=== PATIENT | male | born 1955 | race Caucasian/White ===

== ENCOUNTER 2016-03-01 14:52 | Emergency (ER) | payer MEDICARE, OTHER ==
[~2016-03-01] VITALS: Wt 76.5 kg
[~2016-03-01 14:52] MED LIST: AMLO-147 PO; ASPI-664 PO; CARV3.12 PO; DOCU-144 PO; FERR-55 PO; GABA300C PO; GLIP5TAB13 PO; NIT4 SL; OMEG100011 PO; SEVE800T7 PO; SITA25TA3 PO; VIT1TABL PO; ZOC20 PO
[2016-03-01 15:55] LABS: BASOPHILS % 0.2 % (0.0-2.0); EOSINOPHILS # 0.1 10^3/ul (0.0-0.5); EOSINOPHILS % 1.2 % (0.0-7.0); HEMATOCRIT 33.7 % (42.0-52.0); HEMOGLOBIN 11.6 g/dl (14.0-18.0); LYMPHOCYTES # 0.9 10^3/ul (0.8-2.9); MEAN CORPUSCULAR HEMOGLOBIN 32.4 pg (29.0-33.0); MEAN CORPUSCULAR HGB CONC 34.5 g/dl (32.0-37.0); MEAN CORPUSCULAR VOLUME 93.8 fl (82.0-101.0); MEAN PLATELET VOLUME 7.9 fl (7.4-10.4); MONOCYTE # 0.7 10^3/ul (0.3-0.9); MONOCYTES % 9.2 % (0.0-11.0); NEUTROPHIL # 5.9 10^3/ul (1.6-7.5); NEUTROPHILS % 77.4 % (39.0-77.0); PLATELET COUNT 191 10^3/UL (140-440); RED BLOOD COUNT 3.59 10^6/ul (4.70-6.10); RED CELL DISTRIBUTION WIDTH 13.8 % (11.5-14.5); UNCORRECTED WBC 7.7 10^3/ul (4.8-10.8); WHITE BLOOD COUNT 7.7 10^3/ul (4.8-10.8)
[2016-03-01 15:58] LABS: CONDITION 1
[2016-03-01 16:05] LABS: ALBUMIN 3.9 g/dl (3.3-4.9)
[2016-03-01 16:06] LABS: POTASSIUM 5.1 mmol/L (3.5-5.1)
[2016-03-01 16:08] LABS: CREATININE 8.65 mg/dl (0.61-1.24)
[2016-03-01 16:09] LABS: CALCIUM 8.3 mg/dl (8.4-10.2); TOTAL PROTEIN 7.8 g/dl (6.1-8.1)
--- NOTE | 2016-03-01 16:46 | RADRPT ---
PROCEDURE: XR Chest. CLINICAL INDICATION: Abdominal pain. TECHNIQUE: Single frontal view of the chest was obtained. COMPARISON: 12/24/2015. FINDINGS: There is cardiomegaly. There is calcification and slight unfolding of the thoracic aorta. Pulmonar y vasculature appears normal. Lung may are clear for focal airspace process. There is minimal d iscoid atelectasis at the left lung base. The costophrenic angles are well defined. There has been previous CABG. Osseous structures appear intact. IMPRESSION: 1. Cardiomegaly and aortic atherosclerosis. 2. Minimal left basilar subsegmental atelectasis. 3. No focal airspace process seen RPTAT: [facility] Physician Rosaura Date Time Electronically viewed and signed by Baudilio Darden Physician on 03/01/2016 16:46 /
--- NOTE | 2016-03-01 16:53 | ERD ---
ER Documentation Chief Complaint Date/Time DATE: 03/01/16 TIME: 16:51 Chief Complaint WEAKNESS, LOW BLOOD SUGAR AT HOME, DIALYSIS PT (136 MG/DL @ TRIAGE) HPI This is a 61-year-old male who presents to the emergency room for generalized weakness. This patient does state that he thinks he has high potassium. He does state he is on dialysis Wednesday, Wednesday, Wednesday. He states that he did go to his last dialysis on Wednesday. He states he is feeling generally weak, denies any nausea, vomiting, pain, or chest pain or dizziness. ROS All systems reviewed and are negative except as per history of present illness. Medications Home Meds Active Scripts Docusate Sodium* (Colace*) 100 Mg Capsule, 100 MG PO TID, #30 CAP Prov:TEDDY SANDOVAL 02/06/16 Gabapentin* (Neurontin*) 300 Mg Cap, 300 MG PO QHS, #30 CAP 1 Refill Prov:MERARY PULLIAM 09/08/15 Carvedilol* (Coreg*) 3.125 Mg Tab, 3.125 MG PO BID, #30 Prov:ANGIE FAJARDO MD 10/15/14 Reported Medications Amlodipine Besylate* (Amlodipine Besylate*) 10 Mg Tablet, 10 MG PO DAILY, #30 TAB 09/26/15 Glipizide* (Glipizide*) 5 Mg Tablet, 5 MG PO BID, TAB 05/22/15 Sevelamer Carbonate* (Renvela*) 800 Mg Tablet, 2400 MG PO WITH MEALS, TAB 10/14/14 Sitagliptin* (Januvia*) 25 Mg Tablet, 25 MG PO DAILY, TAB 10/14/14 [place]-3 Fatty Acids/Fish Oil* (Fish Oil *) 1,000 Mg Capsule, 1000 MG PO BID, CAP 10/14/14 Folic Acid/Vitamin B Comp W-C* (Nephro-Agatha Rx Tablet*) 1 Mg Tablet, 1 TAB PO DAILY, TAB 09/03/13 Nitroglycerin* (Nitrostat*) 0.4 Mg Tab.subl, 0.4 MG SL Q5MIN Y for CHEST PAIN, BOTTLE 09/03/13 Aspirin* (Aspirin* EC) 81 Mg Tablet.dr, 81 MG PO DAILY, TAB 09/03/13 Ferrous Sulfate* (Ferrous Sulfate*) 325 Mg Tablet, 325 MG PO DAILY 06/26/12 Simvastatin (Simvastatin) 20 Mg Tablet, 20 MG PO DAILY 12/07/10 Allergies Allergies: Coded Allergies: No Known Drug Allergies (Verified Allergy, Unknown, 03/01/16) PMhx/Soc History of Surgery: Yes (CABG, colon polyp removal, AV fistual) Anesthesia Reaction: No Hx Neurological Disorder: No Hx Respiratory Disorders: No Hx Cardiac Disorders: Yes (CAD, Hypertension) Hx Psychiatric Problems: Yes (Major Depression) Hx Miscellaneous Medical Probl: Yes (Hyperparathyroidism, ESRD on HD, Hyperlipidemia, DM TypeII, Prostate CA) Hx Alcohol Use: No Hx Substance Use: No Hx Tobacco Use: No Smoking Status: Never smoker Physical Exam Vitals Vital Signs Date Time Temp Pulse Resp B/P Pulse Ox O2 Delivery O2 Flow Rate FiO2 03/01/16 15:00 98.0 74 17 135/69 99 Physical Exam INITIAL VITAL SIGNS: Reviewed by me GENERAL: The patient is well developed and appropriate for usual state of health in no apparent distress HEENT: Pupils equal, round, and reactive to light. EOMI. There is no scleral icterus. NECK: C-spine is soft and supple, there is no meningismus. There is no cervical lymphadenopathy. LUNGS: Clear to auscultation bilaterally. There are no rales, wheezes or rhonchi. HEART: Regular rate and rhythm, no murmurs, clicks, rubs or gallops. ABDOMEN: Soft, non-tender, non-distended. There are bowel sounds in all four quadrants. No rebound or guarding. EXTREMITIES: There is no peripheral cyanosis or edema. No focal swelling or erythema. NEUROLOGICAL: The patient moves all four extremities with 5/5 strength. Cranial nerves II - XII are intact. Normal gait. Alert and oriented SKIN: AV shunt in left upper extremity, patent, palpable thrill, there is no apparent rash or petechiae. HEME/LYMPHATIC: There is no evidence of excessive bruising or lymphedema. PSYCHIATRIC: The patient does not appear anxious or depressed. Result Diagram: 03/01/16 1536 03/01/16 1536 Results 24 hrs Laboratory Tests Test 03/01/16 14:58 03/01/16 15:36 Bedside Glucose 136mg/dL Alanine Aminotransferase (ALT/SGPT) 37IU/L Albumin 3.9g/dl Albumin/Globulin Ratio 1.00 Alkaline Phosphatase 140IU/L Anion Gap 24 Aspartate Amino Transf (AST/SGOT) 25IU/L Basophils # 0.010^3/ul Basophils % 0.2% Blood Urea Nitrogen 79mg/dl Calcium Level 8.3mg/dl Carbon Dioxide Level 31mmol/L Chloride Level 91mmol/L Creatinine 8.65mg/dl Direct Bilirubin 0.00mg/dl Eosinophils # 0.110^3/ul Eosinophils % 1.2% Globulin 3.90g/dl Glucose Level 134mg/dl Hematocrit 33.7% Hemoglobin 11.6g/dl Indirect Bilirubin 0.0mg/dl Lipase 82U/L Lymphocytes # 0.910^3/ul Lymphocytes % 12.0% Mean Corpuscular Hemoglobin 32.4pg Mean Corpuscular Hemoglobin Concent 34.5g/dl Mean Corpuscular Volume 93.8fl Mean Platelet Volume 7.9fl Monocytes # 0.710^3/ul Monocytes % 9.2% Neutrophils # 5.910^3/ul Neutrophils % 77.4% Nucleated Red Blood Cells # 0.010^3/ul Nucleated Red Blood Cells % 0.0/100WBC Platelet Count 68462^3/UL Potassium Level 5.1mmol/L Red Blood Count 3.5910^6/ul Red Cell Distribution Width 13.8% Sodium Level 141mmol/L Total Bilirubin 0.0mg/dl Total Protein 7.8g/dl White Blood Count 7.710^3/ul Procedures/MDM EKG: Rate/Rhythm: [Normal Sinus Rhythm] QRS, ST, T-waves: [No changes consistent w/ acute ischemia] Impression: [No evidence of ischemia or arrhythmia] Chest X-ray 1V Interpreted by me: Soft Tissue: No acute abnormalities Bones: No acute abnormalities Mediastinum/Cardiac Silhouette/Lungs: [No acute abnormalities] This 61-year-old male presents to the ER for evaluation of generalized weakness. When I evaluated him he was hemodynamically stable, lab work was obtained including a chest x-ray. Lab work does not show any signs of hyperkalemia, he is at his baseline hemoglobin, no acute distress. Chest x-ray does not show any acute processes. This patient is likely suffering from viral syndrome. He will be discharged home at this time with instructions to follow- up with his dialysis appointment tomorrow as scheduled. Patient verbalized understanding and is okay with the plan of care. Departure Diagnosis: Primary Impression: Generalized weakness Additional Impressions: Normocytic anemia Viral syndrome Condition: Stable BERNADETTE MCCAIN DO Mar 01, 2016 16:53
[2016-03-01 17:07] VITALS: BP 125/55; PULSE 65; RESP 16; TEMP 98.5
== END 2016-03-01 17:07 | disposition home or self-care (01) ==
LOC: E/R 14:52
DX: R53.1 Weakness (principal); D64.9 Anemia, unspecified; B34.9 Viral infection, unspecified; E11.9 Type 2 diabetes mellitus without complications; I25.10 Atherosclerotic heart disease of native coronary artery without angina pectoris; I12.0 Hypertensive chronic kidney disease with stage 5 chronic kidney disease or end stage renal disease; N18.6 End stage renal disease; Z99.2 Dependence on renal dialysis; Z85.46 Personal history of malignant neoplasm of prostate; Z95.1 Presence of aortocoronary bypass graft; Z79.82 Long term (current) use of aspirin; Z79.84 Long term (current) use of oral hypoglycemic drugs
CPT/HCPCS: 36415; 71010; 80053; 82962; 83690; 85025; 93005

== ENCOUNTER 2016-04-23 14:34 | Inpatient (IN) | payer MEDICARE, OTHER ==
[~2016-04-23] VITALS: Ht 167.6 cm; Wt 75.0 kg
[2016-04-23] MEDS ORDERED: ONDANSETRON 4 MG INJ IV ONE (17:00)
[2016-04-23] MEDS ORDERED: HYDROmorphONE 2 MG/ML SYG IV ONE (17:00)
--- NOTE | 2016-04-23 17:59 | RADRPT ---
PROCEDURE: XR left ankle. CLINICAL INDICATION: Post traumatic left ankle pain TECHNIQUE: AP , oblique and lateral views of the left ankle were performed. COMPARISON: None. FINDINGS: There is normal mineralization and alignment. Abnormal spiral fracture through the distal fibula bel ow the syndesmosis is present without displacement of the fracture fragments. No additional fractur es are present. The ankle mortis and talar dome are intact. Diffuse soft tissue swelling over the la teral malleolus is noted. Extensive arteriosclerotic calcification is seen. There is no evidence fo r a radiopaque foreign body. RPTAT:HJJR IMPRESSION: 1. Acute, closed, nondisplaced distal fibula spiral fracture below the syndesmosis of the left ankle with overlying soft tissue swelling. 2. Extensive atherosclerotic calcification. Physician Joseluis Date Time Electronically viewed and signed by Physician Joseluis on 04/23/2016 17:59 /
--- NOTE | 2016-04-23 18:01 | RADRPT ---
PROCEDURE: XR Tibia and Fibula. CLINICAL INDICATION: Trauma TECHNIQUE: AP and lateral of the left tibia and fibula were obtained. COMPARISON: None available FINDINGS: There is normal mineralization and alignment. No fracture or osseous lesion is identified involving the proximal or mid tibia and fibula, for further information regarding the nondisplaced spiral frac ture of the distal fibula, please refer to the separate ankle report. Mild soft tissue swelling is p resent. Extensive atherosclerotic calcification is noted.. RPTAT:HJJR IMPRESSION: 1. No acute osseous abnormality of the proximal and mid left tibia and fibula. 2. For further information regarding the distal fibula spiral fracture, please refer to the separate ankle report. Physician Joseluis Date Time Electronically viewed and signed by Physician Joseluis on 04/23/2016 18:00 JR/
--- NOTE | 2016-04-23 18:23 | ERD ---
ER Documentation Chief Complaint Date/Time DATE: 04/23/16 TIME: 18:18 Chief Complaint LT LOWER LEG PAIN/SWELLING S/P FALL D/T DIZZINESS TODAY. DIALYSIS YESTERDAY HPI This is a 61-year-old male who was walking and accidentally stepped into a hole twisting his left ankle. He felt a pop in his distal lateral malleolus and has some pain in his midshaft fibula area. There is some ecchymosis. The pain is described as sharp worse with movement. The patient can stand but is painful and he says walking is worse. The pain is better with rest. No pain in the knee ROS All systems reviewed and are negative except as per history of present illness. Medications Home Meds Active Scripts Docusate Sodium* (Colace*) 100 Mg Capsule, 100 MG PO TID, #30 CAP Prov:TEDDY SANDOVAL 02/06/16 Gabapentin* (Neurontin*) 300 Mg Cap, 300 MG PO QHS, #30 CAP 1 Refill Prov:MERARY PULLIAM 09/08/15 Carvedilol* (Coreg*) 3.125 Mg Tab, 3.125 MG PO BID, #30 Prov:ANGIE FAJARDO MD 10/15/14 Reported Medications Amlodipine Besylate* (Amlodipine Besylate*) 10 Mg Tablet, 10 MG PO DAILY, #30 TAB 09/26/15 Glipizide* (Glipizide*) 5 Mg Tablet, 5 MG PO BID, TAB 05/22/15 Sevelamer Carbonate* (Renvela*) 800 Mg Tablet, 2400 MG PO WITH MEALS, TAB 10/14/14 Sitagliptin* (Januvia*) 25 Mg Tablet, 25 MG PO DAILY, TAB 10/14/14 [place]-3 Fatty Acids/Fish Oil* (Fish Oil *) 1,000 Mg Capsule, 1000 MG PO BID, CAP 10/14/14 Folic Acid/Vitamin B Comp W-C* (Nephro-Agatha Rx Tablet*) 1 Mg Tablet, 1 TAB PO DAILY, TAB 09/03/13 Nitroglycerin* (Nitrostat*) 0.4 Mg Tab.subl, 0.4 MG SL Q5MIN Y for CHEST PAIN, BOTTLE 09/03/13 Aspirin* (Aspirin* EC) 81 Mg Tablet.dr, 81 MG PO DAILY, TAB 09/03/13 Ferrous Sulfate* (Ferrous Sulfate*) 325 Mg Tablet, 325 MG PO DAILY 06/26/12 Simvastatin (Simvastatin) 20 Mg Tablet, 20 MG PO DAILY 12/07/10 Allergies Allergies: Coded Allergies: No Known Drug Allergies (Verified Allergy, Unknown, 03/01/16) PMhx/Soc History of Surgery: Yes (CABG, colon polyp removal, AV fistual) Anesthesia Reaction: No Hx Neurological Disorder: No Hx Respiratory Disorders: No Hx Cardiac Disorders: Yes (CAD, Hypertension) Hx Psychiatric Problems: Yes (Major Depression) Hx Miscellaneous Medical Probl: Yes (Hyperparathyroidism, ESRD on HD, Hyperlipidemia, DM TypeII, Prostate CA) Hx Alcohol Use: No Hx Substance Use: No Hx Tobacco Use: No Smoking Status: Never smoker FmHx Family History: No coronary disease Physical Exam Vitals Vital Signs Date Time Temp Pulse Resp B/P Pulse Ox O2 Delivery O2 Flow Rate FiO2 04/23/16 17:04 75 17 151/73 98 Room Air 04/23/16 15:01 98.4 75 16 162/82 98 Physical Exam Const: Well-developed, well-nourished Head: Atraumatic, normocephalic Eyes: Normal Conjunctiva, PERRLA, EOMI, normal sclera, no nystagmus ENT: Normal External Ears, Nose and Mouth, moist mucus membranes. Neck: Full range of motion. No meningismus, no lymphadenopathy. Resp: Clear to auscultation bilaterally, no wheezing, rhonchi, rales Cardio: Regular rate and rhythm, no murmurs, S1 S2 present Abd: Soft, non tender x 4, non distended. Normal bowel sounds, no guarding or rebound, no pulsitile abdominal masses or bruits Skin: No petechiae or rashes, no ecchymosis , no maculopapular rash Back: No midline or flank tenderness Ext: No cyanosis, or edema, FROM x 4, the left lateral malleolus is tender to palpation with ecchymosis and swelling there is also some midshaft fibula distal fibula tenderness with some ecchymosis and swelling no open wound. There is no pain at the proximal fibula. Neurovascularly intact x 4 Neur: Awake and alert, STR 5/5 x 4, sensation intact x 4, no focal findings, cerebellum intact Psych: Normal Mood and Affect Results 24 hrs Current Medications Medications (Trade) Dose Ordered Sig/Martín Route PRN Reason Start Time Stop Time Status Last Admin Dose Admin Hydromorphone HCl (Dilaudid) 1 mg ONCE ONCE IV 04/23/16 17:00 04/23/16 17:01 DC 04/23/16 17:00 Ondansetron HCl (Zofran Inj) 4 mg ONCE ONCE IV 04/23/16 17:00 04/23/16 17:01 DC 04/23/16 17:00 Procedures/MDM PROCEDURE: XR left ankle. CLINICAL INDICATION: Post traumatic left ankle pain TECHNIQUE: AP , oblique and lateral views of the left ankle were performed. COMPARISON: None. FINDINGS: There is normal mineralization and alignment. Abnormal spiral fracture through the distal fibula below the syndesmosis is present without displacement of the fracture fragments. No additional fractures are present. The ankle mortis and talar dome are intact. Diffuse soft tissue swelling over the lateral malleolus is noted. Extensive arteriosclerotic calcification is seen. There is no evidence for a radiopaque foreign body. RPTAT:HJJR IMPRESSION: 1. Acute, closed, nondisplaced distal fibula spiral fracture below the syndesmosis of the left ankle with overlying soft tissue swelling. 2. Extensive atherosclerotic calcification. Physician Joseluis Date Time Electronically viewed and signed by Physician Joseluis on 04/23/2016 17:59 JR/ CC: MELISSA DIETZ DO PROCEDURE: XR Tibia and Fibula. CLINICAL INDICATION: Trauma TECHNIQUE: AP and lateral of the left tibia and fibula were obtained. COMPARISON: None available FINDINGS: There is normal mineralization and alignment. No fracture or osseous lesion is identified involving the proximal or mid tibia and fibula, for further information regarding the nondisplaced spiral fracture of the distal fibula, please refer to the separate ankle report. Mild soft tissue swelling is present. Extensive atherosclerotic calcification is noted.. RPTAT:HJJR IMPRESSION: 1. No acute osseous abnormality of the proximal and mid left tibia and fibula. 2. For further information regarding the distal fibula spiral fracture, please refer to the separate ankle report. Russell Ulloa Physician Date Time Electronically viewed and signed by Russell Ulloa Physician on 04/23/2016 18:00 JR/ CC: MELISSA DIETZ DO Patient had crutches and a posterior leg left splint will follow up with orthopedic Departure Diagnosis: Primary Impression: Closed left fibular fracture Encounter type: initial encounter Fibula location: shaft Fracture morphology: spiral Fracture alignment: nondisplaced Qualified Code: S82.445A - Closed nondisplaced spiral fracture of shaft of left fibula, initial encounter Condition: Stable MELISSA DIETZ DO Apr 23, 2016 18:23
[2016-04-23] MEDS ORDERED: HYDR-902 PO (18:24)
[2016-04-23] MEDS ORDERED: ONDANSETRON 4 MG INJ IV STA ×2 (19:16→22:26)
[2016-04-23] MEDS ORDERED: HYDROmorphONE 1 MG/ML SYG IV STA ×2 (19:16→22:26)
[2016-04-23 19:57] LABS: POTASSIUM 4.6 mmol/L (3.5-5.1)
[2016-04-23 20:00] LABS: CREATININE 6.96 mg/dl (0.61-1.24)
[2016-04-23 20:01] LABS: CALCIUM 7.8 mg/dl (8.4-10.2)
[2016-04-23] MEDS ORDERED: NICARDipine HCL 30 MG CAPSULE PO ONE (21:00)
[2016-04-23] MEDS ORDERED: ONDANSETRON 4 MG INJ IV PRN (21:30)
[2016-04-23] MEDS ORDERED: ACETAMINOPHEN 325 MG TAB PO PRN (21:30)
[2016-04-23] MEDS ORDERED: hydrALAzine 20 MG INJ IV ONE ×2 (22:00→22:30)
[2016-04-23 23:15] VITALS: BP 200/97; PULSE 87; RESP 18
[2016-04-23 23:28] VITALS: Ht 167.6 cm; Wt 75.0 kg
[2016-04-23] MEDS ORDERED: LEVOFLOXACIN 500MG/D5W (PMX) 100 ML IVPB ONE (23:30)
[2016-04-23] MEDS: morphine 4 MG/ML VIAL IV PRN (23:44)
[2016-04-24] VITALS (12 sets, daily range): BP systolic 136–224; BP diastolic 69–117; PULSE 80–92; RESP 18–20
[2016-04-24] MEDS: HYDROCODONE/APAP (10/325) TAB PO PRN ×4 (00:05→21:05)
[2016-04-24] MEDS ORDERED: GLUCAGON 1 MG INJ IM PRN (01:30)
[2016-04-24] MEDS ORDERED: DEXTROSE 50% 50 ML SYRINGE IV PRN ×2 (01:30)
[2016-04-24] MEDS ORDERED: GLUCOSE GEL 15 GRAM TUBE BUCCAL PRN (01:30)
[2016-04-24] MEDS ORDERED: GLUCOSE GEL 15 GRAM TUBE PO PRN ×2 (01:30)
[2016-04-24] MEDS: ACCUCHECK XX SCH ×5 (02:00→21:09)
[2016-04-24] MEDS: morphine 4 MG/ML VIAL IV PRN (02:58)
[2016-04-24] MEDS ORDERED: HYDROmorphONE 1 MG/ML SYG IV ONE (04:11)
[2016-04-24] MEDS ORDERED: KETOROLAC 15 MG INJ IV PRN (04:30)
[2016-04-24] MEDS ORDERED: morphine 4 MG/ML VIAL IV PRN (04:30)
[2016-04-24 05:25] LABS: ADD SCAN DIFF NO
[2016-04-24 05:47] LABS: BASOPHILS % 0.4 % (0.0-2.0); EOSINOPHILS # 0.1 10^3/ul (0.0-0.5); EOSINOPHILS % 1.3 % (0.0-7.0); HEMATOCRIT 32.9 % (42.0-52.0); HEMOGLOBIN 10.6 g/dl (14.0-18.0); LYMPHOCYTES # 1.5 10^3/ul (0.8-2.9); LYMPHOCYTES % 15.9 % (15.0-51.0); MEAN CORPUSCULAR HEMOGLOBIN 31.6 pg (29.0-33.0); MEAN CORPUSCULAR HGB CONC 32.2 g/dl (32.0-37.0); MEAN CORPUSCULAR VOLUME 98.2 fl (82.0-101.0); MEAN PLATELET VOLUME 9.9 fl (7.4-10.4); MONOCYTE # 1.1 10^3/ul (0.3-0.9); MONOCYTES % 11.1 % (0.0-11.0); NEUTROPHIL # 6.7 10^3/ul (1.6-7.5); NEUTROPHILS % 70.7 % (39.0-77.0); PLATELET COUNT 199 10^3/UL (140-415); RED BLOOD COUNT 3.35 10^6/ul (4.70-6.10); RED CELL DISTRIBUTION WIDTH 14.8 % (11.5-14.5); WHITE BLOOD COUNT 9.5 10^3/ul (4.8-10.8)
[2016-04-24 06:07] LABS: ALBUMIN/GLOBULIN RATIO 0.97; CREATININE 7.36 mg/dl (0.61-1.24); TOTAL PROTEIN 8.1 g/dl (6.1-8.1)
[2016-04-24 06:08] LABS: CALCIUM 8.1 mg/dl (8.4-10.2)
[2016-04-24] MEDS: INSULIN ASPART [NOVOLOG] 3 ML PEN SC SCH ×4 (07:50→21:00)
[2016-04-24] MEDS ORDERED: hydrALAzine 20 MG INJ IV ONE (08:00)
[2016-04-24] MEDS ORDERED: hydrALAzine 20 MG INJ IV PRN (08:00)
[2016-04-24] MEDS: AMLODIPINE 10 MG TAB PO SCH (08:45)
[2016-04-24] MEDS: SEVELAMER 800 MG TAB PO SCH ×3 (08:45→17:35)
[2016-04-24] MEDS: FOLIC ACID 1 MG TAB PO SCH (08:45)
[2016-04-24] MEDS: ASPIRIN (EC) 81 MG TAB PO SCH (08:46)
[2016-04-24] MEDS: DOCUSATE SODIUM 100 MG CAP PO SCH ×3 (08:46→20:53)
[2016-04-24] MEDS: FERROUS SULFATE (EC) 325 MG TAB PO SCH (08:46)
--- NOTE | 2016-04-24 12:22 | CONS ---
DATE OF ADMISSION: 04/23/2016 DATE OF CONSULTATION: 04/24/2016 Thank you, Dr. Espinosa for asking me to participate in the medical management of this patient. REASON FOR CONSULTATION: End-stage renal disease. HISTORY OF PRESENT ILLNESS: This 61-year-old man was in his usual state of health until yesterday w hen he was walking and stepped into a hole in the pavement and twisting his left ankle. He was foun d to have an acute closed nondisplaced distal fibular spiral fracture. The patient was admitted for further evaluation and treatment. The patient does have a history of end-stage renal disease and i s on maintenance hemodialysis Wednesday, Wednesday, Wednesday. He is due for dialysis today being Wednesday. The patient usually dialyzes at the [facility] unit in [place]. 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 Dr. Valdes does not come to this hospital. The patient was last admitted to this hospital in August of 2015 because of chest pain. PAST MEDICAL HISTORY: End-stage renal disease on maintenance hemodialysis, hyperlipidemia, history of CVA, diabetes mellitus, coronary artery disease, degenerative joint disease. The patient does hav e hypertension. PAST SURGICAL HISTORY: Status post coronary artery bypass grafting in 2008, status post bowel resec tion, status post cholecystectomy. ALLERGIES: THE PATIENT HAS NO KNOWN DRUG ALLERGIES. SOCIAL HISTORY: He does not smoke, drink alcohol or take illicit drugs. FAMILY HISTORY: Unremarkable for kidney disease or heart disease. CURRENT MEDICATIONS: Include the followin. Levothyroxine. 2. Gabapentin 300 mg at bedtime. 3. Carvedilol 3.125 mg twice a day. 4. Docusate sodium 3 times a day. 5. Ferrous sulfate 325 daily. 6. Aspirin 81 mg a day. 7. Folic acid 1 mg a day. 8. Amlodipine 10 mg a day. 9. Hydralazine 10 mg p.r.n. elevated blood pressure. 10. Renagel 1600 mg with meals. 11. Sliding scale insulin. 12. Humalog. 13. Morphine for pain. 14. Toradol for pain. 15. [place] for pain. REVIEW OF SYSTEMS: The patient does have some vague right-sided chest pain and says that he someti mes has blood in his stool. I looked through his old records in the [facility] and he did have an episode of some rectal bleeding. At the time he was seen in the emergency room, he w as diagnosed as having hemorrhoids. PHYSICAL EXAMINATION: GENERAL: At this time reveals a well-developed man in no apparent distress. VITAL SIGNS: His blood pressure is 209/91. HEAD: Normocephalic. EYES: Extraocular muscles intact. NOSE AND MOUTH: Normal. NECK: Supple. No neck vein distention. LUNGS: Clear to auscultation. HEART: Regular rhythm. No murmurs, gallops or rubs. There is a well-healed midline chest scar. ABDOMEN: Soft, nontender, no masses or megaly. EXTREMITIES: No peripheral edema. He has a left upper arm AV fistula which is used for hemodialysi s. IMPRESSION: This patient presents now with a history of end-stage renal disease and is on [facility] hemodialysis Wednesday, Wednesday, Wednesday. He is due for dialysis today being Wednesday. He did fract ure his left fibula. He was admitted because of the left fibular fracture and having difficulty wal lester. LABORATORY DATA: Show that he is anemic and his potassium is 5.0 with a BUN of 51, creatinine 7.36, all consistent with his end-stage renal disease. PLAN: 1. Hemodialysis ordered for today. 2. Resume routine medications. 3. Control blood pressure with medications as needed. 4. I will follow the patient along with you. Dictated By: JOHN WORRELL MD, ND/ERIK Conf#: [id number] DID#: [id number]
--- NOTE | 2016-04-24 13:05 | PN ---
DATE: 04/24/2016 SUBJECTIVE: The patient is still having some lower extremity pain. Was seen by renal team eamon wolfe. OBJECTIVE: VITAL SIGNS: Stable except the blood pressure is 168 to 209 systolic over ____ to 91 diastolic. PHYSICAL EXAMINATION: GENERAL: The patient lying in bed, answering questions appropriately, in mild distress secondary to pain, but alert. HEENT: Pupils equal, round, react to light. Extraocular muscles intact. NECK: Supple, no thyromegaly. LUNGS: Clear to auscultation bilaterally. CARDIOVASCULAR: S1, S2 heard. No rubs or gallops. ABDOMEN: Soft, nontender, nondistended. Normal bowel sounds. No rebound or guarding. MUSCULOSKELETAL: He has a bandage over the left lower extremity, tenderness to palpation in the lef t lower extremity area. Otherwise, no lower extremity edema bilaterally. NEUROLOGIC: No focal deficits. LABORATORY DATA: CBC is normal. The basic metabolic panel is normal except the BUN IS ____and crea tinine IS 7.36. LFTs are essentially normal except alkaline phosphatase is 191. ASSESSMENT AND PLAN: 1. A 61-year-old male with history of end-stage renal disease who presents with left distal fibula spiral fractures. 2. Left ankle pain secondary to a left distal fibular fracture, spiral. Continue pain control medi cations and antiemetics. We will get an orthopedic consult as well. Most likely the patient will j ust need a brace. We will follow up their recommendations. 3. End-stage renal disease, on dialysis. Will get a renal consult scheduled for hemodialysis today . 4. Hypertensive urgency. Again, continue on current Coreg and calcium channel dianne medicines as well as hydralazine p.r.n. 5. Gastrointestinal prophylaxis. 6. Deep venous thrombosis prophylaxis. ____. Dictated By: LUZ ELENA HDEZ Conf#: [id number] DID#: [id number]
[2016-04-24] MEDS: ONDANSETRON 4 MG INJ IV PRN ×2 (17:35→22:49)
[2016-04-24] MEDS: GABAPENTIN 300 MG CAP GTB SCH (20:53)
[2016-04-24] MEDS: HEPARIN 5,000 UNIT/0.5 ML SYG SC SCH (21:01)
[2016-04-25] MEDS: ACCUCHECK XX SCH ×6 (02:00→21:21)
[2016-04-25 05:08] LABS: ADD SCAN DIFF NO
[2016-04-25 05:22] LABS: BASOPHILS % 0.5 % (0.0-2.0); EOSINOPHILS # 0.2 10^3/ul (0.0-0.5); EOSINOPHILS % 2.1 % (0.0-7.0); LYMPHOCYTES # 1.1 10^3/ul (0.8-2.9); LYMPHOCYTES % 13.2 % (15.0-51.0); MEAN CORPUSCULAR HEMOGLOBIN 32.4 pg (29.0-33.0); MEAN CORPUSCULAR HGB CONC 33.3 g/dl (32.0-37.0); MEAN CORPUSCULAR VOLUME 97.1 fl (82.0-101.0); MEAN PLATELET VOLUME 9.8 fl (7.4-10.4); MONOCYTE # 0.9 10^3/ul (0.3-0.9); MONOCYTES % 11.3 % (0.0-11.0); NEUTROPHIL # 5.8 10^3/ul (1.6-7.5); NEUTROPHILS % 72.5 % (39.0-77.0); PLATELET COUNT 202 10^3/UL (140-415); RED CELL DISTRIBUTION WIDTH 14.8 % (11.5-14.5)
[2016-04-25 06:15] LABS: POTASSIUM 4.6 mmol/L (3.5-5.1)
[2016-04-25 06:18] LABS: CREATININE 6.93 mg/dl (0.61-1.24)
[2016-04-25 06:19] LABS: CALCIUM 8.6 mg/dl (8.4-10.2)
[2016-04-25] MEDS: PANTOPRAZOLE (EC) 40 MG TAB PO SCH (06:29)
[2016-04-25 07:15] VITALS: BP 168/77; RESP 20
[2016-04-25] MEDS: INSULIN ASPART [NOVOLOG] 3 ML PEN SC SCH ×4 (07:50→21:00)
[2016-04-25] MEDS: DOCUSATE SODIUM 100 MG CAP PO SCH ×3 (09:11→20:38)
[2016-04-25] MEDS: FERROUS SULFATE (EC) 325 MG TAB PO SCH (09:12)
[2016-04-25] MEDS: ASPIRIN (EC) 81 MG TAB PO SCH (09:12)
[2016-04-25] MEDS: FOLIC ACID 1 MG TAB PO SCH (09:12)
[2016-04-25] MEDS: SEVELAMER 800 MG TAB PO SCH ×3 (09:12→17:35)
[2016-04-25] MEDS: AMLODIPINE 10 MG TAB PO SCH (09:13)
[2016-04-25] MEDS: HEPARIN 5,000 UNIT/0.5 ML SYG SC SCH ×2 (09:16→20:44)
--- NOTE | 2016-04-25 12:06 | PN ---
Date/Time of Note Date/Time of Note DATE: 04/25/16 TIME: 11:45 Assessment/Plan VTE Prophylaxis VTE Prophylaxis Intervention: heparin Lines/Catheters IV Catheter Type (from Nrs): Saline Lock Assessment/Plan Chief Complaint/Hosp Course ASSESSMENT AND PLAN: 61-year-old male with history of end-stage renal disease who presents with left distal fibula spiral fracture. 1. Left ankle pain secondary to a left distal fibular fracture, spiral. - Continue pain control medications and antiemetics. - per orthopedic consult, needs brace - ordered - pending. 3. End-stage renal disease, on dialysis - s/p HD yesterday - f/u renal consult rec's, continue meds. 4. Hypertensive urgency - stable - continue Coreg and calcium channel dianne medicines as well as hydralazine p.r.n. 5. Gastrointestinal prophylaxis - PPI Problems: Subjective 24 Hr Interval Summary Free Text/Dictation Awaiting brace for LLE, had HD yesterday. Exam/Review of Systems Vital Signs Vitals Vital Signs Date Time Temp Pulse Resp B/P Pulse Ox O2 Delivery O2 Flow Rate FiO2 04/25/16 07:15 97.8 70 20 168/77 98 04/24/16 03:00 Room Air Intake and Output 04/24/16 04/24/16 04/25/16 15:00 23:00 07:00 Intake Total 500 ml 200 ml Output Total 3500 ml Balance -3000 ml 200 ml Exam GENERAL: The patient lying in bed, answering questions appropriately, in mild distress secondary to pain, but alert. HEENT: Pupils equal, round, react to light. Extraocular muscles intact. NECK: Supple, no thyromegaly. LUNGS: Clear to auscultation bilaterally. CARDIOVASCULAR: S1, S2 heard. No rubs or gallops. ABDOMEN: Soft, nontender, nondistended. Normal bowel sounds. No rebound or guarding. MUSCULOSKELETAL: He has a bandage over the left lower extremity, tenderness to palpation in the left lower extremity area. Otherwise, no lower extremity edema bilaterally. NEUROLOGIC: No focal deficits. Results Result Diagram: 04/25/16 0418 04/25/16 0418 Results 24 hrs Laboratory Tests Test 04/24/16 11:50 04/24/16 17:39 04/24/16 20:51 04/25/16 04:18 Bedside Glucose 125 182 173 Anion Gap 21 H Basophils # 0.0 Basophils % 0.5 Blood Urea Nitrogen 48 H Calcium Level 8.6 Carbon Dioxide Level 31 Chloride Level 93 L Creatinine 6.93 H Eosinophils # 0.2 Eosinophils % 2.1 Glucose Level 97 Hematocrit 33.0 L Hemoglobin 11.0 L Lymphocytes # 1.1 Lymphocytes % 13.2 L Mean Corpuscular Hemoglobin 32.4 Mean Corpuscular Hemoglobin Concent 33.3 Mean Corpuscular Volume 97.1 Mean Platelet Volume 9.8 Monocytes # 0.9 Monocytes % 11.3 H Neutrophils # 5.8 Neutrophils % 72.5 Nucleated Red Blood Cells # 0.0 Nucleated Red Blood Cells % 0.0 Platelet Count 202 Potassium Level 4.6 Red Blood Count 3.40 L Red Cell Distribution Width 14.8 H Sodium Level 140 White Blood Count 8.0 Test 04/25/16 07:55 Bedside Glucose 108 Medications Medications Current Medications Carvedilol (Coreg) 3.125 mg BID PO Last administered on 04/25/16 09:13; Admin Dose 3.125 MG; Start 04/24/16 at 09:00 Gabapentin (Neurontin) 300 mg HS GTB Last administered on 04/24/16 20:53; Admin Dose 300 MG; Start 04/24/16 at 21:00 Docusate Sodium (Colace) 100 mg TID PO Last administered on 04/25/16 09:11; Admin Dose 100 MG; Start 04/24/16 at 09:00 Acetaminophen/ Hydrocodone Bitart ([place] (10/325)) 1 tab Q6H PRN PO PAIN LEVEL 7-10 Last administered on 04/24/16 21:05; Admin Dose 1 TAB; Start 04/23/16 at 23: 30 Ferrous Sulfate (Ferrous Sulfate (Ec)) 325 mg DAILY PO Last administered on 04/25 09:12; Admin Dose 325 MG; Start 04/24/16 at 09:00 Aspirin (Halfprin) 81 mg DAILY PO Last administered on 04/25/16 09:12; Admin Dose 81 MG; Start 04/24/16 at 09:00 Folic Acid (Folic Acid) 1 mg DAILY PO Last administered on 04/25/16 09:12; Admin Dose 1 MG; Start 04/24/16 at 09:00 Amlodipine Besylate 10 mg 10 mg DAILY PO Last administered on 04/25/16 09:13; Admin Dose 10 MG; Start 04/24/16 at 09:00 Levofloxacin/ Dextrose (Levaquin 250 Mg/ D5W 50 ml (Pmx)) 50 ml @ 50 mls/hr Q48H IVPB ; Start 04/25/16 at 23:30 Diagnostic Test (Pha) (Accucheck) 1 ea 02 XX Last administered on 04/24/16 02: 00; Admin Dose 1 EA; Start 04/24/16 at 02:00 Miscellaneous Information 1 ea NOTE XX ; Start 04/24/16 at 01:30 Glucose (Glutose) 15 gm Q15M PRN PO DECREASED GLUCOSE; Start 04/24/16 at 01:30 Glucose (Glutose) 22.5 gm Q15M PRN PO DECREASED GLUCOSE; Start 04/24/16 at 01:30 Dextrose (D50w Syringe) 25 ml Q15M PRN IV DECREASED GLUCOSE; Start 04/24/16 at 01:30 Dextrose (D50w Syringe) 50 ml Q15M PRN IV DECREASED GLUCOSE; Start 04/24/16 at 01:30 Glucagon (Glucagen) 1 mg Q15M PRN IM DECREASED GLUCOSE; Start 04/24/16 at 01:30 Glucose (Glutose) 15 gm Q15M PRN BUCCAL DECREASED GLUCOSE; Start 04/24/16 at 01: 30 Influenza Virus Vaccine (Fluzone) 0.5 ml ONCE ONCE IM* ; Start 04/26/16 at 09:00 ; Stop 04/26/16 at 09:01 Morphine Sulfate (morphine) 4 mg Q4H PRN IV PAIN LEVEL 7-10 Last administered on 04/24/16 07:35; Admin Dose 4 MG; Start 04/24/16 at 04:30 Ketorolac Tromethamine (Toradol) 15 mg Q6H PRN IV PAIN; Start 04/24/16 at 04:30 ; Stop 04/27/16 at 04:29 Hydralazine HCl (Apresoline) 10 mg Q4H PRN IV SBP GREATER THAN 160; Start at 08:00 Pantoprazole (Protonix Tab) 40 mg DAILY@06 PO Last administered on 04/25/16 06: 29; Admin Dose 40 MG; Start 04/25/16 at 06:00 Heparin Sodium (Porcine) (Heparin (5000 Units/0.5 ml)) 5,000 unit BID SC Last administered on 04/25/16 09:16; Admin Dose 5,000 UNIT; Start 04/24/16 at 21:00 Ondansetron HCl (Zofran Inj) 4 mg Q6H PRN IV NAUSEA AND/OR VOMITING Last administered on 04/24/16 22:49; Admin Dose 4 MG; Start 04/24/16 at 17:30 LUZ ELENA GONZALEZ Apr 25, 2016 11:55
--- NOTE | 2016-04-25 14:43 | CONS ---
Date/Time of Note Date/Time of Note DATE: 04/25/16 TIME: 14:40 Assessment/Plan Assessment/Plan Additional Assessment/Plan # ESDR - s/p dialysis yesterday, tolerated well. Next will be in 2 days # Ankle fracture. # HTN controlled Consultation Date/Type/Reason Admit Date/Time Apr 24, 2016 at 13:54 Initial Consult Date Type of Consultation: Nephrology 24 HR Interval Summary Free Text/Dictation Alert, no complaints Exam/Review of Systems Vital Signs Vitals Vital Signs Date Time Temp Pulse Resp B/P Pulse Ox O2 Delivery O2 Flow Rate FiO2 04/25/16 07:15 97.8 70 20 168/77 98 04/24/16 03:00 Room Air Intake and Output 04/24/16 04/24/16 04/25/16 15:00 23:00 07:00 Intake Total 500 ml 200 ml Output Total 3500 ml Balance -3000 ml 200 ml Exam Constitutional: alert, oriented Head: atraumatic, normocephalic Neck: supple, No jvd Cardiovascular: regular rate and rhythm Gastrointestinal: non-tender, soft Extremities: No edema Results Result Diagram: 04/25/16 0418 04/25/16 0418 Results 24 hrs Laboratory Tests Test 04/24/16 17:39 04/24/16 20:51 04/25/16 04:18 04/25/16 07:55 Bedside Glucose 182 173 108 Anion Gap 21 H Basophils # 0.0 Basophils % 0.5 Blood Urea Nitrogen 48 H Calcium Level 8.6 Carbon Dioxide Level 31 Chloride Level 93 L Creatinine 6.93 H Eosinophils # 0.2 Eosinophils % 2.1 Glucose Level 97 Hematocrit 33.0 L Hemoglobin 11.0 L Lymphocytes # 1.1 Lymphocytes % 13.2 L Mean Corpuscular Hemoglobin 32.4 Mean Corpuscular Hemoglobin Concent 33.3 Mean Corpuscular Volume 97.1 Mean Platelet Volume 9.8 Monocytes # 0.9 Monocytes % 11.3 H Neutrophils # 5.8 Neutrophils % 72.5 Nucleated Red Blood Cells # 0.0 Nucleated Red Blood Cells % 0.0 Platelet Count 202 Potassium Level 4.6 Red Blood Count 3.40 L Red Cell Distribution Width 14.8 H Sodium Level 140 White Blood Count 8.0 Test 04/25/16 11:51 Bedside Glucose 151 Medications Medications Current Medications Carvedilol (Coreg) 3.125 mg BID PO Last administered on 04/25/16 09:13; Admin Dose 3.125 MG; Start 04/24/16 at 09:00 Gabapentin (Neurontin) 300 mg HS GTB Last administered on 04/24/16 20:53; Admin Dose 300 MG; Start 04/24/16 at 21:00 Docusate Sodium (Colace) 100 mg TID PO Last administered on 04/25/16 13:54; Admin Dose 100 MG; Start 04/24/16 at 09:00 Acetaminophen/ Hydrocodone Bitart ([place] (10/325)) 1 tab Q6H PRN PO PAIN LEVEL 7-10 Last administered on 04/24/16 21:05; Admin Dose 1 TAB; Start 04/23/16 at 23: 30 Ferrous Sulfate (Ferrous Sulfate (Ec)) 325 mg DAILY PO Last administered on 04/25 09:12; Admin Dose 325 MG; Start 04/24/16 at 09:00 Aspirin (Halfprin) 81 mg DAILY PO Last administered on 04/25/16 09:12; Admin Dose 81 MG; Start 04/24/16 at 09:00 Folic Acid (Folic Acid) 1 mg DAILY PO Last administered on 04/25/16 09:12; Admin Dose 1 MG; Start 04/24/16 at 09:00 Amlodipine Besylate 10 mg 10 mg DAILY PO Last administered on 04/25/16 09:13; Admin Dose 10 MG; Start 04/24/16 at 09:00 Levofloxacin/ Dextrose (Levaquin 250 Mg/ D5W 50 ml (Pmx)) 50 ml @ 50 mls/hr Q48H IVPB ; Start 04/25/16 at 23:30 Diagnostic Test (Pha) (Accucheck) 1 ea 02 XX Last administered on 04/24/16 02: 00; Admin Dose 1 EA; Start 04/24/16 at 02:00 Miscellaneous Information 1 ea NOTE XX ; Start 04/24/16 at 01:30 Glucose (Glutose) 15 gm Q15M PRN PO DECREASED GLUCOSE; Start 04/24/16 at 01:30 Glucose (Glutose) 22.5 gm Q15M PRN PO DECREASED GLUCOSE; Start 04/24/16 at 01:30 Dextrose (D50w Syringe) 25 ml Q15M PRN IV DECREASED GLUCOSE; Start 04/24/16 at 01:30 Dextrose (D50w Syringe) 50 ml Q15M PRN IV DECREASED GLUCOSE; Start 04/24/16 at 01:30 Glucagon (Glucagen) 1 mg Q15M PRN IM DECREASED GLUCOSE; Start 04/24/16 at 01:30 Glucose (Glutose) 15 gm Q15M PRN BUCCAL DECREASED GLUCOSE; Start 04/24/16 at 01: 30 Influenza Virus Vaccine (Fluzone) 0.5 ml ONCE ONCE IM* ; Start 04/26/16 at 09:00 ; Stop 04/26/16 at 09:01 Morphine Sulfate (morphine) 4 mg Q4H PRN IV PAIN LEVEL 7-10 Last administered on 04/24/16 07:35; Admin Dose 4 MG; Start 04/24/16 at 04:30 Ketorolac Tromethamine (Toradol) 15 mg Q6H PRN IV PAIN; Start 04/24/16 at 04:30 ; Stop 04/27/16 at 04:29 Hydralazine HCl (Apresoline) 10 mg Q4H PRN IV SBP GREATER THAN 160; Start at 08:00 Pantoprazole (Protonix Tab) 40 mg DAILY@06 PO Last administered on 04/25/16 06: 29; Admin Dose 40 MG; Start 04/25/16 at 06:00 Heparin Sodium (Porcine) (Heparin (5000 Units/0.5 ml)) 5,000 unit BID SC Last administered on 04/25/16 09:16; Admin Dose 5,000 UNIT; Start 04/24/16 at 21:00 Ondansetron HCl (Zofran Inj) 4 mg Q6H PRN IV NAUSEA AND/OR VOMITING Last administered on 04/24/16 22:49; Admin Dose 4 MG; Start 04/24/16 at 17:30 DARYL SMALL MD Apr 25, 2016 14:42
[2016-04-25 16:28] LABS: ALBUMIN 3.9 g/dl (3.3-4.9)
[2016-04-25 16:30] LABS: CREATININE 7.93 mg/dl (0.61-1.24)
[2016-04-25 16:31] LABS: CALCIUM 8.3 mg/dl (8.4-10.2); TOTAL PROTEIN 7.8 g/dl (6.1-8.1)
[2016-04-25] MEDS: HYDROCODONE/APAP (10/325) TAB PO PRN (18:55)
[2016-04-25 19:00] VITALS: BP 160/77; RESP 19
[2016-04-25] MEDS: GABAPENTIN 300 MG CAP GTB SCH (20:38)
[2016-04-25] MEDS ORDERED: LEVOFLOXACIN 250MG/D5W (PMX) 50 ML IVPB SCH (23:30)
[2016-04-26 06:02] LABS: ADD SCAN DIFF NO
[2016-04-26 06:22] LABS: BASOPHILS % 0.4 % (0.0-2.0); EOSINOPHILS # 0.2 10^3/ul (0.0-0.5); EOSINOPHILS % 2.5 % (0.0-7.0); HEMATOCRIT 32.6 % (42.0-52.0); HEMOGLOBIN 10.7 g/dl (14.0-18.0); LYMPHOCYTES % 13.1 % (15.0-51.0); MEAN CORPUSCULAR HEMOGLOBIN 31.8 pg (29.0-33.0); MEAN CORPUSCULAR HGB CONC 32.8 g/dl (32.0-37.0); MEAN CORPUSCULAR VOLUME 96.7 fl (82.0-101.0); MEAN PLATELET VOLUME 9.7 fl (7.4-10.4); MONOCYTE # 0.7 10^3/ul (0.3-0.9); MONOCYTES % 9.4 % (0.0-11.0); NEUTROPHIL # 5.7 10^3/ul (1.6-7.5); NEUTROPHILS % 74.2 % (39.0-77.0); PLATELET COUNT 188 10^3/UL (140-415); RED BLOOD COUNT 3.37 10^6/ul (4.70-6.10); RED CELL DISTRIBUTION WIDTH 14.6 % (11.5-14.5); WHITE BLOOD COUNT 7.7 10^3/ul (4.8-10.8)
[2016-04-26] MEDS: PANTOPRAZOLE (EC) 40 MG TAB PO SCH (06:23)
[2016-04-26 06:57] LABS: POTASSIUM 5.3 mmol/L (3.5-5.1)
[2016-04-26 06:59] LABS: CREATININE 9.31 mg/dl (0.61-1.24)
[2016-04-26 07:00] LABS: CALCIUM 7.9 mg/dl (8.4-10.2)
[2016-04-26 07:37] VITALS: BP 159/71; RESP 18
[2016-04-26] MEDS: INSULIN ASPART [NOVOLOG] 3 ML PEN SC SCH ×2 (07:50→11:40)
[2016-04-26] MEDS: ACCUCHECK XX SCH ×2 (08:17→11:38)
[2016-04-26] MEDS ORDERED: INFLUENZA VIRUS VACCINE 0.5 ML (DISPENSING) IM* ONE (09:00)
[2016-04-26] MEDS: ASPIRIN (EC) 81 MG TAB PO SCH (09:09)
[2016-04-26] MEDS: DOCUSATE SODIUM 100 MG CAP PO SCH ×2 (09:10→13:49)
[2016-04-26] MEDS: SEVELAMER 800 MG TAB PO SCH ×2 (09:10→13:49)
[2016-04-26] MEDS: AMLODIPINE 10 MG TAB PO SCH (09:11)
[2016-04-26] MEDS: FOLIC ACID 1 MG TAB PO SCH (09:11)
[2016-04-26] MEDS: FERROUS SULFATE (EC) 325 MG TAB PO SCH (09:11)
[2016-04-26] MEDS: HEPARIN 5,000 UNIT/0.5 ML SYG SC SCH (09:12)
--- NOTE | 2016-04-26 09:37 | PN ---
Date/Time of Note Date/Time of Note DATE: 04/26/16 TIME: 09:32 Assessment/Plan VTE Prophylaxis VTE Prophylaxis Intervention: SCD's Lines/Catheters IV Catheter Type (from Nrsg): Saline Lock Assessment/Plan Assessment/Plan 1. Left ankle pain secondary to a left distal fibular fracture, spiral. - Continue pain control medications and antiemetics. - per orthopedic consult, needs brace - ordered - pending. 3. End-stage renal disease, on dialysis - s/p HD yesterday - Being followed by Nephrology 4. HTN - not at goal - Will increase Coreg to 6.25 BID and continue Norvascand PRN hydralazine Subjective 24 Hr Interval Summary Free Text/Dictation c/o intermittent hip pain Exam/Review of Systems Vital Signs Vitals Vital Signs Date Time Temp Pulse Resp B/P Pulse Ox O2 Delivery O2 Flow Rate FiO2 04/26/16 07:37 98.1 71 18 159/71 95 04/24/16 03:00 Room Air Intake and Output 04/25/16 04/25/16 04/26/16 15:00 23:00 07:00 Intake Total 600 ml 250 ml Balance 600 ml 250 ml Exam Constitutional: alert, oriented, well developed Head: atraumatic, normocephalic Eyes: EOMI, PERRL Respiratory: clear to auscultation, normal air movement Cardiovascular: regular rate and rhythm Gastrointestinal: non-tender, soft Extremities: normal pulses Results Result Diagram: 04/26/16 0426 04/26/16 0426 Results 24 hrs Laboratory Tests Test 04/25/16 11:51 04/25/16 15:30 04/25/16 16:57 04/25/16 20:47 Bedside Glucose 151 156 149 Alanine Aminotransferase (ALT/SGPT) 35 Albumin 3.9 Albumin/Globulin Ratio 1.00 Alkaline Phosphatase 169 H Anion Gap 26 H Aspartate Amino Transf (AST/SGOT) 23 Blood Urea Nitrogen 57 H Calcium Level 8.3 L Carbon Dioxide Level 25 Chloride Level 91 L Creatinine 7.93 H Direct Bilirubin 0.00 Globulin 3.90 H Glucose Level 203 # Indirect Bilirubin 0.0 Potassium Level 5.0 Sodium Level 137 Total Bilirubin 0.0 L Total Protein 7.8 Test 04/26/16 04:26 04/26/16 08:00 Anion Gap 24 H Basophils # 0.0 Basophils % 0.4 Blood Urea Nitrogen 72 H Calcium Level 7.9 L Carbon Dioxide Level 24 Chloride Level 94 L Creatinine 9.31 H Eosinophils # 0.2 Eosinophils % 2.5 Glucose Level 104 # Hematocrit 32.6 L Hemoglobin 10.7 L Lymphocytes # 1.0 Lymphocytes % 13.1 L Mean Corpuscular Hemoglobin 31.8 Mean Corpuscular Hemoglobin Concent 32.8 Mean Corpuscular Volume 96.7 Mean Platelet Volume 9.7 Monocytes # 0.7 Monocytes % 9.4 Neutrophils # 5.7 Neutrophils % 74.2 Nucleated Red Blood Cells # 0.0 Nucleated Red Blood Cells % 0.0 Platelet Count 188 Potassium Level 5.3 H Red Blood Count 3.37 L Red Cell Distribution Width 14.6 H Sodium Level 137 White Blood Count 7.7 Bedside Glucose 90 Medications Medications Current Medications Carvedilol (Coreg) 3.125 mg BID PO Last administered on 04/26/16 09:10; Admin Dose 3.125 MG; Start 04/24/16 at 09:00 Gabapentin (Neurontin) 300 mg HS GTB Last administered on 04/25/16 20:38; Admin Dose 300 MG; Start 04/24/16 at 21:00 Docusate Sodium (Colace) 100 mg TID PO Last administered on 04/26/16 09:10; Admin Dose 100 MG; Start 04/24/16 at 09:00 Acetaminophen/ Hydrocodone Bitart ([place] (10/325)) 1 tab Q6H PRN PO PAIN LEVEL 7-10 Last administered on 04/25/16 18:55; Admin Dose 1 TAB; Start 04/23/16 at 23: 30 Ferrous Sulfate (Ferrous Sulfate (Ec)) 325 mg DAILY PO Last administered on 04/26 09:11; Admin Dose 325 MG; Start 04/24/16 at 09:00 Aspirin (Halfprin) 81 mg DAILY PO Last administered on 04/26/16 09:09; Admin Dose 81 MG; Start 04/24/16 at 09:00 Folic Acid (Folic Acid) 1 mg DAILY PO Last administered on 04/26/16 09:11; Admin Dose 1 MG; Start 04/24/16 at 09:00 Amlodipine Besylate 10 mg 10 mg DAILY PO Last administered on 04/26/16 09:11; Admin Dose 10 MG; Start 04/24/16 at 09:00 Levofloxacin/ Dextrose (Levaquin 250 Mg/ D5W 50 ml (Pmx)) 50 ml @ 50 mls/hr Q48H IVPB Last administered on 04/25/16 23:25; Admin Dose 50 MLS/HR; Start 04/25 at 23:30 Diagnostic Test (Pha) (Accucheck) 1 ea 02 XX Last administered on 04/24/16 02: 00; Admin Dose 1 EA; Start 04/24/16 at 02:00 Miscellaneous Information 1 ea NOTE XX ; Start 04/24/16 at 01:30 Glucose (Glutose) 15 gm Q15M PRN PO DECREASED GLUCOSE; Start 04/24/16 at 01:30 Glucose (Glutose) 22.5 gm Q15M PRN PO DECREASED GLUCOSE; Start 04/24/16 at 01:30 Dextrose (D50w Syringe) 25 ml Q15M PRN IV DECREASED GLUCOSE; Start 04/24/16 at 01:30 Dextrose (D50w Syringe) 50 ml Q15M PRN IV DECREASED GLUCOSE; Start 04/24/16 at 01:30 Glucagon (Glucagen) 1 mg Q15M PRN IM DECREASED GLUCOSE; Start 04/24/16 at 01:30 Glucose (Glutose) 15 gm Q15M PRN BUCCAL DECREASED GLUCOSE; Start 04/24/16 at 01: 30 Morphine Sulfate (morphine) 4 mg Q4H PRN IV PAIN LEVEL 7-10 Last administered on 04/24/16 07:35; Admin Dose 4 MG; Start 04/24/16 at 04:30 Ketorolac Tromethamine (Toradol) 15 mg Q6H PRN IV PAIN Last administered on 04/25 20:37; Admin Dose 15 MG; Start 04/24/16 at 04:30; Stop 04/27/16 at 04:29 Hydralazine HCl (Apresoline) 10 mg Q4H PRN IV SBP GREATER THAN 160; Start at 08:00 Pantoprazole (Protonix Tab) 40 mg DAILY@06 PO Last administered on 04/26/16 06: 23; Admin Dose 40 MG; Start 04/25/16 at 06:00 Heparin Sodium (Porcine) (Heparin (5000 Units/0.5 ml)) 5,000 unit BID SC Last administered on 04/26/16 09:12; Admin Dose 5,000 UNIT; Start 04/24/16 at 21:00 Ondansetron HCl (Zofran Inj) 4 mg Q6H PRN IV NAUSEA AND/OR VOMITING Last administered on 04/24/16 22:49; Admin Dose 4 MG; Start 04/24/16 at 17:30 PRETTY PETER MD Apr 26, 2016 09:37
--- NOTE | 2016-04-26 09:49 | PDOCDIS ---
Discharge Instructions CONDITION Patient Condition: Stable HOME CARE INSTRUCTIONS: Special Diet: renal ACTIVITY: Activity Restrictions: Slowly Increase Activity FOLLOW UP/APPOINTMENTS Appointments follow-up with primary care Doctor OTHER ORDERS: Other Orders: Go to the nearest ER if you develop severe pain in your leg, difficulty walking , chest pain, shortness of breath or bleeding PRETTY PETER MD Apr 26, 2016 09:48
[2016-04-26] MEDS ORDERED: NA POLYST SULFON 15 GM/60 ML BTL PO ONE (10:00)
--- NOTE | 2016-04-26 17:07 | DS ---
Date/Time of Note Date/Time of Note DATE: 04/26/16 TIME: 17:02 Discharge Summary Admission/Discharge Info Admit Date/Time Apr 24, 2016 at 13:54 Discharge Date/Time Apr 26, 2016 at 16:50 Final Diagnosis 1. Left ankle pain secondary to a left distal fibular fracture, spiral. 2. End-stage renal disease, on dialysis 3. HTN - essential 4. DM - 2 4. prostate cancer 5. high chol 6. CAD Hospital Course 61-year-old male with history of end-stage renal disease who presents with left distal fibula spiral fracture. Specifically ankle xray showed: Acute, closed, nondisplaced distal fibula spiral fracture below the syndesmosis of the left ankle with overlying soft tissue swelling. Pt received pain control medications and antiemetics. Seen by renal team for ESRD - had HD as well. Per ortho rec's, no surgical intervention, but pt did receive Cam boot for LLE support. He was cleared for discharge home today. Home Meds Active Scripts Hydrocodone/Acetaminophen ([place] 10-325 Tablet) 1 Each Tablet, 1 TAB PO Q6H Y for PAIN, #20 TAB Prov:MELISSA DIETZ DO 04/23/16 Docusate Sodium* (Colace*) 100 Mg Capsule, 100 MG PO TID, #30 CAP Prov:TEDDY SANDOVAL 02/06/16 Gabapentin* (Neurontin*) 300 Mg Cap, 300 MG PO QHS, #30 CAP 1 Refill Prov:MERARY PULLIAM 09/08/15 Carvedilol* (Coreg*) 3.125 Mg Tab, 3.125 MG PO BID, #30 Prov:ANGIE FAJARDO MD 10/15/14 Reported Medications Amlodipine Besylate* (Amlodipine Besylate*) 10 Mg Tablet, 10 MG PO DAILY, #30 TAB 09/26/15 Glipizide* (Glipizide*) 5 Mg Tablet, 5 MG PO BID, TAB 05/22/15 Sevelamer Carbonate* (Renvela*) 800 Mg Tablet, 2400 MG PO WITH MEALS, TAB 10/14/14 Sitagliptin* (Januvia*) 25 Mg Tablet, 25 MG PO DAILY, TAB 10/14/14 Arthur-3 Fatty Acids/Fish Oil* (Fish Oil *) 1,000 Mg Capsule, 1000 MG PO BID, CAP 10/14/14 Folic Acid/Vitamin B Comp W-C* (Nephro-Agatha Rx Tablet*) 1 Mg Tablet, 1 TAB PO DAILY, TAB 09/03/13 Nitroglycerin* (Nitrostat*) 0.4 Mg Tab.subl, 0.4 MG SL Q5MIN Y for CHEST PAIN, BOTTLE 09/03/13 Aspirin* (Aspirin* EC) 81 Mg Tablet.dr, 81 MG PO DAILY, TAB 09/03/13 Ferrous Sulfate* (Ferrous Sulfate*) 325 Mg Tablet, 325 MG PO DAILY 06/26/12 Simvastatin (Simvastatin) 20 Mg Tablet, 20 MG PO DAILY 12/07/10 Pending Labs Laboratory Tests Test 04/25/16 20:47 04/26/16 04:26 04/26/16 08:00 04/26/16 11:33 Bedside Glucose 149mg/dL (70-220) 90mg/dL (70-220) 89mg/dL (70-220) Anion Gap 24 (8-16) Basophils # 0.010^3/ul (0.0-0.1) Basophils % 0.4% (0.0-2.0) Blood Urea Nitrogen 72mg/dl (7-20) Calcium Level 7.9mg/dl (8.4-10.2) Carbon Dioxide Level 24mmol/L (21-31) Chloride Level 94mmol/L (97-110) Creatinine 9.31mg/dl (0.61-1.24) Eosinophils # 0.210^3/ul (0.0-0.5) Eosinophils % 2.5% (0.0-7.0) Glucose Level 104mg/dl (70-220) Hematocrit 32.6% (42.0-52.0) Hemoglobin 10.7g/dl (14.0-18.0) Lymphocytes # 1.010^3/ul (0.8-2.9) Lymphocytes % 13.1% (15.0-51.0) Mean Corpuscular Hemoglobin 31.8pg (29.0-33.0) Mean Corpuscular Hemoglobin Concent 32.8g/dl (32.0-37.0) Mean Corpuscular Volume 96.7fl (82.0-101.0) Mean Platelet Volume 9.7fl (7.4-10.4) Monocytes # 0.710^3/ul (0.3-0.9) Monocytes % 9.4% (0.0-11.0) Neutrophils # 5.710^3/ul (1.6-7.5) Neutrophils % 74.2% (39.0-77.0) Nucleated Red Blood Cells # 0.010^3/ul (0.0-0.0) Nucleated Red Blood Cells % 0.0/100WBC (0.0-0.0) Platelet Count 63800^3/UL (140-415) Potassium Level 5.3mmol/L (3.5-5.1) Red Blood Count 3.3710^6/ul (4.70-6.10) Red Cell Distribution Width 14.6% (11.5-14.5) Sodium Level 137mmol/L (135-144) White Blood Count 7.710^3/ul (4.8-10.8) LUZ ELENA GONZALEZ Apr 26, 2016 17:07
--- NOTE | 2016-04-26 19:38 | CONS ---
DATE OF ADMISSION: 04/24/2016 DATE OF CONSULTATION: 04/24/2016 HISTORY OF PRESENT ILLNESS: The patient is a 61-year-old male who was admitted on 04/24/2016, when he came to the emergency room complaining of painful swelling involving his left ankle. According t o the patient, he had sustained a twisting injury to his left ankle when he fell. Because of the ob vious swelling and pain involving his left ankle, he was brought into the emergency room. Following initial evaluation in the emergency room, he was temporarily stabilized with the posterior splint. He is known to have multiple medical problems including hyperlipidemia, diabetes mellitus, prostate CA, and hyperparathyroidism. He also underwent several surgeries including coronary artery bypass graft, removal of the colon polyp and formation of the AV fistula for his end-stage renal disease. PHYSICAL EXAMINATION: My examination revealed a mild swelling along with the tenderness over the me dial aspect of the left ankle. The range of motion of the left ankle was limited, but there were no gross instabilities. DIAGNOSTIC STUDIES: X-rays of the left ankle revealed a fracture involving the medial malleolus wit hout any obvious displacement. DIAGNOSTIC IMPRESSION: Fracture of the medial malleolus of the left ankle. TREATMENT RECOMMENDATIONS: 1. Immobilization in a short leg Cam walker. 2. Ambulation with weightbearing as tolerated. 3. To ortho in 2 weeks for further followup as an outpatient. Dictated By: ASCENCION NORWOOD/ERIK Conf#: [id number] DID#: [id number]
== END 2016-04-26 16:50 | disposition home or self-care (01) | DRG 562 ==
LOC: E/R 14:34 → MS1 21:07 → OBSVTOIN 04-24 13:54
PROVIDERS: ADMIT Internal Medicine; ATTEND Internal Medicine
DX: S82.445A Nondisplaced spiral fracture of shaft of left fibula, initial encounter for closed fracture (principal); N18.6 End stage renal disease; I12.0 Hypertensive chronic kidney disease with stage 5 chronic kidney disease or end stage renal disease; I25.10 Atherosclerotic heart disease of native coronary artery without angina pectoris; Z95.1 Presence of aortocoronary bypass graft; Z99.2 Dependence on renal dialysis; X58.XXXA Exposure to other specified factors, initial encounter; Y93.01 Activity, walking, marching and hiking
CPT/HCPCS: 36415; 73590; 73610; 80048; 80053; 82962; 85025; 87081; 90686; 90935; 96374; 96375; 96376; 97116; 97162; G0378; J0360; J1170; J1815; J1885; J1956; J2270; J2405

== ENCOUNTER 2016-07-04 17:34 | Emergency (ER) | payer MEDICARE, OTHER ==
[~2016-07-04] VITALS: Ht 170.2 cm; Wt 74.5 kg
[~2016-07-04 17:34] MED LIST changes: +HYDR-902 PO; +SIMV20TA2 PO; -ZOC20 PO
[2016-07-04 17:37] VITALS: Ht 170.2 cm; Wt 74.5 kg
--- NOTE | 2016-07-04 20:40 | ERD ---
ER Documentation Chief Complaint Date/Time DATE: 07/04/16 TIME: 20:24 Chief Complaint RECTAL PAIN AND B/L FOOT BURNING SENSATION HPI This 61-year-old male patient presents to the emergency department today with complaint of rectal pain since colonoscopy 2 months. Bilateral foot burning 2 months. Patient has been seen for this complaint yesterday [facility]. Patient denies that he was given any treatment. Patient is a diabetic, on hemodialysis, Wednesday and Wednesday states he was unable to complete for dialysis today secondary to rectal pain. Patient denies any constipation, diarrhea, rectal bleeding, trauma, history of hemorrhoids. Patient denies fever, chills, abdominal pain, or change in appetite. Patient reports pain is on the inside. Denies history of prostatitis or dysuria. ROS All systems reviewed and are negative except as per history of present illness. Medications Home Meds Active Scripts Albuterol Sulfate* (Ventolin HFA*) 18 Gm Hfa.aer.ad, 2 PUFF INHALATION Q6H for SHORTNESS OF BREATH, #1 INHALER 0 Refills Prov:JULIO CESAR ARTIS 07/06/16 Alprazolam* (Xanax*) 0.5 Mg Tab, 0.5 MG PO Q8H Y for shortness of breath/ anxiety, #15 TAB 0 Refills Prov:JULIO CESAR ARTIS 07/06/16 Docusate Sodium* (Colace*) 100 Mg Capsule, 100 MG PO TID, #30 CAP Prov:TEDDY SANDOVAL 02/06/16 Gabapentin* (Neurontin*) 300 Mg Cap, 300 MG PO QHS, #30 CAP 1 Refill Prov:MERARY PULLIAM 09/08/15 Carvedilol* (Coreg*) 3.125 Mg Tab, 3.125 MG PO BID, #30 Prov:ANGIE FAJARDO MD 10/15/14 Reported Medications Amlodipine Besylate* (Amlodipine Besylate*) 10 Mg Tablet, 10 MG PO DAILY, #30 TAB 09/26/15 Glipizide* (Glipizide*) 5 Mg Tablet, 5 MG PO BID, TAB 05/22/15 Sevelamer Carbonate* (Renvela*) 800 Mg Tablet, 2400 MG PO WITH MEALS, TAB 10/14/14 Sitagliptin* (Januvia*) 25 Mg Tablet, 25 MG PO DAILY, TAB 10/14/14 [place]-3 Fatty Acids/Fish Oil* (Fish Oil *) 1,000 Mg Capsule, 1000 MG PO BID, CAP 10/14/14 Folic Acid/Vitamin B Comp W-C* (Nephro-Agatha Rx Tablet*) 1 Mg Tablet, 1 TAB PO DAILY, TAB 09/03/13 Nitroglycerin* (Nitrostat*) 0.4 Mg Tab.subl, 0.4 MG SL Q5MIN Y for CHEST PAIN, BOTTLE 09/03/13 Aspirin* (Aspirin* EC) 81 Mg Tablet.dr, 81 MG PO DAILY, TAB 09/03/13 Ferrous Sulfate* (Ferrous Sulfate*) 325 Mg Tablet, 325 MG PO DAILY 06/26/12 Simvastatin (Simvastatin) 20 Mg Tablet, 20 MG PO DAILY 12/07/10 Discontinued Scripts Hydrocortisone Acetate* (Anusol-HC*) 30 Gm Cream.gm., 1 APPLIC [place] BID for 5 Days , TUB Prov:ASHER,KOBY 07/04/16 Hydrocodone/Acetaminophen ([place] 10-325 Tablet) 1 Each Tablet, 1 TAB PO Q6H Y for PAIN, #20 TAB Prov:LEKKOS,APOSTOLOS A. DO 04/23/16 Allergies Allergies: Coded Allergies: No Known Drug Allergies (Verified Allergy, Unknown, 07/06/16) PMhx/Soc History of Surgery: Yes (CABG, colon polyp removal, AV fistual) Anesthesia Reaction: No Hx Neurological Disorder: No Hx Respiratory Disorders: No Hx Cardiac Disorders: Yes (CAD, Hypertension) Hx Psychiatric Problems: Yes (Major Depression) Hx Miscellaneous Medical Probl: Yes (ESRD-DIALYSIS, DM, DJD, HTN) Hx Alcohol Use: No Hx Substance Use: No Hx Tobacco Use: No Smoking Status: Never smoker Physical Exam Vitals Vitals stable, triage notes reviewed Physical Exam Const: No acute distress Head: Atraumatic Eyes: Normal Conjunctiva PERRLA, EOMI ENT: Normal External Ears, Nose and Mouth, mucous membranes Neck: Full range of motion..~ No meningismus. Resp: Chest rise and fall symmetrically, clear to auscultation bilaterally, no respiratory distress Cardio: Regular rate and rhythm, no murmurs, left upper arm with AV fistula good bruit and thrill. Abd: Soft, non tender, non distended. Normal bowel sounds Rectal: Normal tone, No mass, lesion, ulcer, fistula positive control Stool: [Brown] Guaiac: Negative Skin: No petechiae or rashes Back: No midline or flank tenderness Ext: Lower Extremity -bilateral feet: Skin: No laceration Compartments: [Soft] Motor: Range of motion at baseline for patient, stiff movement, toes and ankles. Patient able to ambulate without care management assistant device, no cane or walker Sensation: Intact to light touch surfaces. Bones: Nontender knee/foot Joints: No effusion or laxity Pulses/Perfusion: [Trace + DP, Capillary refill < 2 seconds] Neur: Awake and alert Psych: Normal Mood and Affect Results 24 hrs Laboratory Tests Test 07/04/16 20:17 07/04/16 20:52 Stool Occult Blood NEGATIVE Bedside Glucose 238mg/dL Current Medications Medications (Trade) Dose Ordered Sig/Martín Route PRN Reason Start Time Stop Time Status Last Admin Dose Admin Acetaminophen/ Hydrocodone Bitart ([place] (5/325)) 1 tab ONCE ONCE PO 07/04/16 21:30 07/04/16 21:31 DC 07/04/16 21:39 Procedures/MDM This Syriac-speaking 34-year-old male patient presents to emergency department for evaluation of rectal pain and burning in his feet, both complaints by 2 months. Patient reports symptoms started after colonoscopy 2 months ago. Patient is a diabetic on hemodialysis. Hemorrhoids, anal fissure, suspected, rectal exam negative for mass, fissure, lesion, or ulcer. Stool is brown soft. Constipation is not likely. Abdomen is soft, without tenderness bowel obstruction is not considered. Bilateral feet pain burning numbness likely related to diabetes, patient's blood sugar on capillary stick was patient will be treated with Anusol HC, for rectal pain, and Lyrica/Neurontin considered for foot burning/pain, nurse practitioner did not obtain labs today patient has renal failure patient should follow-up with primary care physician or neurologist for treatment of neuropathy.Return to emergency room for worsening of symptoms, rectal bleeding, fever, chills. I feel the patient is stable for discharge at this time. I have discussed results, examination findings, the treatment plan with the patient and family present prior to discharge. Indications for emergent reevaluation, side effects of medication were also discussed. All questions were answered. Patient verbalizes understanding and agrees with plan of care. Departure Diagnosis: Primary Impression: Rectal pain, chronic Additional Impression: Neuropathy Condition: Good Patient Instructions: Treating Peripheral Neuropathy [facility] Additional Instructions: Thank you for for coming to [facility] for your care today. Please ask your nurse or provider if you have questions about your care today and do not leave until all your questions have been answered. Please use any medications given as directed and follow-up with your doctor (or the doctor you were referred to) in the next 2-3 days. If you do not have a primary care doctor [place] [facility] [place] You may also use motrin and tylenol as needed for fever and/or pain unless instructed otherwise by your provider or nurse. Indications for more urgent follow-up have been discussed, but you may return to the Emergency Department at ANY time for any worrisome or worsening symptoms. If you have abdominal pain, please know that no test or exam you received is perfect and you should follow up within 8 hours for continued pain. If you had any imaging studies today, such as an X-Ray or CT Scan, these studies will be reviewed later by a radiologist. You will be called if there are important findings that were not identified today, so make sure the contact information you provided at registration is correct. If you received any narcotic pain control medicine today, such as Vicodin, Morphine or Dilaudid, your coordination and judgment may be affected for a number of hours. Please do not drive or operate heavy machinery, and you may want someone to assist you at home. If you were given a prescription for narcotic medication, be aware that it is very addictive- use sparingly and only if necessary. KOBY STERLING July 04, 2016 20:37
[2016-07-04] MEDS ORDERED: HYDR30CR75 PR (20:41)
[2016-07-04] MEDS ORDERED: HYDROCODONE/APAP (5/325) TAB PO ONE (21:30)
== END 2016-07-04 21:43 | disposition home or self-care (01) ==
LOC: FTE 17:34
DX: K62.89 Other specified diseases of anus and rectum (principal); G62.9 Polyneuropathy, unspecified; I12.0 Hypertensive chronic kidney disease with stage 5 chronic kidney disease or end stage renal disease; N18.6 End stage renal disease; I25.10 Atherosclerotic heart disease of native coronary artery without angina pectoris; E11.22 Type 2 diabetes mellitus with diabetic chronic kidney disease; Z79.82 Long term (current) use of aspirin; Z79.84 Long term (current) use of oral hypoglycemic drugs; Z99.2 Dependence on renal dialysis; Z95.1 Presence of aortocoronary bypass graft
CPT/HCPCS: 82270; 82962; 99284

== ENCOUNTER 2016-07-06 06:48 | Emergency (ER) | payer MEDICARE, OTHER ==
[~2016-07-06] VITALS: Ht 162.6 cm; Wt 74.0 kg
[~2016-07-06 06:48] MED LIST changes: +HYDR30CR75 PR
[2016-07-06 06:50] VITALS: Ht 162.6 cm; Wt 74.0 kg
--- NOTE | 2016-07-06 07:07 | ERA ---
ER Documentation Chief Complaint Date/Time DATE: 07/06/16 TIME: 07:05 Chief Complaint BIBA FOR SOB FROM DIALYSIS CENTER HPI Patient is a 61-year-old male who is brought in from dialysis center for shortness of breath. He states he is coming here several times now for the same symptoms. He says he was receiving dialysis when he became short of breath. He states that he is unable to finish his dialysis secondary to this. He denies any fever, chest pain, sore throat, rhinorrhea, or otalgia. He denies abdominal pain, nausea, vomiting, diarrhea, flank pain, back pain, swelling. He says he feels better on the oxygen. Exertion and lying flat increase in dyspnea. The remainder of the systems are negative. ROS All systems reviewed and are negative except as per history of present illness. Medications Home Meds Active Scripts Docusate Sodium* (Colace*) 100 Mg Capsule, 100 MG PO TID, #30 CAP Prov:TEDDY SANDOVAL 02/06/16 Gabapentin* (Neurontin*) 300 Mg Cap, 300 MG PO QHS, #30 CAP 1 Refill Prov:MERARY PULLIAM 09/08/15 Carvedilol* (Coreg*) 3.125 Mg Tab, 3.125 MG PO BID, #30 Prov:ANGIE FAJARDO MD 10/15/14 Reported Medications Amlodipine Besylate* (Amlodipine Besylate*) 10 Mg Tablet, 10 MG PO DAILY, #30 TAB 09/26/15 Glipizide* (Glipizide*) 5 Mg Tablet, 5 MG PO BID, TAB 05/22/15 Sevelamer Carbonate* (Renvela*) 800 Mg Tablet, 2400 MG PO WITH MEALS, TAB 10/14/14 Sitagliptin* (Januvia*) 25 Mg Tablet, 25 MG PO DAILY, TAB 10/14/14 [place]-3 Fatty Acids/Fish Oil* (Fish Oil *) 1,000 Mg Capsule, 1000 MG PO BID, CAP 10/14/14 Folic Acid/Vitamin B Comp W-C* (Nephro-Agatha Rx Tablet*) 1 Mg Tablet, 1 TAB PO DAILY, TAB 09/03/13 Nitroglycerin* (Nitrostat*) 0.4 Mg Tab.subl, 0.4 MG SL Q5MIN Y for CHEST PAIN, BOTTLE 09/03/13 Aspirin* (Aspirin* EC) 81 Mg Tablet.dr, 81 MG PO DAILY, TAB 09/03/13 Ferrous Sulfate* (Ferrous Sulfate*) 325 Mg Tablet, 325 MG PO DAILY 06/26/12 Simvastatin (Simvastatin) 20 Mg Tablet, 20 MG PO DAILY 12/07/10 Discontinued Scripts Hydrocortisone Acetate* (Anusol-HC*) 30 Gm Cream.gm., 1 APPLIC [place] BID for 5 Days , TUB Prov:ASHER,KOBY 07/04/16 Hydrocodone/Acetaminophen ([place] 10-325 Tablet) 1 Each Tablet, 1 TAB PO Q6H Y for PAIN, #20 TAB Prov:LEKKOS,APOSTOLOS A. DO 04/23/16 Allergies Allergies: Coded Allergies: No Known Drug Allergies (Verified Allergy, Unknown, 07/06/16) PMhx/Soc History of Surgery: Yes (CABG, colon polyp removal, AV fistual) Anesthesia Reaction: No Hx Neurological Disorder: No Hx Respiratory Disorders: No Hx Cardiac Disorders: Yes (CAD, Hypertension) Hx Psychiatric Problems: Yes (Major Depression) Hx Miscellaneous Medical Probl: Yes (ESRD-DIALYSIS, DM, DJD, HTN) Hx Alcohol Use: No Hx Substance Use: No Hx Tobacco Use: No Smoking Status: Former smoker Physical Exam Vitals Vital Signs Date Time Temp Pulse Resp B/P Pulse Ox O2 Delivery O2 Flow Rate FiO2 07/06/16 09:24 64 21 97 Nasal Cannula 2.0 07/06/16 07:23 Nasal Cannula 2 07/06/16 06:53 Nasal Cannula 2.0 07/06/16 06:50 98.4 71 20 141/74 100 Physical Exam Const: [] Well-developed well-nourished male sitting on the bed in no acute respiratory distress, able to speak in full sentences without difficulty Head: Atraumatic normocephalic Eyes: Normal Conjunctiva ENT: Normal External Ears, Nose and Mouth. Neck: Full range of motion..~ No meningismus. Resp: Mild bibasilar crackles Cardio: Regular rate and rhythm, no murmurs Abd: Soft, non tender, non distended. Normal bowel sounds Skin: No petechiae or rashes Back: No midline or flank tenderness Ext: No cyanosis, or edema Neur: Awake and alert, oriented 3, GCS of 15, nonfocal Psych: Normal Mood and Affect Result Diagram: 07/06/16 0715 07/06/16 0715 Results 24 hrs Laboratory Tests Test 07/06/16 07:15 White Blood Count 7.210^3/ul Red Blood Count 3.4910^6/ul Hemoglobin 11.0g/dl Hematocrit 33.3% Mean Corpuscular Volume 95.4fl Mean Corpuscular Hemoglobin 31.5pg Mean Corpuscular Hemoglobin Concent 33.0g/dl Red Cell Distribution Width 13.4% Platelet Count 51185^3/UL Mean Platelet Volume 10.2fl Neutrophils % 73.6% Lymphocytes % 12.9% Monocytes % 9.3% Eosinophils % 2.9% Basophils % 0.6% Nucleated Red Blood Cells % 0.0/100WBC Neutrophils # 5.310^3/ul Lymphocytes # 0.910^3/ul Monocytes # 0.710^3/ul Eosinophils # 0.210^3/ul Basophils # 0.010^3/ul Nucleated Red Blood Cells # 0.010^3/ul Prothrombin Time 13.1Sec Prothrombin Time Ratio 1.0 INR International Normalized Ratio 0.99 Activated Partial Thromboplast Time 29.5Sec Sodium Level 138mmol/L Potassium Level 4.5mmol/L Chloride Level 96mmol/L Carbon Dioxide Level 33mmol/L Anion Gap 14 Blood Urea Nitrogen 37mg/dl Creatinine 4.43mg/dl Glucose Level 212mg/dl Calcium Level 8.7mg/dl Total Bilirubin 0.0mg/dl Direct Bilirubin 0.00mg/dl Indirect Bilirubin 0.0mg/dl Aspartate Amino Transf (AST/SGOT) 24IU/L Alanine Aminotransferase (ALT/SGPT) 51IU/L Alkaline Phosphatase 158IU/L Troponin I < 0.012ng/ml B-Type Natriuretic Peptide 43856ZD/ML Total Protein 7.4g/dl Albumin 3.8g/dl Globulin 3.60g/dl Albumin/Globulin Ratio 1.05 Current Medications Medications (Trade) Dose Ordered Sig/Martín Route PRN Reason Start Time Stop Time Status Last Admin Dose Admin Lorazepam (Ativan) 1 mg ONCE ONCE IV 07/06/16 09:30 07/06/16 09:31 DC 07/06/16 09:16 Albuterol (Proventil 0.083% (Neb)) 2.5 mg ONCE STAT HHN 5/15/17 09:11 07/06/16 09:13 DC 07/06/16 09:22 Procedures/MDM Differential includes but is not limited to pulmonary edema, renal failure, anxiety EKG: Rate/Rhythm: [Normal Sinus Rhythm at 70 beats a minute with a first- degree AV block, nonspecific T-wave flattening in the lateral leads, no evidence of acute ischemia QRS, ST, T-waves: [No changes consistent w/ acute ischemia Impression: [No evidence of ischemia or arrhythmia Chest x-ray does not reveal any pulmonary edema or infiltrate 0910: I spoke with Dr. Valdes the patient's application packager. He states it is common for her to the dialysis patients to feel short of breath towards the end of dialysis as her blood pressure drops a little bit. He states he sees this patient once a week and the patient has never complained to him of dyspnea. He is not aware of this patient feeling this way. I informed him the patient told me he feels short of breath during every dialysis session. However the patient' s clinical complaints do not match with his objective findings. We took the patient off of his oxygen and he maintained his saturations at 97%. Despite this the patient began to complain of shortness of breath once again. I will order a CT chest without contrast just to make sure we are not missing anything. Dr. Valdes suggested the patient does have some level of anxiety. I have ordered him some Ativan IV for this. CT of the chest does not reveal any acute cardiopulmonary process per the radiologist. More specifically there is no evidence of pulmonary edema or acute focal infiltrate. 1108:Patient's oxygen saturations remain 97% on room air. He is stable for discharge home at this time. Dr. Valdes states he will see him in the office on Wednesday. Departure Diagnosis: Primary Impression: Shortness of breath Additional Impression: End stage chronic kidney disease Condition: Stable Additional Instructions: Please see Lucio on Wednesday. Call the office for a follow-up appointment. Continue on your medications as previously prescribed. Do not miss any of your dialysis appointments as these are very important. Return to the emergency department for any new or worsening symptoms. JULIO CESAR ARTIS July 06, 2016 07:07
--- NOTE | 2016-07-06 07:32 | RADRPT ---
PROCEDURE: XR Chest 1 view. CLINICAL INDICATION: Shortness of breath. TECHNIQUE: AP views of the chest were obtained. COMPARISON: March 01, 2016 FINDINGS: The heart is large. Calcified atherosclerosis is noted in the aorta. Median sternotomy wires and salter rgical clips overlie the heart. Lungs are hyperexpanded. No consolidations are identified. No pneum othorax is seen. Osseous structures are intact. IMPRESSION: Cardiomegaly with calcified atherosclerosis in the aorta. Hyperexpanded, clear lungs. RPTAT: AA .Cyrus Lima MD, MD Date Time Electronically viewed and signed by .Cyrus Lima MD, on 07/06/2016 07:32 .P/
[2016-07-06 07:35] LABS: ADD SCAN DIFF NO
[2016-07-06 07:39] LABS: BASOPHILS % 0.6 % (0.0-2.0); EOSINOPHILS # 0.2 10^3/ul (0.0-0.5); EOSINOPHILS % 2.9 % (0.0-7.0); HEMATOCRIT 33.3 % (42.0-52.0); LYMPHOCYTES # 0.9 10^3/ul (0.8-2.9); LYMPHOCYTES % 12.9 % (15.0-51.0); MEAN CORPUSCULAR HEMOGLOBIN 31.5 pg (29.0-33.0); MEAN CORPUSCULAR VOLUME 95.4 fl (82.0-101.0); MEAN PLATELET VOLUME 10.2 fl (7.4-10.4); MONOCYTE # 0.7 10^3/ul (0.3-0.9); MONOCYTES % 9.3 % (0.0-11.0); NEUTROPHIL # 5.3 10^3/ul (1.6-7.5); NEUTROPHILS % 73.6 % (39.0-77.0); PLATELET COUNT 173 10^3/UL (140-415); RED BLOOD COUNT 3.49 10^6/ul (4.70-6.10); RED CELL DISTRIBUTION WIDTH 13.4 % (11.5-14.5); WHITE BLOOD COUNT 7.2 10^3/ul (4.8-10.8)
[2016-07-06 07:55] LABS: INR 0.99; PROTIME 13.1 Sec (12.2-14.2)
[2016-07-06 07:56] LABS: PARTIAL THROMBOPLASTIN TIME 29.5 Sec (25.0-35.0)
[2016-07-06 08:00] LABS: ALANINE AMINOTRANSFERASE 51 IU/L (13-69); ALBUMIN 3.8 g/dl (3.3-4.9); ALBUMIN/GLOBULIN RATIO 1.05; ALKALINE PHOSPHATASE 158 IU/L (42-121); ANION GAP 14 (8-16); ASPARTATE AMINO TRANSFERASE 24 IU/L (15-46); BLOOD UREA NITROGEN 37 mg/dl (7-20); CALCIUM 8.7 mg/dl (8.4-10.2); CARBON DIOXIDE 33 mmol/L (21-31); CHLORIDE 96 mmol/L (97-110); CREATININE 4.43 mg/dl (0.61-1.24); GLUCOSE 212 mg/dl (70-220); POTASSIUM 4.5 mmol/L (3.5-5.1); SODIUM 138 mmol/L (135-144); TOTAL PROTEIN 7.4 g/dl (6.1-8.1)
[2016-07-06 08:11] LABS: B-TYPE NATRIURETIC PEPTIDE 24200 PG/ML (0-125)
[2016-07-06 08:12] LABS: TROPONIN-I < 0.012 ng/ml (0.00-0.12)
[2016-07-06] MEDS ORDERED: ALBUTEROL 0.083% (NEB) 2.5 MG/3 ML AMP HHN STA (09:11)
[2016-07-06] MEDS ORDERED: LORAZEPAM 2 MG INJ IV ONE (09:30)
--- NOTE | 2016-07-06 10:12 | RADRPT ---
PROCEDURE: CT Chest without contrast. CLINICAL INDICATION: Dyspnea TECHNIQUE: CT of the chest was performed on a multi-detector scanner without IV contrast. Coronal and sagittal images were reformatted from the axial data set. One or more of the following dose re duction techniques were used: automated exposure control, adjustment of the mA and/or kV according t o patient size, use of iterative reconstruction technique. CTDI = 16.63 mGy. DLP = 604.45 mGy-cm. COMPARISON: MRCP, 11/29/2010 FINDINGS: There is mild bibasilar atelectasis / scarring. No acute infiltrate, pleural effusion, pulmonary ed noemy or pneumothorax is identified. No pulmonary nodule or mass is seen. There is mild to moderate cardiomegaly, without pericardial effusion. Coronary arterial and aortic atherosclerotic calcifications are noted. The patient is status post sternotomy and coronary arteri al bypass. No thoracic aortic aneurysm is identified. Indeterminate 3.1 cm cystic structure is aaron ntified in the prevascular mediastinum (601-56), stable in size and appearance when compared to prio r MRCP from 11/29/2010, presumed benign. No mediastinal, hilar, axillary or supraclavicular lymphad enopathy is identified. The liver is cirrhotic. Gallbladder is surgically absent. The surrounding osseous structures are re markable for degenerative spondylosis of the spine. No osteolytic or osteoblastic lesion is detecte d. IMPRESSION: 1. Stable mild to moderate cardiomegaly. Coronary arterial and aortic atherosclerotic calcificatio ns are present. 2. No solid mass, lymphadenopathy, or focal acute infiltrate is identified. 3. The liver is cirrhotic. Gallbladder is surgically absent. RPTAT: PP .Ankush Foss MD, Date Time Electronically viewed and signed by .Ankush Foss MD, on 07/06/2016 10:12 .R/
[2016-07-06] MEDS ORDERED: ALPR0.5T PO (11:15)
[2016-07-06] MEDS ORDERED: ALBU18HF INHALATION (11:15)
[2016-07-06 11:52] VITALS: BP 127/78; PULSE 78; RESP 18; TEMP 98.4
== END 2016-07-06 11:54 | disposition home or self-care (01) ==
LOC: E/R 06:48
DX: R06.02 Shortness of breath (principal); N18.6 End stage renal disease; I25.10 Atherosclerotic heart disease of native coronary artery without angina pectoris; E11.9 Type 2 diabetes mellitus without complications; I12.0 Hypertensive chronic kidney disease with stage 5 chronic kidney disease or end stage renal disease; Z79.82 Long term (current) use of aspirin; Z95.1 Presence of aortocoronary bypass graft; Z99.2 Dependence on renal dialysis
CPT/HCPCS: 36415; 71010; 71250; 80053; 83880; 84484; 85025; 85610; 85730; 93005; 94664; 96374; 99285; J2060

== ENCOUNTER 2016-07-12 09:48 | Emergency (ER) | payer MEDICARE, OTHER ==
[~2016-07-12] VITALS: Ht 165.1 cm; Wt 74.0 kg
[~2016-07-12 09:48] MED LIST changes: +ALBU18HF INHALATION; +ALPR0.5T PO; -HYDR-902 PO; -HYDR30CR75 PR
[2016-07-12 09:55] VITALS: Ht 165.1 cm; Wt 74.0 kg
--- NOTE | 2016-07-12 10:35 | ERD ---
ER Documentation Chief Complaint Date/Time DATE: 07/12/16 TIME: 10:20 Chief Complaint been using oitment for hemorrhoids, still has rectal pain HPI 61-year-old male who presented emergency department for hemorrhoids. Stated that he has his hemorrhoids for about 2 weeks. Also stated that he has been using hydrocortisone cream for this. Also reports constipation. Stated that his last bowel movement was this morning. Denies headache, loss of consciousness, dizziness, blurry vision, changes in vision, photophobia, facial pain, ear pain, throat pain, difficulty swallowing, neck pain, shoulder pain, chest pain, cough, hemoptysis, abdominal pain, back pain, loss of appetite, nausea, vomiting, hematochezia, diarrhea, urinary symptoms, bladder and bowel incontinences, extremity weakness, extremity tenderness, numbness or tingling sensation, difficulty walking, recent travel, recent exposure to illness, recent antibiotic use in the last 3 months, fever, chills. Allergy: NKDA. PMH: Diabetes, hypertension, hyperlipidemia, ESRD. Medications: Reviewed. Surgery: Hemodialysis catheter placement to left upper extremity. Colonoscopy. Family history: Denies. Primary Social History: Not working at this time. Denies smoking, use of alcohol, use of illegal drugs. ROS All systems reviewed and are negative except as per history of present illness. Medications Home Meds Active Scripts Tramadol HCl (Tramadol HCl) 50 Mg Tablet, 50 MG PO Q6, #10 TAB Prov:BERNADETTE MCCAIN DO 07/14/16 Docusate Sodium* (Colace*) 100 Mg Capsule, 100 MG PO TID, #30 CAP Prov:BERNADETTE MCCAIN DO 07/14/16 Docusate Sodium* (Colace*) 100 Mg Capsule, 200 MG PO DAILY, #30 CAP Prov:GEORGINA BARRAGAN 07/12/16 Hydrocortisone Acetate (Anusol-Hc) 25 Mg Supp.rect, 25 MG [place] BID Y for HEMORROID PAIN/ITCHING for 7 Days, SUPP.RECT Prov:GEORGINA BARRAGAN 07/12/16 Albuterol Sulfate* (Ventolin HFA*) 18 Gm Hfa.aer.ad, 2 PUFF INHALATION Q6H for SHORTNESS OF BREATH, #1 INHALER 0 Refills Prov:JULIO CESAR ARTIS 07/06/16 Alprazolam* (Xanax*) 0.5 Mg Tab, 0.5 MG PO Q8H Y for shortness of breath/ anxiety, #15 TAB 0 Refills Prov:STEFFJULIO CESAR 07/06/16 Docusate Sodium* (Colace*) 100 Mg Capsule, 100 MG PO TID, #30 CAP Prov:TEDDY SANDOVAL 02/06/16 Gabapentin* (Neurontin*) 300 Mg Cap, 300 MG PO QHS, #30 CAP 1 Refill Prov:MERARY PULLIAM 09/08/15 Carvedilol* (Coreg*) 3.125 Mg Tab, 3.125 MG PO BID, #30 Prov:ANGIE FAJARDO MD 10/15/14 Reported Medications Amlodipine Besylate* (Amlodipine Besylate*) 10 Mg Tablet, 10 MG PO DAILY, #30 TAB 09/26/15 Glipizide* (Glipizide*) 5 Mg Tablet, 5 MG PO BID, TAB 05/22/15 Sevelamer Carbonate* (Renvela*) 800 Mg Tablet, 2400 MG PO WITH MEALS, TAB 10/14/14 Sitagliptin* (Januvia*) 25 Mg Tablet, 25 MG PO DAILY, TAB 10/14/14 [place]-3 Fatty Acids/Fish Oil* (Fish Oil *) 1,000 Mg Capsule, 1000 MG PO BID, CAP 10/14/14 Folic Acid/Vitamin B Comp W-C* (Nephro-Agatha Rx Tablet*) 1 Mg Tablet, 1 TAB PO DAILY, TAB 09/03/13 Nitroglycerin* (Nitrostat*) 0.4 Mg Tab.subl, 0.4 MG SL Q5MIN Y for CHEST PAIN, BOTTLE 09/03/13 Aspirin* (Aspirin* EC) 81 Mg Tablet.dr, 81 MG PO DAILY, TAB 09/03/13 Ferrous Sulfate* (Ferrous Sulfate*) 325 Mg Tablet, 325 MG PO DAILY 06/26/12 Simvastatin (Simvastatin) 20 Mg Tablet, 20 MG PO DAILY 12/07/10 Allergies Allergies: Coded Allergies: No Known Drug Allergies (Verified Allergy, Unknown, 07/06/16) PMhx/Soc History of Surgery: Yes (CABG, colon polyp removal, AV fistual) Anesthesia Reaction: No Hx Neurological Disorder: No Hx Respiratory Disorders: No Hx Cardiac Disorders: Yes (CAD, Hypertension) Hx Psychiatric Problems: Yes (Major Depression) Hx Miscellaneous Medical Probl: Yes (ESRD-DIALYSIS, DM, DJD, HTN) Hx Alcohol Use: No Hx Substance Use: No Hx Tobacco Use: No Physical Exam Vitals Physical Exam CONSTITUTIONAL: Well-appearing; well-nourished; in no apparent distress. HEAD: Normocephalic; atraumatic. EYES: Conjunctiva clear, sclera non-icteric, EOM intact. PERRL Ears: Hearing intact. EACs clear, TMs non-bulging, non-inflamed, translucent & mobile, ossicles normal appearance, No obstructions, no erythema, no discharges Nose: No obstructions. No polyps. No external lesions. Mucosa non-inflamed. No external lesions, septum and turbinates normal. No rhinorrhea. No discharges. Frontal sinus is non-tender to palpation. Maxillary sinus is non-tender to palpation. MOUTH: Moist mucous membranes, no lesion, no obstructions, no vesicles, no thrush, patent airway Throat: Uvula in midline. Right tonsil is +1 with no erythema, no exudate. Left tonsil is +1 with no erythema, no exudate. Tolerating secretions well. Good gag reflex. Patent airway. Neck: Supple, without lesions, bruits, or adenopathy. No mass. Thyroid non- enlarged and non-tender to palpation. CHEST: Symmetrical chest. Respirations even and not labored. No retractions noted. CARDIOVASCULAR: Normal S1, S2. RRR. No murmurs, gallops. RESPIRATORY: Normal chest excursion with respiration; breath sounds clear and equal bilaterally; no wheezes, rhonchi, or rales. Breathing even and unlabored. Speaking in clear, full, and complete sentences w/ ease. ABDOMEN: Normal bowel sounds normal. Soft, round, non-distended, non-guarding, no tenderness, no rebound, no organomegaly, no masses, no pulsating abdominal mass. No hernia. No peritoneal signs. : No CVA tenderness. BACK: Symmetrical shoulder. Spine is midline without deformity, tenderness. No evidence of trauma or deformity. PELVIS: Stable pelvis. No evidence of trauma or deformity. MUSCULOSKELETAL: Normal gait and station. No misalignment, asymmetry, crepitation, defects, tenderness, masses, effusions, decreased range of motion, instability, atrophy or abnormal strength or tone in the head, neck, spine, ribs , pelvis or extremities. No calf tenderness. NEUROVASCULAR: Distal pulses are present. Pedal pulse are present, equal, and normal. Capillary refills are < 2 seconds. NEUROLOGIC: Alert and oriented x4. Speaks full and clear sentences. Cranial Nerves II-XII normal. Sensation to pain, touch, and proprioception normal. Grossly unremarkable. No neurologic deficits. Romberg test is negative. PSYCHOLOGICAL: The patients mood and manner are appropriate. No hallucinations , delusions. Not SI. Not HI. Has the capacity to decide for self SKIN: Normal for age and ethnicity; warm; dry; good turgor; no apparent lesions or exudates. No rashes, hives, discoloration. Intact. Procedures/MDM Examination: Please see physical examination. Disease process, medical treatment was explained to the patient and family member. They verbalized understanding and agreed with the diagnostic tests, medical treatment, and follow-up care. Re-evaluation: Denies headache, dizziness, blurred vision, neck pain, shoulder pain, chest pain, abdominal pain, nausea, vomiting. No episode of emesis in the emergency department. Lung sounds are clear to auscultation. No right upper/right lower/epigastric/left upper/left lower abdominal tenderness on light duty palpation. No pelvic tenderness. No rectal tenderness. No rectal bleeding. No active bleeding. No loss of bowel and bladder control. Ambulatory with steady gait without discomfort. Capillary refills are within normal limits. No signs and evidence of hemorrhage or shock. Consultation: None. Differential diagnosis: Hemorrhoids versus constipation Medical decision makin-year-old male who presented emergency department for hemorrhoids. Stated that he has his hemorrhoids for about 2 weeks. Also stated that he has been using hydrocortisone cream for this. Also reports constipation. Stated that his last bowel movement was this morning. Patient's complaint, patient history about his complaint, my physical findings, my reevaluation are consistent with final diagnosis of hemorrhoids, constipation. Medications prescribed are the following: Anusol. Colace. Patient and family member are made aware of the side effects and adverse reactions of the medications prescribed. Instructed on when to seek emergent and medical attention in case allergic/anaphylactic reactions or severe side effects and or adverse reactions to medications. Patient and family member verbalized understanding. Patient instructed Instructed to follow-up with his PCP in 24-48 hours. PCP to refer patient to water softener installer. Instructed to Call 911 for chest pain, shortness of breath. Advised to come back here in ED as soon as possible for severity of symptoms which includes but not limited to: any new symptoms; shortness of breath/difficulty of breathing; cardiovascular changes; severe gastrointestinal symptoms; signs and symptoms of bleeding and or infection; signs of compartment syndrome/neurovascular changes; neurological changes/deficits. Patient and family member verbalized understanding. Upon discharge, patient is alert and oriented x 4, speaks full and clear sentences, denies pain, has no neurological deficits, has no neurovascular deficits, difficulty of breathing. Breathing even and unlabored. Lung sounds are clear to auscultation. Not in distress. Appears comfortable. Ambulatory with steady gait. Appears satisfied with care provided here in ED. Departure Diagnosis: Primary Impression: Rectal pain Condition: Stable Additional Instructions: Patient instructed Instructed to follow-up with his PCP in 24-48 hours. PCP to refer patient to water softener installer. Instructed to Call 911 for chest pain, shortness of breath. Advised to come back here in ED as soon as possible for severity of symptoms which includes but not limited to: any new symptoms; shortness of breath/difficulty of breathing; cardiovascular changes; severe gastrointestinal symptoms; signs and symptoms of bleeding and or infection; signs of compartment syndrome/neurovascular changes; neurological changes/deficits. Patient and family member verbalized understanding. GEORGINA BARRAGAN July 12, 2016 10:35 Instructed to follow-up with his PCP in 24-48 hours. PCP to refer patient to water softener installer. Instructed to Call 911 for chest pain, shortness of breath. Advised to come back here in ED as soon as possible for severity of symptoms which includes but not limited to: any new symptoms; shortness of breath/difficulty of breathing; cardiovascular changes; severe gastrointestinal symptoms; signs and symptoms of bleeding and or infection; signs of compartment syndrome/neurovascular changes; neurological changes/deficits. Patient and family member verbalized understanding. GEORGINA BARRAGAN July 12, 2016 10:35
[2016-07-12] MEDS ORDERED: DOCU-144 PO (10:37)
[2016-07-12] MEDS ORDERED: HYDR25SU23 PR (10:37)
[2016-07-12 11:11] VITALS: BP 134/76; PULSE 76; RESP 19; TEMP 98.3
== END 2016-07-12 11:12 | disposition home or self-care (01) ==
LOC: FTE 09:48
DX: K62.89 Other specified diseases of anus and rectum (principal); E11.22 Type 2 diabetes mellitus with diabetic chronic kidney disease; N18.6 End stage renal disease; I25.10 Atherosclerotic heart disease of native coronary artery without angina pectoris; Z79.82 Long term (current) use of aspirin; Z79.84 Long term (current) use of oral hypoglycemic drugs; Z95.1 Presence of aortocoronary bypass graft; Z99.2 Dependence on renal dialysis
CPT/HCPCS: 99283

== ENCOUNTER 2016-07-14 16:52 | Emergency (ER) | payer MEDICARE, OTHER ==
[~2016-07-14] VITALS: Ht 160 cm; Wt 76.0 kg
[~2016-07-14 16:52] MED LIST changes: +HYDR25SU23 PR
[2016-07-14 16:59] VITALS: Ht 160 cm; Wt 76.0 kg
--- NOTE | 2016-07-14 17:26 | ERD ---
ER Documentation Chief Complaint Date/Time DATE: 07/14/16 TIME: 17:24 Chief Complaint PAINFUL RECTUM AND BILAT PAIN IN LEGS HPI This is a 61-year-old male who presents to the emergency room for evaluation of rectal pain. The patient did take an ambulance to the emergency room for evaluation of rectal pain and hemorrhoids. The patient states that he was seen earlier this week and was diagnosed with hemorrhoids. He states that he was given Anusol suppository and states that his pain is improved but not completely subsided so he came to the ER for evaluation. He is denying any active rectal bleeding at this time. ROS All systems reviewed and are negative except as per history of present illness. Medications Home Meds Active Scripts Docusate Sodium* (Colace*) 100 Mg Capsule, 200 MG PO DAILY, #30 CAP Prov:GEORGINA BARRAGAN 07/12/16 Hydrocortisone Acetate (Anusol-Hc) 25 Mg Supp.rect, 25 MG [place] BID Y for HEMORROID PAIN/ITCHING for 7 Days, SUPP.RECT Prov:GEORGINA BARRAGAN 07/12/16 Albuterol Sulfate* (Ventolin HFA*) 18 Gm Hfa.aer.ad, 2 PUFF INHALATION Q6H for SHORTNESS OF BREATH, #1 INHALER 0 Refills Prov:JULIO CESAR ARTIS 07/06/16 Alprazolam* (Xanax*) 0.5 Mg Tab, 0.5 MG PO Q8H Y for shortness of breath/ anxiety, #15 TAB 0 Refills Prov:JULIO CESAR ARTIS 07/06/16 Docusate Sodium* (Colace*) 100 Mg Capsule, 100 MG PO TID, #30 CAP Prov:TEDDY SANDOVAL 02/06/16 Gabapentin* (Neurontin*) 300 Mg Cap, 300 MG PO QHS, #30 CAP 1 Refill Prov:MERARY PULLIAM 09/08/15 Carvedilol* (Coreg*) 3.125 Mg Tab, 3.125 MG PO BID, #30 Prov:ANGIE FAJARDO MD 10/15/14 Reported Medications Amlodipine Besylate* (Amlodipine Besylate*) 10 Mg Tablet, 10 MG PO DAILY, #30 TAB 09/26/15 Glipizide* (Glipizide*) 5 Mg Tablet, 5 MG PO BID, TAB 3/30/16 Sevelamer Carbonate* (Renvela*) 800 Mg Tablet, 2400 MG PO WITH MEALS, TAB 10/14/14 Sitagliptin* (Januvia*) 25 Mg Tablet, 25 MG PO DAILY, TAB 10/14/14 [place]-3 Fatty Acids/Fish Oil* (Fish Oil *) 1,000 Mg Capsule, 1000 MG PO BID, CAP 10/14/14 Folic Acid/Vitamin B Comp W-C* (Nephro-Agatha Rx Tablet*) 1 Mg Tablet, 1 TAB PO DAILY, TAB 09/03/13 Nitroglycerin* (Nitrostat*) 0.4 Mg Tab.subl, 0.4 MG SL Q5MIN Y for CHEST PAIN, BOTTLE 09/03/13 Aspirin* (Aspirin* EC) 81 Mg Tablet.dr, 81 MG PO DAILY, TAB 09/03/13 Ferrous Sulfate* (Ferrous Sulfate*) 325 Mg Tablet, 325 MG PO DAILY 06/26/12 Simvastatin (Simvastatin) 20 Mg Tablet, 20 MG PO DAILY 12/07/10 Allergies Allergies: Coded Allergies: No Known Drug Allergies (Verified Allergy, Unknown, 07/06/16) PMhx/Soc History of Surgery: Yes (CABG, colon polyp removal, AV fistual) Anesthesia Reaction: No Hx Neurological Disorder: No Hx Respiratory Disorders: No Hx Cardiac Disorders: Yes (CAD, Hypertension) Hx Psychiatric Problems: Yes (Major Depression) Hx Miscellaneous Medical Probl: Yes (ESRD-DIALYSIS, DM, DJD, HTN) Hx Alcohol Use: No Hx Substance Use: No Hx Tobacco Use: No Physical Exam Vitals Vital Signs Date Time Temp Pulse Resp B/P Pulse Ox O2 Delivery O2 Flow Rate FiO2 07/14/16 16:59 97.8 73 18 105/57 95 Physical Exam Const: No acute distress Head: Atraumatic Eyes: Normal Conjunctiva ENT: Normal External Ears, Nose and Mouth. Neck: Full range of motion..~ No meningismus. Resp: Clear to auscultation bilaterally Cardio: Regular rate and rhythm, no murmurs Abd: Soft, non tender, non distended. Normal bowel sounds Skin: No external hemorrhoids, no petechiae or rashes Back: No midline or flank tenderness Ext: No cyanosis, or edema Neur: Awake and alert Psych: Normal Mood and Affect Procedures/MDM This 61-year-old male presents to the emergency room for evaluation of rectal pain. I did not know any external hemorrhoids the patient likely has internal hemorrhoids. No active bleeding. The patient is on Anusol and advised him to continue that. The patient will be given Colace for stool softening. He also be sent home with tramadol for breakthrough pain in a referral for gastroenterology. I did not note any active bleeding or any anal fissures Departure Diagnosis: Primary Impression: Rectal pain Condition: Stable BERNADETTE MCCAIN DO July 14, 2016 17:26
[2016-07-14] MEDS ORDERED: TRAM50TA2 PO (17:27)
[2016-07-14] MEDS ORDERED: DOCU-144 PO (17:27)
[2016-07-14] MEDS ORDERED: traMADol 50 MG TAB PO ONE (18:00)
== END 2016-07-14 18:56 | disposition home or self-care (01) ==
LOC: FTE 16:52
DX: K62.89 Other specified diseases of anus and rectum (principal); I12.0 Hypertensive chronic kidney disease with stage 5 chronic kidney disease or end stage renal disease; N18.6 End stage renal disease; E11.9 Type 2 diabetes mellitus without complications; I25.10 Atherosclerotic heart disease of native coronary artery without angina pectoris; Z79.82 Long term (current) use of aspirin; Z79.84 Long term (current) use of oral hypoglycemic drugs; Z95.1 Presence of aortocoronary bypass graft
CPT/HCPCS: 99283

== ENCOUNTER 2016-10-03 13:29 | Emergency (ER) | payer MEDICARE, OTHER ==
[~2016-10-03] VITALS: Ht 165.1 cm; Wt 77.0 kg
[~2016-10-03 13:29] MED LIST changes: +TRAM50TA2 PO
[2016-10-03 13:34] VITALS: Ht 165.1 cm; Wt 77.0 kg
[2016-10-03 16:58] LABS: BASOPHILS % 0.5 % (0.0-2.0); EOSINOPHILS # 0.2 10^3/ul (0.0-0.5); EOSINOPHILS % 2.3 % (0.0-7.0); HEMATOCRIT 38.2 % (42.0-52.0); HEMOGLOBIN 12.6 g/dl (14.0-18.0); LYMPHOCYTES # 1.5 10^3/ul (0.8-2.9); LYMPHOCYTES % 19.9 % (15.0-51.0); MEAN CORPUSCULAR HEMOGLOBIN 31.2 pg (29.0-33.0); MEAN CORPUSCULAR VOLUME 94.6 fl (82.0-101.0); MEAN PLATELET VOLUME 9.8 fl (7.4-10.4); MONOCYTE # 0.8 10^3/ul (0.3-0.9); MONOCYTES % 10.4 % (0.0-11.0); NEUTROPHIL # 4.9 10^3/ul (1.6-7.5); PLATELET COUNT 168 10^3/UL (140-415); RED BLOOD COUNT 4.04 10^6/ul (4.70-6.10); RED CELL DISTRIBUTION WIDTH 13.8 % (11.5-14.5); WHITE BLOOD COUNT 7.4 10^3/ul (4.8-10.8)
[2016-10-03 17:18] LABS: ALBUMIN 4.3 g/dl (3.3-4.9); ALBUMIN/GLOBULIN RATIO 0.93; BILIRUBIN,INDIRECT 0.1 mg/dl (0-1.1); BILIRUBIN,TOTAL 0.1 mg/dl (0.2-1.3); CREATININE 6.53 mg/dl (0.61-1.24); POTASSIUM 4.5 mmol/L (3.5-5.1); TOTAL PROTEIN 8.9 g/dl (6.1-8.1)
--- NOTE | 2016-10-03 17:24 | ERD ---
ER Documentation Chief Complaint Date/Time DATE: 10/03/16 TIME: 17:18 Chief Complaint rectal pain x 6 months, hx hemmorhoids, on 09/30 was told k+ was high HPI 61-year-old man complains of rectal pain 6 months worse with straining on the toilet. Patient states he has had intermittent bleeding in the toilet bowl but denies melena. Patient has end-stage kidney disease and was hemodialyzed yesterday but he states he was also told to have his potassium repeated because he had hyperkalemia this week. Patient denies fevers or chills, no vomiting or diarrhea, no complaints of chest pain or shortness of breath. ROS All systems reviewed and are negative except as per history of present illness. Medications Home Meds Reported Medications Fludrocortisone* (Fludrocortisone*) 0.1 Mg Tablet, 0.1 MG PO DAILY, TAB 10/03/16 Clonidine Hcl* (Clonidine Hcl*) 0.1 Mg Tab, 0.1 MG PO BID, TAB 10/03/16 Gabapentin* (Gabapentin*) 300 Mg Capsule, 300 MG PO QHS, #60 CAP 10/03/16 Nifedipine (Procardia Xl) 60 Mg Tab.er.24, 60 MG PO DAILY, TAB 10/03/16 Losartan Potassium* (Losartan Potassium*) 25 Mg Tablet, 25 MG PO DAILY, TAB 10/03/16 Meclizine Hcl* (Meclizine Hcl*) 25 Mg Tablet, 25 MG PO Q8H Y for DIZZINESS, TAB 10/03/16 Cinacalcet* (Sensipar*) 30 Mg Tab, 30 MG PO DAILY, TAB 10/03/16 Glipizide* (Glipizide*) 5 Mg Tablet, 5 MG PO BID, TAB 05/22/15 Sevelamer Carbonate* (Renvela*) 800 Mg Tablet, 2400 MG PO WITH MEALS, TAB 10/14/14 Sitagliptin* (Januvia*) 25 Mg Tablet, 25 MG PO DAILY, TAB 10/14/14 Folic Acid/Vitamin B Comp W-C* (Nephro-Agatha Rx Tablet*) 1 Mg Tablet, 1 TAB PO DAILY, TAB 09/03/13 Nitroglycerin* (Nitrostat*) 0.4 Mg Tab.subl, 0.4 MG SL Q5MIN Y for CHEST PAIN, BOTTLE 09/03/13 Aspirin* (Aspirin* EC) 81 Mg Tablet.dr, 81 MG PO DAILY, TAB 09/03/13 Ferrous Sulfate* (Ferrous Sulfate*) 325 Mg Tablet, 325 MG PO DAILY 06/26/12 Simvastatin (Simvastatin) 20 Mg Tablet, 20 MG PO QHS 12/07/10 Discontinued Reported Medications Fe Fumarate/Nedra/FA/Bcomp,C (Nephron FA Tablet) 1 Each Tablet, 1 EACH PO DAILY, TAB 10/03/16 Amlodipine Besylate* (Amlodipine Besylate*) 10 Mg Tablet, 10 MG PO DAILY, #30 TAB 09/26/15 [place]-3 Fatty Acids/Fish Oil* (Fish Oil *) 1,000 Mg Capsule, 1000 MG PO BID, CAP 10/14/14 Discontinued Scripts Tramadol HCl (Tramadol HCl) 50 Mg Tablet, 50 MG PO Q6, #10 TAB Prov:BERNADETTE MCCAIN DO 07/14/16 Docusate Sodium* (Colace*) 100 Mg Capsule, 100 MG PO TID, #30 CAP Prov:BERNADETTE MCCAIN DO 07/14/16 Docusate Sodium* (Colace*) 100 Mg Capsule, 200 MG PO DAILY, #30 CAP Prov:PASILAORALLAURENAR F 07/12/16 Hydrocortisone Acetate (Anusol-Hc) 25 Mg Supp.rect, 25 MG [place] BID Y for HEMORROID PAIN/ITCHING for 7 Days, SUPP.RECT Prov:LAUREN BARRAGANAR F 07/12/16 Albuterol Sulfate* (Ventolin HFA*) 18 Gm Hfa.aer.ad, 2 PUFF INHALATION Q6H for SHORTNESS OF BREATH, #1 INHALER 0 Refills Prov:JULIO CESAR ARTIS 07/06/16 Alprazolam* (Xanax*) 0.5 Mg Tab, 0.5 MG PO Q8H Y for shortness of breath/ anxiety, #15 TAB 0 Refills Prov:JULIO CESAR ARTIS 07/06/16 Docusate Sodium* (Colace*) 100 Mg Capsule, 100 MG PO TID, #30 CAP Prov:TEDDY SANDOVAL 02/06/16 Gabapentin* (Neurontin*) 300 Mg Cap, 300 MG PO QHS, #30 CAP 1 Refill Prov:MERARY PULLIAM 09/08/15 Carvedilol* (Coreg*) 3.125 Mg Tab, 3.125 MG PO BID, #30 Prov:ANGIE FAJARDO MD 10/15/14 Allergies Allergies: Coded Allergies: No Known Drug Allergies (Verified Allergy, Unknown, 10/03/16) PMhx/Soc End-stage kidney disease, hemodialysis dependent, hypertension, coronary artery disease, anemia, diabetes mellitus History of Surgery: Yes (CABG, colon polyp removal, AV fistual) Anesthesia Reaction: No Hx Neurological Disorder: No Hx Respiratory Disorders: No Hx Cardiac Disorders: Yes (CAD, Hypertension) Hx Psychiatric Problems: Yes (Major Depression) Hx Miscellaneous Medical Probl: Yes (ESRD-DIALYSIS, DM, DJD, HTN) Hx Alcohol Use: No Hx Substance Use: No Hx Tobacco Use: No Smoking Status: Never smoker FmHx Family History: No diabetes Physical Exam Vitals Vital Signs Date Time Temp Pulse Resp B/P Pulse Ox O2 Delivery O2 Flow Rate FiO2 10/03/16 18:28 98.1 60 16 135/72 100 Room Air 10/03/16 13:34 98.1 74 16 141/77 100 Physical Exam GENERAL: Well-developed, well-nourished, well-hydrated, in no apparent distress , looks nontoxic in appearance HEENT: Moist mucous membranes, pink conjunctiva, no cervical spine tenderness or step-off deformities, no goiter, no jaundice or icterus, extraocular movements intact without pain. No submandibular induration, and no pharyngeal erythema NEURO: Alert and oriented 3, cranial nerves II through XII intact bilaterally, pupils equal round reactive to light, no focal deficits or facial asymmetry, sensation intact distally Strength 5/5 in upper and lower extremities bilaterally CARDIAC: Regular rate and rhythm, no murmurs rubs or gallops LUNGS: Clear bilaterally no wheezing crackles or stridor ABDOMEN: Soft nontender, no guarding, no rigidity, no rebound, no psoas sign no obturator sign. Normoactive bowel sounds SKIN: Warm and dry to touch, no abrasions, contusions, or hematomas, no lacerations, no ecchymosis, no target lesions, and without ulcers EXTREMITIES: No clubbing cyanosis or edema, calves are bilaterally symmetrical, no Homans sign, no popliteal cord sign. Distal pulses equal and bilateral PSYCH: Normal affect without agitation or irritability Result Diagram: 10/03/16 1640 10/03/16 1640 Results 24 hrs Laboratory Tests Test 10/03/16 16:40 White Blood Count 7.410^3/ul Red Blood Count 4.0410^6/ul Hemoglobin 12.6g/dl Hematocrit 38.2% Mean Corpuscular Volume 94.6fl Mean Corpuscular Hemoglobin 31.2pg Mean Corpuscular Hemoglobin Concent 33.0g/dl Red Cell Distribution Width 13.8% Platelet Count 46295^3/UL Mean Platelet Volume 9.8fl Neutrophils % 66.0% Lymphocytes % 19.9% Monocytes % 10.4% Eosinophils % 2.3% Basophils % 0.5% Nucleated Red Blood Cells % 0.0/100WBC Neutrophils # 4.910^3/ul Lymphocytes # 1.510^3/ul Monocytes # 0.810^3/ul Eosinophils # 0.210^3/ul Basophils # 0.010^3/ul Nucleated Red Blood Cells # 0.010^3/ul Sodium Level 142mmol/L Potassium Level 4.5mmol/L Chloride Level 91mmol/L Carbon Dioxide Level 31mmol/L Anion Gap 25 Blood Urea Nitrogen 50mg/dl Creatinine 6.53mg/dl Glucose Level 149mg/dl Calcium Level 8.0mg/dl Total Bilirubin 0.1mg/dl Direct Bilirubin 0.00mg/dl Indirect Bilirubin 0.1mg/dl Aspartate Amino Transf (AST/SGOT) 17IU/L Alanine Aminotransferase (ALT/SGPT) 27IU/L Alkaline Phosphatase 195IU/L Troponin I 0.037ng/ml Total Protein 8.9g/dl Albumin 4.3g/dl Globulin 4.60g/dl Albumin/Globulin Ratio 0.93 Lipase 143U/L Procedures/MDM IV line was established patient was placed on cardiac cath rn rhythm strip revealed a sinus rhythm at about 60 bpm. Patient was afebrile. EKG performed, read by me revealed a sinus rhythm at 60 bpm, normal axis, narrow QRS complex with a first-degree atrial ventricular block and a IN interval of 296 ms. Anal inspection and digital rectal exam performed there is no active bleeding or melena, he does have a tender hemorrhoid at the anus. No fissures noted. CBC and electrolytes are normal, troponin negative. Differential diagnoses considered, included but not limited to acute coronary syndrome, pulmonary embolism, aortic dissection, abdominal aortic aneurysm, sepsis, stroke, meningitis, encephalitis, pneumonia, appendicitis, cholecystitis , bowel obstruction, pyelonephritis, nephrolithiasis, cystitis, as well as metabolic, hematologic, and electrolyte abnormalities. As well as abscess, cellulitis, fractures, and dislocations. Patient feels much better at this time, and vital signs are normal, symptoms have improved. I did give strict instructions to return to the ED if symptoms continue or worsen, patient will otherwise follow-up with primary care physician. Patient understood instructions and agreed to plan. Disclaimer: Inadvertent spelling and grammatical errors are likely due to EHR/ dictation software use and do not reflect on the overall quality of patient care. Also, please note that the electronic time recorded on this note does not necessarily reflect the actual time of the patient encounter. Departure Diagnosis: Primary Impression: End stage kidney disease Additional Impression: Hemorrhoids Hemorrhoid type: first degree Qualified Code: K64.0 - First degree hemorrhoids Condition: Good ANDREWS FALCON MD Oct 03, 2016 17:24
[2016-10-03 17:29] LABS: TROPONIN-I 0.037 ng/ml (0.00-0.12)
[2016-10-03] MEDS ORDERED: CNC30T PO (17:49)
[2016-10-03] MEDS ORDERED: MECL-77 PO (17:50)
[2016-10-03] MEDS ORDERED: FE F1TAB7 PO (17:51)
[2016-10-03] MEDS ORDERED: LOSA25TA5 PO (17:52)
[2016-10-03] MEDS ORDERED: NIFE60TA2 PO (17:53)
[2016-10-03] MEDS ORDERED: GABA300C16 PO (18:21)
[2016-10-03 18:28] VITALS: BP 135/72; PULSE 60; RESP 16; TEMP 98.1
[2016-10-03] MEDS ORDERED: CLON-379 PO (18:30)
[2016-10-03] MEDS ORDERED: FLUD0.1T10 PO (18:34)
== END 2016-10-03 18:30 | disposition home or self-care (01) ==
LOC: E/R 13:29
DX: I12.0 Hypertensive chronic kidney disease with stage 5 chronic kidney disease or end stage renal disease (principal); N18.6 End stage renal disease; K64.0 First degree hemorrhoids; E11.9 Type 2 diabetes mellitus without complications; I25.10 Atherosclerotic heart disease of native coronary artery without angina pectoris; Z95.1 Presence of aortocoronary bypass graft; Z99.2 Dependence on renal dialysis; Z79.84 Long term (current) use of oral hypoglycemic drugs; Z79.82 Long term (current) use of aspirin
CPT/HCPCS: 36415; 80053; 83690; 84484; 85025; 93005

== ENCOUNTER 2017-02-27 12:26 | Emergency (ER) | END 2017-02-27 20:18 | disposition home or self-care (01) ==

== ENCOUNTER 2017-08-21 00:32 | Emergency (ER) | END 2017-08-21 05:17 | disposition home or self-care (01) ==

== ENCOUNTER 2017-09-10 19:38 | Inpatient (IN) | END 2017-09-12 12:35 | disposition home or self-care (01) | DRG 640 ==

== ENCOUNTER 2017-11-20 20:46 | Emergency (ER) | END 2017-11-21 02:48 | disposition home or self-care (01) ==

== ENCOUNTER 2017-12-02 07:27 | Emergency (ER) | END 2017-12-02 08:44 | disposition home or self-care (01) ==

== ENCOUNTER 2017-12-12 17:17 | Emergency (ER) | END 2017-12-12 20:25 | disposition home or self-care (01) ==

== ENCOUNTER 2018-02-20 07:09 | Inpatient (IN) | payer OTHER ==
[~2018-02-20] VITALS: Ht 167.6 cm; Wt 76.9 kg
[2018-02-20] VITALS (16 sets, daily range): BP systolic 91–168; BP diastolic 66–100; PULSE 71–104; RESP 18–22; Ht 167.6 cm; Wt 76.9 kg
[~2018-02-20 07:09] MED LIST changes: -ALBU18HF INHALATION; +ALPR0.254 PO; -ALPR0.5T PO; -AMLO-147 PO; -ASPI-664 PO; +ASPI-817 PO; -CARV3.12 PO; +CARV3.1260 PO; +CEPH-443 PO; +CLON-379 PO; -DOCU-144 PO; +FLUT16SP17 NASAL; -GABA300C PO; +HYDR-4011 PO; -HYDR25SU23 PR; +LORA1TAB PO; +LOSA25TA6 PO; +NAPR-685 PO; -NIT4 SL; -OMEG100011 PO; +SERT25TA83 PO; -SEVE800T7 PO; -SITA25TA3 PO; +SVL800C PO; -TRAM50TA2 PO; +TRAZ-111 PO
--- NOTE | 2018-02-20 07:36 | ERD ---
ER Documentation Chief Complaint Chief Complaint Sent from clinic for Eval SOB Hx of dialysis (wed) HPI 63M hx of HTN, ESRD on HD who presents to the emergency room complaining of shortness of breath and elevated blood pressure. The patient had dialysis yesterday but notes shortness of breath, dyspnea on exertion and PND. He notes blood pressure has been significantly elevated. He tried to go to dialysis today with his son to the emergency room if acutely elevated blood pressure. He denies any chest pressure, no headache. He describes abdominal fullness consistent with prior history of volume overload. He denies history of cirrhosis. During the patient's encounter translation services were utilized Language: [Thai] Source: [Family] ROS All systems reviewed and are negative except as per history of present illness. Medications Home Meds Active Scripts Cephalexin* (Keflex*) 500 Mg Capsule, 500 MG PO QID for 7 Days, CAP Prov:FACUNDO PALOMARES MD 12/12/17 Hydrocodone/Acetaminophen ([place] 5-325 Tablet) 1 Each Tablet, 1 EACH PO Q6 PRN for SEVERE PAIN LEVEL 7-10, #14 TAB Prov:ANNA GARCIA DO 11/21/17 Naproxen* (Naproxen*) 375 Mg Tablet, 375 MG PO BID PRN for PAIN, #14 TAB Prov:ANNA GARCIA DO 11/21/17 Carvedilol* (Carvedilol*) 3.125 Mg Tablet, 3.125 MG PO BID, #60 TAB Prov:GUERDA LANTIGUA 09/12/17 Reported Medications Lorazepam* (Lorazepam*) 1 Mg Tablet, 5 MG PO HS PRN for ANXIETY, #30 TAB 09/10/17 Sevelamer Hcl* (Renagel*) 800 Mg Tablet, 800 MG PO WITH MEALS, TAB 09/10/17 Fluticasone Propionate* (Fluticasone Propionate* Nasal) 50 Mcg/[place] - 16 Gm [place].susp, 1 SPRAY NASAL BID, #1 BOTTLE TO EACH NOSTRIL 09/10/17 Hydrocodone/Acetaminophen ([place] 5-325 Tablet) 1 Each Tablet, 1 EACH PO Q12H, TAB 02/27/17 Alprazolam* (Alprazolam*) 0.25 Mg Tablet, 0.25 MG PO DAILY PRN for ANXIETY, TAB 02/27/17 Trazodone Hcl* (Trazodone Hcl*) 50 Mg Tablet, 50 MG PO QHS, #30 TAB 02/27/17 Sertraline Hcl* (Sertraline Hcl*) 25 Mg Tablet, 25 MG PO DAILY, #30 TAB 02/27/17 Clonidine Hcl* (Clonidine Hcl*) 0.1 Mg Tab, 0.1 MG PO BID, TAB 10/03/16 Losartan Potassium* (Losartan Potassium*) 25 Mg Tablet, 25 MG PO DAILY, TAB 10/03/16 Glipizide* (Glipizide*) 5 Mg Tablet, 5 MG PO BID, TAB 05/22/15 Folic Acid/Vitamin B Comp W-C* (Nephro-Agatha Rx Tablet*) 1 Mg Tablet, 1 TAB PO DAILY, TAB 09/03/13 Aspirin* (Aspirin* EC) 81 Mg Tablet.dr, 81 MG PO DAILY, TAB 09/03/13 Ferrous Sulfate* (Ferrous Sulfate*) 325 Mg Tablet, 325 MG PO DAILY 06/26/12 Simvastatin (Simvastatin) 20 Mg Tablet, 20 MG PO QHS 12/07/10 Allergies Allergies: Coded Allergies: No Known Drug Allergies (Verified Allergy, Unknown, 12/02/17) PMhx/Soc History of Surgery: Yes (CABG,Colon Polyp Removal,AV Fistula Placed) Anesthesia Reaction: No Hx Neurological Disorder: Yes (Vertigo) Hx Respiratory Disorders: Yes Hx Cardiac Disorders: Yes (CAD,HTN) Hx Psychiatric Problems: Yes (Major Depression) Hx Miscellaneous Medical Probl: Yes (ESRD;Hemodialysis) Hx Alcohol Use: No Hx Substance Use: No Hx Tobacco Use: Yes Smoking Status: Former smoker FmHx Family History: No diabetes Physical Exam Vitals Vital Signs Date Temp Pulse Resp B/P (MAP) Pulse Ox O2 O2 Flow FiO2 Time Delivery Rate 02/20/18 74 24 174/90 100 Room Air 07:26 (118) 02/20/18 97.3 80 20 234/116 98 07:12 (155) Physical Exam General: Well developed, well nourished, no acute distress Head: Normocephalic, atraumatic. Eyes: Pupils equally reactive, EOM intact ENT: Moist mucous membranes Neck: Supple, no lymphadenopathy Respiratory: Rales at the bases bilaterally Cardiovascular: RRR, no murmurs, rubs, or gallops Abdominal: Soft, protuberant but no fluid wave, no peritonitis : Deferred MSK: Scant peripheral edema, no unilateral swelling, 5/5 strength Neurologic: Alert and oriented, moving all extremities, normal speech, no focal weakness, no cerebellar signs Skin: No rash, left tunneled Vas-Cath in good position Psych: Normal mood Result Diagram: 02/20/18 0743 02/20/18 0743 Results 24 hrs Laboratory Tests Test 02/20/18 07:43 White Blood Count 8.2 10^3/ul Red Blood Count 4.24 10^6/ul Hemoglobin 13.1 g/dl Hematocrit 40.8 % Mean Corpuscular Volume 96.2 fl Mean Corpuscular Hemoglobin 30.9 pg Mean Corpuscular Hemoglobin Concent 32.1 g/dl Red Cell Distribution Width 14.2 % Platelet Count 146 10^3/UL Mean Platelet Volume 9.7 fl Immature Granulocytes % 0.500 % Neutrophils % 72.4 % Lymphocytes % 15.6 % Monocytes % 8.9 % Eosinophils % 2.1 % Basophils % 0.5 % Nucleated Red Blood Cells % 0.0 /100WBC Immature Granulocytes # 0.040 10^3/ul Neutrophils # 6.0 10^3/ul Lymphocytes # 1.3 10^3/ul Monocytes # 0.7 10^3/ul Eosinophils # 0.2 10^3/ul Basophils # 0.0 10^3/ul Nucleated Red Blood Cells # 0.0 10^3/ul Prothrombin Time 13.3 Sec Prothrombin Time Ratio 1.0 INR International Normalized Ratio 1.00 Activated Partial Thromboplast Time 30.1 Sec Sodium Level 141 mmol/L Potassium Level 6.5 mmol/L Chloride Level 95 mmol/L Carbon Dioxide Level 32 mmol/L Anion Gap 14 Blood Urea Nitrogen 41 mg/dl Creatinine 8.27 mg/dl Est Glomerular Filtrat Rate mL/min 7 mL/min Glucose Level 222 mg/dl Calcium Level 8.5 mg/dl Total Bilirubin 0.0 mg/dl Direct Bilirubin 0.00 mg/dl Indirect Bilirubin 0.0 mg/dl Aspartate Amino Transf (AST/SGOT) 19 IU/L Alanine Aminotransferase (ALT/SGPT) 27 IU/L Alkaline Phosphatase 164 IU/L Troponin I 0.028 ng/ml Total Protein 8.6 g/dl Albumin 4.5 g/dl Globulin 4.10 g/dl Albumin/Globulin Ratio 1.09 Lipase 100 U/L Current Medications Medications Dose Sig/Martín Start Time Status Last (Trade) Ordered Route PRN Stop Time Admin Dose Reason Admin Sodium 30 gm ONCE STAT 02/20/18 DC 02/20/18 Polystyrene PO 08:15 08:24 Sulfonate 02/20/18 (Kayexalate) 08:18 Calcium 110 ml @ ONCE ONCE 02/20/18 Gluconate 1 110 mls/hr IVPB 08:30 gm/Dextrose 02/20/18 09:29 Ondansetron 4 mg ER BRIDGE 02/20/18 HCl (Zofran PRN IV 08:30 Inj) NAUSEA AND/OR 02/21/18 VOMITING 08:29 650 mg ER BRIDGE 02/20/18 Acetaminophen PRN PO MILD 08:30 (Tylenol PAIN(1-3)OR 02/21/18 Tab) ELEVATED TEMP 08:29 Procedures/MDM EKG, MONITORS, & DIAGNOSTIC IMAGING: EKG: I reviewed and interpreted a 12-lead EKG. Rhythm: Normal sinus rhythm ST Changes: No contiguous ST segment elevations T waves: No contiguous T wave inversions Impression: [No evidence of acute cardiac ischemia] Chest x-ray: I reviewed and interpreted a 1 view of the chest Mediastinum: No enlargement Cardiac silhouette: No cardiomegaly Airspace: Clear lung may bilaterally without evidence of pneumothorax Bones: No evidence of fracture LAB INTERPRETATION: * CBC reveals no evidence of infectious process * Chemistry profile shows hyperkalemia, chronic renal failure MEDICAL DECISION MAKING: The patient presents with complaint of volume overload and significant hypertension with shortness of breath. His clinical exam history and presentation are likely consistent with hypertensive urgency versus emergency in the setting of end-stage renal disease. The patient likely requires another session of dialysis. His blood pressure at triage was significantly elevated in the 200 range but improved to the 170/90 range without intervention. He has no obvious respiratory distress and only scant rales at the bases of his lung. He does have abdominal protuberance likely secondary to volume overload. The patient does not have a known history of cirrhosis and his clinical exam is not consistent with cirrhosis and abdominal ascites secondary to liver disease. He denies history of paracentesis. Since the patient's blood pressure is improved and the patient has no respira tory distress with oxygen saturation of 100% on room air if the laboratory testing shows no evidence of hyperkalemia or other emergent condition patient can be safely discharged to dialysis center. I will recheck to the patient's installer metal flooring. ER COURSE: * Blood pressure improved without intervention to 170/90 * Hyperkalemia noted without EKG changes. Kayexalate and calcium provided. The patient needs dialysis. * Dr. Sanders has been consulted given care provided in the last several months to this patient. Patient's primary installer metal flooring is Dr. Alvarez, who has been called but does not have privileges at this facility * Patient is hemodynamically stable without need for BiPAP, IV blood pressure medication CONSULTATION: [None] DISPOSITION PLAN: Telemetry admission for management of hyperkalemia in the setting of end-stage renal disease Accepting care team and consultations: I discussed the current laboratory data, diagnostic imaging and emergency care provided. Admitting team: Dr. Wheeler Admitting team indication: Insurance directed Consulting services: Nephrology Dr. Sanders above Departure Diagnosis: Primary Impression: Hyperkalemia Additional Impressions: End stage renal disease on dialysis Hypertensive urgency Condition: Stable JOHN DHALIWAL MD Feb 20, 2018 07:36
[2018-02-20] MEDS ORDERED: NA POLYST SULFON 15 GM/60 ML BTL PO STA (08:15)
[2018-02-20] MEDS ORDERED: CALCIUM GLUCONATE 10% 1 GM in DEXTROSE 5% 100 ML IVPB ONE (08:30)
[2018-02-20] MEDS ORDERED: ONDANSETRON 4 MG INJ IV PRN ×2 (08:30→10:00)
[2018-02-20] MEDS ORDERED: ACETAMINOPHEN 325 MG TAB PO PRN ×2 (08:30→10:00)
--- NOTE | 2018-02-20 09:02 | HP ---
Date/Time of Note Date/Time of Note DATE: 02/20/18 TIME: 09:02 Assessment/Plan VTE Prophylaxis Pharmacological prophylaxis: heparin Lines/Catheters IV Catheter Type (from [facility]): [place] Assessment/Plan Hospital Course 63-year-old male with comorbidities including hypertension, end-stage renal disease on hemodialysis, dyslipidemia, diabetes mellitus type 2, previous CVA, and coronary artery disease with CABG. The patient came to the emergency room with dyspnea and high blood pressure, who was found to have evidence of hyperkalemia and hypertensive urgency. The patient will be admitted to inpatient setting for further treatment and evaluation. 1. Hypertensive urgency. -Lower the patient's blood pressure gradually. -The patient to be initiated on hemodialysis. 2. Hyperkalemia. -The patient will be initiated on hemodialysis. -Status post calcium gluconate and Kayexalate in the emergency room. 3. Diabetes mellitus type 2. -Hold oral agents. -Start the patient on sliding scale insulin along with basal insulin. -Obtain hemoglobin A1c to evaluate the blood glucose control over the past few weeks. 4. CAD, status post CABG in 2008. -Resume cardiac medications occluding aspirin. 5. Dyslipidemia. -Resume statins. 6. History of stroke with no residual effects. -Continue statins and aspirin. 7. Normocytic, normochromic anemia. -Most probably anemia of chronic kidney disease. Plan: The patient will be admitted to inpatient telemetry floor. The patient will be started on a carbohydrate controlled, renal diet. The patient will be started on DVT prophylaxis and gastrointestinal prophylaxis. The patient will remain a full code. Activities will be as tolerated. The rest of the patient's management will be based on the clinical course and the results of diagnostic studies. Based on the patient's clinical presentation, he most probably requires at least one midnight's stay for further management and evaluation of his clinical presentation. The patient was seen in collaboration with Dr. Wheeler. Result Diagram: 02/20/18 0743 02/20/18 0743 Results 24hrs Laboratory Tests Test 02/20/18 07:43 White Blood Count 8.2 # Red Blood Count 4.24 L Hemoglobin 13.1 L Hematocrit 40.8 L Mean Corpuscular Volume 96.2 Mean Corpuscular Hemoglobin 30.9 Mean Corpuscular Hemoglobin Concent 32.1 Red Cell Distribution Width 14.2 Platelet Count 146 Mean Platelet Volume 9.7 Immature Granulocytes % 0.500 H Neutrophils % 72.4 Lymphocytes % 15.6 Monocytes % 8.9 Eosinophils % 2.1 Basophils % 0.5 Nucleated Red Blood Cells % 0.0 Immature Granulocytes # 0.040 H Neutrophils # 6.0 Lymphocytes # 1.3 Monocytes # 0.7 Eosinophils # 0.2 Basophils # 0.0 Nucleated Red Blood Cells # 0.0 Prothrombin Time 13.3 Prothrombin Time Ratio 1.0 INR International Normalized Ratio 1.00 Activated Partial Thromboplast Time 30.1 Sodium Level 141 Potassium Level 6.5 *H Chloride Level 95 L Carbon Dioxide Level 32 H Anion Gap 14 H Blood Urea Nitrogen 41 H Creatinine 8.27 H Est Glomerular Filtrat Rate mL/min 7 L Glucose Level 222 H Calcium Level 8.5 Total Bilirubin 0.0 L Direct Bilirubin 0.00 Indirect Bilirubin 0.0 Aspartate Amino Transf (AST/SGOT) 19 Alanine Aminotransferase (ALT/SGPT) 27 Alkaline Phosphatase 164 H Troponin I 0.028 Total Protein 8.6 H Albumin 4.5 Globulin 4.10 H Albumin/Globulin Ratio 1.09 Lipase 100 HPI/ROS Admit Date/Time Admit Date/Time Hx of Present Illness This is a 63-year-old male with past medical history of hypertension, diabetes mellitus type 2, CAD status post coronary artery bypass grafting, end-stage renal disease on hemodialysis, dyslipidemia, and prior CVA. The patient was referred to the emergency room from the clinic for dyspnea and hypertension. The patient received his last hemodialysis on 02/19/2018. The patient verbalized that he has been getting hemodialysis more frequently during this week, but has not been helping him very much. The patient was complaining of abdominal distention and vague abdominal pain. The patient was complaining of dyspnea. The patient denied any chest pain. He denied any nausea, vomiting, or diaphoresis. Patient denied any bilateral lower extremity edema. In the emergency room, the patient was noticed to be hyperkalemic with a potassium of 6.5. The patient's chest x-ray was negative for any acute infiltrates. The patient had a blood pressure of 234/116 when he came to the emergency room. The patient was treated with calcium gluconate and Kayexalate for his underlying hyperkalemia. ROS Constitutional: no complaints Eyes: no complaints ENT: no complaints Respiratory: shortness of breath Cardiovascular: no complaints Gastrointestinal: pain, other (Distention) Genitourinary: no complaints Musculoskeletal: no complaints Skin: no complaints Neurologic: no complaints Endocrine: no complaints Lymphatic: no complaints Psychological: no complaints Immunologic: no complaints PMH/Family/Social Past Medical History 1. High blood pressure. 2. End-stage renal disease on hemodialysis. 3. Dyslipidemia. 4. Previous CVA. 5. Diabetes mellitus II. 6. Degenerative joint disease. 7. Coronary artery disease. Medications Current Medications Calcium Gluconate 1 gm/Dextrose 110 ml @ 110 mls/hr ONCE ONCE IVPB Last administered on 02/20/18at 08:53; Admin Dose 110 MLS/HR; Start 02/20/18 at 08:30; Stop 02/20/18 at 09:29 Ondansetron HCl (Zofran Inj) 4 mg ER BRIDGE PRN IV NAUSEA AND/OR VOMITING; Start 02/20/18 at 08:30; Stop 02/21/18 at 08:29 Acetaminophen (Tylenol Tab) 650 mg ER BRIDGE PRN PO MILD PAIN(1-3)OR ELEVATED TEMP; Start 02/20/18 at 08:30; Stop 02/21/18 at 08:29 Coded Allergies: No Known Drug Allergies (Verified Allergy, Unknown, 02/20/18) Past Surgical History 1. Cardiac bypass 2009. 2. Bowel resection. 3. Cholecystectomy. 4. Retinal repair. 5. LUE AV fistula placement. Past Surgical Hx: coronary bypass surgery, other Family History Significant Family History: no pertinent family hx Social History Alcohol Use: none Smoking Status: Former smoker Drug Use: none Exam/Review of Systems Vital Signs Vitals Vital Signs Date Temp Pulse Resp B/P (MAP) Pulse Ox O2 O2 Flow FiO2 Time Delivery Rate 02/20/18 74 24 174/90 100 Room Air 07:26 (118) 02/20/18 97.3 07:12 Exam Exam General: Adequately build 63 year-old male lying in bed in no apparent distress. HEENT: Normocephalic, atraumatic. Eyes: Anicteric sclerae, conjunctivae clear. ENT: Nasal septum midline, oral mucosa moist. Neck supple, no JVD noticed. Respiratory: Bilaterally diminished breath sounds. No use of accessory muscles of respiration. No adventitious breath sounds. Cardiovascular: S1, S2 heard. Regular rate and rhythm. Abdomen: Distended. Nontender. Genitourinary: Deferred. Extremities: No cyanosis, no clubbing, no edema. Peripheral pulses palpable. Left upper extremity AV fistula, with no bruit o or thrill. Left forearm AV fistula that is not matured. Neurologic: Cranial nerves II through XII grossly intact. The patient is awake, alert, and oriented. Skin: Normal skin turgor. No skin rashes. Additional Comments CXR IMPRESSION: Cardiomegaly. No pneumonia or failure. LOUIE CARRIZALES NP Feb 20, 2018 09:02
--- NOTE | 2018-02-20 09:13 | CONS ---
Date/Time of Note Date/Time of Note DATE: 02/20/18 TIME: 09:07 Assessment/Plan Assessment/Plan Hospital Course 63M hx of HTN, ESRD on HD //Wed who presents to the emergency room complaining of shortness of breath and elevated blood pressure. The patient had dialysis yesterday but notes shortness of breath, dyspnea on exertion and PND. He notes blood pressure has been significantly elevated. He tried to go to dialysis today with his son to the emergency room if acutely elevated blood pressure. He denies any chest pressure, no headache. He describes abdominal fullness consistent with prior history of volume overload. He denies history of cirrhosis. His blood pressure at triage was significantly elevated in the 200 range but improved to the 170/90 range without intervention. He has no obvious respira tory distress and only scant rales at the bases of his lung. He does have abdominal protuberance likely secondary to volume overload. The patient does not have a known history of cirrhosis and his clinical exam is not consistent with cirrhosis and abdominal ascites secondary to liver disease. He denies history of paracentesis. Since the patient's blood pressure is improved and the patient has no respiratory distress with oxygen saturation of 100% on room air he will be admitted to a tele bed We were asked to assist with management of his dialytic needs ROS All systems reviewed and are negative except as per history of present illness. Medications Home Meds Active Scripts Cephalexin* (Keflex*) 500 Mg Capsule, 500 MG PO QID for 7 Days, CAP Prov:FACUNDO PALOMARES MD 12/12/17 Hydrocodone/Acetaminophen ([place] 5-325 Tablet) 1 Each Tablet, 1 EACH PO Q6 PRN for SEVERE PAIN LEVEL 7-10, #14 TAB Prov:ANNA GARCIA DO 11/21/17 Naproxen* (Naproxen*) 375 Mg Tablet, 375 MG PO BID PRN for PAIN, #14 TAB Prov:ANNA GARCIA DO 11/21/17 Carvedilol* (Carvedilol*) 3.125 Mg Tablet, 3.125 MG PO BID, #60 TAB Prov:GUERDA LANTIGUA 09/12/17 Reported Medications Lorazepam* (Lorazepam*) 1 Mg Tablet, 5 MG PO HS PRN for ANXIETY, #30 TAB 09/10/17 Sevelamer Hcl* (Renagel*) 800 Mg Tablet, 800 MG PO WITH MEALS, TAB 09/10/17 Fluticasone Propionate* (Fluticasone Propionate* Nasal) 50 Mcg/[place] - 16 Gm [place].susp, 1 SPRAY NASAL BID, #1 BOTTLE TO EACH NOSTRIL 09/10/17 Hydrocodone/Acetaminophen ([place] 5-325 Tablet) 1 Each Tablet, 1 EACH PO Q12H, TAB 02/27/17 Alprazolam* (Alprazolam*) 0.25 Mg Tablet, 0.25 MG PO DAILY PRN for ANXIETY, TAB 02/27/17 Trazodone Hcl* (Trazodone Hcl*) 50 Mg Tablet, 50 MG PO QHS, #30 TAB 02/27/17 Sertraline Hcl* (Sertraline Hcl*) 25 Mg Tablet, 25 MG PO DAILY, #30 TAB 02/27/17 Clonidine Hcl* (Clonidine Hcl*) 0.1 Mg Tab, 0.1 MG PO BID, TAB 10/03/16 Losartan Potassium* (Losartan Potassium*) 25 Mg Tablet, 25 MG PO DAILY, TAB 10/03/16 Glipizide* (Glipizide*) 5 Mg Tablet, 5 MG PO BID, TAB 05/22/15 Folic Acid/Vitamin B Comp W-C* (Nephro-Agatha Rx Tablet*) 1 Mg Tablet, 1 TAB PO DAILY, TAB 09/03/13 Aspirin* (Aspirin* EC) 81 Mg Tablet.dr, 81 MG PO DAILY, TAB 09/03/13 Ferrous Sulfate* (Ferrous Sulfate*) 325 Mg Tablet, 325 MG PO DAILY 06/26/12 Simvastatin (Simvastatin) 20 Mg Tablet, 20 MG PO QHS 12/07/10 Allergies Allergies: Coded Allergies: No Known Drug Allergies (Verified Allergy, Unknown, 12/02/17) PMhx/Soc History of Surgery: Yes (CABG,Colon Polyp Removal,AV Fistula Placed) Anesthesia Reaction: No Hx Neurological Disorder: Yes (Vertigo) Hx Respiratory Disorders: Yes Hx Cardiac Disorders: Yes (CAD,HTN) Hx Psychiatric Problems: Yes (Major Depression) Hx Miscellaneous Medical Probl: Yes (ESRD;Hemodialysis) Hx Alcohol Use: No Hx Substance Use: No Hx Tobacco Use: Yes Smoking Status: Former smoker FmHx Family History: No diabetes Physical Exam General: Well developed, well nourished, no acute distress Head: Normocephalic, atraumatic. Eyes: Pupils equally reactive, EOM intact ENT: Moist mucous membranes Neck: Supple, no lymphadenopathy Respiratory: Rales at the bases bilaterally Cardiovascular: RRR, no murmurs, rubs, or gallops Abdominal: Soft, protuberant but no fluid wave, no peritonitis : Deferred MSK: Scant peripheral edema, no unilateral swelling, 5/5 strength Neurologic: Alert and oriented, moving all extremities, normal speech, no focal weakness, no cerebellar signs Skin: No rash, left tunneled Vas-Cath in good position Psych: Normal mood Procedures/MDM EKG, MONITORS, & DIAGNOSTIC IMAGING: EKG: I reviewed and interpreted a 12-lead EKG. Rhythm: Normal sinus rhythm ST Changes: No contiguous ST segment elevations T waves: No contiguous T wave inversions Impression: [No evidence of acute cardiac ischemia] Chest x-ray: I reviewed and interpreted a 1 view of the chest Mediastinum: No enlargement Cardiac silhouette: No cardiomegaly Airspace: Clear lung may bilaterally without evidence of pneumothorax Bones: No evidence of fracture Impression and plan: ESRD: has hyperkalemia. also uremic and hypertensive. will dialyze today. will reexamine the patient during treatment Hyperkalemia: will adjust dialysate. low k/renal diet HTN: BP should improve with UF/HD anemia: hold epogen Result Diagram: 02/20/18 0743 02/20/18 0743 Results 24hrs Laboratory Tests Test 02/20/18 07:43 White Blood Count 8.2 # Red Blood Count 4.24 L Hemoglobin 13.1 L Hematocrit 40.8 L Mean Corpuscular Volume 96.2 Mean Corpuscular Hemoglobin 30.9 Mean Corpuscular Hemoglobin Concent 32.1 Red Cell Distribution Width 14.2 Platelet Count 146 Mean Platelet Volume 9.7 Immature Granulocytes % 0.500 H Neutrophils % 72.4 Lymphocytes % 15.6 Monocytes % 8.9 Eosinophils % 2.1 Basophils % 0.5 Nucleated Red Blood Cells % 0.0 Immature Granulocytes # 0.040 H Neutrophils # 6.0 Lymphocytes # 1.3 Monocytes # 0.7 Eosinophils # 0.2 Basophils # 0.0 Nucleated Red Blood Cells # 0.0 Prothrombin Time 13.3 Prothrombin Time Ratio 1.0 INR International Normalized Ratio 1.00 Activated Partial Thromboplast Time 30.1 Sodium Level 141 Potassium Level 6.5 *H Chloride Level 95 L Carbon Dioxide Level 32 H Anion Gap 14 H Blood Urea Nitrogen 41 H Creatinine 8.27 H Est Glomerular Filtrat Rate mL/min 7 L Glucose Level 222 H Calcium Level 8.5 Total Bilirubin 0.0 L Direct Bilirubin 0.00 Indirect Bilirubin 0.0 Aspartate Amino Transf (AST/SGOT) 19 Alanine Aminotransferase (ALT/SGPT) 27 Alkaline Phosphatase 164 H Troponin I 0.028 Total Protein 8.6 H Albumin 4.5 Globulin 4.10 H Albumin/Globulin Ratio 1.09 Lipase 100 Consultation Date/Type/Reason Admit Date/Time Date of Consultation: Feb 20, 2018 Reason for Consultation esrd, hyperkalemia Past Medical History Medications Current Medications Calcium Gluconate 1 gm/Dextrose 110 ml @ 110 mls/hr ONCE ONCE IVPB Last administered on 02/20/18at 08:53; Admin Dose 110 MLS/HR; Start 02/20/18 at 08:30; Stop 02/20/18 at 09:29 Ondansetron HCl (Zofran Inj) 4 mg ER BRIDGE PRN IV NAUSEA AND/OR VOMITING; Start 02/20/18 at 08:30; Stop 02/21/18 at 08:29 Acetaminophen (Tylenol Tab) 650 mg ER BRIDGE PRN PO MILD PAIN(1-3)OR ELEVATED TEMP; Start 02/20/18 at 08:30; Stop 02/21/18 at 08:29 Allergies: Coded Allergies: No Known Drug Allergies (Verified Allergy, Unknown, 12/02/17) Past Surgical History Past Surgical Hx: coronary bypass surgery, other Social History Smoking Status: Former smoker Exam/Review of Systems Vital Signs Vitals Vital Signs Date Temp Pulse Resp B/P (MAP) Pulse Ox O2 O2 Flow FiO2 Time Delivery Rate 02/20/18 76 22 164/93 100 Room Air 08:15 (116) 02/20/18 97.3 07:12 Medications Medications Current Medications Calcium Gluconate 1 gm/Dextrose 110 ml @ 110 mls/hr ONCE ONCE IVPB Last administered on 02/20/18at 08:53; Admin Dose 110 MLS/HR; Start 02/20/18 at 08:30; Stop 02/20/18 at 09:29 Ondansetron HCl (Zofran Inj) 4 mg ER BRIDGE PRN IV NAUSEA AND/OR VOMITING; Start 02/20/18 at 08:30; Stop 02/21/18 at 08:29 Acetaminophen (Tylenol Tab) 650 mg ER BRIDGE PRN PO MILD PAIN(1-3)OR ELEVATED TEMP; Start 02/20/18 at 08:30; Stop 02/21/18 at 08:29 ALEXIS MACIAS DO Feb 20, 2018 09:13
[2018-02-20] MEDS ORDERED: MIDO10TA PO (09:55)
[2018-02-20] MEDS ORDERED: ALPRAZOLAM 0.25 MG TAB PO PRN (10:00)
[2018-02-20] MEDS ORDERED: NACL 0.9% 3 ML SYG IV SCH (10:00)
[2018-02-20] MEDS ORDERED: GLUCOSE GEL 15 GRAM TUBE PO PRN ×2 (10:30)
[2018-02-20] MEDS ORDERED: GLUCAGON 1 MG INJ IM PRN (10:30)
[2018-02-20] MEDS ORDERED: GLUCOSE GEL 15 GRAM TUBE BUCCAL PRN (10:30)
[2018-02-20] MEDS ORDERED: DEXTROSE 50% 50 ML SYRINGE IV PRN ×2 (10:30)
--- NOTE | 2018-02-20 11:45 | NUR ---
Admitted to telemetry Admitted from ER to telemetry to room 509. No signs of pain or respiratory distress. Patient Refused photos for wound. Charge nurse Marilyn RN informed. Orders for dialysis. Yaneth called. Admission questions done and assessment performed. Will continue to monitor.
[2018-02-20] MEDS: INSULIN ASPART [NOVOLOG] 3 ML PEN SC SCH ×5 (11:50→22:07)
[2018-02-20] MEDS ORDERED: SEVELAMER 800 MG TAB PO SCH (11:50)
[2018-02-20] MEDS ORDERED: hydrALAzine 20 MG INJ IV PRN (12:00)
--- NOTE | 2018-02-20 14:30 | NUR ---
DIALYSIS STOPPED Dialysis nursed called me to check on patient during dialysis because patient feeling short of breath during dialysis. Patient states he couldn't breath and had stomach pain stated at 3. Patient alert and oriented. Checked SPO2 99-100% on 4L. Dialysis nurse stopped dialysis. 1140ml out. BP 153/87. [employer] Jairo informed. Will continue to monitor.
[2018-02-20] MEDS: HEPARIN 5,000 UNIT/1 ML VIAL SC SCH ×2 (16:18→22:06)
[2018-02-20] MEDS ORDERED: LORAZEPAM 4 MG/ML VIAL IV PRN (17:00)
[2018-02-20] MEDS: SEVELAMER CARBONATE 800 MG TABLET PO SCH (17:24)
--- NOTE | 2018-02-20 18:56 | NUR ---
EOSS A&Ox4. Dx ESRD hyperkalemia. Dialysis performed and stopped during event (see notes). CXR, KUB abdomin, ultrasound of stomach performed, unremarkable findings. Ativan given once during shift for anxiety. Bed brakes on, side rails up, call light within reach. All needs attended to. Stable vital signs. Will endorse to assistant shift supervisor.
[2018-02-20] MEDS: FLUTICASONE 0.05% 16 GM NAS SPRAY NASAL SCH (21:00)
[2018-02-20] MEDS: traZODone 50 MG TAB PO SCH (21:43)
[2018-02-20] MEDS: ATORVASTATIN 10 MG TAB PO SCH (21:43)
[2018-02-20] MEDS: INSULIN GLARGINE [LANTus] (100 UNITS/ML) SYG SC SCH (21:56)
[2018-02-21] VITALS (29 sets, daily range): BP systolic 86–166; BP diastolic 58–81; PULSE 55–104; RESP 16–22
[2018-02-21] MEDS: HEPARIN 5,000 UNIT/1 ML VIAL SC SCH ×3 (05:41→21:23)
--- NOTE | 2018-02-21 06:25 | NUR ---
PT CONVERTED TO AFIB THIS MORNING. MADE MD AWARE WITH NEW ORDERS MADE. UNABLE TO CAPTURE AFIB RHYTHM VIA EKG. PT IS IN AND OUT OF AFIB AT THIS TIME. WILL CONTINUE TO MONITOR
[2018-02-21] MEDS: INSULIN ASPART [NOVOLOG] 3 ML PEN SC SCH ×7 (07:55→21:00)
[2018-02-21] MEDS: MULTIVIT/CA CARB/B CMPLX/FA TAB PO SCH (08:18)
[2018-02-21] MEDS: ASPIRIN (EC) 81 MG TAB PO SCH (08:18)
[2018-02-21] MEDS: FERROUS SULFATE (EC) 325 MG TAB PO SCH (08:18)
[2018-02-21] MEDS: SERTRALINE 50 MG TAB PO SCH (08:18)
[2018-02-21] MEDS: SEVELAMER CARBONATE 800 MG TABLET PO SCH ×3 (08:18→14:14)
[2018-02-21] MEDS: FLUTICASONE 0.05% 16 GM NAS SPRAY NASAL SCH ×2 (08:19→21:10)
[2018-02-21] MEDS: LOSARTAN 25 MG TAB PO SCH (08:20)
--- NOTE | 2018-02-21 08:50 | PN ---
DATE: 02/21/2018 SUBJECTIVE: The patient stable, no events overnight. No fevers, chills, nausea, vomiting. OBJECTIVE: VITAL SIGNS: Blood pressure is 116/71, respirations 20, pulse 76, temperature 98.9. HEENT: Head is normocephalic. NECK: Supple. HEART: Regular rate. LUNGS: Show diminished breath sounds at the base. ABDOMEN: Soft, nontender to palpation without rebound or guarding. EXTREMITIES: Negative for clubbing, cyanosis, no edema. DERMATOLOGIC: No rashes. MUSCULOSKELETAL: No joint effusions. NEUROLOGIC: No change in exam. MEDICATIONS: Reviewed. LABORATORY DATA: Shows a white count 6.7, hemoglobin 12.0, platelet count 149. Sodium 142, potassiu m 5.7, chloride 91, BUN 40, creatinine 8.17, phosphorus 6.6. ASSESSMENT AND PLAN: 1. End-stage renal disease. Plan is for hemodialysis today. We will dialyze for 3 hours on a 2K ba th, calcium 2.5, ultrafiltrate as tolerated. 2. Hyperkalemia secondary to end-stage renal disease. The patient will be dialyzed on a 2 potassium bath. 3. Anemia. We will monitor hemoglobin and hematocrit levels. We will give Epogen as needed. 4. Mineral bone disorder, monitor calcium and phosphorus levels. We will continue the patient on ph osphate binders. 5. Hypertension. Continue current blood pressure regimen. The patient is currently normotensive. 6. Anxiety disorder. Continue Xanax. 7. Diabetes. Continue Accu-Cheks, insulin sliding scale. Continue current insulin regimen. 8. Coronary artery disease. Continue current treatment plan. 9. Dyslipidemia. Continue statin therapy. 10. History of cerebrovascular accident. Dictated By: LAURA CHUA DO NR/NTS Conf#: [id number] DID#: [id number] CC: MERARY PULLIAM MD; GIN BINGHAM MD; ALEXIS MACIAS DO;*EndCC*
[2018-02-21] MEDS ORDERED: ALBUMIN HUMAN 25% 100 ML IV ONE (11:00)
[2018-02-21] MEDS: HEPARIN 1000 UNITS/ML 10 ML INJ CATHETER SCH (12:29)
[2018-02-21] MEDS ORDERED: BARIUM SULF 2% 450 ML BTL (BERRY SMOOTHIE) PO ONE (12:30)
--- NOTE | 2018-02-21 13:27 | PN ---
Date/Time of Note Date/Time of Note DATE: 02/21/18 TIME: 13:17 Assessment/Plan VTE Prophylaxis Risk score (from Nsg)>0 risk: 4 Pharmacological prophylaxis: heparin Lines/Catheters IV Catheter Type (from Nrs): PERMACATH Urinary Cath still in place: No Assessment/Plan Assessment/Plan 63-year-old male with comorbidities including hypertension, end-stage renal disease on hemodialysis, dyslipidemia, diabetes mellitus type 2, previous CVA, and coronary artery disease with CABG. The patient came to the emergency room with dyspnea and high blood pressure, who was found to have evidence of hyperkalemia and hypertensive urgency. The patient will be admitted to inpatient setting for further treatment and evaluation. 1. Hypertensive urgency: resolved, BP wnl on current regimen, no changes, titrate as indicated 2. Hyperkalemia. -2/2 #1, improved, no ekg changes, HD ongoing today 3. Diabetes mellitus type 2. -Patient on Glipizide alone at home, held inpatient per policy -good inhouse control on Lantus / novolog / SSI combo, no changes 4. CAD, status post CABG in 2008. -Resumed cardiac medications occluding aspirin. 5. Dyslipidemia. -Resumed statins. 6. History of stroke with no residual effects. -Continue statins and aspirin. 7. Normocytic, normochromic anemia.: stable indices -Most probably anemia of chronic kidney disease. 8. Abd fullness and distention -this seems to be a significant cause of concern for patient -will order CT abd and pelvis to better define abd organs, give some simethicone and ensure PPI as well -will also get SOBT and GI consult -if CT negative, may be discharged on medications and complete workup as outpatient Further evaluation and treatment will be based on clinical course Full discussion with care team done. All questions Answered Please also see orders. Result Diagram: 02/21/18 0557 02/21/18 0557 Results 24hrs Laboratory Tests Test 02/20/18 13:43 02/20/18 17:23 02/20/18 21:22 02/21/18 01:36 Creatine Kinase 52 Creatine Kinase 1.7 Index Creatinine 0.87 Kinase MB (Mass) Troponin I 0.026 Bedside Glucose 116 206 112 Test 02/21/18 05:57 02/21/18 06:00 02/21/18 08:06 02/21/18 11:21 White Blood 6.7 Count Red Blood Count 3.89 L Hemoglobin 12.0 L Hematocrit 37.3 L Mean Corpuscular 95.9 Volume Mean Corpuscular 30.8 Hemoglobin Mean Corpuscular 32.2 Hemoglobin Cherise nt Red Cell 14.6 H Distribution Width Platelet Count 149 Mean Platelet 10.2 Volume Immature 0.400 Granulocytes % Neutrophils % 60.7 Lymphocytes % 21.7 Monocytes % 13.6 H Eosinophils % 2.7 Basophils % 0.9 Nucleated Red 0.0 Blood Cells % Immature 0.030 Granulocytes # Neutrophils # 4.1 Lymphocytes # 1.5 Monocytes # 0.9 Eosinophils # 0.2 Basophils # 0.1 Nucleated Red 0.0 Blood Cells # Sodium Level 142 Potassium Level 5.7 H Chloride Level 91 L Carbon Dioxide 35 H Level Anion Gap 16 H Blood Urea 40 H Nitrogen Creatinine 8.17 H Est Glomerular 7 L Filtrat Rate mL/min Glucose Level 82 # Calcium Level 8.2 L Phosphorus Level 6.6 H Magnesium Level 2.5 Total Bilirubin 0.1 L Direct Bilirubin 0.00 Indirect 0.1 Bilirubin Aspartate Amino 27 Transf (AST/SGOT ) Alanine 34 Aminotransferase (ALT/SGPT) Alkaline 140 H Phosphatase Total Protein 7.4 # Albumin 4.1 Globulin 3.30 H Albumin/Globulin 1.24 Ratio Triglycerides 114 Level Cholesterol 135 Level LDL Cholesterol, 64 Calculated HDL Cholesterol 48 Cholesterol/HDL 2.8 Ratio Troponin I 0.047 Thyroid 0.789 Stimulating Hormone (TSH) Bedside Glucose 76 83 Subjective 24 Hr Interval Summary Free Text/Dictation abd fullness and bloating x 1month, not relieved by laxatives, was given Kayexalate yesterday and had multiple loose BMs still with no relief, wants "fluid in stomach" drained, but USS shows no ascites Exam/Review of Systems Vital Signs Vitals Vital Signs Date Temp Pulse Resp B/P (MAP) Pulse Ox O2 O2 Flow FiO2 Time Delivery Rate 02/21/18 73 12:50 02/21/18 22 118/76 99 Nasal 2.0 09:20 (90) Cannula 02/21/18 98.2 08:02 Intake and Output 02/20/18 02/20/18 02/21/18 1515:00 23:00 07:00 IntakeIntake Total 100 ml 500 ml OutputOutput Total 1540 ml BalanceBalance -1540 ml 100 ml 500 ml Exam General: A&O x3, answering questions appropriately, obese , anxious HEENT: NC/ AT. PERRL. EOM intact Neck: supple CVS: S1, S2, RRR. no murmurs. no pain on chest wall palpation Lungs: CTA b/l. no wheezing or rhonchi Abd: soft, protuberant, no fluid thrill, no distended veins, non pitting, non tender +BS Ext: moving all extremities, no LE edema skin: no rashes Medications Medications Current Medications IV Flush (NS 3 ml) 3 ml PER PROTOCOL IV ; Start 02/20/18 at 10:00 Ondansetron HCl (Zofran Inj) 4 mg Q6H PRN IV NAUSEA AND/OR VOMITING; Start 02/20/18 at 10:00 Acetaminophen (Tylenol Tab) 650 mg Q6H PRN PO PAIN LEVEL 1-3 OR FEVER; Start 02/20/18 at 10:00 Heparin Sodium (Porcine) (Heparin (5000 Units/1ml)) 5,000 unit Q8 SC Last administered on 02/21/18at 05:41; Admin Dose 5,000 UNIT; Start 02/20/18 at 14:00 Aspirin (Halfprin) 81 mg DAILY PO Last administered on 02/21/18at 08:18; Admin Dose 81 MG; Start 02/21/18 at 09:00 Carvedilol (Coreg) 3.125 mg BID PO Last administered on 02/20/18at 21:43; Admin Dose 3.125 MG; Start 02/20/18 at 21:00 Clonidine (Catapres) 0.1 mg BID PO Last administered on 02/20/18at 21:43; Admin Dose 0.1 MG; Start 02/20/18 at 21:00 Ferrous Sulfate (Ferrous Sulfate (Ec)) 325 mg DAILY PO Last administered on 02/21/18at 08:18; Admin Dose 325 MG; Start 02/21/18 at 09:00 Fluticasone Propionate (Flonase 0.05% Nasal) 1 spray BID NASAL Last administered on 02/21/18at 08:19; Admin Dose 1 SPRAY; Start 02/20/18 at 21:00 Multivit/Ca Carb/ B Cmplx/FA/Prenat (Edith-Agatha) 1 tab DAILY PO Last administered on 02/21/18at 08:18; Admin Dose 1 TAB; Start 02/21/18 at 09:00 Losartan Potassium (Cozaar) 25 mg DAILY PO ; Start 02/21/18 at 09:00 Sertraline HCl (Zoloft) 25 mg DAILY PO Last administered on 02/21/18at 08:18; Admin Dose 25 MG; Start 02/21/18 at 09:00 Trazodone HCl (Desyrel) 50 mg QHS PO Last administered on 02/20/18at 21:43; Admin Dose 50 MG; Start 02/20/18 at 21:00 Atorvastatin Calcium (Lipitor) 10 mg QHS PO Last administered on 02/20/18at 21:43; Admin Dose 10 MG; Start 02/20/18 at 21:00 Insulin Glargine (Lantus) 12 units DAILY@2000 SC Last administered on 02/20/18at 21:56; Admin Dose 12 UNITS; Start 02/20/18 at 20:00 Insulin Aspart (Novolog Insulin Pen) 4 unit WITH MEALS SC Last administered on 02/21/18at 08:26; Admin Dose 4 UNIT; Start 02/20/18 at 11:50 Insulin Aspart (Novolog Insulin Pen) NOVOLOG *MILD* ALGORITHM WITH MEALS BEDTIME SC Last administered on 02/20/18at 22:07; Admin Dose 1 UNIT; Start 02/20/18 at 11:50 Miscellaneous Information 1 ea NOTE XX ; Start 02/20/18 at 10:30 Glucose (Glutose) 15 gm Q15M PRN PO DECREASED GLUCOSE; Start 02/20/18 at 10:30 Glucose (Glutose) 22.5 gm Q15M PRN PO DECREASED GLUCOSE; Start 02/20/18 at 10:30 Dextrose (D50w Syringe) 25 ml Q15M PRN IV DECREASED GLUCOSE; Start 02/20/18 at 10:30 Dextrose (D50w Syringe) 50 ml Q15M PRN IV DECREASED GLUCOSE; Start 02/20/18 at 10:30 Glucagon (Glucagen) 1 mg Q15M PRN IM DECREASED GLUCOSE; Start 02/20/18 at 10:30 Glucose (Glutose) 15 gm Q15M PRN BUCCAL DECREASED GLUCOSE; Start 02/20/18 at 1 0:30 Hydralazine HCl (Apresoline) 10 mg Q6H PRN IV SBP>170; Start 02/20/18 at 12:00 Heparin Sodium (Porcine) (Heparin (1000 Units/ml)) 4,300 unit AFTER DIALYSIS CATHETER Last administered on 02/21/18at 12:29; Admin Dose 4,300 UNIT; Start 02/20/18 at 14:00 Sevelamer Carbonate (Renvela) 800 mg WITH MEALS PO Last administered on 02/21/18at 08:18; Admin Dose 800 MG; Start 02/20/18 at 17:55 Lorazepam (Ativan) 0.5 mg Q8H PRN IV ANXIETY Last administered on 02/20/18at 17:26; Admin Dose 0.5 MG; Start 02/20/18 at 17:00 Imaging Imaging PROCEDURE: Abdominal ultrasound, limited. CLINICAL INDICATION: Abdominal distension. TECHNIQUE: Multiple real-time images were acquired of the abdomen utilizing a high resolution transducer. COMPARISON: None FINDINGS: There is no free fluid identified. IMPRESSION: No evidence of ascites. .Maurilio Serrano MD, MD Date Time Electronically viewed and signed by .Maurilio Serrano MD, on 02/20/2018 18:03 .T/ CC: LOUIE CARRIZALES [employer]LEV[employer] SERVICEM[employer] [id number] PROCEDURE: XR Abdomen. CLINICAL INDICATION: Abdomen pain. TECHNIQUE: AP supine abdomen x-ray. COMPARISON: June 26, 2012. FINDINGS: The bowel gas pattern is normal with no evidence of obstruction. Surgical clips are present in the right upper quadrant and centrally in the pelvis. Vascular calcifications are present consistent with atherosclerosis. There are no abnormal calcifications overlying the urinary tracts. There are mild degenerative changes of the spine. IMPRESSION: 1. Prior surgery. 2. Atherosclerosis. 3. Mild degenerative changes of the spine. 4. No evidence of bowel obstruction. 5. Otherwise unremarkable abdomen radiograph. RPTAT: QQ .Arsh Pop MD, Date Time Electronically viewed and signed by .Arsh Pop MD, MD on 02/20/2018 09:56 .R/ CC: LOUIE CARRIZALES NP [id number] PROCEDURE: CT Chest without contrast. CLINICAL INDICATION: Dyspnea TECHNIQUE: CT of the chest was performed on a multi-detector scanner without IV contrast. Coronal and sagittal images were reformatted from the axial data set. One or more of the following dose reduction techniques were used: automated exposure control, adjustment of the mA and/or kV according to patient size, use of iterative reconstruction technique. CTDI = 16.63 mGy. DLP = 604.45 mGy-cm. COMPARISON: MRCP, 11/29/2010 FINDINGS: There is mild bibasilar atelectasis / scarring. No acute infiltrate, pleural effusion, pulmonary edema or pneumothorax is identified. No pulmonary nodule or mass is seen. There is mild to moderate cardiomegaly, without pericardial effusion. Coronary arterial and aortic atherosclerotic calcifications are noted. The patient is status post sternotomy and coronary arterial bypass. No thoracic aortic aneurysm is identified. Indeterminate 3.1 cm cystic structure is identified in the prevascular mediastinum (601-56), stable in size and appearance when compared to prior MRCP from 11/29/2010, presumed benign. No mediastinal, hilar, axillary or supraclavicular lymphadenopathy is identified. The liver is cirrhotic. Gallbladder is surgically absent. The surrounding osseous structures are remarkable for degenerative spondylosis of the spine. No osteolytic or osteoblastic lesion is detected. IMPRESSION: 1. Stable mild to moderate cardiomegaly. Coronary arterial and aortic ather osclerotic calcifications are present. 2. No solid mass, lymphadenopathy, or focal acute infiltrate is identified. 3. The liver is cirrhotic. Gallbladder is surgically absent. RPTAT: PP .Ankush Foss MD, MD Date Time Electronically viewed and signed by .Ankush Foss MD, MD on 07/06/2016 10:12 .R/ PROCEDURE: CT Abdomen and Pelvis without intravenous contrast. CLINICAL INDICATION: Right abdominal pain. . Rectal bleeding. TECHNIQUE: CT scan of the abdomen and pelvis without intravenous contrast was performed on a multi-slice CT scanner. Coronal and sagittal reformatted images were obtained from the axial source images. Images were reviewed on a high- resolution PACS workstation. Total DLP = 730.2 mGy-cm. CTDIvol = 13.8 mGy. COMPARISON: 09/06/2015 FINDINGS: CT abdomen and pelvis: The lung bases are clear. The heart size is enlarged with calcific atherosclerosis of the mitral valve and coronary arteries.. The liver is small size with lobular margins consistent with cirrhosis unchanged. There is no focal mass or intrahepatic biliary dilatation. The spleen is normal in size and homogeneous in density. The pancreas as visualized is normal. The gallbladder has been removed.. The adrenal glands are normal. The kidneys are mildly atrophic. No urolithiasis, obstructive uropathy, or solid mass lesion is seen. The stomach is partially collapsed, but is grossly unremarkable. The small b owels are nondistended. There are small bowel sutures in the left anterior abdomen.. The colon and rectum are normal. There is no evidence of appendicitis or diverticulitis. The prostate is mildly enlarged with metallic seeds.. The bladder is decompressed. There is no abdominal or pelvic adenopathy, free air, mass or mesenteric inflammation. There is trace free fluid near the liver tip. The aorta is normal in caliber with calcific atherosclerosis . The osseous structures showing degenerative spondylosis of the spine. No osteolytic or osteoblastic lesions are identified. There fat-containing bilateral inguinal hernias and umbilical hernia.. Lack of IV and oral contrast limits sensitivity of exam. IMPRESSION: 1. Cardiomegaly with calcific atherosclerosis of the mitral valve, coronary arteries and aorta. 2. Cirrhotic liver with trace free fluid near the liver tip.. 3. Mild prostatomegaly with metallic brachytherapy seeds. 4. Status post left abdominal small bowel surgery. 5. Fat-containing umbilical and bilateral inguinal hernias. 6. Status post cholecystectomy. RPTAT: HH .Maico Gagnon MD, Date Time Electronically viewed and signed by .Maico Gagnon MD, on 12/24/2015 20:42 .L/ CC: ANNA GARCIA BOLATITO M. Feb 21, 2018 13:27
[2018-02-21] MEDS ORDERED: PANTOPRAZOLE (EC) 40 MG TAB PO ONE (13:30)
--- NOTE | 2018-02-21 14:19 | CONS ---
Date/Time of Note Date/Time of Note DATE: 02/21/18 TIME: 14:14 Assessment/Plan Assessment/Plan Hospital Course 1. Dyspnea multifactorial currently improved with hemodialysis 2. Coronary artery disease 3. History of coronary bypass graft 4. Hypertensive urgency: Currently controlled with dialysis 5. Diabetes 6. Dyslipidemia Recommendations: Continue with the Coreg. Aspirin daily Statin We will order an echocardiogram. Previous ejection fraction appeared to be normal low Hemodialysis as per renal DC planning as per internal medicine. I will try to set him up for outpatient cardiology follow-up in the office Thank you for his referral. We will continue to follow along with you as needed CHANTE GRIFFIN MD FAC Result Diagram: 02/21/18 0557 02/21/18 0557 Results 24hrs Laboratory Tests Test 02/20/18 17:23 02/20/18 21:22 02/21/18 01:36 02/21/18 05:57 Bedside Glucose 116 206 112 White Blood 6.7 Count Red Blood Count 3.89 L Hemoglobin 12.0 L Hematocrit 37.3 L Mean Corpuscular 95.9 Volume Mean Corpuscular 30.8 Hemoglobin Mean Corpuscular 32.2 Hemoglobin Cherise nt Red Cell 14.6 H Distribution Width Platelet Count 149 Mean Platelet 10.2 Volume Immature 0.400 Granulocytes % Neutrophils % 60.7 Lymphocytes % 21.7 Monocytes % 13.6 H Eosinophils % 2.7 Basophils % 0.9 Nucleated Red 0.0 Blood Cells % Immature 0.030 Granulocytes # Neutrophils # 4.1 Lymphocytes # 1.5 Monocytes # 0.9 Eosinophils # 0.2 Basophils # 0.1 Nucleated Red 0.0 Blood Cells # Sodium Level 142 Potassium Level 5.7 H Chloride Level 91 L Carbon Dioxide 35 H Level Anion Gap 16 H Blood Urea 40 H Nitrogen Creatinine 8.17 H Est Glomerular 7 L Filtrat Rate mL/min Glucose Level 82 # Calcium Level 8.2 L Phosphorus Level 6.6 H Magnesium Level 2.5 Total Bilirubin 0.1 L Direct Bilirubin 0.00 Indirect 0.1 Bilirubin Aspartate Amino 27 Transf (AST/SGOT ) Alanine 34 Aminotransferase (ALT/SGPT) Alkaline 140 H Phosphatase Total Protein 7.4 # Albumin 4.1 Globulin 3.30 H Albumin/Globulin 1.24 Ratio Triglycerides 114 Level Cholesterol 135 Level LDL Cholesterol, 64 Calculated HDL Cholesterol 48 Cholesterol/HDL 2.8 Ratio Test 02/21/18 06:00 02/21/18 08:06 02/21/18 11:21 02/21/18 12:27 Troponin I 0.047 0.039 Thyroid 0.789 Stimulating Hormone (TSH) Bedside Glucose 76 83 Consultation Date/Type/Reason Admit Date/Time Date of Consultation: Feb 21, 2018 Type of Consult CV Reason for Consultation CHF CAD Requesting Provider: DEYVI BEYER Hx of Present Illness Interventional cardiology consultation Chief complaint: DYSPNEA. ABD PAIN Reason for consult: chf. CAD History of present illness: Thank you for this referral. History was obtained from the patient discussion with his discussion with the staff and physicians. Old Charts were reviewed. This is a pleasant 63-year-old gentleman with history of coronary artery disease status post coronary artery bypass graft, diabetes hypertension dyslipidemia who was admitted through emergency room with complaint of abdominal pain and high blood pressure and shortness of breath. Patient was noted to have blood pressure over 200 initially. He has had dialysis and blood pressure has been normalized. He denies any shortness of breath to me to. He denies any chest pain or pressure to me now. Allergies: No known drug allergies Medications were reviewed as per medical reconciliation sheet Family history: No history of early coronary artery disease Social history: Ex-smoker Past medical history: CAD with CABG 2008 probably 3 vessel he is not sure though it appears that he has been done at [facility] details unclear to , ESRD on HD, type 2 diabetes, dyslipidemia, hypertension Review of system: Patient denies all others except for above-mentioned Past Surgical Hx: coronary bypass surgery, other Past Medical History Medications Current Medications IV Flush (NS 3 ml) 3 ml PER PROTOCOL IV ; Start 02/20/18 at 10:00 Ondansetron HCl (Zofran Inj) 4 mg Q6H PRN IV NAUSEA AND/OR VOMITING; Start 02/20/18 at 10:00 Acetaminophen (Tylenol Tab) 650 mg Q6H PRN PO PAIN LEVEL 1-3 OR FEVER; Start 02/20/18 at 10:00 Heparin Sodium (Porcine) (Heparin (5000 Units/1ml)) 5,000 unit Q8 SC Last administered on 02/21/18at 05:41; Admin Dose 5,000 UNIT; Start 02/20/18 at 14:00 Aspirin (Halfprin) 81 mg DAILY PO Last administered on 02/21/18at 08:18; Admin Dose 81 MG; Start 02/21/18 at 09:00 Carvedilol (Coreg) 3.125 mg BID PO Last administered on 02/20/18 21:43; Admin Dose 3.125 MG; Start 02/20/18 at 21:00 Clonidine (Catapres) 0.1 mg BID PO Last administered on 02/20/18 21:43; Admin Dose 0.1 MG; Start 02/20/18 at 21:00 Ferrous Sulfate (Ferrous Sulfate (Ec)) 325 mg DAILY PO Last administered on 02/21/18 08:18; Admin Dose 325 MG; Start 02/21/18 at 09:00 Fluticasone Propionate (Flonase 0.05% Nasal) 1 spray BID NASAL Last administered on 02/21/18 08:19; Admin Dose 1 SPRAY; Start 02/20/18 at 21:00 Multivit/Ca Carb/ B Cmplx/FA/Prenat (Edith-Agatha) 1 tab DAILY PO Last administered on 02/21/18 08:18; Admin Dose 1 TAB; Start 02/21/18 at 09:00 Losartan Potassium (Cozaar) 25 mg DAILY PO ; Start 02/21/18 at 09:00 Sertraline HCl (Zoloft) 25 mg DAILY PO Last administered on 02/21/18 08:18; Admin Dose 25 MG; Start 02/21/18 at 09:00 Trazodone HCl (Desyrel) 50 mg QHS PO Last administered on 02/20/18 21:43; Admin Dose 50 MG; Start 02/20/18 at 21:00 Atorvastatin Calcium (Lipitor) 10 mg QHS PO Last administered on 02/20/18 21:43; Admin Dose 10 MG; Start 02/20/18 at 21:00 Insulin Glargine (Lantus) 12 units DAILY@2000 SC Last administered on 02/20/18 21:56; Admin Dose 12 UNITS; Start 02/20/18 at 20:00 Insulin Aspart (Novolog Insulin Pen) 4 unit WITH MEALS SC Last administered on 02/21/18 08:26; Admin Dose 4 UNIT; Start 02/20/18 at 11:50 Insulin Aspart (Novolog Insulin Pen) NOVOLOG *MILD* ALGORITHM WITH MEALS BEDTIME SC Last administered on 12/30/18at 22:07; Admin Dose 1 UNIT; Start 02/20/18 at 11:50 Miscellaneous Information 1 ea NOTE XX ; Start 02/20/18 at 10:30 Glucose (Glutose) 15 gm Q15M PRN PO DECREASED GLUCOSE; Start 02/20/18 at 10:30 Glucose (Glutose) 22.5 gm Q15M PRN PO DECREASED GLUCOSE; Start 02/20/18 at 10:30 Dextrose (D50w Syringe) 25 ml Q15M PRN IV DECREASED GLUCOSE; Start 02/20/18 at 10:30 Dextrose (D50w Syringe) 50 ml Q15M PRN IV DECREASED GLUCOSE; Start 02/20/18 at 10:30 Glucagon (Glucagen) 1 mg Q15M PRN IM DECREASED GLUCOSE; Start 02/20/18 at 10:30 Glucose (Glutose) 15 gm Q15M PRN BUCCAL DECREASED GLUCOSE; Start 02/20/18 at 10:30 Hydralazine HCl (Apresoline) 10 mg Q6H PRN IV SBP>170; Start 02/20/18 at 12:00 Heparin Sodium (Porcine) (Heparin (1000 Units/ml)) 4,300 unit AFTER DIALYSIS CATHETER Last administered on 02/21/18at 12:29; Admin Dose 4,300 UNIT; Start 02/20/18 at 14:00 Sevelamer Carbonate (Renvela) 800 mg WITH MEALS PO Last administered on 02/21/18at 08:18; Admin Dose 800 MG; Start 02/20/18 at 17:55 Lorazepam (Ativan) 0.5 mg Q8H PRN IV ANXIETY Last administered on 02/20/18at 17:26; Admin Dose 0.5 MG; Start 02/20/18 at 17:00 Simethicone (Mylicon) 80 mg Q6H PRN GTB DISTENSION/GAS/BLOATING; Start 02/21/18 at 13:30 Pantoprazole (Protonix Tab) 40 mg DAILY@06 PO ; Start 02/22/18 at 06:00 Iohexol ((Gastrografin therapeutic equivalent)) Adult Formulation (Ple... GIVE PRIOR TO CT ONCE PO ; Start 02/21/18 at 14:30; Stop 02/21/18 at 14:31; Status UNV Allergies: Coded Allergies: No Known Drug Allergies (Verified Allergy, Unknown, 12/30/18) Past Surgical History Past Surgical Hx: coronary bypass surgery, other Social History Alcohol Use: none Smoking Status: Never smoker Drug Use: none Exam/Review of Systems Vital Signs Vitals Vital Signs Date Temp Pulse Resp B/P (MAP) Pulse Ox O2 O2 Flow FiO2 Time Delivery Rate 02/21/18 76 16 99/69 (79) 100 Mechanical 2.0 13:17 Ventilator Nasal Cannula 02/21/18 98.2 08:02 Intake and Output 02/20/18 02/20/18 02/21/18 1515:00 23:00 07:00 IntakeIntake Total 100 ml 500 ml OutputOutput Total 1540 ml BalanceBalance -1540 ml 100 ml 500 ml Exam General: no acute distress HEENT: NC/AT. pupils are equal. round. NECK: NO JVD. no stridor. CV: RRR. systolic murmur; no gallop or rubs. PULM: no wheezing or rhonchi. GI: SOFT, NT, ND, no rebound or guarding Extremity: trace B/L LE edema. no clubbing. neuro: awake and alert, OX3. Psych: calm and pleasant rectal: deferred : normal EKG was personally reviewed within normal sinus rhythm first-degree AV block T wave abnormality consistent with inferolateral ischemia Chest x-ray shows:Cardiomegaly. No pneumonia or failure. Medications Medications Current Medications IV Flush (NS 3 ml) 3 ml PER PROTOCOL IV ; Start 02/20/18 at 10:00 Ondansetron HCl (Zofran Inj) 4 mg Q6H PRN IV NAUSEA AND/OR VOMITING; Start 02/20/18 at 10:00 Acetaminophen (Tylenol Tab) 650 mg Q6H PRN PO PAIN LEVEL 1-3 OR FEVER; Start 02/20/18 at 10:00 Heparin Sodium (Porcine) (Heparin (5000 Units/1ml)) 5,000 unit Q8 SC Last administered on 02/21/18at 05:41; Admin Dose 5,000 UNIT; Start 02/20/18 at 14:00 Aspirin (Halfprin) 81 mg DAILY PO Last administered on 02/21/18at 08:18; Admin Dose 81 MG; Start 02/21/18 at 09:00 Carvedilol (Coreg) 3.125 mg BID PO Last administered on 02/20/18 21:43; Admin Dose 3.125 MG; Start 02/20/18 at 21:00 Clonidine (Catapres) 0.1 mg BID PO Last administered on 02/20/18 21:43; Admin Dose 0.1 MG; Start 02/20/18 at 21:00 Ferrous Sulfate (Ferrous Sulfate (Ec)) 325 mg DAILY PO Last administered on 02/21/18 08:18; Admin Dose 325 MG; Start 02/21/18 at 09:00 Fluticasone Propionate (Flonase 0.05% Nasal) 1 spray BID NASAL Last administered on 02/21/18 08:19; Admin Dose 1 SPRAY; Start 02/20/18 at 21:00 Multivit/Ca Carb/ B Cmplx/FA/Prenat (Edith-Agatha) 1 tab DAILY PO Last administered on 02/21/18 08:18; Admin Dose 1 TAB; Start 02/21/18 at 09:00 Losartan Potassium (Cozaar) 25 mg DAILY PO ; Start 02/21/18 at 09:00 Sertraline HCl (Zoloft) 25 mg DAILY PO Last administered on 02/21/18 08:18; Admin Dose 25 MG; Start 02/21/18 at 09:00 Trazodone HCl (Desyrel) 50 mg QHS PO Last administered on 02/20/18 21:43; Admin Dose 50 MG; Start 02/20/18 at 21:00 Atorvastatin Calcium (Lipitor) 10 mg QHS PO Last administered on 02/20/18 21:43; Admin Dose 10 MG; Start 02/20/18 at 21:00 Insulin Glargine (Lantus) 12 units DAILY@2000 SC Last administered on 02/20/18 21:56; Admin Dose 12 UNITS; Start 02/20/18 at 20:00 Insulin Aspart (Novolog Insulin Pen) 4 unit WITH MEALS SC Last administered on 02/21/18 08:26; Admin Dose 4 UNIT; Start 02/20/18 at 11:50 Insulin Aspart (Novolog Insulin Pen) NOVOLOG *MILD* ALGORITHM WITH MEALS BEDTIME SC Last administered on 02/20/18 22:07; Admin Dose 1 UNIT; Start 02/20/18 at 11:50 Miscellaneous Information 1 ea NOTE XX ; Start 02/20/18 at 10:30 Glucose (Glutose) 15 gm Q15M PRN PO DECREASED GLUCOSE; Start 02/20/18 at 10:30 Glucose (Glutose) 22.5 gm Q15M PRN PO DECREASED GLUCOSE; Start 02/20/18 at 10:30 Dextrose (D50w Syringe) 25 ml Q15M PRN IV DECREASED GLUCOSE; Start 02/20/18 at 10:30 Dextrose (D50w Syringe) 50 ml Q15M PRN IV DECREASED GLUCOSE; Start 02/20/18 at 10:30 Glucagon (Glucagen) 1 mg Q15M PRN IM DECREASED GLUCOSE; Start 02/20/18 at 10:30 Glucose (Glutose) 15 gm Q15M PRN BUCCAL DECREASED GLUCOSE; Start 02/20/18 at 10:30 Hydralazine HCl (Apresoline) 10 mg Q6H PRN IV SBP>170; Start 02/20/18 at 12:00 Heparin Sodium (Porcine) (Heparin (1000 Units/ml)) 4,300 unit AFTER DIALYSIS CATHETER Last administered on 02/21/18at 12:29; Admin Dose 4,300 UNIT; Start 02/20/18 at 14:00 Sevelamer Carbonate (Renvela) 800 mg WITH MEALS PO Last administered on 02/21/18at 08:18; Admin Dose 800 MG; Start 02/20/18 at 17:55 Lorazepam (Ativan) 0.5 mg Q8H PRN IV ANXIETY Last administered on 02/20/18at 17:26; Admin Dose 0.5 MG; Start 02/20/18 at 17:00 Simethicone (Mylicon) 80 mg Q6H PRN GTB DISTENSION/GAS/BLOATING; Start 02/21/18 at 13:30 Pantoprazole (Protonix Tab) 40 mg DAILY@06 PO ; Start 02/22/18 at 06:00 Iohexol ((Gastrografin therapeutic equivalent)) Adult Formulation (Ple... GIVE PRIOR TO CT ONCE PO ; Start 02/21/18 at 14:30; Stop 02/21/18 at 14:31; Status CHANTE CHUA MD Feb 21, 2018 14:19
[2018-02-21] MEDS ORDERED: IOHEXOL 14.3 MG(I)/ML (ADULT) BTL PO ONE (14:30)
--- NOTE | 2018-02-21 18:34 | NUR ---
EOSS A&Ox4. Dx ESRD hyperkalemia. K 5.7. Dialysis nurse informed and Dialysis performed. 1.4 L out. Echocardiogram done. Stool OB ordered and to be collected. CT of abdomen and pelvis with contrast ordered. Contrast changed from redicat to iohexal. CT lab informed for directions. Patient NPO until procedure performed. Patient started drinking iohexal contrast at 1730. Procedure to be done at 1930. Bed brakes on, side rails up, call light within reach. All needs attended to. Stable vital signs. Will endorse to cable testers helper.
[2018-02-21] MEDS: ATORVASTATIN 10 MG TAB PO SCH (21:10)
[2018-02-21] MEDS: traZODone 50 MG TAB PO SCH (21:10)
[2018-02-21] MEDS: INSULIN GLARGINE [LANTus] (100 UNITS/ML) SYG SC SCH (21:23)
[2018-02-22] VITALS (26 sets, daily range): BP systolic 100–155; BP diastolic 57–83; PULSE 56–83; RESP 16–20
[2018-02-22] MEDS: PANTOPRAZOLE (EC) 40 MG TAB PO SCH (05:44)
[2018-02-22] MEDS: HEPARIN 5,000 UNIT/1 ML VIAL SC SCH ×3 (05:48→21:26)
--- NOTE | 2018-02-22 07:47 | NUR ---
NO SIGNIFICANT CHANGES THROUGHOUT THE SHIFT. VS REMAINS STABLE. ENDORSED TO AM SHIFT FOR CONTINUITY OF CARE
[2018-02-22] MEDS: INSULIN ASPART [NOVOLOG] 3 ML PEN SC SCH ×7 (07:55→21:00)
[2018-02-22] MEDS: FERROUS SULFATE (EC) 325 MG TAB PO SCH (08:51)
[2018-02-22] MEDS: SERTRALINE 50 MG TAB PO SCH (08:51)
[2018-02-22] MEDS: MULTIVIT/CA CARB/B CMPLX/FA TAB PO SCH (08:51)
[2018-02-22] MEDS: SEVELAMER CARBONATE 800 MG TABLET PO SCH ×3 (08:51→17:19)
[2018-02-22] MEDS: ASPIRIN (EC) 81 MG TAB PO SCH (08:51)
[2018-02-22] MEDS: FLUTICASONE 0.05% 16 GM NAS SPRAY NASAL SCH ×2 (08:53→21:19)
[2018-02-22] MEDS: LOSARTAN 25 MG TAB PO SCH (08:53)
--- NOTE | 2018-02-22 09:47 | PN ---
DATE: 02/22/2018 SUBJECTIVE: The patient is stable, no events overnight. The patient had hemodialysis yesterday, xavi erated well. OBJECTIVE: VITAL SIGNS: Blood pressure is 131/82, respiration 18, pulse 56, temperature 97.8. HEENT: Head is normocephalic. NECK: Supple. HEART: Regular rate. LUNGS: Show diminished breath sounds at the base. ABDOMEN: Soft, nontender to palpation without rebound or guarding. EXTREMITIES: Negative for clubbing, cyanosis, no edema. DERMATOLOGIC: No rashes. MUSCULOSKELETAL: No joint effusions. NEUROLOGIC: No change in exam. MEDICATIONS: Reviewed. LABORATORY DATA: From 02/22/2018 was reviewed. ASSESSMENT AND PLAN: 1. End-stage renal disease. The patient had hemodialysis yesterday. Plan for dialysis again today for solute clearance. 2. Hyperkalemia secondary to end-stage renal disease. Continue dialysis on a low potassium bath. 3. Anemia. Continue to monitor hemoglobin and hematocrit levels. Continue Epogen. 4. Mineral bone disorder, monitor calcium and phosphorus levels. Continue phos binders. 5. Hypertension. Continue current blood pressure regimen. Continue ultrafiltration dialysis. 6. Anxiety disorder. Continue Xanax. 7. Diabetes. Continue current insulin regimen. 8. Dyslipidemia. Continue statin therapy. 9. Coronary artery disease. Continue current treatment plan. 10. Dyspnea, shortness of breath improved. 11. Abdominal pain. The patient is status post CT scan which showed evidence of cirrhotic liver and umbilical hernia. Continue to monitor. Follow up with primary team. Dictated By: LAURA CHUA DO NR/NTS Conf#: [id number] DID#: [id number] CC: GIN BINGHAM MD;*EndCC*
[2018-02-22] MEDS ORDERED: ALBUMIN HUMAN 25% 100 ML IV PRN (10:05)
--- NOTE | 2018-02-22 11:09 | CONS ---
Date/Time of Note Date/Time of Note DATE: 02/22/18 TIME: 11:02 Assessment/Plan Assessment/Plan Hospital Course Summary Assessment and Plan: Assessment: possible liver cirrhosis on imaging Abdominal distension ESRD on HD Hyperkalemia- improved Hypertensive Diabetes mellitus, type 2 CAD Hx of CABG x3 vessels 2008 Last Echo 09/11/17 -EF is visually estimated at 60 %. History of CVA New solid mass inferiorly in the right kidney measuring 1.8 x 2.1 cm History of Prostate CA s/p Brachytherapy seeds Hx of colonoscopy about 5 months ago- polyps Hx ofEGD 3-4 years ago- neg per patient Plan: Paracentesis today- with fluid studies Hepatitis B - immunity Will check HERMAN, AMA, ASMA, Hep C Patient seen in collaboration with Result Diagram: 02/22/18 0538 02/22/18 0537 Results 24hrs Laboratory Tests Test 02/21/18 11:21 02/21/18 12:27 02/21/18 17:29 02/21/18 20:16 Bedside Glucose 83 156 118 Troponin I 0.039 Test 02/22/18 05:37 02/22/18 05:38 02/22/18 07:53 Sodium Level 136 Potassium Level 5.4 H Chloride Level 92 L Carbon Dioxide 27 Level Anion Gap 17 H Blood Urea 38 H Nitrogen Creatinine 6.48 H Est Glomerular 9 L Filtrat Rate mL/min Glucose Level 131 # Calcium Level 8.4 Phosphorus Level 5.7 H Magnesium Level 2.3 White Blood 7.4 Count Red Blood Count 3.94 L Hemoglobin 12.2 L Hematocrit 37.2 L Mean Corpuscular 94.4 Volume Mean Corpuscular 31.0 Hemoglobin Mean Corpuscular 32.8 Hemoglobin Cherise nt Red Cell 14.0 Distribution Width Platelet Count 160 Mean Platelet 9.9 Volume Immature 0.700 H Granulocytes % Neutrophils % 62.7 Lymphocytes % 22.3 Monocytes % 10.6 Eosinophils % 3.0 Basophils % 0.7 Nucleated Red 0.0 Blood Cells % Immature 0.050 H Granulocytes # Neutrophils # 4.6 Lymphocytes # 1.6 Monocytes # 0.8 Eosinophils # 0.2 Basophils # 0.1 Nucleated Red 0.0 Blood Cells # Bedside Glucose 129 CC: IVY CHAVEZ ; Consultation Date/Type/Reason Admit Date/Time Date of Consultation: Feb 22, 2018 Type of Consult GI Reason for Consultation Abdominal distension Hx of Present Illness This is a 63 year old male with PMH of hypertension, end-stage renal disease on HD, dyslipidemia, diabetes mellitus type 2, previous CVA, and coronary artery disease with CABG x 4 vessels 2009. GI consulted for abdominal distension. A CT abdomen/pelvis without contrast was obtained showing extensive coronary artery calcification, cirrhotic liver, status post cholecystectomy, bilateral atrophic kidneys, duplex right collecting 6, new solid mass inferiorly in the right kidney measuring 1.8 x 2.1 cm likely neoplastic, benign right renal cysts, atherosclerosis, brachytherapy seeds in prostate, fat-containing umbilical hernia and bilateral inguinal hernias, unchanged, degenerative changes of the spine, otherwise unremarkable. Patient states no known history of liver cirrhosis states he did drink alcohol about 5-6 beers once per week however has not had anything to drink in the past 10 years hepatitis B surface antibody is reactive showing immunity. We will plan to order hepatitis C, autoimmune workup additionally will order paracentesis with fluid workup. Review of Systems: A 12 system, review was conducted and is negative except as noted in the HPI or here. Past Medical History Medications Current Medications IV Flush (NS 3 ml) 3 ml PER PROTOCOL IV ; Start 02/20/18 at 10:00 Ondansetron HCl (Zofran Inj) 4 mg Q6H PRN IV NAUSEA AND/OR VOMITING; Start 02/20/18 at 10:00 Acetaminophen (Tylenol Tab) 650 mg Q6H PRN PO PAIN LEVEL 1-3 OR FEVER; Start 02/20/18 at 10:00 Heparin Sodium (Porcine) (Heparin (5000 Units/1ml)) 5,000 unit Q8 SC Last administered on 02/22/18at 05:48; Admin Dose 5,000 UNIT; Start 02/20/18 at 14:00 Aspirin (Halfprin) 81 mg DAILY PO Last administered on 02/22/18 08:51; Admin Dose 81 MG; Start 02/21/18 at 09:00 Carvedilol (Coreg) 3.125 mg BID PO Last administered on 02/21/18at 21:09; Admin Dose 3.125 MG; Start 02/20/18 at 21:00 Clonidine (Catapres) 0.1 mg BID PO Last administered on 02/21/18at 21:10; Admin Dose 0.1 MG; Start 02/20/18 at 21:00 Ferrous Sulfate (Ferrous Sulfate (Ec)) 325 mg DAILY PO Last administered on 02/22/18 08:51; Admin Dose 325 MG; Start 02/21/18 at 09:00 Fluticasone Propionate (Flonase 0.05% Nasal) 1 spray BID NASAL Last administere d on 02/22/18 08:53; Admin Dose 1 SPRAY; Start 02/20/18 at 21:00 Multivit/Ca Carb/ B Cmplx/FA/Prenat (Edith-Agatha) 1 tab DAILY PO Last administered on 02/22/18 08:51; Admin Dose 1 TAB; Start 02/21/18 at 09:00 Losartan Potassium (Cozaar) 25 mg DAILY PO ; Start 02/21/18 at 09:00 Sertraline HCl (Zoloft) 25 mg DAILY PO Last administered on 02/22/18 08:51; Admin Dose 25 MG; Start 02/21/18 at 09:00 Trazodone HCl (Desyrel) 50 mg QHS PO Last administered on 02/21/18 21:10; Admin Dose 50 MG; Start 02/20/18 at 21:00 Atorvastatin Calcium (Lipitor) 10 mg QHS PO Last administered on 02/21/18 21: 10; Admin Dose 10 MG; Start 02/20/18 at 21:00 Insulin Glargine (Lantus) 12 units DAILY@2000 SC Last administered on 02/21/18 21:23; Admin Dose 12 UNITS; Start 02/20/18 at 20:00 Insulin Aspart (Novolog Insulin Pen) 4 unit WITH MEALS SC Last administered on 02/22/18 08:02; Admin Dose 4 UNIT; Start 02/20/18 at 11:50 Insulin Aspart (Novolog Insulin Pen) NOVOLOG *MILD* ALGORITHM WITH MEALS BED TIME SC Last administered on 02/20/18 22:07; Admin Dose 1 UNIT; Start 02/20/18 at 11:50 Miscellaneous Information 1 ea NOTE XX ; Start 02/20/18 at 10:30 Glucose (Glutose) 15 gm Q15M PRN PO DECREASED GLUCOSE; Start 02/20/18 at 10:30 Glucose (Glutose) 22.5 gm Q15M PRN PO DECREASED GLUCOSE; Start 02/20/18 at 10:30 Dextrose (D50w Syringe) 25 ml Q15M PRN IV DECREASED GLUCOSE; Start 02/20/18 at 10:30 Dextrose (D50w Syringe) 50 ml Q15M PRN IV DECREASED GLUCOSE; Start 02/20/18 at 10:30 Glucagon (Glucagen) 1 mg Q15M PRN IM DECREASED GLUCOSE; Start 02/20/18 at 10:30 Glucose (Glutose) 15 gm Q15M PRN BUCCAL DECREASED GLUCOSE; Start 02/20/18 at 10:30 Hydralazine HCl (Apresoline) 10 mg Q6H PRN IV SBP>170; Start 02/20/18 at 12:00 Heparin Sodium (Porcine) (Heparin (1000 Units/ml)) 4,300 unit AFTER DIALYSIS CATHETER Last administered on 02/21/18at 12:29; Admin Dose 4,300 UNIT; Start 02/20/18 at 14:00 Sevelamer Carbonate (Renvela) 800 mg WITH MEALS PO Last administered on 02/22/18at 08:51; Admin Dose 800 MG; Start 02/20/18 at 17:55 Lorazepam (Ativan) 0.5 mg Q8H PRN IV ANXIETY Last administered on 02/20/18at 17:26; Admin Dose 0.5 MG; Start 02/20/18 at 17:00 Simethicone (Mylicon) 80 mg Q6H PRN GTB DISTENSION/GAS/BLOATING; Start 02/21/18 at 13:30 Pantoprazole (Protonix Tab) 40 mg DAILY@06 PO Last administered on 02/22/18at 05:44; Admin Dose 40 MG; Start 02/22/18 at 06:00 Albumin Human 100 ml @ 100 mls/hr DURING DIALYSIS PRN IV BLOOD PRESSURE SUPPORT; Start 02/22/18 at 10:05 Allergies: Coded Allergies: No Known Drug Allergies (Verified Allergy, Unknown, 02/20/18) Past Surgical History Past Surgical Hx: coronary bypass surgery, other Social History Alcohol Use: none Smoking Status: Never smoker Drug Use: none Exam/Review of Systems Vital Signs Vitals Vital Signs Date Temp Pulse Resp B/P (MAP) Pulse Ox O2 O2 Flow FiO2 Time Delivery Rate 02/22/18 70 09:03 02/22/18 98.0 18 110/68 99 07:49 (82) 02/22/18 Room Air 04:00 02/21/18 2.0 13:17 Intake and Output 02/21/18 02/21/18 02/22/18 1414:59 22:59 06:59 IntakeIntake Total 450 ml OutputOutput Total 2000 ml BalanceBalance -2000 ml 450 ml Exam PHYSICAL EXAMINATION: GENERAL: Alert & oriented x 3, in no acute distress SKIN: Dialysis catheter EYES: Pupils equal reactive to light, no discharge. EARS/NOSE AND THROAT: Ears normal, nose normal, oropharynx normal NECK: Supple CHEST: Inspection within normal limits. CARDIOVASCULAR: Heart: Regular rate and rhythm RESPIRATORY: Lungs clear to auscultation GASTROINTESTINAL AND LIVER: Abdomen: Soft, non tenderness, Distended, no hernias, no masses, no organomegaly, no rebound tenderness, normoactive bowel sounds. Rectal: Deferred. GENITOURINARY: Not examined EXTREMITIES: No cyanosis, clubbing or edema. Medications Medications Current Medications IV Flush (NS 3 ml) 3 ml PER PROTOCOL IV ; Start 02/20/18 at 10:00 Ondansetron HCl (Zofran Inj) 4 mg Q6H PRN IV NAUSEA AND/OR VOMITING; Start 02/20/18 at 10:00 Acetaminophen (Tylenol Tab) 650 mg Q6H PRN PO PAIN LEVEL 1-3 OR FEVER; Start 02/20/18 at 10:00 Heparin Sodium (Porcine) (Heparin (5000 Units/1ml)) 5,000 unit Q8 SC Last administered on 02/22/18 05:48; Admin Dose 5,000 UNIT; Start 02/20/18 at 14:00 Aspirin (Halfprin) 81 mg DAILY PO Last administered on 02/22/18 08:51; Admin Dose 81 MG; Start 02/21/18 at 09:00 Carvedilol (Coreg) 3.125 mg BID PO Last administered on 02/21/18at 21:09; Admin Dose 3.125 MG; Start 02/20/18 at 21:00 Clonidine (Catapres) 0.1 mg BID PO Last administered on 02/21/18at 21:10; Admin Dose 0.1 MG; Start 02/20/18 at 21:00 Ferrous Sulfate (Ferrous Sulfate (Ec)) 325 mg DAILY PO Last administered on 02/22/18 08:51; Admin Dose 325 MG; Start 02/21/18 at 09:00 Fluticasone Propionate (Flonase 0.05% Nasal) 1 spray BID NASAL Last administered on 02/22/18 08:53; Admin Dose 1 SPRAY; Start 02/20/18 at 21:00 Multivit/Ca Carb/ B Cmplx/FA/Prenat (Edith-Agatha) 1 tab DAILY PO Last administered on 02/22/18 08:51; Admin Dose 1 TAB; Start 02/21/18 at 09:00 Losartan Potassium (Cozaar) 25 mg DAILY PO ; Start 02/21/18 at 09:00 Sertraline HCl (Zoloft) 25 mg DAILY PO Last administered on 02/22/18 08:51; Admin Dose 25 MG; Start 02/21/18 at 09:00 Trazodone HCl (Desyrel) 50 mg QHS PO Last administered on 02/21/18 21:10; Admin Dose 50 MG; Start 02/20/18 at 21:00 Atorvastatin Calcium (Lipitor) 10 mg QHS PO Last administered on 02/21/18at 21:10; Admin Dose 10 MG; Start 02/20/18 at 21:00 Insulin Glargine (Lantus) 12 units DAILY@2000 SC Last administered on 02/21/18 21:23; Admin Dose 12 UNITS; Start 02/20/18 at 20:00 Insulin Aspart (Novolog Insulin Pen) 4 unit WITH MEALS SC Last administered on 02/22/18 08:02; Admin Dose 4 UNIT; Start 02/20/18 at 11:50 Insulin Aspart (Novolog Insulin Pen) NOVOLOG *MILD* ALGORITHM WITH MEALS BEDTIME SC Last administered on 02/20/18at 22:07; Admin Dose 1 UNIT; Start 02/20/18 at 11:50 Miscellaneous Information 1 ea NOTE XX ; Start 02/20/18 at 10:30 Glucose (Glutose) 15 gm Q15M PRN PO DECREASED GLUCOSE; Start 02/20/18 at 10:30 Glucose (Glutose) 22.5 gm Q15M PRN PO DECREASED GLUCOSE; Start 02/20/18 at 10:30 Dextrose (D50w Syringe) 25 ml Q15M PRN IV DECREASED GLUCOSE; Start 02/20/18 at 10:30 Dextrose (D50w Syringe) 50 ml Q15M PRN IV DECREASED GLUCOSE; Start 02/20/18 at 10:30 Glucagon (Glucagen) 1 mg Q15M PRN IM DECREASED GLUCOSE; Start 02/20/18 at 10:30 Glucose (Glutose) 15 gm Q15M PRN BUCCAL DECREASED GLUCOSE; Start 02/20/18 at 10:30 Hydralazine HCl (Apresoline) 10 mg Q6H PRN IV SBP>170; Start 02/20/18 at 12:00 Heparin Sodium (Porcine) (Heparin (1000 Units/ml)) 4,300 unit AFTER DIALYSIS CATHETER Last administered on 02/21/18at 12:29; Admin Dose 4,300 UNIT; Start 02/20/18 at 14:00 Sevelamer Carbonate (Renvela) 800 mg WITH MEALS PO Last administered on 02/22/18at 08:51; Admin Dose 800 MG; Start 02/20/18 at 17:55 Lorazepam (Ativan) 0.5 mg Q8H PRN IV ANXIETY Last administered on 02/20/18at 17:26; Admin Dose 0.5 MG; Start 02/20/18 at 17:00 Simethicone (Mylicon) 80 mg Q6H PRN GTB DISTENSION/GAS/BLOATING; Start 02/21/18 at 13:30 Pantoprazole (Protonix Tab) 40 mg DAILY@06 PO Last administered on 02/22/18at 05:44; Admin Dose 40 MG; Start 02/22/18 at 06:00 Albumin Human 100 ml @ 100 mls/hr DURING DIALYSIS PRN IV BLOOD PRESSURE SUPPORT; Start 02/22/18 at 10:05 RANDY MA Feb 22, 2018 11:09
--- NOTE | 2018-02-22 13:15 | PN ---
Date/Time of Note Date/Time of Note DATE: 02/22/18 TIME: 13:14 Objective Vitals Vital Signs Date Temp Pulse Resp B/P (MAP) Pulse Ox O2 O2 Flow FiO2 Time Delivery Rate 02/22/18 63 12:57 02/22/18 18 121/67 99 Nasal 2.0 12:54 (85) Cannula 02/22/18 97.4 12:21 Intake and Output 02/21/18 02/21/18 02/22/18 1414:59 22:59 06:59 IntakeIntake Total 450 ml OutputOutput Total 2000 ml BalanceBalance -2000 ml 450 ml Results Result Diagram: 02/22/18 0538 02/22/18 0537 Medications Medications Current Medications IV Flush (NS 3 ml) 3 ml PER PROTOCOL IV ; Start 02/20/18 at 10:00 Ondansetron HCl (Zofran Inj) 4 mg Q6H PRN IV NAUSEA AND/OR VOMITING; Start 02/20/18 at 10:00 Acetaminophen (Tylenol Tab) 650 mg Q6H PRN PO PAIN LEVEL 1-3 OR FEVER; Start 02/20/18 at 10:00 Heparin Sodium (Porcine) (Heparin (5000 Units/1ml)) 5,000 unit Q8 SC Last administered on 02/22/18 05:48; Admin Dose 5,000 UNIT; Start 02/20/18 at 14:00 Aspirin (Halfprin) 81 mg DAILY PO Last administered on 02/22/18 08:51; Admin Dose 81 MG; Start 02/21/18 at 09:00 Carvedilol (Coreg) 3.125 mg BID PO Last administered on 02/21/18at 21:09; Admin Dose 3.125 MG; Start 02/20/18 at 21:00 Clonidine (Catapres) 0.1 mg BID PO Last administered on 02/21/18 21:10; Admin Dose 0.1 MG; Start 02/20/18 at 21:00 Ferrous Sulfate (Ferrous Sulfate (Ec)) 325 mg DAILY PO Last administered on 02/22/18 08:51; Admin Dose 325 MG; Start 02/21/18 at 09:00 Fluticasone Propionate (Flonase 0.05% Nasal) 1 spray BID NASAL Last administered on 02/22/18 08:53; Admin Dose 1 SPRAY; Start 02/20/18 at 21:00 Multivit/Ca Carb/ B Cmplx/FA/Prenat (Edith-Agatha) 1 tab DAILY PO Last administered on 02/22/18 08:51; Admin Dose 1 TAB; Start 02/21/18 at 09:00 Losartan Potassium (Cozaar) 25 mg DAILY PO ; Start 02/21/18 at 09:00 Sertraline HCl (Zoloft) 25 mg DAILY PO Last administered on 02/22/18 08:51; Admin Dose 25 MG; Start 02/21/18 at 09:00 Trazodone HCl (Desyrel) 50 mg QHS PO Last administered on 02/21/18at 21:10; Admin Dose 50 MG; Start 02/20/18 at 21:00 Atorvastatin Calcium (Lipitor) 10 mg QHS PO Last administered on 02/21/18at 21:10; Admin Dose 10 MG; Start 02/20/18 at 21:00 Insulin Glargine (Lantus) 12 units DAILY@2000 SC Last administered on 02/21/18at 21:23; Admin Dose 12 UNITS; Start 02/20/18 at 20:00 Insulin Aspart (Novolog Insulin Pen) 4 unit WITH MEALS SC Last administered on 02/22/18 12:14; Admin Dose 4 UNIT; Start 02/20/18 at 11:50 Insulin Aspart (Novolog Insulin Pen) NOVOLOG *MILD* ALGORITHM WITH MEALS BEDTIME SC Last administered on 02/20/18at 22:07; Admin Dose 1 UNIT; Start 02/20/18 at 11:50 Miscellaneous Information 1 ea NOTE XX ; Start 02/20/18 at 10:30 Glucose (Glutose) 15 gm Q15M PRN PO DECREASED GLUCOSE; Start 02/20/18 at 10:30 Glucose (Glutose) 22.5 gm Q15M PRN PO DECREASED GLUCOSE; Start 02/20/18 at 10:30 Dextrose (D50w Syringe) 25 ml Q15M PRN IV DECREASED GLUCOSE; Start 02/20/18 at 10:30 Dextrose (D50w Syringe) 50 ml Q15M PRN IV DECREASED GLUCOSE; Start 02/20/18 at 10:30 Glucagon (Glucagen) 1 mg Q15M PRN IM DECREASED GLUCOSE; Start 02/20/18 at 10:30 Glucose (Glutose) 15 gm Q15M PRN BUCCAL DECREASED GLUCOSE; Start 02/20/18 at 10:30 Hydralazine HCl (Apresoline) 10 mg Q6H PRN IV SBP>170; Start 02/20/18 at 12:00 Heparin Sodium (Porcine) (Heparin (1000 Units/ml)) 4,300 unit AFTER DIALYSIS CATHETER Last administered on 02/21/18at 12:29; Admin Dose 4,300 UNIT; Start 02/20/18 at 14:00 Sevelamer Carbonate (Renvela) 800 mg WITH MEALS PO Last administered on 02/22/18at 12:10; Admin Dose 800 MG; Start 02/20/18 at 17:55 Lorazepam (Ativan) 0.5 mg Q8H PRN IV ANXIETY Last administered on 02/20/18at 17:26; Admin Dose 0.5 MG; Start 02/20/18 at 17:00 Simethicone (Mylicon) 80 mg Q6H PRN GTB DISTENSION/GAS/BLOATING; Start 02/21/18 at 13:30 Pantoprazole (Protonix Tab) 40 mg DAILY@06 PO Last administered on 02/22/18at 05:44; Admin Dose 40 MG; Start 02/22/18 at 06:00 Albumin Human 100 ml @ 100 mls/hr DURING DIALYSIS PRN IV BLOOD PRESSURE SUPPORT; Start 02/22/18 at 10:05 VTE Prophylaxis Risk score (from Nsg)>0 risk: 4 SCD applied (from Nsg): No SCD contraindication: other Lines/Catheters IV Catheter Type: Reeves in Place: No Assessment/Plan Hospital Course Subjective Patient doing well but still complains of distended abdomen Objective Physical exam General: Patient is laying in bed and answers questions appropriately Mentation: Patient is alert and oriented 4, Head: Normocephalic atraumatic Eyes: EOMI, pupils reactive to light Neck: Supple, nontender, midline Respiratory: Clear to auscultation bilaterally Cardiovascular: regular rate, no obvious murmurs Gastrointestinal: Mildly tender to palpation, mildly distended, bowel sounds heard. Neurological: Moves all extremities spontaneously Skin: No new skin lesions Assessment/Plan 63-year-old male with comorbidities including hypertension, end-stage renal dis ease on hemodialysis, dyslipidemia, diabetes mellitus type 2, previous CVA, and coronary artery disease with CABG. The patient came to the emergency room with dyspnea and high blood pressure, who was found to have evidence of hyperkalemia and hypertensive urgency. The patient will be admitted to inpatient setting for further treatment and evaluation. 1. Hypertensive urgency: resolved, BP wnl on current regimen, no changes, titrate as indicated 2. Hyperkalemia. -2/2 #1, improved, no ekg changes, HD ongoing pre renal 3. Diabetes mellitus type 2. -Patient on Glipizide alone at home, held inpatient per policy -good inhouse control on Lantus / novolog / SSI combo, no changes 4. CAD, status post CABG in 2008. -Resumed cardiac medications including aspirin. 5. Dyslipidemia. -Resumed statins. 6. History of stroke with no residual effects. -Continue statins and aspirin. 7. Normocytic, normochromic anemia.: stable indices -Most probably anemia of chronic kidney disease. 8. Abd fullness and distention -this seems to be a significant cause of concern for patient -CT showing cirrhosis, but not really any free fluid, but questionable kidney mass. patient does have a hx of prostate cancer, not having seen his oncologist in 2 years. -consulted Dr. Pastor, oncology, Dr. Cobb, covering recommending first getting a PSA to check if elevated, then possibly getting urology involved for possible resection if this is not metastatic, also request has been ordered for nurse to obtain records regarding what type of prostate cancer he has. will defer urology consultation until PSA levels are back tomorrow. -GI saw patient, is going to try to get paracentesis, although not much fluid, will send out for studies disposition -f/u with oncology and GI recs ANDREWS HERNANDEZ Feb 22, 2018 13:15
--- NOTE | 2018-02-22 13:28 | RADRPT ---
Echocardiogram Report Patient Name: RAMESH SULLIVAN Gender: Male Date: 1955 Study Date: 21-Feb-2018 Stockroom Worker: Khang Morrissey [facility] Location: 509-[id number] Ref. Physician: DEYVI BEYER Quality: Adequate Procedures: Transthoracic echocardiogram with complete 2D, M-Mode, and doppler examination. Indications: New onset of A-fib. 2D/M Mode Doppler Measurement Value Normal Ranges Measurement Value Normal Ranges LVIDd 2D 4.8 3.5 - 5.6 cm AV Peak Wei 1.1 m/sec LVIDs 2D 3.5 2.1 - 4.1 cm AV Peak PG 5.0 mmHg LVPWd 2D 1.1 0.6 - 1.1 cm LVOT Peak Wei 0.8 m/sec IVSd 2D 1.3 0.6 - 1.1 cm LVOT Peak PG 2.0 mmHg AoR Diam 2D 3.3 2.0 - 3.7 cm MV E Peak Wei 0.9 m/sec LA/Ao 2D 1 0 - 1 MV A Peak Wei 1.1 m/sec LA Dimen 2D 3.8 2.3 - 4.0 cm MV E/A 0.8 MV Decel Time 236 msec Lat E` Wei 0.0 m/sec Lateral E/E` 25.4 Med E` Wei 0.0 m/sec MV E/A 0.8 TR Peak Wei 1.5 m/sec TR Peak PG 9.0 mmHg PV Peak Wei 0.9 m/sec PV Peak PG 3.0 mmHg RVSP 19.0 mmHg Findings Left Ventricle: Overall, normal left ventricular systolic function. Not all segments visualized. Normal left ventricular cavity size. Sigmoid septum. Ejection fraction is visually estimated at 55 %. Tissue Doppler/Mitral Doppler indices are consistent with impaired relaxation (Stage I diastolic dysfunction). Right Ventricle: Normal right ventricular size. Normal right ventricular systolic function. Left Atrium: The left atrium is normal in size. Right Atrium: The right atrium is normal in size. Mitral Valve: Mitral valve is not well visualized. Mild mitral leaflet calcification. Moderate mitral annular calcification. Trace mitral regurgitation. Aortic Valve: No significant aortic stenosis or insufficiency. Aortic valve not well visualized. Aortic cusps appear mildly calcified. Tricuspid Valve: Tricuspid valve not well visualized. Estimated peak PA systolic pressure 19 mmHg. There is trace tricuspid regurgitation. Pulmonic Valve: Pulmonic valve not well visualized. There is trace pulmonic regurgitation. Pericardium: Normal pericardium with no significant pericardial effusion. Aorta: Normal aortic root. IVC: Normal size and normal respiratory collapse consistent with normal right atrial pressure. Conclusions Overall, normal left ventricular systolic function. Not all segments visualized. Normal left ventricular cavity size. Sigmoid septum. Ejection fraction is visually estimated at 55 %. Tissue Doppler/Mitral Doppler indices are consistent with impaired relaxation (Stage I diastolic dysfunction). Normal right ventricular size. Normal right ventricular systolic function. The left atrium is normal in size. The right atrium is normal in size. No significant valvular stenosis or regurgitation seen. Normal pericardium with no significant pericardial effusion. Electronically Signed By: Jona Mckinley 22-Feb-2018 13:27:49 -0800 Patient Name: RAMESH SULLIVAN Study Date: 21-Feb-2018 [id number]
[2018-02-22] MEDS ORDERED: HEPARIN 1000 UNITS/ML 10 ML INJ CATHETER ONE (15:00)
--- NOTE | 2018-02-22 18:11 | NUR ---
S/P hemodialysis today with 1000 ml output. VSS, c/o pelvic pain, tylenol po PRN pain given. Continue with plan of care.
[2018-02-22] MEDS: ATORVASTATIN 10 MG TAB PO SCH (21:17)
[2018-02-22] MEDS: traZODone 50 MG TAB PO SCH (21:18)
[2018-02-22] MEDS: INSULIN GLARGINE [LANTus] (100 UNITS/ML) SYG SC SCH (21:27)
[2018-02-23] VITALS (11 sets, daily range): BP systolic 118–163; BP diastolic 63–88; PULSE 60–69; RESP 18
[2018-02-23] MEDS: PANTOPRAZOLE (EC) 40 MG TAB PO SCH (06:00)
[2018-02-23] MEDS: HEPARIN 5,000 UNIT/1 ML VIAL SC SCH ×3 (06:04→21:48)
--- NOTE | 2018-02-23 06:48 | NUR ---
RN END OF SHIFT NOTE PATIENT ALERT AND ORIENTED X 4, DENIED PAIN, PATIENT IS AMBULATORY WITH STEADY GAIT. MEDS GIVEN SCHEDULED, PATIENT'S NEEDS MET ACCORDINGLY. BED IN THE LOWEST POSITION WITH BRAKES ENGAGED, HOURLY ROUNDING AND BED ALARM IN PLACE. CALL LIGHT AND PERSONAL ITEMS WITHIN EASY REACH. ENDORSED TO DAY SHIFT RN.
[2018-02-23] MEDS: INSULIN ASPART [NOVOLOG] 3 ML PEN SC SCH ×7 (07:55→20:55)
--- NOTE | 2018-02-23 08:00 | CONS ---
Date/Time of Note Date/Time of Note DATE: 02/23/18 TIME: 07:58 Consult Date/Type/Reason Admit Date/Time Feb 20, 2018 at 08:25 Initial Consult Date 02/22/18 Requesting Provider: DEYVI BEYER Subjective cv follow up note S D/W staff and tele was reviewed. pt remains in NSR no chest pain or pressure. no PND orthopena pt states he had gas yesterday but much better now and wants to go home today. O: General: no acute distress HEENT: NC/AT. pupils are equal. round. NECK: NO JVD. no stridor. CV: RRR. systolic murmur; no gallop or rubs. PULM: no wheezing or rhonchi. GI: SOFT, NT, ND, no rebound or guarding Extremity: trace B/L LE edema. no clubbing. neuro: awake and alert, OX3. Psych: calm and pleasant rectal: deferred : normal EKG was personally reviewed within normal sinus rhythm first-degree AV block T wave abnormality consistent with inferolateral ischemia Chest x-ray shows:Cardiomegaly. No pneumonia or failure. Objective Vital Signs Date Temp Pulse Resp B/P (MAP) Pulse Ox O2 O2 Flow FiO2 Time Delivery Rate 02/23/18 97.7 67 18 120/63 100 07:12 (82) 02/22/18 Nasal 2.0 15:06 Cannula Intake and Output 02/22/18 02/22/18 02/23/18 1515:00 23:00 07:00 IntakeIntake Total 800 ml 800 ml 350 ml OutputOutput Total 200 ml 2400 ml BalanceBalance 600 ml -1600 ml 350 ml Results/Medications Result Diagram: 02/22/18 0538 02/22/18 0537 Results 24 hrs Laboratory Tests Test 02/22/18 11:47 02/22/18 11:51 02/22/18 17:17 02/22/18 21:16 Bedside Glucose 122 148 130 Alpha Fetoprotein 3.00 Carcinoembryonic Antigen 2.3 CA 19-9 Antigen < 1.4 Hepatitis C Antibody REACTIVE H Test 02/23/18 01:36 02/23/18 03:00 Bedside Glucose 90 Stool Occult Blood POSITIVE Medications Current Medications IV Flush (NS 3 ml) 3 ml PER PROTOCOL IV ; Start 02/20/18 at 10:00 Ondansetron HCl (Zofran Inj) 4 mg Q6H PRN IV NAUSEA AND/OR VOMITING; Start 02/20/18 at 10:00 Acetaminophen (Tylenol Tab) 650 mg Q6H PRN PO PAIN LEVEL 1-3 OR FEVER Last ad ministered on 02/22/18 17:26; Admin Dose 650 MG; Start 02/20/18 at 10:00 Heparin Sodium (Porcine) (Heparin (5000 Units/1ml)) 5,000 unit Q8 SC Last administered on 02/23/18 06:04; Admin Dose 5,000 UNIT; Start 02/20/18 at 14:00 Aspirin (Halfprin) 81 mg DAILY PO Last administered on 02/22/18 08:51; Admin Dose 81 MG; Start 02/21/18 at 09:00 Carvedilol (Coreg) 3.125 mg BID PO Last administered on 02/22/18 21:18; Admin Dose 3.125 MG; Start 02/20/18 at 21:00 Clonidine (Catapres) 0.1 mg BID PO Last administered on 02/22/18 21:18; Admin Dose 0.1 MG; Start 02/20/18 at 21:00 Ferrous Sulfate (Ferrous Sulfate (Ec)) 325 mg DAILY PO Last administered on 02/22/18 08:51; Admin Dose 325 MG; Start 02/21/18 at 09:00 Fluticasone Propionate (Flonase 0.05% Nasal) 1 spray BID NASAL Last administered on 02/22/18 21:19; Admin Dose 1 SPRAY; Start 02/20/18 at 21:00 Multivit/Ca Carb/ B Cmplx/FA/Prenat (Edith-Agatha) 1 tab DAILY PO Last administered on 02/22/18 08:51; Admin Dose 1 TAB; Start 02/21/18 at 09:00 Losartan Potassium (Cozaar) 25 mg DAILY PO ; Start 02/21/18 at 09:00 Sertraline HCl (Zoloft) 25 mg DAILY PO Last administered on 02/22/18 08:51; Admin Dose 25 MG; Start 02/21/18 at 09:00 Trazodone HCl (Desyrel) 50 mg QHS PO Last administered on 02/22/18 21:18; Admin Dose 50 MG; Start 02/20/18 at 21:00 Atorvastatin Calcium (Lipitor) 10 mg QHS PO Last administered on 02/22/18 21:17; Admin Dose 10 MG; Start 02/20/18 at 21:00 Insulin Glargine (Lantus) 12 units DAILY@2000 SC Last administered on 02/22/18 21:27; Admin Dose 12 UNITS; Start 02/20/18 at 20:00 Insulin Aspart (Novolog Insulin Pen) 4 unit WITH MEALS SC Last administered on 02/22/18 17:22; Admin Dose 4 UNIT; Start 02/20/18 at 11:50 Insulin Aspart (Novolog Insulin Pen) NOVOLOG *MILD* ALGORITHM WITH MEALS BEDTIME SC Last administered on 02/22/18 17:22; Admin Dose 1 UNIT; Start 02/20/18 at 11:50 Miscellaneous Information 1 ea NOTE XX ; Start 02/20/18 at 10:30 Glucose (Glutose) 15 gm Q15M PRN PO DECREASED GLUCOSE; Start 02/20/18 at 10:30 Glucose (Glutose) 22.5 gm Q15M PRN PO DECREASED GLUCOSE; Start 02/20/18 at 10:30 Dextrose (D50w Syringe) 25 ml Q15M PRN IV DECREASED GLUCOSE; Start 02/20/18 at 10:30 Dextrose (D50w Syringe) 50 ml Q15M PRN IV DECREASED GLUCOSE; Start 02/20/18 at 10:30 Glucagon (Glucagen) 1 mg Q15M PRN IM DECREASED GLUCOSE; Start 02/20/18 at 10:30 Glucose (Glutose) 15 gm Q15M PRN BUCCAL DECREASED GLUCOSE; Start 02/20/18 at 10:30 Hydralazine HCl (Apresoline) 10 mg Q6H PRN IV SBP>170; Start 02/20/18 at 12:00 Heparin Sodium (Porcine) (Heparin (1000 Units/ml)) 4,300 unit AFTER DIALYSIS CATHETER Last administered on 02/21/18at 12:29; Admin Dose 4,300 UNIT; Start 02/20/18 at 14:00 Sevelamer Carbonate (Renvela) 800 mg WITH MEALS PO Last administered on 02/22/18 17:19; Admin Dose 800 MG; Start 02/20/18 at 17:55 Lorazepam (Ativan) 0.5 mg Q8H PRN IV ANXIETY Last administered on 02/20/18at 17:26; Admin Dose 0.5 MG; Start 02/20/18 at 17:00 Simethicone (Mylicon) 80 mg Q6H PRN GTB DISTENSION/GAS/BLOATING Last administered on 02/23/18at 03:20; Admin Dose 80 MG; Start 02/21/18 at 13:30 Pantoprazole (Protonix Tab) 40 mg DAILY@06 PO Last administered on 02/23/18at 06:00; Admin Dose 40 MG; Start 02/22/18 at 06:00 Albumin Human 100 ml @ 100 mls/hr DURING DIALYSIS PRN IV BLOOD PRESSURE SUPPORT; Start 02/22/18 at 10:05 Assessment/Plan Chief Complaint/Hosp Course 1. Dyspnea multifactorial currently improved with hemodialysis 2. Coronary artery disease 3. History of coronary bypass graft 4. Hypertensive urgency: Currently controlled with dialysis 5. Diabetes 6. Dyslipidemia Recommendations: Continue with the Coreg. Aspirin daily Statin Hemodialysis as per renal DC planning as per internal medicine. I will try to set him up for outpatient cardiology follow-up in the office Thank you for his referral. We will continue to follow along with you as needed CHANTE GRIFFIN MD [facility] CHANTE GRIFFIN MD Feb 23, 2018 08:00
[2018-02-23] MEDS: FERROUS SULFATE (EC) 325 MG TAB PO SCH (08:21)
[2018-02-23] MEDS: SEVELAMER CARBONATE 800 MG TABLET PO SCH ×3 (08:21→17:29)
[2018-02-23] MEDS: MULTIVIT/CA CARB/B CMPLX/FA TAB PO SCH (08:21)
[2018-02-23] MEDS: ASPIRIN (EC) 81 MG TAB PO SCH (08:21)
[2018-02-23] MEDS: SERTRALINE 50 MG TAB PO SCH (08:22)
[2018-02-23] MEDS: LOSARTAN 25 MG TAB PO SCH (08:22)
[2018-02-23] MEDS: FLUTICASONE 0.05% 16 GM NAS SPRAY NASAL SCH ×2 (08:23→20:54)
--- NOTE | 2018-02-23 08:24 | PN ---
DATE: 02/23/2018 SUBJECTIVE: The patient is stable, no events noted. No fevers, chills, nausea, vomiting. OBJECTIVE: VITAL SIGNS: Blood pressure is 120/63, pulse 67, respiration 18, temperature 97.6. HEENT: Head is normocephalic. NECK: Supple. HEART: Regular rate. LUNGS: Show diminished breath sounds at base. ABDOMEN: Soft, nontender to palpation. No rebound or guarding. EXTREMITIES: Negative for clubbing, cyanosis, no edema. DERMATOLOGIC: No rashes. MUSCULOSKELETAL: No joint effusion. NEUROLOGIC: No change in exam. MEDICATIONS: Reviewed. LABORATORY DATA: From 02/22/2018, was reviewed. ASSESSMENT AND PLAN: 1. End-stage renal disease. The patient had hemodialysis yesterday, tolerated well. Plan for dialy sis tomorrow. 2. Hyperkalemia secondary to end-stage renal disease. Continue dialysis on a low potassium bath. 3. Anemia. Continue to monitor hemoglobin and hematocrit levels. Will give Epogen as needed. 4. Mineral bone disorder, monitor calcium and phosphorus levels. Continue phosphate binders. 5. Hypertension. Continue current blood pressure regimen. Continue ultrafiltration dialysis. 6. Abdominal fullness. The patient is status post CT scan. No evidence of metastatic disease. Con tinue to monitor. 7. Cirrhosis. Continue current medical management. 8. Anxiety disorder. Continue Xanax. 9. Diabetes. Continue current insulin regimen. 10. Dyslipidemia. Continue statin therapy. 11. History of coronary artery disease. Continue current treatment plan. 12. History of prostate cancer, status post brachytherapy seeds, follow up with urology. Dictated By: LAURA CHUA DO NR/NTS Conf#: [id number] DID#: [id number] CC: GIN BINGHAM MD;*EndCC*
--- NOTE | 2018-02-23 08:59 | NUR ---
Nurse Notes Pt scheduled for dialysis for tomorrow 02/24/2018. S/W Geraldine in [facility] and Pt confirmed for tomorrow 02/24/2018 with confirmation number: [id number]
--- NOTE | 2018-02-23 10:16 | PN ---
Date/Time of Note Date/Time of Note DATE: 02/23/18 TIME: 09:52 Assessment/Plan VTE Prophylaxis Risk score (from Nsg)>0 risk: 4 SCD applied (from Nsg): Yes Pharmacological prophylaxis: other (scds) Lines/Catheters IV Catheter Type (from Nrs): permacath Urinary Cath still in place: No Assessment/Plan Hospital Course Summary Assessment and Plan: Assessment: Liver cirrhosis on imaging -Hep C AB reactive- RNA pending Abdominal distension ESRD on HD Hyperkalemia- improved Hypertensive Diabetes mellitus, type 2 CAD Hx of CABG x3 vessels 2008 Last Echo 09/11/17 -EF is visually estimated at 60 %. History of CVA New solid mass inferiorly in the right kidney measuring 1.8 x 2.1 cm History of Prostate CA s/p Brachytherapy seeds Hx of colonoscopy about 5 months ago- polyps Hx of EGD 3-4 years ago- neg per patient Plan: Paracentesis canceled- no fluid HERMAN, AMA, ASMA,- pending Hep C- reactive will order RNA Change simethicone to after meals and at bedtime Pt will need to f/u with GI or hepatology, to monitor Liver cirrhosis Patient seen in collaboration with Free text: New mass found on non-CT- PSA pending, no etiology identified for abd distention on non-CT Attempted to get paracentesis however no fluid noted. Patient abd remains distended but soft, non-progressive at this time. Will change simethicone to OTC Discussed findings of Hep C AB reactive, pt states he did have a hs but was treated about 1 year ago. RNA pending to confirm patient a virus. PHYSICAL EXAMINATION: GENERAL: Alert & oriented x 3, in no acute distress SKIN: Dialysis catheter EYES: Pupils equal reactive to light, no discharge. EARS/NOSE AND THROAT: Ears normal, nose normal, oropharynx normal NECK: Supple CHEST: Inspection within normal limits. CARDIOVASCULAR: Heart: Regular rate and rhythm RESPIRATORY: Lungs clear to auscultation GASTROINTESTINAL AND LIVER: Abdomen: Soft, non tenderness, Distended, no hernias, no rebound tenderness, normoactive bowel sounds. Rectal: Deferred. GENITOURINARY: Not examined EXTREMITIES: No cyanosis, clubbing or edema. Result Diagram: 02/22/18 0538 02/22/18 0537 Results 24hrs Laboratory Tests Test 02/22/18 11:47 02/22/18 11:51 02/22/18 17:17 02/22/18 21:16 Bedside Glucose 122 148 130 Alpha Fetoprotein 3.00 Carcinoembryonic Antigen 2.3 CA 19-9 Antigen < 1.4 Hepatitis C Antibody REACTIVE H Test 02/23/18 01:36 02/23/18 03:00 02/23/18 08:20 Bedside Glucose 90 130 Stool Occult Blood POSITIVE Exam/Review of Systems Vital Signs Vitals Vital Signs Date Temp Pulse Resp B/P (MAP) Pulse Ox O2 O2 Flow FiO2 Time Delivery Rate 02/23/18 69 08:56 02/23/18 97.7 18 120/63 100 07:12 (82) 02/22/18 Nasal 2.0 15:06 Cannula Intake and Output 02/22/18 02/22/18 02/23/18 1515:00 23:00 07:00 IntakeIntake Total 800 ml 800 ml 350 ml OutputOutput Total 200 ml 2400 ml BalanceBalance 600 ml -1600 ml 350 ml Medications Medications Current Medications IV Flush (NS 3 ml) 3 ml PER PROTOCOL IV ; Start 02/20/18 at 10:00 Ondansetron HCl (Zofran Inj) 4 mg Q6H PRN IV NAUSEA AND/OR VOMITING; Start 02/20/18 at 10:00 Acetaminophen (Tylenol Tab) 650 mg Q6H PRN PO PAIN LEVEL 1-3 OR FEVER Last administered on 02/22/18 17:26; Admin Dose 650 MG; Start 02/20/18 at 10:00 Heparin Sodium (Porcine) (Heparin (5000 Units/1ml)) 5,000 unit Q8 SC Last administered on 02/23/18 06:04; Admin Dose 5,000 UNIT; Start 02/20/18 at 14:00 Aspirin (Halfprin) 81 mg DAILY PO Last administered on 02/23/18 08:21; Admin Dose 81 MG; Start 02/21/18 at 09:00 Carvedilol (Coreg) 3.125 mg BID PO Last administered on 02/23/18 08:24; Admin Dose 3.125 MG; Start 02/20/18 at 21:00 Clonidine (Catapres) 0.1 mg BID PO Last administered on 02/23/18 08:22; Admin Dose 0.1 MG; Start 02/20/18 at 21:00 Ferrous Sulfate (Ferrous Sulfate (Ec)) 325 mg DAILY PO Last administered on 02/23/18 08:21; Admin Dose 325 MG; Start 02/21/18 at 09:00 Fluticasone Propionate (Flonase 0.05% Nasal) 1 spray BID NASAL Last administered on 02/23/18 08:23; Admin Dose 1 SPRAY; Start 02/20/18 at 21:00 Multivit/Ca Carb/ B Cmplx/FA/Prenat (Edith-Agatha) 1 tab DAILY PO Last administered on 02/23/18 08:21; Admin Dose 1 TAB; Start 02/21/18 at 09:00 Losartan Potassium (Cozaar) 25 mg DAILY PO Last administered on 02/23/18 08:22; Admin Dose 25 MG; Start 02/21/18 at 09:00 Sertraline HCl (Zoloft) 25 mg DAILY PO Last administered on 02/23/18 08:22; Admin Dose 25 MG; Start 02/21/18 at 09:00 Trazodone HCl (Desyrel) 50 mg QHS PO Last administered on 02/22/18 21:18; Admin Dose 50 MG; Start 02/20/18 at 21:00 Atorvastatin Calcium (Lipitor) 10 mg QHS PO Last administered on 02/22/18 21:17; Admin Dose 10 MG; Start 02/20/18 at 21:00 Insulin Glargine (Lantus) 12 units DAILY@2000 SC Last administered on 02/22/18 21:27; Admin Dose 12 UNITS; Start 02/20/18 at 20:00 Insulin Aspart (Novolog Insulin Pen) 4 unit WITH MEALS SC Last administered on 02/23/18 08:29; Admin Dose 4 UNIT; Start 02/20/18 at 11:50 Insulin Aspart (Novolog Insulin Pen) NOVOLOG *MILD* ALGORITHM WITH MEALS BEDTIME SC Last administered on 02/22/18 17:22; Admin Dose 1 UNIT; Start 02/20/18 at 11:50 Miscellaneous Information 1 ea NOTE XX ; Start 02/20/18 at 10:30 Glucose (Glutose) 15 gm Q15M PRN PO DECREASED GLUCOSE; Start 02/20/18 at 10:30 Glucose (Glutose) 22.5 gm Q15M PRN PO DECREASED GLUCOSE; Start 02/20/18 at 10:30 Dextrose (D50w Syringe) 25 ml Q15M PRN IV DECREASED GLUCOSE; Start 02/20/18 at 10:30 Dextrose (D50w Syringe) 50 ml Q15M PRN IV DECREASED GLUCOSE; Start 02/20/18 at 10:30 Glucagon (Glucagen) 1 mg Q15M PRN IM DECREASED GLUCOSE; Start 02/20/18 at 10 :30 Glucose (Glutose) 15 gm Q15M PRN BUCCAL DECREASED GLUCOSE; Start 02/20/18 at 10:30 Hydralazine HCl (Apresoline) 10 mg Q6H PRN IV SBP>170; Start 02/20/18 at 12:00 Heparin Sodium (Porcine) (Heparin (1000 Units/ml)) 4,300 unit AFTER DIALYSIS CATHETER Last administered on 02/21/18at 12:29; Admin Dose 4,300 UNIT; Start 02/20/18 at 14:00 Sevelamer Carbonate (Renvela) 800 mg WITH MEALS PO Last administered on 02/23/18at 08:21; Admin Dose 800 MG; Start 02/20/18 at 17:55 Lorazepam (Ativan) 0.5 mg Q8H PRN IV ANXIETY Last administered on 02/20/18at 17:26; Admin Dose 0.5 MG; Start 02/20/18 at 17:00 Simethicone (Mylicon) 80 mg Q6H PRN GTB DISTENSION/GAS/BLOATING Last administered on 02/23/18at 03:20; Admin Dose 80 MG; Start 02/21/18 at 13:30 Pantoprazole (Protonix Tab) 40 mg DAILY@06 PO Last administered on 02/23/18at 06:00; Admin Dose 40 MG; Start 02/22/18 at 06:00 Albumin Human 100 ml @ 100 mls/hr DURING DIALYSIS PRN IV BLOOD PRESSURE SUPPORT; Start 02/22/18 at 10:05 RANDY MA Feb 23, 2018 10:02
--- NOTE | 2018-02-23 11:35 | NUR ---
Nurse Notes Plan of care transitioned to SAMPSON Rojo. Report given and all questions answered.
--- NOTE | 2018-02-23 11:56 | CONS ---
Date/Time of Note Date/Time of Note DATE: 02/23/18 TIME: 11:43 Assessment/Plan Assessment/Plan Assessment/Plan 63 yo with multiple medical problems, h/o CABG, ESRD, awaiting kideney transplant, h/o prostate ca treated with definitive XRT about 2-3 years ago #renal lesions I agree that the renal lesion is most likely to be a primary renal cell ca, and not a prostate ca recurrence recommend he f/u with his primary urologist once he is stabilized and discharged from the hospital given size and location of lesion partial nephrectomy may be possible but given that he is already on dialysis unclear benefit of partial nephrectomy, will defer to urology of course on best surgical option an MRI of abdomen may be helpful for better radiographic delineation of mass characteristics there are no tumor markers that are helpful for diagnosing renal cell ca #prostate ca check PSA based on history, it appears he may still be in remission #mild anemia due to ESRD no need for procrit at this point Result Diagram: 02/22/18 0538 02/22/18 0537 Results 24hrs Laboratory Tests Test 02/22/18 11:47 02/22/18 11:51 02/22/18 17:17 02/22/18 21:16 Bedside Glucose 122 148 130 Alpha Fetoprotein 3.00 Carcinoembryonic Antigen 2.3 CA 19-9 Antigen < 1.4 Hepatitis C Antibody REACTIVE H Test 02/23/18 01:36 02/23/18 03:00 02/23/18 08:20 Bedside Glucose 90 130 Stool Occult Blood POSITIVE Consultation Date/Type/Reason Admit Date/Time Feb 20, 2018 at 08:25 Hx of Present Illness In brief, this is a 63-year-old male with hypertension, end-stage renal disease on hemodialysis, dyslipidemia, diabetes mellitus type 2, previous CVA, CABG. The patient came into ER with SOB and found to have hyperkalemia and hypertensive urgency He has a history of prostate ca diagnosed about 2-3 years ago and treated with XRT, he does not recall if he received lupron or not. He was treated at [facility]. Of note, he is on the kidaney transplant list at [facility] and per patient he recently received a call He underwent CT AP without contrast yesterday, main concerning finding was : New solid mass inferiorly in the right kidney measuring 1.8 x 2.1 cm, likely neoplastic. We are asked to see pt for further w/u and evaluation of this Pt has already been seen by Dr Sen Constitutional: no complaints Eyes: no complaints ENT: no complaints Respiratory: no complaints Cardiovascular: no complaints Gastrointestinal: decreased appetite Genitourinary: no complaints, other (minimal urinary output) Musculoskeletal: no complaints Skin: no complaints Neurologic: no complaints Endocrine: no complaints Psychological: no complaints Immunologic: no complaints Past Medical History Medications Current Medications IV Flush (NS 3 ml) 3 ml PER PROTOCOL IV ; Start 02/20/18 at 10:00 Ondansetron HCl (Zofran Inj) 4 mg Q6H PRN IV NAUSEA AND/OR VOMITING; Start 02/20/18 at 10:00 Acetaminophen (Tylenol Tab) 650 mg Q6H PRN PO PAIN LEVEL 1-3 OR FEVER Last administered on 02/22/18 17:26; Admin Dose 650 MG; Start 02/20/18 at 10:00 Heparin Sodium (Porcine) (Heparin (5000 Units/1ml)) 5,000 unit Q8 SC Last administered on 02/23/18 06:04; Admin Dose 5,000 UNIT; Start 02/20/18 at 14:00 Aspirin (Halfprin) 81 mg DAILY PO Last administered on 02/23/18 08:21; Admin Dose 81 MG; Start 02/21/18 at 09:00 Carvedilol (Coreg) 3.125 mg BID PO Last administered on 02/23/18 08:24; Admin D ose 3.125 MG; Start 02/20/18 at 21:00 Clonidine (Catapres) 0.1 mg BID PO Last administered on 02/23/18 08:22; Admin Dose 0.1 MG; Start 02/20/18 at 21:00 Ferrous Sulfate (Ferrous Sulfate (Ec)) 325 mg DAILY PO Last administered on 02/23/18 08:21; Admin Dose 325 MG; Start 02/21/18 at 09:00 Fluticasone Propionate (Flonase 0.05% Nasal) 1 spray BID NASAL Last administered on 02/23/18 08:23; Admin Dose 1 SPRAY; Start 02/20/18 at 21:00 Multivit/Ca Carb/ B Cmplx/FA/Prenat (Edith-Agatha) 1 tab DAILY PO Last administered on 02/23/18 08:21; Admin Dose 1 TAB; Start 02/21/18 at 09:00 Losartan Potassium (Cozaar) 25 mg DAILY PO Last administered on 02/23/18 08:22; Admin Dose 25 MG; Start 02/21/18 at 09:00 Sertraline HCl (Zoloft) 25 mg DAILY PO Last administered on 02/23/18 08:22; Admin Dose 25 MG; Start 02/21/18 at 09:00 Trazodone HCl (Desyrel) 50 mg QHS PO Last administered on 02/22/18 21:18; Admin Dose 50 MG; Start 02/20/18 at 21:00 Atorvastatin Calcium (Lipitor) 10 mg QHS PO Last administered on 02/22/18 21:17; Admin Dose 10 MG; Start 02/20/18 at 21:00 Insulin Glargine (Lantus) 12 units DAILY@2000 SC Last administered on 02/22/18 21:27; Admin Dose 12 UNITS; Start 02/20/18 at 20:00 Insulin Aspart (Novolog Insulin Pen) 4 unit WITH MEALS SC Last administered on 02/23/18 08:29; Admin Dose 4 UNIT; Start 02/20/18 at 11:50 Insulin Aspart (Novolog Insulin Pen) NOVOLOG *MILD* ALGORITHM WITH MEALS BEDTIME SC Last administered on 02/22/18 17:22; Admin Dose 1 UNIT; Start 02/20/18 at 11:50 Miscellaneous Information 1 ea NOTE XX ; Start 02/20/18 at 10:30 Glucose (Glutose) 15 gm Q15M PRN PO DECREASED GLUCOSE; Start 02/20/18 at 10:30 Glucose (Glutose) 22.5 gm Q15M PRN PO DECREASED GLUCOSE; Start 02/20/18 at 10:30 Dextrose (D50w Syringe) 25 ml Q15M PRN IV DECREASED GLUCOSE; Start 02/20/18 at 10:30 Dextrose (D50w Syringe) 50 ml Q15M PRN IV DECREASED GLUCOSE; Start 02/20/18 at 10:30 Glucagon (Glucagen) 1 mg Q15M PRN IM DECREASED GLUCOSE; Start 02/20/18 at 10:30 Glucose (Glutose) 15 gm Q15M PRN BUCCAL DECREASED GLUCOSE; Start 02/20/18 at 10:30 Hydralazine HCl (Apresoline) 10 mg Q6H PRN IV SBP>170; Start 02/20/18 at 12:00 Heparin Sodium (Porcine) (Heparin (1000 Units/ml)) 4,300 unit AFTER DIALYSIS CATHETER Last administered on 02/21/18at 12:29; Admin Dose 4,300 UNIT; Start 02/20/18 at 14:00 Sevelamer Carbonate (Renvela) 800 mg WITH MEALS PO Last administered on 02/23/18at 08:21; Admin Dose 800 MG; Start 02/20/18 at 17:55 Lorazepam (Ativan) 0.5 mg Q8H PRN IV ANXIETY Last administered on 02/20/18at 17:26; Admin Dose 0.5 MG; Start 02/20/18 at 17:00 Pantoprazole (Protonix Tab) 40 mg DAILY@06 PO Last administered on 02/23/18at 06:00; Admin Dose 40 MG; Start 02/22/18 at 06:00 Albumin Human 100 ml @ 100 mls/hr DURING DIALYSIS PRN IV BLOOD PRESSURE S UPPORT; Start 02/22/18 at 10:05 Simethicone (Mylicon) 80 mg QID PO Last administered on 02/23/18at 10:35; Admin Dose 80 MG; Start 02/23/18 at 10:30 Allergies: Coded Allergies: No Known Drug Allergies (Verified Allergy, Unknown, 02/20/18) Past Surgical History Past Surgical Hx: coronary bypass surgery, other Social History Alcohol Use: none Smoking Status: Never smoker Drug Use: none Exam/Review of Systems Vital Signs Vitals Vital Signs Date Temp Pulse Resp B/P (MAP) Pulse Ox O2 O2 Flow FiO2 Time Delivery Rate 02/23/18 98.3 67 18 118/64 100 11:06 (82) 02/22/18 Nasal 2.0 15:06 Cannula Intake and Output 02/22/18 02/22/18 02/23/18 1515:00 23:00 07:00 IntakeIntake Total 800 ml 800 ml 350 ml OutputOutput Total 200 ml 2400 ml BalanceBalance 600 ml -1600 ml 350 ml Exam Constitutional: alert Head: normocephalic Eyes: nl conjunctiva, EOMI, nl lids, nl sclera, PERRL ENMT: nl external ears & nose, nl lips & teeth, nl nasal mucosa & septum Respiratory: clear to auscultation, normal air movement Gastrointestinal: non-tender, distended Neurological: nl speech Medications Medications Current Medications IV Flush (NS 3 ml) 3 ml PER PROTOCOL IV ; Start 02/20/18 at 10:00 Ondansetron HCl (Zofran Inj) 4 mg Q6H PRN IV NAUSEA AND/OR VOMITING; Start 02/20/18 at 10:00 Acetaminophen (Tylenol Tab) 650 mg Q6H PRN PO PAIN LEVEL 1-3 OR FEVER Last administered on 02/22/18 17:26; Admin Dose 650 MG; Start 02/20/18 at 10:00 Heparin Sodium (Porcine) (Heparin (5000 Units/1ml)) 5,000 unit Q8 SC Last administered on 02/23/18 06:04; Admin Dose 5,000 UNIT; Start 02/20/18 at 14:00 Aspirin (Halfprin) 81 mg DAILY PO Last administered on 02/23/18 08:21; Admin Dose 81 MG; Start 02/21/18 at 09:00 Carvedilol (Coreg) 3.125 mg BID PO Last administered on 02/23/18 08:24; Admin Dose 3.125 MG; Start 02/20/18 at 21:00 Clonidine (Catapres) 0.1 mg BID PO Last administered on 02/23/18 08:22; Admin Dose 0.1 MG; Start 02/20/18 at 21:00 Ferrous Sulfate (Ferrous Sulfate (Ec)) 325 mg DAILY PO Last administered on 02/23/18 08:21; Admin Dose 325 MG; Start 02/21/18 at 09:00 Fluticasone Propionate (Flonase 0.05% Nasal) 1 spray BID NASAL Last adm inistered on 02/23/18 08:23; Admin Dose 1 SPRAY; Start 02/20/18 at 21:00 Multivit/Ca Carb/ B Cmplx/FA/Prenat (Edith-Agatha) 1 tab DAILY PO Last administered on 02/23/18 08:21; Admin Dose 1 TAB; Start 02/21/18 at 09:00 Losartan Potassium (Cozaar) 25 mg DAILY PO Last administered on 02/23/18 08:22; Admin Dose 25 MG; Start 02/21/18 at 09:00 Sertraline HCl (Zoloft) 25 mg DAILY PO Last administered on 02/23/18 08:22; Admin Dose 25 MG; Start 02/21/18 at 09:00 Trazodone HCl (Desyrel) 50 mg QHS PO Last administered on 02/22/18 21:18; Admin Dose 50 MG; Start 02/20/18 at 21:00 Atorvastatin Calcium (Lipitor) 10 mg QHS PO Last administered on 02/22/18 21:17; Admin Dose 10 MG; Start 02/20/18 at 21:00 Insulin Glargine (Lantus) 12 units DAILY@2000 SC Last administered on 02/22/18 21:27; Admin Dose 12 UNITS; Start 02/20/18 at 20:00 Insulin Aspart (Novolog Insulin Pen) 4 unit WITH MEALS SC Last administered on 02/23/18 08:29; Admin Dose 4 UNIT; Start 02/20/18 at 11:50 Insulin Aspart (Novolog Insulin Pen) NOVOLOG *MILD* ALGORITHM WITH MEALS BEDTIME SC Last administered on 02/22/18 17:22; Admin Dose 1 UNIT; Start 02/20/18 at 11:50 Miscellaneous Information 1 ea NOTE XX ; Start 02/20/18 at 10:30 Glucose (Glutose) 15 gm Q15M PRN PO DECREASED GLUCOSE; Start 02/20/18 at 10:30 Glucose (Glutose) 22.5 gm Q15M PRN PO DECREASED GLUCOSE; Start 02/20/18 at 10:30 Dextrose (D50w Syringe) 25 ml Q15M PRN IV DECREASED GLUCOSE; Start 02/20/18 at 10:30 Dextrose (D50w Syringe) 50 ml Q15M PRN IV DECREASED GLUCOSE; Start 02/20/18 at 10:30 Glucagon (Glucagen) 1 mg Q15M PRN IM DECREASED GLUCOSE; Start 02/20/18 at 10:30 Glucose (Glutose) 15 gm Q15M PRN BUCCAL DECREASED GLUCOSE; Start 02/20/18 at 10:30 Hydralazine HCl (Apresoline) 10 mg Q6H PRN IV SBP>170; Start 02/20/18 at 12:00 Heparin Sodium (Porcine) (Heparin (1000 Units/ml)) 4,300 unit AFTER DIALYSIS CATHETER Last administered on 02/21/18at 12:29; Admin Dose 4,300 UNIT; Start 02/20/18 at 14:00 Sevelamer Carbonate (Renvela) 800 mg WITH MEALS PO Last administered on 02/23/18at 08:21; Admin Dose 800 MG; Start 02/20/18 at 17:55 Lorazepam (Ativan) 0.5 mg Q8H PRN IV ANXIETY Last administered on 02/20/18at 17:26; Admin Dose 0.5 MG; Start 02/20/18 at 17:00 Pantoprazole (Protonix Tab) 40 mg DAILY@06 PO Last administered on 02/23/18at 06:00; Admin Dose 40 MG; Start 02/22/18 at 06:00 Albumin Human 100 ml @ 100 mls/hr DURING DIALYSIS PRN IV BLOOD PRESSURE SUPPORT; Start 02/22/18 at 10:05 Simethicone (Mylicon) 80 mg QID PO Last administered on 02/23/18at 10:35; Admin Dose 80 MG; Start 02/23/18 at 10:30 GIO DURBIN Feb 23, 2018 11:53
--- NOTE | 2018-02-23 13:31 | CONS ---
Date/Time of Note Date/Time of Note DATE: 02/23/18 TIME: 13:16 Assessment/Plan Assessment/Plan Assessment/Plan 63-year-old male admitted because of dyspnea and high blood pressure. He is known to have a history of hypertension, end-stage renal disease on hemodialysis, dyslipidemia, diabetes mellitus type 2, previous CVA, coronary artery disease with CABG and history of prostate cancer status post radiation. He was found to have evidence of hyperkalemia and hypertensive urgency. His abdomen was very distended and he underwent a CT scan of the abdomen and pelvis and that showed a new tumor in the lower pole of the right kidney suspicious for neoplasm. Therefore a urological consultation was requested. The patient has been on hemodialysis and he does urinate a few drops. His abdominal pain and distention are unrelated to the tumor found on his right kidney. They are also unlikely to be related to his prostate cancer. From a urological standpoint he could and should follow-up with his urologist and have the tumor on the right kidney worked up and removed. I did explain that to the patient and he will contact his doctor after his hospital discharge and make an appointment for follow-up. Result Diagram: 02/22/18 0538 02/22/18 0537 Results 24hrs Laboratory Tests Test 02/22/18 17:17 02/22/18 21:16 02/23/18 01:36 02/23/18 03:00 Bedside Glucose 148 130 90 Stool Occult Blood POSITIVE Test 02/23/18 08:20 02/23/18 11:58 Bedside Glucose 130 175 Consultation Date/Type/Reason Admit Date/Time Feb 20, 2018 at 08:25 Date of Consultation: Feb 23, 2018 Type of Consult Urology Reason for Consultation Lower pole tumor of the right kidney Requesting Provider: MERARY PULLIAM Hx of Present Illness 63-year-old male admitted because of dyspnea and high blood pressure. He is known to have a history of hypertension, end-stage renal disease on hemodialysis, dyslipidemia, diabetes mellitus type 2, previous CVA, coronary artery disease with CABG and history of prostate cancer status post radiation. He was found to have evidence of hyperkalemia and hypertensive urgency. His abdomen was very distended and he underwent a CT scan of the abdomen and pelvis and that showed a new tumor in the lower pole of the right kidney suspicious for neoplasm. Therefore a urological consultation was requested. The patient has been on hemodialysis and he does urinate a few drops. Constitutional: no complaints Eyes: no complaints ENT: no complaints Respiratory: shortness of breath Cardiovascular: other (History of coronary artery bypass graft) Gastrointestinal: other (Distended abdomen and prior surgery for bowel obstruction?) Genitourinary: other (Urinates a few drops) Musculoskeletal: no complaints Skin: no complaints Neurologic: no complaints Endocrine: no complaints Past Medical History Medical History: cancer (Of prostate), coronary artery disease, diabetes, high cholesterol, hypertension, renal disease (End-stage renal disease on hemodialysis), other (Anemia, history of cerebrovascular accident from which he recovered without sequela) Medications Current Medications IV Flush (NS 3 ml) 3 ml PER PROTOCOL IV ; Start 02/20/18 at 10:00 Ondansetron HCl (Zofran Inj) 4 mg Q6H PRN IV NAUSEA AND/OR VOMITING; Start 02/20/18 at 10:00 Acetaminophen (Tylenol Tab) 650 mg Q6H PRN PO PAIN LEVEL 1-3 OR FEVER Last administered on 02/22/18 17:26; Admin Dose 650 MG; Start 02/20/18 at 10:00 Heparin Sodium (Porcine) (Heparin (5000 Units/1ml)) 5,000 unit Q8 SC Last administered on 02/23/18 06:04; Admin Dose 5,000 UNIT; Start 02/20/18 at 14:00 Aspirin (Halfprin) 81 mg DAILY PO Last administered on 02/23/18 08:21; Admin Dose 81 MG; Start 02/21/18 at 09:00 Carvedilol (Coreg) 3.125 mg BID PO Last administered on 02/23/18 08:24; Admin Dose 3.125 MG; Start 02/20/18 at 21:00 Clonidine (Catapres) 0.1 mg BID PO Last administered on 02/23/18 08:22; Admin Dose 0.1 MG; Start 02/20/18 at 21:00 Ferrous Sulfate (Ferrous Sulfate (Ec)) 325 mg DAILY PO Last administered on 02/23/18 08:21; Admin Dose 325 MG; Start 02/21/18 at 09:00 Fluticasone Propionate (Flonase 0.05% Nasal) 1 spray BID NASAL Last administered on 02/23/18 08:23; Admin Dose 1 SPRAY; Start 02/20/18 at 21:00 Multivit/Ca Carb/ B Cmplx/FA/Prenat (Edith-Agatha) 1 tab DAILY PO Last administered on 02/23/18 08:21; Admin Dose 1 TAB; Start 02/21/18 at 09:00 Losartan Potassium (Cozaar) 25 mg DAILY PO Last administered on 02/23/18 08:22; Admin Dose 25 MG; Start 02/21/18 at 09:00 Sertraline HCl (Zoloft) 25 mg DAILY PO Last administered on 02/23/18 08:22; Admin Dose 25 MG; Start 02/21/18 at 09:00 Trazodone HCl (Desyrel) 50 mg QHS PO Last administered on 02/22/18 21:18; Admin Dose 50 MG; Start 02/20/18 at 21:00 Atorvastatin Calcium (Lipitor) 10 mg QHS PO Last administered on 02/22/18 21:17; Admin Dose 10 MG; Start 02/20/18 at 21:00 Insulin Glargine (Lantus) 12 units DAILY@2000 SC Last administered on 02/22/18 21:27; Admin Dose 12 UNITS; Start 02/20/18 at 20:00 Insulin Aspart (Novolog Insulin Pen) 4 unit WITH MEALS SC Last administered on 02/23/18 12:20; Admin Dose 4 UNIT; Start 02/20/18 at 11:50 Insulin Aspart (Novolog Insulin Pen) NOVOLOG *MILD* ALGORITHM WITH MEALS BEDTIME SC Last administered on 02/23/18 12:20; Admin Dose 1 UNIT; Start 02/20/18 at 11:50 Miscellaneous Information 1 ea NOTE XX ; Start 02/20/18 at 10:30 Glucose (Glutose) 15 gm Q15M PRN PO DECREASED GLUCOSE; Start 02/20/18 at 10:30 Glucose (Glutose) 22.5 gm Q15M PRN PO DECREASED GLUCOSE; Start 02/20/18 at 10 :30 Dextrose (D50w Syringe) 25 ml Q15M PRN IV DECREASED GLUCOSE; Start 02/20/18 at 10:30 Dextrose (D50w Syringe) 50 ml Q15M PRN IV DECREASED GLUCOSE; Start 02/20/18 at 10:30 Glucagon (Glucagen) 1 mg Q15M PRN IM DECREASED GLUCOSE; Start 02/20/18 at 10:30 Glucose (Glutose) 15 gm Q15M PRN BUCCAL DECREASED GLUCOSE; Start 02/20/18 at 10:30 Hydralazine HCl (Apresoline) 10 mg Q6H PRN IV SBP>170; Start 02/20/18 at 12:00 Heparin Sodium (Porcine) (Heparin (1000 Units/ml)) 4,300 unit AFTER DIALYSIS CATHETER Last administered on 02/21/18at 12:29; Admin Dose 4,300 UNIT; Start 02/20/18 at 14:00 Sevelamer Carbonate (Renvela) 800 mg WITH MEALS PO Last administered on 02/23/18at 12:00; Admin Dose 800 MG; Start 02/20/18 at 17:55 Lorazepam (Ativan) 0.5 mg Q8H PRN IV ANXIETY Last administered on 02/20/18at 17:26; Admin Dose 0.5 MG; Start 02/20/18 at 17:00 Pantoprazole (Protonix Tab) 40 mg DAILY@06 PO Last administered on 02/23/18at 06:00; Admin Dose 40 MG; Start 02/22/18 at 06:00 Albumin Human 100 ml @ 100 mls/hr DURING DIALYSIS PRN IV BLOOD PRESSURE SUPPORT; Start 02/22/18 at 10:05 Simethicone (Mylicon) 80 mg QID PO Last administered on 02/23/18at 10:35; Admin Dose 80 MG; Start 02/23/18 at 10:30 Allergies: Coded Allergies: No Known Drug Allergies (Verified Allergy, Unknown, 02/20/18) Past Surgical History Past Surgical Hx: coronary bypass surgery, other (Surgery for question of bowel obstruction) Social History Alcohol Use: none Smoking Status: Never smoker Drug Use: none Exam/Review of Systems Vital Signs Vitals Vital Signs Date Temp Pulse Resp B/P (MAP) Pulse Ox O2 O2 Flow FiO2 Time Delivery Rate 02/23/18 63 12:26 02/23/18 98.3 18 118/64 100 11:06 (82) 02/22/18 Nasal 2.0 15:06 Cannula Intake and Output 02/22/18 02/22/18 02/23/18 1515:00 23:00 07:00 IntakeIntake Total 800 ml 800 ml 350 ml OutputOutput Total 200 ml 2400 ml BalanceBalance 600 ml -1600 ml 350 ml Exam Constitutional: alert, well developed Psych: no complaints Head: normocephalic Eyes: nl conjunctiva ENMT: nl external ears & nose Neck: non-tender Respiratory: normal air movement Cardiovascular: No jugular venous distention (JVD) Gastrointestinal: distended, surgical scars Genitourinary - Male: nl penis, nl scrotum, other (Rectal exam: Flat prostate); No CVA tenderness Musculoskeletal: nl extremities to inspection Extremities: No calf tenderness Neurological: nl mental status Skin: nl turgor Lymph: nl lymph nodes Medications Medications Current Medications IV Flush (NS 3 ml) 3 ml PER PROTOCOL IV ; Start 02/20/18 at 10:00 Ondansetron HCl (Zofran Inj) 4 mg Q6H PRN IV NAUSEA AND/OR VOMITING; Start 02/20/18 at 10:00 Acetaminophen (Tylenol Tab) 650 mg Q6H PRN PO PAIN LEVEL 1-3 OR FEVER Last administered on 02/22/18 17:26; Admin Dose 650 MG; Start 02/20/18 at 10:00 Heparin Sodium (Porcine) (Heparin (5000 Units/1ml)) 5,000 unit Q8 SC Last adm inistered on 02/23/18 06:04; Admin Dose 5,000 UNIT; Start 02/20/18 at 14:00 Aspirin (Halfprin) 81 mg DAILY PO Last administered on 02/23/18 08:21; Admin Dose 81 MG; Start 02/21/18 at 09:00 Carvedilol (Coreg) 3.125 mg BID PO Last administered on 02/23/18 08:24; Admin Dose 3.125 MG; Start 02/20/18 at 21:00 Clonidine (Catapres) 0.1 mg BID PO Last administered on 02/23/18 08:22; Admin Dose 0.1 MG; Start 02/20/18 at 21:00 Ferrous Sulfate (Ferrous Sulfate (Ec)) 325 mg DAILY PO Last administered on 02/23/18 08:21; Admin Dose 325 MG; Start 02/21/18 at 09:00 Fluticasone Propionate (Flonase 0.05% Nasal) 1 spray BID NASAL Last administered on 02/23/18 08:23; Admin Dose 1 SPRAY; Start 02/20/18 at 21:00 Multivit/Ca Carb/ B Cmplx/FA/Prenat (Edith-Agatha) 1 tab DAILY PO Last administered on 02/23/18 08:21; Admin Dose 1 TAB; Start 02/21/18 at 09:00 Losartan Potassium (Cozaar) 25 mg DAILY PO Last administered on 02/23/18 08:22; Admin Dose 25 MG; Start 02/21/18 at 09:00 Sertraline HCl (Zoloft) 25 mg DAILY PO Last administered on 02/23/18 08:22; Admin Dose 25 MG; Start 02/21/18 at 09:00 Trazodone HCl (Desyrel) 50 mg QHS PO Last administered on 02/22/18 21:18; Admin Dose 50 MG; Start 02/20/18 at 21:00 Atorvastatin Calcium (Lipitor) 10 mg QHS PO Last administered on 02/22/18 21:17; Admin Dose 10 MG; Start 02/20/18 at 21:00 Insulin Glargine (Lantus) 12 units DAILY@2000 SC Last administered on 02/22/18 21:27; Admin Dose 12 UNITS; Start 02/20/18 at 20:00 Insulin Aspart (Novolog Insulin Pen) 4 unit WITH MEALS SC Last administered on 02/23/18 12:20; Admin Dose 4 UNIT; Start 02/20/18 at 11:50 Insulin Aspart (Novolog Insulin Pen) NOVOLOG *MILD* ALGORITHM WITH MEALS BEDTIME SC Last administered on 02/23/18 12:20; Admin Dose 1 UNIT; Start 02/20/18 at 11:50 Miscellaneous Information 1 ea NOTE XX ; Start 02/20/18 at 10:30 Glucose (Glutose) 15 gm Q15M PRN PO DECREASED GLUCOSE; Start 02/20/18 at 10:30 Glucose (Glutose) 22.5 gm Q15M PRN PO DECREASED GLUCOSE; Start 02/20/18 at 10:30 Dextrose (D50w Syringe) 25 ml Q15M PRN IV DECREASED GLUCOSE; Start 02/20/18 at 10:30 Dextrose (D50w Syringe) 50 ml Q15M PRN IV DECREASED GLUCOSE; Start 02/20/18 at 10:30 Glucagon (Glucagen) 1 mg Q15M PRN IM DECREASED GLUCOSE; Start 02/20/18 at 10:30 Glucose (Glutose) 15 gm Q15M PRN BUCCAL DECREASED GLUCOSE; Start 02/20/18 at 10:30 Hydralazine HCl (Apresoline) 10 mg Q6H PRN IV SBP>170; Start 02/20/18 at 12:00 Heparin Sodium (Porcine) (Heparin (1000 Units/ml)) 4,300 unit AFTER DIALYSIS CATHETER Last administered on 02/21/18at 12:29; Admin Dose 4,300 UNIT; Start 02/20/18 at 14:00 Sevelamer Carbonate (Renvela) 800 mg WITH MEALS PO Last administered on 02/23/18at 12:00; Admin Dose 800 MG; Start 02/20/18 at 17:55 Lorazepam (Ativan) 0.5 mg Q8H PRN IV ANXIETY Last administered on 02/20/18at 17:26; Admin Dose 0.5 MG; Start 02/20/18 at 17:00 Pantoprazole (Protonix Tab) 40 mg DAILY@06 PO Last administered on 02/23/18at 06:00; Admin Dose 40 MG; Start 02/22/18 at 06:00 Albumin Human 100 ml @ 100 mls/hr DURING DIALYSIS PRN IV BLOOD PRESSURE SUPPORT; Start 02/22/18 at 10:05 Simethicone (Mylicon) 80 mg QID PO Last administered on 02/23/18at 10:35; Admin Dose 80 MG; Start 02/23/18 at 10:[address] scan of the abdomen and pelvis: 1. Extensive coronary artery calcification. 2. Cirrhotic liver. 3. Status post cholecystectomy. 4. Bilateral atrophic kidneys. 5. Duplex right collecting system. 6. New solid mass inferiorly in the right kidney measuring 1.8 x 2.1 cm, likely neoplastic. 7. Benign right renal cysts. 8. Atherosclerosis. 9. Brachytherapy seeds in the prostate. 10. Fat-containing umbilical hernia and bilateral inguinal hernias, unchanged. 11. Degenerative changes of the spine. 12. Otherwise unremarkable noncontrast CT scan of the abdomen and pelvis. Abdominal ultrasound to check for ascites was negative KAT GOODWIN MD Feb 23, 2018 13:27
--- NOTE | 2018-02-23 13:47 | PN ---
Date/Time of Note Date/Time of Note DATE: 02/23/18 TIME: 13:37 Assessment/Plan VTE Prophylaxis Risk score (from Nsg)>0 risk: 4 SCD applied (from Nsg): Yes Pharmacological prophylaxis: heparin Lines/Catheters IV Catheter Type (from Nrs): permacath Urinary Cath still in place: No Assessment/Plan Assessment/Plan General: Patient is laying in bed and answers questions appropriately Mentation: Patient is alert and oriented 4, Head: Normocephalic atraumatic Eyes: EOMI, pupils reactive to light Neck: Supple, nontender, midline Respiratory: Clear to auscultation bilaterally Cardiovascular: regular rate, no obvious murmurs Gastrointestinal: Mildly tender to palpation, mildly distended, bowel sounds heard. Neurological: Moves all extremities spontaneously Skin: No new skin lesions Assessment/Plan 63-year-old male with comorbidities including hypertension, end-stage renal disease on hemodialysis, dyslipidemia, diabetes mellitus type 2, previous CVA, and coronary artery disease with CABG. The patient came to the emergency room with dyspnea and high blood pressure, who was found to have evidence of hyperkalemia and hypertensive urgency. [facility] for further treatment and evaluation. 1. Hypertensive urgency: resolved, BP wnl on current regimen, no changes, titrate as indicated 2. Hyperkalemia. -2/2 #1, improved, no ekg changes, HD ongoing pre renal 3. Diabetes mellitus type 2. -Patient on Glipizide alone at home, held inpatient per policy -good inhouse control on Lantus / novolog / SSI combo, no changes 4. CAD, status post CABG in 2008. -Resumed cardiac medications including aspirin. 5. Dyslipidemia. -Resumed statins. 6. History of stroke with no residual effects. -Continue statins and aspirin. 7. Normocytic, normochromic anemia.: stable indices -Most probably anemia of chronic kidney disease. 8. Hep C cirrhosis -hx of prev treatment, RNA levels pending 9. New finding of renal mass with hx of Prostate Ca in the past -s/p radiation beads to prostate and he is s/p graded f/u with urologists and is currently on yearly followups -PSA still pending -Urology consult obtained disposition -await urology and oncology final recs, plan to d/c if no further inhouse interventions required -continued f/u outpatient with GI for mgt of Hep C and abd bloating Result Diagram: 02/22/18 0538 02/22/18 0537 Results 24hrs Laboratory Tests Test 02/22/18 17:17 02/22/18 21:16 02/23/18 01:36 02/23/18 03:00 Bedside Glucose 148 130 90 Stool Occult Blood POSITIVE Test 02/23/18 08:20 02/23/18 11:58 Bedside Glucose 130 175 Subjective 24 Hr Interval Summary Free Text/Dictation no new complaints no significant change re: abd fullness and bloating Exam/Review of Systems Vital Signs Vitals Vital Signs Date Temp Pulse Resp B/P (MAP) Pulse Ox O2 O2 Flow FiO2 Time Delivery Rate 02/23/18 63 12:26 02/23/18 98.3 18 118/64 100 11:06 (82) 02/22/18 Nasal 2.0 15:06 Cannula Intake and Output 02/22/18 02/22/18 02/23/18 1515:00 23:00 07:00 IntakeIntake Total 800 ml 800 ml 350 ml OutputOutput Total 200 ml 2400 ml BalanceBalance 600 ml -1600 ml 350 ml Medications Medications Current Medications IV Flush (NS 3 ml) 3 ml PER PROTOCOL IV ; Start 02/20/18 at 10:00 Ondansetron HCl (Zofran Inj) 4 mg Q6H PRN IV NAUSEA AND/OR VOMITING; Start 02/20/18 at 10:00 Acetaminophen (Tylenol Tab) 650 mg Q6H PRN PO PAIN LEVEL 1-3 OR FEVER Last administered on 02/22/18at 17:26; Admin Dose 650 MG; Start 02/20/18 at 10:00 Heparin Sodium (Porcine) (Heparin (5000 Units/1ml)) 5,000 unit Q8 SC Last administered on 02/23/18 06:04; Admin Dose 5,000 UNIT; Start 02/20/18 at 14:00 Aspirin (Halfprin) 81 mg DAILY PO Last administered on 02/23/18 08:21; Admin Dose 81 MG; Start 02/21/18 at 09:00 Carvedilol (Coreg) 3.125 mg BID PO Last administered on 02/23/18 08:24; Admin Dose 3.125 MG; Start 02/20/18 at 21:00 Clonidine (Catapres) 0.1 mg BID PO Last administered on 02/23/18 08:22; Admin Dose 0.1 MG; Start 02/20/18 at 21:00 Ferrous Sulfate (Ferrous Sulfate (Ec)) 325 mg DAILY PO Last administered on 02/23/18 08:21; Admin Dose 325 MG; Start 02/21/18 at 09:00 Fluticasone Propionate (Flonase 0.05% Nasal) 1 spray BID NASAL Last administered on 02/23/18 08:23; Admin Dose 1 SPRAY; Start 02/20/18 at 21:00 Multivit/Ca Carb/ B Cmplx/FA/Prenat (Edith-Agatha) 1 tab DAILY PO Last administered on 02/23/18 08:21; Admin Dose 1 TAB; Start 02/21/18 at 09:00 Losartan Potassium (Cozaar) 25 mg DAILY PO Last administered on 02/23/18 08:22; Admin Dose 25 MG; Start 02/21/18 at 09:00 Sertraline HCl (Zoloft) 25 mg DAILY PO Last administered on 02/23/18 08:22; Admin Dose 25 MG; Start 02/21/18 at 09:00 Trazodone HCl (Desyrel) 50 mg QHS PO Last administered on 02/22/18 21:18; Admin Dose 50 MG; Start 02/20/18 at 21:00 Atorvastatin Calcium (Lipitor) 10 mg QHS PO Last administered on 02/22/18 21:17; Admin Dose 10 MG; Start 02/20/18 at 21:00 Insulin Glargine (Lantus) 12 units DAILY@2000 SC Last administered on 02/22/18 21:27; Admin Dose 12 UNITS; Start 02/20/18 at 20:00 Insulin Aspart (Novolog Insulin Pen) 4 unit WITH MEALS SC Last administered on 02/23/18 12:20; Admin Dose 4 UNIT; Start 02/20/18 at 11:50 Insulin Aspart (Novolog Insulin Pen) NOVOLOG *MILD* ALGORITHM WITH MEALS BEDTIME SC Last administered on 02/23/18 12:20; Admin Dose 1 UNIT; Start 02/20/18 at 11:50 Miscellaneous Information 1 ea NOTE XX ; Start 02/20/18 at 10:30 Glucose (Glutose) 15 gm Q15M PRN PO DECREASED GLUCOSE; Start 02/20/18 at 10:30 Glucose (Glutose) 22.5 gm Q15M PRN PO DECREASED GLUCOSE; Start 02/20/18 at 10:30 Dextrose (D50w Syringe) 25 ml Q15M PRN IV DECREASED GLUCOSE; Start 02/20/18 at 10:30 Dextrose (D50w Syringe) 50 ml Q15M PRN IV DECREASED GLUCOSE; Start 02/20/18 at 10:30 Glucagon (Glucagen) 1 mg Q15M PRN IM DECREASED GLUCOSE; Start 02/20/18 at 10:30 Glucose (Glutose) 15 gm Q15M PRN BUCCAL DECREASED GLUCOSE; Start 02/20/18 at 10:30 Hydralazine HCl (Apresoline) 10 mg Q6H PRN IV SBP>170; Start 02/20/18 at 12:00 Heparin Sodium (Porcine) (Heparin (1000 Units/ml)) 4,300 unit AFTER DIALYSIS CATHETER Last administered on 02/21/18at 12:29; Admin Dose 4,300 UNIT; Start 02/20/18 at 14:00 Sevelamer Carbonate (Renvela) 800 mg WITH MEALS PO Last administered on 02/23/18at 12:00; Admin Dose 800 MG; Start 02/20/18 at 17:55 Lorazepam (Ativan) 0.5 mg Q8H PRN IV ANXIETY Last administered on 02/20/18at 17:26; Admin Dose 0.5 MG; Start 02/20/18 at 17:00 Pantoprazole (Protonix Tab) 40 mg DAILY@06 PO Last administered on 02/23/18at 06:00; Admin Dose 40 MG; Start 02/22/18 at 06:00 Albumin Human 100 ml @ 100 mls/hr DURING DIALYSIS PRN IV BLOOD PRESSURE SUPPORT; Start 02/22/18 at 10:05 Simethicone (Mylicon) 80 mg QID PO Last administered on 02/23/18at 10:35; Admin Dose 80 MG; Start 02/23/18 at 10:30 MERARY PULLIAM Feb 23, 2018 13:47
--- NOTE | 2018-02-23 18:15 | NUR ---
END OF SHIFT SUMMARY Patient awake and alert, and able to follow commands. Patient afebrile. Rhythm as charted. Room air. Carb controlled diet. No new development of wounds. Patient self-repositions/ ambulates. Comfort and safety measures/ fall precautions in place. Plan for transfer to Med/Surg, dialysis for . Awaiting evaluation by onc/uro; discharge planning if no inhouse interventions are required. Patient updated on status, and plan of care. All of patient's needs met, and no acute distress/events. Will continue to monitor, and endorse care to maintenance supervisor 2nd shift RN.
[2018-02-23] MEDS: ATORVASTATIN 10 MG TAB PO SCH (20:54)
[2018-02-23] MEDS: traZODone 50 MG TAB PO SCH (20:55)
--- NOTE | 2018-02-23 21:00 | NUR ---
RN NOTE PATIENT ALERT AND ORIENTED X 4, DENIED PAIN, 2100 MEDS GIVEN, AND PATIENT TRANSFERRED TO , ACCOMPANIED BY TRANSPORTER BY WHEEL CHAIR.
[2018-02-23] MEDS: INSULIN GLARGINE [LANTus] (100 UNITS/ML) SYG SC SCH (21:18)
--- NOTE | 2018-02-23 23:55 | NUR ---
Pt transferred onto unit around 2139. Inventory done of patient's belongings. Oriented pt to room and surroundings. Pictures taken. On pt's R 2nd toe looks to be a dry scab; Charge nurse was at bedside during skin assessment. Will continue to monitor. Addendum: 02/23/18 at 2357 by VINITA BUTLER RN HS snack given
[2018-02-24] VITALS (18 sets, daily range): BP systolic 119–174; BP diastolic 61–87; PULSE 60–78; RESP 16–20
[2018-02-24] MEDS: PANTOPRAZOLE (EC) 40 MG TAB PO SCH (05:17)
[2018-02-24] MEDS: HEPARIN 5,000 UNIT/1 ML VIAL SC SCH ×2 (05:17→13:46)
--- NOTE | 2018-02-24 06:21 | NUR ---
VS are stable. No acute changes or s/s of respiratory distress during shift. Pt denied having pain. BG is WNL and HS snack was provided. Hourly rounding provided. Bed at lowest position with call light within reach. Pt planned to have HD today and might get d/c if no in-house interventions are required; Will endorse to oncoming nurse.
[2018-02-24] MEDS: INSULIN ASPART [NOVOLOG] 3 ML PEN SC SCH ×6 (07:59→17:31)
[2018-02-24] MEDS: MULTIVIT/CA CARB/B CMPLX/FA TAB PO SCH (08:11)
[2018-02-24] MEDS: SEVELAMER CARBONATE 800 MG TABLET PO SCH ×3 (08:11→17:29)
[2018-02-24] MEDS: FERROUS SULFATE (EC) 325 MG TAB PO SCH (08:11)
[2018-02-24] MEDS: ASPIRIN (EC) 81 MG TAB PO SCH (08:11)
[2018-02-24] MEDS: SERTRALINE 50 MG TAB PO SCH (08:11)
[2018-02-24] MEDS: FLUTICASONE 0.05% 16 GM NAS SPRAY NASAL SCH (08:12)
--- NOTE | 2018-02-24 08:17 | CONS ---
Date/Time of Note Date/Time of Note DATE: 02/24/18 TIME: 08:16 Consult Date/Type/Reason Admit Date/Time Feb 20, 2018 at 08:25 Initial Consult Date 02/22/18 Requesting Provider: MERARY PULLIAM Subjective cv follow up note S D/W staff PT IS OFF tele now pt remains in NSR no chest pain or pressure. no PND orthopena O: General: no acute distress HEENT: NC/AT. pupils are equal. round. NECK: NO JVD. no stridor. CV: RRR. systolic murmur; no gallop or rubs. PULM: no wheezing or rhonchi. GI: SOFT, NT, ND, no rebound or guarding Extremity: trace B/L LE edema. no clubbing. neuro: awake and alert, OX3. Psych: calm and pleasant rectal: deferred : normal Chest x-ray shows:Cardiomegaly. No pneumonia or failure. echo Overall, normal left ventricular systolic function. Not all segments visualized. Normal left ventricular cavity size. Sigmoid septum. Ejection fraction is visually estimated at 55 %. Tissue Doppler/Mitral Doppler indices are consistent with impaired relaxation (Stage I diastolic dysfunction). Normal right ventricular size. Normal right ventricular systolic function. The left atrium is normal in size. The right atrium is normal in size. No significant valvular stenosis or regurgitation seen. Normal pericardium with no significant pericardial effusio Objective Vital Signs Date Temp Pulse Resp B/P (MAP) Pulse Ox O2 O2 Flow FiO2 Time Delivery Rate 02/24/18 98.0 63 18 142/76 98 02:00 (98) 02/23/18 Room Air 20:00 02/22/18 2.0 15:06 Intake and Output 02/23/18 02/23/18 02/24/18 1414:59 22:59 06:59 IntakeIntake Total 500 ml 100 ml BalanceBalance 500 ml 100 ml Results/Medications Result Diagram: 02/22/18 0538 02/22/18 0537 Results 24 hrs Laboratory Tests Test 02/23/18 08:20 02/23/18 11:58 02/23/18 12:38 02/23/18 17:29 Bedside Glucose 130 175 113 Prostate Specific 0.1 Antigen Test 02/23/18 20:54 02/24/18 07:57 Bedside Glucose 94 78 Medications Current Medications IV Flush (NS 3 ml) 3 ml PER PROTOCOL IV ; Start 02/20/18 at 10:00 Ondansetron HCl (Zofran Inj) 4 mg Q6H PRN IV NAUSEA AND/OR VOMITING; Start 02/20/18 at 10:00 Acetaminophen (Tylenol Tab) 650 mg Q6H PRN PO PAIN LEVEL 1-3 OR FEVER Last administered on 02/22/18 17:26; Admin Dose 650 MG; Start 02/20/18 at 10:00 Heparin Sodium (Porcine) (Heparin (5000 Units/1ml)) 5,000 unit Q8 SC Last administered on 02/24/18 05:17; Admin Dose 5,000 UNIT; Start 02/20/18 at 14:00 Aspirin (Halfprin) 81 mg DAILY PO Last administered on 02/23/18 08:21; Admin Dose 81 MG; Start 02/21/18 at 09:00 Carvedilol (Coreg) 3.125 mg BID PO Last administered on 02/23/18 20:56; Admin Dose 3.125 MG; Start 02/20/18 at 21:00 Clonidine (Catapres) 0.1 mg BID PO Last administered on 02/23/18 20:55; Admin Dose 0.1 MG; Start 02/20/18 at 21:00 Ferrous Sulfate (Ferrous Sulfate (Ec)) 325 mg DAILY PO Last administered on 02/23/18 08:21; Admin Dose 325 MG; Start 02/21/18 at 09:00 Fluticasone Propionate (Flonase 0.05% Nasal) 1 spray BID NASAL Last ad ministered on 02/23/18 20:54; Admin Dose 1 SPRAY; Start 02/20/18 at 21:00 Multivit/Ca Carb/ B Cmplx/FA/Prenat (Edith-Agatha) 1 tab DAILY PO Last administered on 02/23/18 08:21; Admin Dose 1 TAB; Start 02/21/18 at 09:00 Losartan Potassium (Cozaar) 25 mg DAILY PO Last administered on 02/23/18 08:22; Admin Dose 25 MG; Start 02/21/18 at 09:00 Sertraline HCl (Zoloft) 25 mg DAILY PO Last administered on 02/23/18 08:22; Admin Dose 25 MG; Start 02/21/18 at 09:00 Trazodone HCl (Desyrel) 50 mg QHS PO Last administered on 02/23/18 20:55; Admin Dose 50 MG; Start 02/20/18 at 21:00 Atorvastatin Calcium (Lipitor) 10 mg QHS PO Last administered on 02/23/18 20:54; Admin Dose 10 MG; Start 02/20/18 at 21:00 Insulin Glargine (Lantus) 12 units DAILY@2000 SC Last administered on 02/23/18 21:18; Admin Dose 12 UNITS; Start 02/20/18 at 20:00 Insulin Aspart (Novolog Insulin Pen) 4 unit WITH MEALS SC Last administered on 02/23/18 17:51; Admin Dose 4 UNIT; Start 02/20/18 at 11:50 Insulin Aspart (Novolog Insulin Pen) NOVOLOG *MILD* ALGORITHM WITH MEALS BEDTIME SC Last administered on 02/23/18 12:20; Admin Dose 1 UNIT; Start 02/20/18 at 11:50 Miscellaneous Information 1 ea NOTE XX ; Start 02/20/18 at 10:30 Glucose (Glutose) 15 gm Q15M PRN PO DECREASED GLUCOSE; Start 02/20/18 at 10:30 Glucose (Glutose) 22.5 gm Q15M PRN PO DECREASED GLUCOSE; Start 02/20/18 at 10:30 Dextrose (D50w Syringe) 25 ml Q15M PRN IV DECREASED GLUCOSE; Start 02/20/18 at 10:30 Dextrose (D50w Syringe) 50 ml Q15M PRN IV DECREASED GLUCOSE; Start 02/20/18 at 10:30 Glucagon (Glucagen) 1 mg Q15M PRN IM DECREASED GLUCOSE; Start 02/20/18 at 10:30 Glucose (Glutose) 15 gm Q15M PRN BUCCAL DECREASED GLUCOSE; Start 02/20/18 at 10:30 Hydralazine HCl (Apresoline) 10 mg Q6H PRN IV SBP>170; Start 02/20/18 at 12:00 Heparin Sodium (Porcine) (Heparin (1000 Units/ml)) 4,300 unit AFTER DIALYSIS CATHETER Last administered on 02/21/18at 12:29; Admin Dose 4,300 UNIT; Start 02/20/18 at 14:00 Sevelamer Carbonate (Renvela) 800 mg WITH MEALS PO Last administered on 02/23/18 17:29; Admin Dose 800 MG; Start 02/20/18 at 17:55 Lorazepam (Ativan) 0.5 mg Q8H PRN IV ANXIETY Last administered on 02/20/18at 17:26; Admin Dose 0.5 MG; Start 02/20/18 at 17:00 Pantoprazole (Protonix Tab) 40 mg DAILY@06 PO Last administered on 02/24/18at 05:17; Admin Dose 40 MG; Start 02/22/18 at 06:00 Albumin Human 100 ml @ 100 mls/hr DURING DIALYSIS PRN IV BLOOD PRESSURE SUPPORT; Start 02/22/18 at 10:05 Simethicone (Mylicon) 80 mg QID PO Last administered on 02/23/18at 21:48; Admin Dose 80 MG; Start 02/23/18 at 10:30 Assessment/Plan Chief Complaint/Hosp Course 1. Dyspnea multifactorial currently improved with hemodialysis 2. Coronary artery disease 3. History of coronary bypass graft 4. Hypertensive urgency: Currently controlled with dialysis 5. Diabetes 6. Dyslipidemia Recommendations: Continue with the Coreg. Aspirin daily Statin Hemodialysis as per renal DC planning as per internal medicine. I will try to set him up for outpatient cardiology follow-up in the office Thank you for his referral. We will continue to follow along with you as needed CHANTE GRIFFIN MD [facility] CHANTE GRIFFIN MD Feb 24, 2018 08:17
--- NOTE | 2018-02-24 08:54 | PN ---
DATE: 02/24/2018 SUBJECTIVE: The patient is stable. No events overnight. No fevers, chills, nausea, vomiting. OBJECTIVE: VITAL SIGNS: Blood pressure is 142/76, respiration 18, pulse 63, temperature 98.0. HEENT: Head is normocephalic. NECK: Supple. HEART: Regular rate. LUNGS: Show diminished breath sounds at the base. ABDOMEN: Soft, nontender to palpation without rebound or guarding. EXTREMITIES: Negative for clubbing, cyanosis, no edema. DERMATOLOGIC: No rashes. MUSCULOSKELETAL: No joint effusion. NEUROLOGIC: No change in exam. MEDICATIONS: The patient's medications have been reviewed. LABORATORY DATA: Currently pending. ASSESSMENT AND PLAN: 1. End-stage renal disease. The patient is scheduled for dialysis today. We will dialyze 3 hours 2 k bath, calcium 2.5. 2. Hyperkalemia, improved. Continue dialysis on low potassium bath. 3. Anemia. Continue to monitor hemoglobin and hematocrit levels. Give Epogen as needed. 4. Mineral bone disorder, monitor calcium and phosphorus levels. 5. Renal mass, etiology is unclear, concerning for possible neoplasm. Follow up with urology. 6. Hypertension. Continue current blood pressure regimen. Continue ultrafiltration dialysis. 7. Cirrhosis. Continue medical management. 8. Anxiety disorder. Continue Xanax. 9. Diabetes. Continue current insulin regimen. 10. Dyslipidemia. Continue statin therapy. 11. History of coronary artery disease. Continue medical management. 12. History of prostate cancer, status post brachytherapy seeds. Continue to monitor. Follow up [facility] urology. Dictated By: LAURA PERSAUD/ERIK Conf#: [id number] DID#: [id number]
[2018-02-24] MEDS: LOSARTAN 25 MG TAB PO SCH (09:00)
--- NOTE | 2018-02-24 10:58 | CONS ---
Date/Time of Note Date/Time of Note DATE: 02/24/18 TIME: 10:55 Assessment/Plan Assessment/Plan Assessment/Plan 63 yo with multiple medical problems, h/o CABG, ESRD, awaiting kidney transplant, h/o prostate ca treated with definitive XRT about 2-3 years ago #renal lesions renal lesion is most likely to be a primary renal cell ca, and not a prostate ca recurrence Dr Chatman recommends patient f/u with his primary urologist once he is stabilized and discharged from the hospital given size and location of lesion partial nephrectomy may be possible but given that he is already on dialysis unclear benefit of partial nephrectomy, will defer to urology of course on best surgical option. will refer to [facility] urology for further surgical recommendations. -will order MRI of abdomen as this may be helpful for better radiographic delineation of mass characteristics no tumor markers available that are helpful for diagnosing renal cell ca #prostate ca -PSA normal at 0.1 based on history, it appears he may still be in remission #mild anemia due to ESRD no need for procrit at this point # Acute Hyperkalemia - management per PMD Patient seen in collaboration with Dr Pastor Result Diagram: 02/22/18 0538 02/22/18 0537 Results 24hrs Laboratory Tests Test 02/23/18 11:58 02/23/18 12:38 02/23/18 17:29 02/23/18 20:54 Bedside Glucose 175 113 94 Prostate Specific 0.1 Antigen Test 02/24/18 07:57 Bedside Glucose 78 Consultation Date/Type/Reason Admit Date/Time Feb 20, 2018 at 08:25 Initial Consult Date 02/23/18 Type of Consult ONCOLOGY Reason for Consultation KIDNEY MASS Requesting Provider: MERARY PULLIAM Detailed Summary Eyes: no complaints ENT: no complaints Respiratory: no complaints Cardiovascular: no complaints Gastrointestinal: no complaints Genitourinary: no complaints Musculoskeletal: no complaints Skin: no complaints Neurologic: no complaints Exam/Review of Systems Vital Signs Vitals Vital Signs Date Temp Pulse Resp B/P (MAP) Pulse Ox O2 O2 Flow FiO2 Time Delivery Rate 02/24/18 145/70 10:45 (95) 02/24/18 97.7 61 16 97 Room Air 07:50 02/22/18 2.0 15:06 Intake and Output 02/23/18 02/23/18 02/24/18 1515:00 23:00 07:00 IntakeIntake Total 500 ml 100 ml BalanceBalance 500 ml 100 ml Exam Constitutional: alert, oriented, well developed Psych: nl mood/affect Head: atraumatic Eyes: nl conjunctiva, EOMI, nl lids ENMT: nl external ears & nose Neck: non-tender Respiratory: clear to auscultation (Bilaterally) Cardiovascular: nl pulses, other (s1s2) Gastrointestinal: soft, non-tender Musculoskeletal: nl extremities to inspection Extremities: normal pulses Neurological: nl mental status, nl speech Skin: nl turgor Lymph: nontender Medications Medications Current Medications IV Flush (NS 3 ml) 3 ml PER PROTOCOL IV ; Start 02/20/18 at 10:00 Ondansetron HCl (Zofran Inj) 4 mg Q6H PRN IV NAUSEA AND/OR VOMITING; Start 02/20/18 at 10:00 Acetaminophen (Tylenol Tab) 650 mg Q6H PRN PO PAIN LEVEL 1-3 OR FEVER Last administered on 02/22/18 17:26; Admin Dose 650 MG; Start 02/20/18 at 10:00 Heparin Sodium (Porcine) (Heparin (5000 Units/1ml)) 5,000 unit Q8 SC Last administered on 02/24/18 05:17; Admin Dose 5,000 UNIT; Start 02/20/18 at 14:00 Aspirin (Halfprin) 81 mg DAILY PO Last administered on 02/24/18 08:11; Admin Dose 81 MG; Start 02/21/18 at 09:00 Carvedilol (Coreg) 3.125 mg BID PO Last administered on 02/23/18 20:56; Admin Dose 3.125 MG; Start 02/20/18 at 21:00 Clonidine (Catapres) 0.1 mg BID PO Last administered on 02/23/18 20:55; Admin Dose 0.1 MG; Start 02/20/18 at 21:00 Ferrous Sulfate (Ferrous Sulfate (Ec)) 325 mg DAILY PO Last administered on 02/24/18 08:11; Admin Dose 325 MG; Start 02/21/18 at 09:00 Fluticasone Propionate (Flonase 0.05% Nasal) 1 spray BID NASAL Last administere d on 02/24/18 08:12; Admin Dose 1 SPRAY; Start 02/20/18 at 21:00 Multivit/Ca Carb/ B Cmplx/FA/Prenat (Edith-Agatha) 1 tab DAILY PO Last administered on 02/24/18 08:11; Admin Dose 1 TAB; Start 02/21/18 at 09:00 Losartan Potassium (Cozaar) 25 mg DAILY PO Last administered on 02/23/18 08:22; Admin Dose 25 MG; Start 02/21/18 at 09:00 Sertraline HCl (Zoloft) 25 mg DAILY PO Last administered on 02/24/18 08:11; Admin Dose 25 MG; Start 02/21/18 at 09:00 Trazodone HCl (Desyrel) 50 mg QHS PO Last administered on 02/23/18 20:55; Admin Dose 50 MG; Start 02/20/18 at 21:00 Atorvastatin Calcium (Lipitor) 10 mg QHS PO Last administered on 02/23/18 20:54; Admin Dose 10 MG; Start 02/20/18 at 21:00 Insulin Glargine (Lantus) 12 units DAILY@2000 SC Last administered on 02/23/18 21:18; Admin Dose 12 UNITS; Start 02/20/18 at 20:00 Insulin Aspart (Novolog Insulin Pen) 4 unit WITH MEALS SC Last administered on 02/24/18 08:14; Admin Dose 4 UNIT; Start 02/20/18 at 11:50 Insulin Aspart (Novolog Insulin Pen) NOVOLOG *MILD* ALGORITHM WITH MEALS BEDTIME SC Last administered on 02/23/18 12:20; Admin Dose 1 UNIT; Start 02/20/18 at 11:50 Miscellaneous Information 1 ea NOTE XX ; Start 02/20/18 at 10:30 Glucose (Glutose) 15 gm Q15M PRN PO DECREASED GLUCOSE; Start 02/20/18 at 10:30 Glucose (Glutose) 22.5 gm Q15M PRN PO DECREASED GLUCOSE; Start 02/20/18 at 10:30 Dextrose (D50w Syringe) 25 ml Q15M PRN IV DECREASED GLUCOSE; Start 02/20/18 at 10:30 Dextrose (D50w Syringe) 50 ml Q15M PRN IV DECREASED GLUCOSE; Start 02/20/18 at 10:30 Glucagon (Glucagen) 1 mg Q15M PRN IM DECREASED GLUCOSE; Start 02/20/18 at 10:30 Glucose (Glutose) 15 gm Q15M PRN BUCCAL DECREASED GLUCOSE; Start 02/20/18 at 10:30 Hydralazine HCl (Apresoline) 10 mg Q6H PRN IV SBP>170; Start 02/20/18 at 12:00 Heparin Sodium (Porcine) (Heparin (1000 Units/ml)) 4,300 unit AFTER DIALYSIS CATHETER Last administered on 02/21/18at 12:29; Admin Dose 4,300 UNIT; Start 02/20/18 at 14:00 Sevelamer Carbonate (Renvela) 800 mg WITH MEALS PO Last administered on 02/24/18at 08:11; Admin Dose 800 MG; Start 02/20/18 at 17:55 Lorazepam (Ativan) 0.5 mg Q8H PRN IV ANXIETY Last administered on 02/20/18at 17:26; Admin Dose 0.5 MG; Start 02/20/18 at 17:00 Pantoprazole (Protonix Tab) 40 mg DAILY@06 PO Last administered on 02/24/18at 05:17; Admin Dose 40 MG; Start 02/22/18 at 06:00 Albumin Human 100 ml @ 100 mls/hr DURING DIALYSIS PRN IV BLOOD PRESSURE SUPPORT; Start 02/22/18 at 10:05 Simethicone (Mylicon) 80 mg QID PO Last administered on 02/24/18at 08:11; Admin Dose 80 MG; Start 02/23/18 at 10:30 RANDOLPH RAMIREZ Feb 24, 2018 10:58 am
--- NOTE | 2018-02-24 12:23 | NUR ---
STAN NOTES: 12:23 PM CALLED [facility] # [phone] TO [facility] . FAX# [phone]. APPOINTMENT @ [facility] ON MARCH 21, 2018 AT 11:15 AM @ [address] [facility] [address] [place], [address] KALIE R[address] X [phone] Addendum: 02/24/18 at 1347 by KALIE CONNOLLY CM 1:45 pm SPOKE TO PATIENT AT BEDSIDE REGARDING UPCOMING APPOINTMENT WITH OUTPT UROLOGIST @ [facility] . WRITTEN INTRUCTION GIVEN, PT VERBALIZED UNDERSTANDING. KALIE BRADEN/STAN X [phone]
--- NOTE | 2018-02-24 13:06 | PDOCDIS ---
Discharge Instructions CONDITION [id number] Patient Condition: [id number] Stable HOME CARE INSTRUCTIONS: [id number] Special Diet: [id number] carb control diet ACTIVITY: [id number] Activity Restrictions: [id number] Slowly Increase Activity Rest between Activity FOLLOW UP/APPOINTMENTS Follow-up Plan 1. f/u with your transplant Team at [facility] 2. Please notify them about new 1.8cm by 2cm renal mass noted on your R kidney 3. Also f/u with your PCP in the next 1-2 weeks . MERARY PULLIAM Feb 24, 2018 13:06
--- NOTE | 2018-02-24 13:15 | DS ---
Date/Time of Note Date/Time of Note DATE: 02/24/18 TIME: 13:09 Discharge Summary Admission/Discharge Info Admit Date/Time Feb 20, 2018 at 08:25 Discharge Date/Time Discharge Diagnosis Chest discomfort and SOB: resolved Abdominal distension and bloating: improved ESRD on HD Hyperkalemia- resolved Hypertensive - controlled Diabetes mellitus, type 2 CAD Hx of CABG x3 vessels 2008 History of CVA New solid mass inferiorly in the right kidney measuring 1.8 x 2.1 cm History of Prostate CA s/p Brachytherapy seeds +SOBT with Hx of colonoscopy about 5 months ago- polyps -needs outpatient GI followup Hx of EGD 3-4 years ago- neg per patient Liver cirrhosis / Hep C AB reactive- s/p treatment, RNA negative, Undetectable viral load . Consults Nephrology: Tommy Cardiology: [place] Urology: mike Heme / Onc: Compa . Hospital Course The patient was admitted and treated mainly with dialysis for volume removal while and he improved slowly. His hospitalization was somewhat prolonged after he started complaining of persistent abdominal bloating and distention. The patient kept asking for fluid in his stomach to be removed. Of note is that the patient has never had a paracentesis before, but he feels like he needed one. Ultrasound done showed no ascites, a CT showed a cirrhotic liver, bilateral atrophic kidneys, and a new solid mass in the inferior pole of the right kidney. Note that the patient had a history of prostate cancer and was treated with brachytherapy seeds in the past. The patient was seen by both oncology as well as urology, and examination was that this is most likely a new primary renal cell tumor if it ends up being malignant. The generalized consensus was that patient will benefit from outpatient evaluation with his prior urologist, for continued management of said mass. Urology did not being the mass had anything to do with his distention and bloating. A stool occult blood test came back positive, and patient is recommended to follow-up outpatient with gastroenterology for possible colonoscopy. Patient had a history of colonoscopy 5 months ago. He also had a history of EGD 3-4 years ago. At this time the patient is stable for discharge, he will follow-up outpatient with urology as well as gastroenterology and his primary care doctor. Patient has been evaluated in detail by myself and is stable to be discharged. Discharge instructions have been communicated. Home Meds Active Scripts Naproxen* (Naproxen*) 375 Mg Tablet, 375 MG PO BID PRN for PAIN, #14 TAB Prov:ANNA GARCIA DO 11/21/17 Carvedilol* (Carvedilol*) 3.125 Mg Tablet, 3.125 MG PO BID, #60 TAB Prov:GUERDA LANTIGUA 09/12/17 Reported Medications Midodrine* (Midodrine*) 10 Mg Tablet, 10 MG PO DAILY, TAB 02/20/18 Lorazepam* (Lorazepam*) 1 Mg Tablet, 5 MG PO HS PRN for ANXIETY, #30 TAB 09/10/17 Sevelamer Hcl* (Renagel*) 800 Mg Tablet, 800 MG PO WITH MEALS, TAB 09/10/17 Fluticasone Propionate* (Fluticasone Propionate* Nasal) 50 Mcg/Lowell - 16 Gm Lowell.susp, 1 SPRAY NASAL BID, #1 BOTTLE TO EACH NOSTRIL 09/10/17 Hydrocodone/Acetaminophen (Cresson 5-325 Tablet) 1 Each Tablet, 1 EACH PO Q12H, TAB 02/27/17 Alprazolam* (Alprazolam*) 0.25 Mg Tablet, 0.25 MG PO DAILY PRN for ANXIETY, TAB 02/27/17 Trazodone Hcl* (Trazodone Hcl*) 50 Mg Tablet, 50 MG PO QHS, #30 TAB 02/27/17 Sertraline Hcl* (Sertraline Hcl*) 25 Mg Tablet, 25 MG PO DAILY, #30 TAB 02/27/17 Clonidine Hcl* (Clonidine Hcl*) 0.1 Mg Tab, 0.1 MG PO BID, TAB 10/03/16 Losartan Potassium* (Losartan Potassium*) 25 Mg Tablet, 25 MG PO DAILY, TAB 10/03/16 Glipizide* (Glipizide*) 5 Mg Tablet, 5 MG PO BID, TAB 05/22/15 Folic Acid/Vitamin B Comp W-C* (Nephro-Agatha Rx Tablet*) 1 Mg Tablet, 1 TAB PO DAILY, TAB 09/03/13 Aspirin* (Aspirin* EC) 81 Mg Tablet.dr, 81 MG PO DAILY, TAB 09/03/13 Ferrous Sulfate* (Ferrous Sulfate*) 325 Mg Tablet, 325 MG PO DAILY 06/26/12 Simvastatin (Simvastatin) 20 Mg Tablet, 20 MG PO QHS 12/07/10 Discontinued Scripts Cephalexin* (Keflex*) 500 Mg Capsule, 500 MG PO QID for 7 Days, CAP Prov:FACUNDO PALOMARES MD 12/12/17 Hydrocodone/Acetaminophen (Cresson 5-325 Tablet) 1 Each Tablet, 1 EACH PO Q6 PRN for SEVERE PAIN LEVEL 7-10, #14 TAB Prov:JOSEANNAJIMENEZ GUARDADO 11/21/17 Follow-up Plan 1. f/u with your transplant Team at [facility] 2. Please notify them about new 1.8cm by 2cm renal mass noted on your R kidney 3. Also f/u with your PCP in the next 1-2 weeks 4. You also need to follow-up with the narcotics and/or vice detective (stomach doctor) for positive blood in your stool 5. Also follow-up with the microsoft systems engineer, Dr. Figueroa using the information he has given you. . Primary Care Provider Not On Staff Doctor Time spent on discharge: > 30 minutes Pending Labs Laboratory Tests Test 02/23/18 17:29 02/23/18 20:54 02/24/18 07:57 02/24/18 12:03 Bedside 113 94 78 71 Glucose mg/dL (70-220) mg/dL (70-220) mg/dL (70-220) mg/dL (70-220) MERARY PULLIAM Feb 24, 2018 13:15
--- NOTE | 2018-02-24 13:52 | CONS ---
Date/Time of Note Date/Time of Note DATE: 02/24/18 TIME: 13:48 Consult Date/Type/Reason Admit Date/Time Feb 20, 2018 at 08:25 Initial Consult Date 02/23/18 Type of Consultation: Urology Reason for Consultation Right renal tumor Requesting Provider: MERARY UPLLIAM Subjective Patient denies any pain and states that [facility] may have a kidney for him. Objective Vital Signs Date Temp Pulse Resp B/P (MAP) Pulse Ox O2 O2 Flow FiO2 Time Delivery Rate 02/24/18 145/70 10:45 (95) 02/24/18 97.7 61 16 97 Room Air 07:50 02/22/18 2.0 15:06 Intake and Output 02/23/18 02/23/18 02/24/18 1515:00 23:00 07:00 IntakeIntake Total 500 ml 100 ml BalanceBalance 500 ml 100 ml Exam The abdomen is soft. Patient has a new solid mass inferiorly in the right kidney measuring 1.8 x 2.1 cm, likely neoplastic. Results/Medications Result Diagram: 02/22/18 0538 02/22/18 0537 Results 24 hrs Laboratory Tests Test 02/23/18 17:29 02/23/18 20:54 02/24/18 07:57 02/24/18 12:03 Bedside Glucose 113 94 78 71 Medications Current Medications IV Flush (NS 3 ml) 3 ml PER PROTOCOL IV ; Start 02/20/18 at 10:00 Ondansetron HCl (Zofran Inj) 4 mg Q6H PRN IV NAUSEA AND/OR VOMITING; Start 02/20/18 at 10:00 Acetaminophen (Tylenol Tab) 650 mg Q6H PRN PO PAIN LEVEL 1-3 OR FEVER Last administered on 02/22/18at 17:26; Admin Dose 650 MG; Start 02/20/18 at 10:00 Heparin Sodium (Porcine) (Heparin (5000 Units/1ml)) 5,000 unit Q8 SC Last administered on 02/24/18at 05:17; Admin Dose 5,000 UNIT; Start 02/20/18 at 14:00 Aspirin (Halfprin) 81 mg DAILY PO Last administered on 02/24/18at 08:11; Admin Dose 81 MG; Start 02/21/18 at 09:00 Carvedilol (Coreg) 3.125 mg BID PO Last administered on 02/23/18 20:56; Admin Dose 3.125 MG; Start 02/20/18 at 21:00 Clonidine (Catapres) 0.1 mg BID PO Last administered on 02/23/18 20:55; Admin D ose 0.1 MG; Start 02/20/18 at 21:00 Ferrous Sulfate (Ferrous Sulfate (Ec)) 325 mg DAILY PO Last administered on 02/24/18 08:11; Admin Dose 325 MG; Start 02/21/18 at 09:00 Fluticasone Propionate (Flonase 0.05% Nasal) 1 spray BID NASAL Last administered on 02/24/18 08:12; Admin Dose 1 SPRAY; Start 02/20/18 at 21:00 Multivit/Ca Carb/ B Cmplx/FA/Prenat (Edith-Agatha) 1 tab DAILY PO Last administere d on 02/24/18 08:11; Admin Dose 1 TAB; Start 02/21/18 at 09:00 Losartan Potassium (Cozaar) 25 mg DAILY PO Last administered on 02/23/18 08:22; Admin Dose 25 MG; Start 02/21/18 at 09:00 Sertraline HCl (Zoloft) 25 mg DAILY PO Last administered on 02/24/18 08:11; Admin Dose 25 MG; Start 02/21/18 at 09:00 Trazodone HCl (Desyrel) 50 mg QHS PO Last administered on 02/23/18 20:55; Admin Dose 50 MG; Start 02/20/18 at 21:00 Atorvastatin Calcium (Lipitor) 10 mg QHS PO Last administered on 02/23/18 20:54; Admin Dose 10 MG; Start 02/20/18 at 21:00 Insulin Glargine (Lantus) 12 units DAILY@2000 SC Last administered on 02/23/18 21:18; Admin Dose 12 UNITS; Start 02/20/18 at 20:00 Insulin Aspart (Novolog Insulin Pen) 4 unit WITH MEALS SC Last administered on 02/24/18 12:29; Admin Dose 4 UNIT; Start 02/20/18 at 11:50 Insulin Aspart (Novolog Insulin Pen) NOVOLOG *MILD* ALGORITHM WITH MEALS B EDTIME SC Last administered on 02/23/18 12:20; Admin Dose 1 UNIT; Start 02/20/18 at 11:50 Miscellaneous Information 1 ea NOTE XX ; Start 02/20/18 at 10:30 Glucose (Glutose) 15 gm Q15M PRN PO DECREASED GLUCOSE; Start 02/20/18 at 10:30 Glucose (Glutose) 22.5 gm Q15M PRN PO DECREASED GLUCOSE; Start 02/20/18 at 10:30 Dextrose (D50w Syringe) 25 ml Q15M PRN IV DECREASED GLUCOSE; Start 02/20/18 at 10:30 Dextrose (D50w Syringe) 50 ml Q15M PRN IV DECREASED GLUCOSE; Start 02/20/18 at 10:30 Glucagon (Glucagen) 1 mg Q15M PRN IM DECREASED GLUCOSE; Start 02/20/18 at 10:30 Glucose (Glutose) 15 gm Q15M PRN BUCCAL DECREASED GLUCOSE; Start 02/20/18 at 10:30 Hydralazine HCl (Apresoline) 10 mg Q6H PRN IV SBP>170; Start 02/20/18 at 12:00 Heparin Sodium (Porcine) (Heparin (1000 Units/ml)) 4,300 unit AFTER DIALYSIS CATHETER Last administered on 02/21/18at 12:29; Admin Dose 4,300 UNIT; Start 02/20/18 at 14:00 Sevelamer Carbonate (Renvela) 800 mg WITH MEALS PO Last administered on 02/24/18at 12:27; Admin Dose 800 MG; Start 02/20/18 at 17:55 Lorazepam (Ativan) 0.5 mg Q8H PRN IV ANXIETY Last administered on 02/20/18at 17:26; Admin Dose 0.5 MG; Start 02/20/18 at 17:00 Pantoprazole (Protonix Tab) 40 mg DAILY@06 PO Last administered on 02/24/18at 05:17; Admin Dose 40 MG; Start 02/22/18 at 06:00 Albumin Human 100 ml @ 100 mls/hr DURING DIALYSIS PRN IV BLOOD PRESSURE SUPPORT; Start 02/22/18 at 10:05 Simethicone (Mylicon) 80 mg QID PO Last administered on 02/24/18at 12:27; Admin Dose 80 MG; Start 02/23/18 at 10:30 Assessment/Plan Chief Complaint/Hosp Course 63-year-old male admitted because of dyspnea and high blood pressure. He is known to have a history of hypertension, end-stage renal disease on hemodialysis, dyslipidemia, diabetes mellitus type 2, previous CVA, coronary artery disease with CABG and history of prostate cancer status post radiation. He was found to have evidence of hyperkalemia and hypertensive urgency. His abdomen was very distended and he underwent a CT scan of the abdomen and pelvis and that showed a new tumor in the lower pole of the right kidney suspicious for neoplasm. Therefore a urological consultation was requested. The patient has been on hemodialysis and he does urinate a few drops. His condition is unchanged and he is on the waiting list for a kidney transplant. And [facility] may have a kidney for him. Patient should have a copy of the CT scan upon discharge to share with [facility]. KAT GOODWIN MD Feb 24, 2018 13:52
[2018-02-24] MEDS ORDERED: LISI40TA3 PO (15:19)
[2018-02-24] MEDS: HEPARIN 1000 UNITS/ML 10 ML INJ CATHETER SCH (17:24)
--- NOTE | 2018-02-24 18:07 | NUR ---
rn notes patient is alert and oriented X4, verbally responsive and able to make needs known, denies pain and discomfort, no s/s of acute distress noted. dialysis done today, noted 3000ml dialysis output. all needs attended to. all due medicine given. call light placed within reach and fall precautions observed well. remains afebrile. okay to discharge today. will continue to monitor.
--- NOTE | 2018-02-24 18:59 | NUR ---
general intern noted patient discharges home, discharge instructions and medication instructions and follow-up after discharge instructions given to patient. IV line removed. patients belongings returned to patient. discharged home via wheel chair followed by family and escorted by volunteer. patient's imaging report copies given to patient as per dr. levy's order.
--- NOTE | 2018-02-24 19:34 | RADRPT ---
Vent Rate: 75 bpm RR Interval: 0 msec IA Interval: 310 msec QRS Duration: 76 msec QT Interval: 436 msec QTC Interval: 486 msec P-R-T [place]: 23 - 56 - 0 degrees Sinus rhythm with 1st degree AV block T wave abnormality, consider inferolateral ischemia Prolonged QT Abnormal ECG Electronically Signed By: Ozzie Smith [id number]
== END 2018-02-24 18:59 | disposition home or self-care (01) | DRG 640 ==
LOC: E/R 07:09 → TEL 08:25 → PP2 02-23 21:09
PROVIDERS: ADMIT Internal Medicine; ATTEND Family Medicine
PROC: 5A1D70Z Performance of Urinary Filtration, Intermittent, Less than 6 Hours Per Day (ICD-10-PCS; principal; 2018-02-20)
DX: E87.5 Hyperkalemia (principal); N18.6 End stage renal disease; I12.0 Hypertensive chronic kidney disease with stage 5 chronic kidney disease or end stage renal disease; Z99.2 Dependence on renal dialysis; I16.0 Hypertensive urgency; Z95.1 Presence of aortocoronary bypass graft; R14.0 Abdominal distension (gaseous); Z86.73 Personal history of transient ischemic attack (TIA), and cerebral infarction without residual deficits; E11.9 Type 2 diabetes mellitus without complications; Z87.891 Personal history of nicotine dependence; D49.511 Neoplasm of unspecified behavior of right kidney; Z76.82 Awaiting organ transplant status
CPT/HCPCS: 36415; 71045; 74018; 74176; 76705; 80048; 80053; 80061; 82105; 82270; 82378; 82550; 82553; 82962; 83036; 83690; 83735; 84100; 84153; 84154; 84443; 84484; 85025; 85610; 85730; 86038; 86255; 86301; 86706; 86803; 87340; 87522; 90935; 93005; 93306; J0610; J1644; J1815; J2060; P9047; Q9967

== ENCOUNTER 2018-04-04 21:33 | Emergency (ER) | payer OTHER ==
[~2018-04-04] VITALS: Wt 77.1 kg
[~2018-04-04 21:33] MED LIST changes: -CEPH-443 PO; +LISI40TA3 PO; -LORA1TAB PO; -LOSA25TA6 PO; -NAPR-685 PO
[2018-04-05] MEDS ORDERED: HYDROCODONE/APAP (5/325) TAB PO ONE (02:00)
[2018-04-05] MEDS ORDERED: HYDR-4011 PO (02:44)
[2018-04-05 02:56] VITALS: BP 147/71; PULSE 71; RESP 16
--- NOTE | 2018-04-06 20:51 | ERD ---
ER Documentation Chief Complaint Chief Complaint rectal pain >1 year; worse x1mo. denies hemorrhoids. no bleeding. HPI 63-year-old male who is currently on dialysis presents with rectal pain for over a year. States the pain is worse when he has a bowel movement. States that he was given Stratford in the past and it is the only thing that seems to help with his rectal pain. Denies fever, chills, redness, edema, chest pain, palpitations, weakness, lightheadedness, bleeding. . ROS All systems reviewed and are negative except as per history of present illness. Medications Home Meds Active Scripts Hydrocodone/Acetaminophen (Stratford 5-325 Tablet) 1 Each Tablet, 1 TAB PO Q6H PRN for PAIN, #7 TAB Prov:PRETTY SUE 04/05/18 Lisinopril* (Lisinopril*) 40 Mg Tablet, 40 MG PO DAILY, #30 TAB Prov:MERARY PULLIAM 02/24/18 Carvedilol* (Carvedilol*) 3.125 Mg Tablet, 3.125 MG PO BID, #60 TAB Prov:GUERDA LANTIGUA 09/12/17 Reported Medications Sevelamer Hcl* (Renagel*) 800 Mg Tablet, 800 MG PO WITH MEALS, TAB 09/10/17 Fluticasone Propionate* (Fluticasone Propionate* Nasal) 50 Mcg/Joffre - 16 Gm Joffre.susp, 1 SPRAY NASAL BID, #1 BOTTLE TO EACH NOSTRIL 09/10/17 Hydrocodone/Acetaminophen (Stratford 5-325 Tablet) 1 Each Tablet, 1 EACH PO Q12H, TAB 02/27/17 Alprazolam* (Alprazolam*) 0.25 Mg Tablet, 0.25 MG PO DAILY PRN for ANXIETY, TAB 02/27/17 Trazodone Hcl* (Trazodone Hcl*) 50 Mg Tablet, 50 MG PO QHS, #30 TAB 02/27/17 Sertraline Hcl* (Sertraline Hcl*) 25 Mg Tablet, 25 MG PO DAILY, #30 TAB 02/27/17 Clonidine Hcl* (Clonidine Hcl*) 0.1 Mg Tab, 0.1 MG PO BID, TAB 10/03/16 Glipizide* (Glipizide*) 5 Mg Tablet, 5 MG PO BID, TAB 05/22/15 Folic Acid/Vitamin B Comp W-C* (Nephro-Agatha Rx Tablet*) 1 Mg Tablet, 1 TAB PO DAILY, TAB 09/03/13 Aspirin* (Aspirin* EC) 81 Mg Tablet.dr, 81 MG PO DAILY, TAB 09/03/13 Ferrous Sulfate* (Ferrous Sulfate*) 325 Mg Tablet, 325 MG PO DAILY 06/26/12 Simvastatin (Simvastatin) 20 Mg Tablet, 20 MG PO QHS 12/07/10 Allergies Allergies: Coded Allergies: No Known Drug Allergies (Verified Allergy, Unknown, 02/20/18) PMhx/Soc History of Surgery: Yes (stomach surgery) Anesthesia Reaction: No Hx Neurological Disorder: No Hx Respiratory Disorders: Yes Hx Cardiac Disorders: Yes (HTN) Hx Psychiatric Problems: No Hx Miscellaneous Medical Probl: Yes (dialysis, hemorrhoids) Hx Alcohol Use: No Hx Substance Use: No Hx Tobacco Use: No Smoking Status: Never smoker FmHx Family History: No diabetes, No coronary disease, No other Physical Exam Vitals Vital Signs Date Temp Pulse Resp B/P (MAP) Pulse Ox O2 O2 Flow FiO2 Time Delivery Rate 04/05/18 71 16 147/71 96 Room Air 02:56 (96) 04/04/18 98.5 88 16 161/90 99 21:53 (113) Physical Exam Const: No acute distress Eyes: Normal Conjunctiva ENT: Normal External Ears, Nose and Mouth. Resp: Clear to auscultation bilaterally Cardio: Regular rate and rhythm, no murmurs Abd: Soft, non tender, non distended. Normal bowel sounds Rectal: No external hemorrhoids, bleedings, masses, or lesions noted. Skin: No petechiae or rashes Ext: No cyanosis, or edema Neur: Awake and alert Psych: Normal Mood and Affect Result Diagram: 04/05/1814804/05/18148 Results 24 hrs Laboratory Tests Test 04/05/18 01:49 White Blood Count 7.5 10^3/ul Red Blood Count 3.66 10^6/ul Hemoglobin 11.2 g/dl Hematocrit 34.3 % Mean Corpuscular Volume 93.7 fl Mean Corpuscular Hemoglobin 30.6 pg Mean Corpuscular Hemoglobin Concent 32.7 g/dl Red Cell Distribution Width 14.2 % Platelet Count 168 10^3/UL Mean Platelet Volume 9.5 fl Immature Granulocytes % 0.800 % Neutrophils % 65.4 % Lymphocytes % 20.2 % Monocytes % 10.4 % Eosinophils % 2.5 % Basophils % 0.7 % Nucleated Red Blood Cells % 0.0 /100WBC Immature Granulocytes # 0.060 10^3/ul Neutrophils # 4.9 10^3/ul Lymphocytes # 1.5 10^3/ul Monocytes # 0.8 10^3/ul Eosinophils # 0.2 10^3/ul Basophils # 0.1 10^3/ul Nucleated Red Blood Cells # 0.0 10^3/ul Sodium Level 140 mmol/L Potassium Level 5.2 mmol/L Chloride Level 98 mmol/L Carbon Dioxide Level 28 mmol/L Anion Gap 14 Blood Urea Nitrogen 59 mg/dl Creatinine 9.35 mg/dl Est Glomerular Filtrat Rate mL/min 6 mL/min Glucose Level 286 mg/dl Calcium Level 8.7 mg/dl Total Bilirubin 0.0 mg/dl Direct Bilirubin 0.00 mg/dl Indirect Bilirubin 0.0 mg/dl Aspartate Amino Transf (AST/SGOT) 17 IU/L Alanine Aminotransferase (ALT/SGPT) 16 IU/L Alkaline Phosphatase 150 IU/L Total Protein 8.7 g/dl Albumin 4.6 g/dl Globulin 4.10 g/dl Albumin/Globulin Ratio 1.12 Current Medications Medications Dose Sig/Martín Start Time Status Last (Trade) Ordered Route PRN Stop Time Admin Dose Reason Admin 1 tab ONCE ONCE 04/05/18 DC 04/05/18 Acetaminophen PO 02:00 01:44 / 04/05/18 02:01 Hydrocodone Bitart (Stratford (5/325)) Procedures/MDM ER Course: Stratford given MDM: 63-year-old male who is currently on dialysis presents with rectal pain for over a year. States the pain is worse when he has a bowel movement. States that he was given Stratford in the past and it is the only thing that seems to help with his rectal pain. Patient patient's history and clinical findings, most likely cause of his pain is internal hemorrhoids. I explained to the patient that this needs to be managed on outpatient basis and could even require surgery, the most that we can do in the ER setting is to provide comfort measures. Patient stated that he understood and agreed to follow-up with his primary. Due to patient being on dialysis, a CBC and CMP were taken. I discussed the results with Dr. Rudolph and we deemed that he was fit for discharge. Patient prescribed short supply of Stratford. Patient discharged with strict ER precautions. Patient advised to follow up with PMD. All questions answered at discharge. Departure Diagnosis: Primary Impression: Rectal pain Condition: Stable Patient Instructions: Hemorrhoid Surgery, Hemorrhoids Referrals: [facility] YOU HAVE RECEIVED A MEDICAL SCREENING EXAM AND THE RESULTS INDICATE THAT YOU DO NOT HAVE A CONDITION THAT REQUIRES URGENT TREATMENT IN THE EMERGENCY DEPARTMENT. FURTHER EVALUATION AND TREATMENT OF YOUR CONDITION CAN WAIT UNTIL YOU ARE SEEN IN YOUR DOCTORS OFFICE WITHIN THE NEXT 1-2 DAYS. IT IS YOUR RESPONSIBILITY TO MAKE AN APPOINTMENT FOR FOLOW-UP CARE. IF YOU HAVE A PRIMARY DOCTOR --you should call your primary doctor and schedule an appointment IF YOU DO NOT HAVE A PRIMARY DOCTOR YOU CAN CALL OUR PHYSICIAN REFERRAL HOTLINE AT IF YOU CAN NOT AFFORD TO SEE A PHYSICIAN YOU CAN CHOSE FROM THE FOLLOWING CO [facility] [address] [facility]. [facility] [address] [facility] [address] [facility] [address] [facility]. [facility] [address] [facility]. [facility]. [address] Additional Instructions: FOLLOW UP WITH YOUR PRIMARY CARE PHYSICIAN TOMORROW.Return to this facility if you are not improving as expected. PRETTY SUE Apr 06, 2018 20:51
== END 2018-04-05 02:57 | disposition home or self-care (01) ==
LOC: FTE 21:33
DX: K62.89 Other specified diseases of anus and rectum (principal); I10 Essential (primary) hypertension; Z79.82 Long term (current) use of aspirin; Z79.84 Long term (current) use of oral hypoglycemic drugs; Z99.2 Dependence on renal dialysis
CPT/HCPCS: 80053; 85025; 99284

== ENCOUNTER 2018-04-17 16:42 | Inpatient (IN) | payer OTHER ==
[~2018-04-17] VITALS: Ht 167.6 cm; Wt 76.5 kg
--- NOTE | 2018-04-17 18:31 | ERD ---
ER Documentation Chief Complaint Chief Complaint body weakness x 3 days post dialysis HPI 33-year-old man with a history of end-stage kidney disease hemodialysis dependent presents with generalized weakness in his muscles. He is concern for hyperkalemia which he states has happened multiple times in the past usually associated with muscle weakness. Patient is due for dialysis tomorrow and had full hemodialysis 2 days ago. Patient denies chest pain or shortness of breath, no fevers or chills, no LOC. ROS All systems reviewed and are negative except as per history of present illness. Medications Home Meds Active Scripts Hydrocodone/Acetaminophen ([place] 5-325 Tablet) 1 Each Tablet, 1 TAB PO Q6H PRN for PAIN, #7 TAB Prov:PRETTY SUE 04/05/18 Lisinopril* (Lisinopril*) 40 Mg Tablet, 40 MG PO DAILY, #30 TAB Prov:MERARY PULLIAM 02/24/18 Carvedilol* (Carvedilol*) 3.125 Mg Tablet, 3.125 MG PO BID, #60 TAB Prov:GUERDA LANTIGUA 09/12/17 Reported Medications Sevelamer Hcl* (Renagel*) 800 Mg Tablet, 800 MG PO WITH MEALS, TAB 09/10/17 Fluticasone Propionate* (Fluticasone Propionate* Nasal) 50 Mcg/[place] - 16 Gm [place].susp, 1 SPRAY NASAL BID, #1 BOTTLE TO EACH NOSTRIL 09/10/17 Hydrocodone/Acetaminophen ([place] 5-325 Tablet) 1 Each Tablet, 1 EACH PO Q12H, TAB 02/27/17 Alprazolam* (Alprazolam*) 0.25 Mg Tablet, 0.25 MG PO DAILY PRN for ANXIETY, TAB 02/27/17 Trazodone Hcl* (Trazodone Hcl*) 50 Mg Tablet, 50 MG PO QHS, #30 TAB 02/27/17 Sertraline Hcl* (Sertraline Hcl*) 25 Mg Tablet, 25 MG PO DAILY, #30 TAB 02/27/17 Clonidine Hcl* (Clonidine Hcl*) 0.1 Mg Tab, 0.1 MG PO BID, TAB 10/03/16 Glipizide* (Glipizide*) 5 Mg Tablet, 5 MG PO BID, TAB 05/22/15 Folic Acid/Vitamin B Comp W-C* (Nephro-Agatha Rx Tablet*) 1 Mg Tablet, 1 TAB PO DAILY, TAB 09/03/13 Aspirin* (Aspirin* EC) 81 Mg Tablet.dr, 81 MG PO DAILY, TAB 09/03/13 Ferrous Sulfate* (Ferrous Sulfate*) 325 Mg Tablet, 325 MG PO DAILY 06/26/12 Simvastatin (Simvastatin) 20 Mg Tablet, 20 MG PO QHS 12/07/10 Allergies Allergies: Coded Allergies: No Known Drug Allergies (Verified Allergy, Unknown, 02/20/18) PMhx/Soc End-stage kidney disease on hemodialysis, chronic pain syndrome, diabetes mellitus, hypertension, CAD, CABG x3, prostate CA, cirrhosis History of Surgery: Yes (stomach surgery) Anesthesia Reaction: No Hx Neurological Disorder: No Hx Respiratory Disorders: Yes Hx Cardiac Disorders: Yes (HTN) Hx Psychiatric Problems: No Hx Miscellaneous Medical Probl: Yes (dialysis, hemorrhoids) Hx Alcohol Use: No Hx Substance Use: No Hx Tobacco Use: No Smoking Status: Never smoker Physical Exam Vitals Vital Signs Date Temp Pulse Resp B/P (MAP) Pulse Ox O2 O2 Flow FiO2 Time Delivery Rate 04/17/18 98.4 81 20 152/81 97 Room Air 20:00 (104) 04/17/18 78 18 97 21 19:35 04/17/18 98.4 88 20 171/82 98 Room Air 18:28 (111) 04/17/18 98.4 91 20 180/81 98 16:43 (114) Physical Exam Const: No acute distress, afebrile Head: Atraumatic Eyes: Normal Conjunctiva ENT: Normal External Ears, Nose and Mouth. Neck: Full range of motion. No meningismus. Resp: Clear to auscultation bilaterally Cardio: Regular rate and rhythm, no murmurs Abd: Soft, non tender, non distended. Normal bowel sounds Skin: No petechiae or rashes Back: No midline or flank tenderness Ext: No cyanosis, or edema Neur: Awake and alert x3, no focal deficits or facial asymmetry Psych: Normal Mood and Affect Result Diagram: 04/17/18183604/17/181836 Results 24 hrs Laboratory Tests Test 04/17/18 18:37 04/17/18 19:34 04/17/18 20:08 White Blood Count 6.9 10^3/ul Red Blood Count 3.16 10^6/ul Hemoglobin 9.6 g/dl Hematocrit 29.2 % Mean Corpuscular Volume 92.4 fl Mean Corpuscular Hemoglobin 30.4 pg Mean Corpuscular 32.9 g/dl Hemoglobin Concent Red Cell Distribution Width 14.7 % Platelet Count 196 10^3/UL Mean Platelet Volume 9.6 fl Immature Granulocytes % 0.600 % Neutrophils % 70.7 % Lymphocytes % 13.3 % Monocytes % 12.7 % Eosinophils % 2.3 % Basophils % 0.4 % Nucleated Red Blood Cells % 0.0 /100WBC Immature Granulocytes # 0.040 10^3/ul Neutrophils # 4.8 10^3/ul Lymphocytes # 0.9 10^3/ul Monocytes # 0.9 10^3/ul Eosinophils # 0.2 10^3/ul Basophils # 0.0 10^3/ul Nucleated Red Blood Cells # 0.0 10^3/ul Sodium Level 143 mmol/L Potassium Level 6.4 mmol/L Chloride Level 102 mmol/L Carbon Dioxide Level 22 mmol/L Anion Gap 19 Blood Urea Nitrogen 97 mg/dl Creatinine 11.89 mg/dl Est Glomerular Filtrat Rate mL/min 4 mL/min Glucose Level 178 mg/dl Calcium Level 9.1 mg/dl Total Bilirubin 0.0 mg/dl Direct Bilirubin 0.00 mg/dl Indirect Bilirubin 0.0 mg/dl Aspartate Amino Transf (AST/SGOT) 25 IU/L Alanine 44 IU/L Aminotransferase (ALT/SGPT) Alkaline Phosphatase 176 IU/L Troponin I 0.035 ng/ml Total Protein 8.4 g/dl Albumin 4.5 g/dl Globulin 3.90 g/dl Albumin/Globulin Ratio 1.15 Lipase 95 U/L Bedside Glucose 134 mg/dL 170 mg/dL Current Medications Medications Dose Sig/Martín Start Time Status Last (Trade) Ordered Route PRN Stop Time Admin Dose Reason Admin Dextrose 50 ml ONCE STAT 04/17/18 DC 04/17/18 (D50w IV 19:16 19:45 Syringe) 04/17/18 19:20 Insulin 10 unit ONCE STAT 04/17/18 DC 04/17/18 Human IVP 19:16 19:43 Regular 04/17/18 19:20 (Humulin R) Dextrose ONCE PRN 04/17/18 (D50w IV DECREASED 19:30 Syringe) GLUCOSE Albuterol 10 mg ONCE STAT 04/17/18 DC 04/17/18 (Proventil HHN 19:16 19:35 0.083% (Neb)) 04/17/18 19:20 Procedures/MDM IV line was established patient was placed on box inspector rhythm strip revealed a sinus rhythm at about 80 bpm with upright P and T waves. Patient was afebrile EKG performed, read by me revealed a normal sinus rhythm at 76 bpm, normal axis, first-degree AV block, no concerning ST elevations or depressions, diffuse flattened P and T waves concerning for hyperkalemia. CBC was unremarkable, electrolytes revealed end-stage kidney disease and hyperkalemia at 6.4, liver function tests normal, troponin negative 1 view chest x-ray performed, read by me revealed congestion bilaterally, no pneumothorax, no air under the diaphragm. For acute symptomatic hyperkalemia administered calcium 1 g IV, dextrose, IV insulin therapy, and albuterol via nebulizer. Patient will be admitted to telemetry setting for emergent hemodialysis Departure Diagnosis: Primary Impression: Acute on chronic renal failure Acute renal failure type: with acute tubular necrosis Chronic kidney disease stage: stage 3 (moderate) Qualified Codes: N17.0 - Acute kidney failure with tubular necrosis; N18.3 - Chronic kidney disease, stage 3 (moderate) Additional Impressions: Acute hyperkalemia Abnormal EKG Condition: ANDREWS Wolfe MD Apr 17, 2018 18:31
[2018-04-17] MEDS ORDERED: DEXTROSE 50% 50 ML SYRINGE IV STA (19:16)
[2018-04-17] MEDS ORDERED: ALBUTEROL 0.083% (NEB) 2.5 MG/3 ML AMP HHN STA (19:16)
[2018-04-17] MEDS ORDERED: INSULIN REGULAR, HUMAN 100 UNIT/1 ML 3ML VIAL IVP STA (19:16)
[2018-04-17] MEDS ORDERED: DEXTROSE 50% 50 ML SYRINGE IV PRN (19:30)
--- NOTE | 2018-04-17 21:25 | HP ---
Date/Time of Note Date/Time of Note DATE: 04/17/18 TIME: 21:25 Assessment/Plan VTE Prophylaxis SCD applied (from Nsg): Yes Pharmacological prophylaxis: NA/contraindicated Pharm contraindication: low risk/ambulating Lines/Catheters IV Catheter Type (from Nrsg): Saline Lock Assessment/Plan Hospital Course This is a 63-year-old male being admitted to the telemetry floor for: #1 uremia: Elevated BUN and creatinine, elevated potassium. Patient does appear to be anxious and shaky. He did receive treatment for hyperkalemia in the ED. I consulted nephrology for emergent dialysis. Serial electrolytes monitoring the renal function #2 hyperkalemia: Secondary to end-stage renal disease. Patient status post albuterol, insulin dextrose treatment. Nephrology has been consulted for emergent dialysis. #3 dyspnea: Multifactorial secondary to uremia and anxiety. Improved after receiving oxygen and Ativan. #4. Diabetes mellitus type 2: Last hemoglobin A1c 7.3 from January 2018. Will recheck hemoglobin A1c, hold home oral agents at the current time. Diabetic diet. #5. CAD, status post CABG in 2008.Resume cardiac medications #6 dyslipidemia.: Resume statins. #7 history of stroke with no residual effects: Continue statins and aspirin. #8 normocytic, normochromic anemia: Likely secondary to underlying end-stage renal disease. Monitor hemoglobin closely. Further treatment as per nephrology would likely Procrit Epogen. #9 DVT GI prophylaxis: SCDs, no GI prophylaxis indicated Further treatment strategy will be implemented as per the clinical course Result Diagram: 04/17/18 1837 04/17/18 1837 Results 24hrs Laboratory Tests Test 04/17/18 18:37 04/17/18 19:34 04/17/18 20:08 White Blood Count 6.9 Red Blood Count 3.16 L Hemoglobin 9.6 L Hematocrit 29.2 L Mean Corpuscular Volume 92.4 Mean Corpuscular Hemoglobin 30.4 Mean Corpuscular Hemoglobin Concent 32.9 Red Cell Distribution Width 14.7 H Platelet Count 196 Mean Platelet Volume 9.6 Immature Granulocytes % 0.600 H Neutrophils % 70.7 Lymphocytes % 13.3 L Monocytes % 12.7 H Eosinophils % 2.3 Basophils % 0.4 Nucleated Red Blood Cells % 0.0 Immature Granulocytes # 0.040 H Neutrophils # 4.8 Lymphocytes # 0.9 Monocytes # 0.9 Eosinophils # 0.2 Basophils # 0.0 Nucleated Red Blood Cells # 0.0 Sodium Level 143 Potassium Level 6.4 *H Chloride Level 102 Carbon Dioxide Level 22 Anion Gap 19 H Blood Urea Nitrogen 97 H Creatinine 11.89 H Est Glomerular Filtrat Rate mL/min 4 L Glucose Level 178 Calcium Level 9.1 Total Bilirubin 0.0 L Direct Bilirubin 0.00 Indirect Bilirubin 0.0 Aspartate Amino Transf (AST/SGOT) 25 Alanine Aminotransferase (ALT/SGPT) 44 Alkaline Phosphatase 176 H Troponin I 0.035 Total Protein 8.4 H Albumin 4.5 Globulin 3.90 H Albumin/Globulin Ratio 1.15 Lipase 95 Bedside Glucose 134 170 HPI/ROS Admit Date/Time Admit Date/Time Hx of Present Illness Chief complaint: Body weakness times 3 days, last dialysis Wednesday This is a 33-year-old man with a history of end-stage kidney disease hemodialysi s dependent presents with generalized weakness in his muscles. He has concern for hyperkalemia which he states has happened multiple times in the past usually associated with muscle weakness. Patient is due for dialysis tomorrow and had full hemodialysis 2 days ago. Patient denies chest pain or shortness of breath, no fevers or chills, no LOC. During my examination the patient did report feeli ng short of breath and he did report anxiety. He was put on nasal cannula and and given Ativan and patient visibly improved immediately. Allergies: NKDA Medications: See Apr Const: As per HPI Eyes : No pain discharge or redness or change in visual acuity ENT: No pain, sore throat, congestion, congestion, dysphagia or discharge Respiratory: As per HPI Cardiovascular: No chest pain, palpitation, PND, or edema GI : no change in appetite, abdominal pain, nausea, vomiting, diarrhea, constipation, or change in the color his stool Genitourinary: No dysuria, hematuria, flank pain , discharge or CVA tenderness Musculoskeletal: No joint pain, back pain, neck pain, restricted range of motion in neck or joints Skin: No rash, bruising or hives Neuro: No headache, dizziness, syncope, seizure, focal weakness Endocrine: No polyuria, polydipsia, temperature intolerance Psych: No hallucination, depression, anxiety or suicidal ideation PMH/Family/Social Past Medical History 1. Hypertension 2. End-stage renal disease on hemodialysis. 3. Dyslipidemia. 4. Previous CVA. 5. Diabetes mellitus II. 6. Degenerative joint disease. 7. Coronary artery disease status post CABG Medications Current Medications Dextrose (D50w Syringe) ONCE PRN IV DECREASED GLUCOSE; Start 04/17/18 at 19:30 Coded Allergies: No Known Drug Allergies (Verified Allergy, Unknown, 04/18/18) Past Surgical History 1. Cardiac bypass 2009. 2. Bowel resection. 3. Cholecystectomy. 4. Retinal repair. 5. LUE AV fistula placement. 6. Left chest permacath placement Past Surgical Hx: coronary bypass surgery, other Family History Significant Family History: no pertinent family hx Social History Alcohol Use: none Smoking Status: Never smoker Drug Use: none Exam/Review of Systems Vital Signs Vitals Vital Signs Date Temp Pulse Resp B/P (MAP) Pulse Ox O2 O2 Flow FiO2 Time Delivery Rate 04/17/18 78 18 97 21 19:35 04/17/18 98.4 171/82 Room Air 18:28 (111) Exam Exam General: Patient is currently sitting upright in bed he does report feeling anxious and short of breath, placed on nasal cannula with immediate improvement HEENT: Atraumatic, normocephalic. The pupils are equal, round and reactive. Extraocular motor are intact Neck: Supple with full range of motion. No rigidity or meningismus Chest: Nontender, surgical scar present, left permacath Lungs: Increased work of breathing, lungs clear to auscultation. After being placed on nasal cannula he reported improvement Heart: Normal S1-S2, Regular rhythm and rate. No murmur, S3, or S4 Abdomen: Soft , nontender, nondistended , bowel sounds are present. No guarding no rebound tenderness , No masses or organomegaly. No costovertebral temporal angle mass Extremities: Normal to inspection, no edema no cyanosis Vascular: Left upper extremity AV fistula Neurologic: Normal mental status, speech normal, cranial nerves II through XII are intact, motor and sensory are intact, no focal weakness Psych: Anxious Additional Comments PROCEDURE: XR Chest, 1 View CLINICAL INDICATION: Cough. TECHNIQUE: Frontal view of the chest. COMPARISON: 03/01/2016 FINDINGS: LUNGS: No consolidative pulmonary infiltrates noted. PLEURAL SPACE: Unremarkable. No pneumothorax. HEART: Mild cardiomegaly is noted. MEDIASTINUM: Unremarkable. BONES/JOINTS: Status post median sternotomy. Degenerative spine changes are noted. TUBES, LINES AND DEVICES: Left-sided central line with distal tip overlying SVC. IMPRESSION: 1. Left-sided central line with distal tip overlying SVC. This is new when co mpared to 03/01/2016 2. No consolidative pulmonary infiltrates noted. RPTAT: [facility] Bethany Jones, Physician Clear Coat Sprayer Date Time Electronically viewed and signed by Bethany Jones, Physician [employer] Sprayer on 04/17/2018 23:42 RmC/ CC: ANDREWS FALCON MD [id number] EKG performed, read by me revealed a normal sinus rhythm at 76 bpm, normal axis, first-degree AV block, no concerning ST elevations or depressions, diffuse flattened P and T waves DEYVI BEYER Apr 17, 2018 21:25
[2018-04-17] MEDS ORDERED: NACL 0.9% 3 ML SYG IV SCH (21:30)
[2018-04-17] MEDS ORDERED: ONDANSETRON 4 MG TAB PO PRN (21:30)
[2018-04-17] MEDS ORDERED: ACETAMINOPHEN 325 MG TAB PO PRN (21:30)
[2018-04-17] MEDS ORDERED: DOCUSATE SODIUM 100 MG CAP PO PRN (21:30)
[2018-04-17] MEDS ORDERED: BISACODYL (EC) 5 MG TAB PO PRN (21:30)
[2018-04-17] MEDS ORDERED: LORAZEPAM 2 MG INJ IV ONE (23:00)
[2018-04-17 23:17] VITALS: PULSE 95
[2018-04-17 23:30] VITALS: Ht 167.6 cm; Wt 76.5 kg
[2018-04-18] VITALS (27 sets, daily range): BP systolic 87–186; BP diastolic 46–101; PULSE 38–95; RESP 17–20
[2018-04-18] MEDS ORDERED: ALPRAZOLAM 0.25 MG TAB PO PRN (02:30)
[2018-04-18] MEDS ORDERED: hydrALAzine 20 MG INJ IV PRN (02:30)
[2018-04-18] MEDS: FLUTICASONE 0.05% 16 GM NAS SPRAY NASAL SCH ×2 (08:20→21:21)
[2018-04-18] MEDS: SERTRALINE 50 MG TAB PO SCH (08:21)
[2018-04-18] MEDS: SEVELAMER CARBONATE 800 MG TABLET PO SCH ×3 (08:21→17:22)
[2018-04-18] MEDS: FERROUS SULFATE (EC) 325 MG TAB PO SCH (08:21)
[2018-04-18] MEDS: MULTIVIT/CA CARB/B CMPLX/FA TAB PO SCH (08:21)
[2018-04-18] MEDS: ASPIRIN (EC) 81 MG TAB PO SCH (08:22)
--- NOTE | 2018-04-18 16:04 | CONS ---
DATE OF ADMISSION: 04/17/2018 DATE OF CONSULTATION: 04/18/2018 TYPE OF CONSULTATION: Nephrology. REASON FOR CONSULTATION: End-stage renal disease, hyperkalemia. PHYSICIAN REQUESTING CONSULT: Dr. William Beyer. HISTORY OF PRESENT ILLNESS: This is a 63-year-old male with a past medical history of end-stage elizabeth l disease, history of hypertension, anemia, who presents to [facility] with body we akness. The patient states his last hemodialysis was Wednesday. The patient last night, came into the emergency room with weakness. Upon arrival, the patient had laboratory data drawn, which showed mee ent to be hyperkalemic with a potassium level of 6.4. The patient was medically managed in the emerg ency room and admitted to telemetry for evaluation. Overnight, the patient has been anxious, but sta ble. There have been no reports of any hemoptysis, hematemesis, hematochezia. PAST MEDICAL HISTORY: History of end-stage renal disease, history of anemia, history of hypertension , history of diabetes, history of coronary artery disease. PAST SURGICAL HISTORY: Status post CABG, status post Perm-A-Cath placement, status post AV fistula. FAMILY HISTORY: No family history of kidney disease. SOCIAL HISTORY: Does not drink, smoke, do drugs. MEDICATIONS: The patient's medications have been reviewed. REVIEW OF SYSTEMS: A 14-point review of systems conducted. Pertinent positives stated in HPI, other betancourt negative. PHYSICAL EXAMINATION: VITAL SIGNS: Blood pressure is 186/63, respiration 18, pulse 75, temperature 98.6. HEENT: Head is normocephalic. NECK: Supple. HEART: Regular rate. LUNGS: Show diminished breath sounds at the base. ABDOMEN: Soft, nontender to palpation without rebound or guarding. EXTREMITIES: Negative for clubbing, cyanosis, no edema. DERMATOLOGIC: No rashes. MUSCULOSKELETAL: No joint effusion. NEUROLOGIC: No change in exam. LABORATORY DATA: Shows sodium 144, potassium 6.1, BUN 102, creatinine 12.62. White count 7.6, hemog lobin 9.0, platelet count is 183. IMAGING STUDIES: Chest x-ray was reviewed. ASSESSMENT AND PLAN: This is a 63-year-old male who presents with: 1. End-stage renal disease. The patient's last hemodialysis was Wednesday. Access is Perm-A-Cath. Pl an for dialysis today. We will dialyze for 3 hours 2k bath, calcium 2.5, ultrafiltrate as tolerated. 2. Hyperkalemia. The patient will be dialyzed 2 potassium bath. 3. Anemia. Continue to monitor hemoglobin and hematocrit levels. Will give Epogen as needed. 4. Mineral bone disorder. Monitor calcium and phosphorus levels. 5. Hypertension in part due to increased intravascular volume. Continue ultrafiltration dialysis. Continue current blood pressure regimen. 6. Coronary artery disease. Continue medical management. 7. Diabetes. Continue current diuretic regimen. 8. Shortness of breath secondary to volume overload. Will ultrafiltrate hemodialysis. Thank you, Dr. Beyer, for this interesting consult. It will be a pleasure to follow patient with deniz earl throughout the hospital course. Dictated By: LAURA CHUA DO NR/NTS Conf#: [id number] DID#: [id number] CC: WILLIAM BEYER MD;*EndCC*
--- NOTE | 2018-04-18 16:05 | CONS ---
Assessment/Plan Assessment/Plan Hospital Course (Demo Recall) 1. Episodes of asymptomatic bradycardia during hemodialysis: Most likely related to blocked PAC. 2. Hyperkalemia 3. Coronary artery disease with history of coronary bypass graft 4. Renal failure on dialysis 5. Dyslipidemia 6. Diabetes Recommendations Continue with current cardiac care including beta-dianne for now. Outpatient cardiology follow-up with Hemodialysis as per renal Thank you for his referral. We will continue to follow along with you until Dr. Mckinley/ miryam returns tomorrow and will take over the cardiac care of the patient CHANTE GRIFFIN MD [facility] Consultation Date/Type/Reason Admit Date/Time Date of Consultation: Apr 18, 2018 Type of Consult Cardiology Reason for Consultation heart block Requesting Provider: MERARY PULLIAM Date/Time of Note DATE: 04/18/18 TIME: 15:56 Hx of Present Illness Interventional cardiology consultation note Chief complaint: Weakness Reason for consult: Heart block History of present illness: Thank you for this referral. History was obtained from the patient review of the chart review of the old chart. This is a 33-year-old man with a history of end-stage kidney disease hemodialysis dependent presents with generalized weakness in his muscles. He has concern for hyperkalemia which he states has happened multiple times in the past usually associated with muscle weakness. Patient was noted to be hyperkalemic. Today he was being dialyzed. During dialysis was noted to have episode of bradycardia/heart block with you was kindly asked to evaluate. Rhythm was reviewed. Appears the patient mostly has had frequent PACs with block PAC. No syncope presyncope noted associated with these episodes. Allergies: NKDA Medications: See MAR PMH/Family/Social Past Medical History 1. Hypertension 2. End-stage renal disease on hemodialysis. 3. Dyslipidemia. 4. Previous CVA. 5. Diabetes mellitus II. 6. Degenerative joint disease. 7. Coronary artery disease status post CABG Coded Allergies: No Known Drug Allergies (Verified Allergy, Unknown, 04/18/18) Past Surgical History 1. Cardiac bypass 2008. 2. Bowel resection. 3. Cholecystectomy. 4. Retinal repair. 5. LUE AV fistula placement. 6. Left chest permacath placement Allergies: No known drug allergy Medications were reviewed as per medical reconciliation sheet Family history: No reported history of early coronary artery disease Social history: Denies active smoking Review of system: Patient denies all others except for above-mentioned Past Medical History Home Meds Active Scripts Hydrocodone/Acetaminophen ([place] 5-325 Tablet) 1 Each Tablet, 1 TAB PO Q6H PRN for PAIN, #7 TAB Prov:PRETTY USE 04/05/18 Lisinopril* (Lisinopril*) 40 Mg Tablet, 40 MG PO DAILY, #30 TAB Prov:MERARY PULLIAM 02/24/18 Carvedilol* (Carvedilol*) 3.125 Mg Tablet, 3.125 MG PO BID, #60 TAB Prov:GUERDA LANTIGUA 09/12/17 Reported Medications Sevelamer Hcl* (Renagel*) 800 Mg Tablet, 800 MG PO WITH MEALS, TAB 09/10/17 Fluticasone Propionate* (Fluticasone Propionate* Nasal) 50 Mcg/Sutter - 16 Gm Sutter.susp, 1 SPRAY NASAL BID, #1 BOTTLE TO EACH NOSTRIL 09/10/17 Hydrocodone/Acetaminophen ([place] 5-325 Tablet) 1 Each Tablet, 1 EACH PO Q12H, TAB 02/27/17 Alprazolam* (Alprazolam*) 0.25 Mg Tablet, 0.25 MG PO DAILY PRN for ANXIETY, TAB 02/27/17 Trazodone Hcl* (Trazodone Hcl*) 50 Mg Tablet, 50 MG PO QHS, #30 TAB 02/27/17 Sertraline Hcl* (Sertraline Hcl*) 25 Mg Tablet, 25 MG PO DAILY, #30 TAB 02/27/17 Clonidine Hcl* (Clonidine Hcl*) 0.1 Mg Tab, 0.1 MG PO BID, TAB 10/03/16 Glipizide* (Glipizide*) 5 Mg Tablet, 5 MG PO BID, TAB 05/22/15 Folic Acid/Vitamin B Comp W-C* (Nephro-Agatha Rx Tablet*) 1 Mg Tablet, 1 TAB PO DAILY, TAB 09/03/13 Aspirin* (Aspirin* EC) 81 Mg Tablet.dr, 81 MG PO DAILY, TAB 09/03/13 Ferrous Sulfate* (Ferrous Sulfate*) 325 Mg Tablet, 325 MG PO DAILY 06/26/12 Simvastatin (Simvastatin) 20 Mg Tablet, 20 MG PO QHS 12/07/10 Medications Current Medications Dextrose (D50w Syringe) ONCE PRN IV DECREASED GLUCOSE; Start 04/17/18 at 19:30 IV Flush (NS 3 ml) 3 ml PER PROTOCOL IV ; Start 04/17/18 at 21:30 Ondansetron HCl (Zofran Tab) 4 mg Q6H PRN PO NAUSEA/VOMITING; Start 04/17/18 at 21:30 Acetaminophen (Tylenol Tab) 650 mg Q6H PRN PO .PAIN 1-3 OR TEMP; Start 04/17/18 at 21:30 Docusate Sodium (Colace) 100 mg Q12H PRN PO .CONSTIPATION; Start 04/17/18 at 21:30 Bisacodyl (Dulcolax) 5 mg DAILY PRN PO .CONSTIPATION; Start 04/17/18 at 21:30 Alprazolam (Xanax) 0.25 mg DAILY PRN PO ANXIETY; Start 04/18/18 at 02:30 Aspirin (Halfprin) 81 mg DAILY PO Last administered on 04/18/18 08:22; Admin Dose 81 MG; Start 04/18/18 at 09:00 Carvedilol (Coreg) 3.125 mg BID PO Last administered on 04/18/18 08:22; Admin Dose 3.125 MG; Start 04/18/18 at 09:00 Clonidine (Catapres) 0.1 mg BID PO Last administered on 04/18/18 11:26; Admin Dose 0.1 MG; Start 04/18/18 at 09:00 Ferrous Sulfate (Ferrous Sulfate (Ec)) 325 mg DAILY PO Last administered on 04/18/18 08:21; Admin Dose 325 MG; Start 04/18/18 at 09:00 Fluticasone Propionate (Flonase 0.05% Nasal) 1 spray BID NASAL Last administered on 04/18/18 08:20; Admin Dose 1 SPRAY; Start 04/18/18 at 09:00 Multivit/Ca Carb/ B Cmplx/FA/Prenat (Edith-Agatha) 1 tab DAILY PO Last admin istered on 04/18/18 08:21; Admin Dose 1 TAB; Start 04/18/18 at 09:00 Sertraline HCl (Zoloft) 25 mg DAILY PO Last administered on 04/18/18 08:21; Admin Dose 25 MG; Start 04/18/18 at 09:00 Sevelamer Carbonate (Renvela) 800 mg WITH MEALS PO Last administered on 04/18/18at 08:21; Admin Dose 800 MG; Start 04/18/18 at 08:00 Trazodone HCl (Desyrel) 50 mg QHS PO ; Start 04/18/18 at 21:00 Atorvastatin Calcium (Lipitor) 10 mg DAILY@21 PO ; Start 04/18/18 at 21:00 Hydralazine HCl (Apresoline) 10 mg Q4H PRN IV ELEVATED BLOOD PRESSURE; Start 04/18/18 at 02:30 Allergies: Coded Allergies: No Known Drug Allergies (Verified Allergy, Unknown, 04/18/18) Past Surgical History Past Surgical Hx: coronary bypass surgery, other Social History Alcohol Use: none Smoking Status: Never smoker Drug Use: none Exam/Review of Systems Vital Signs Vitals Vital Signs Date Temp Pulse Resp B/P (MAP) Pulse Ox O2 O2 Flow FiO2 Time Delivery Rate 04/18/18 98.2 72 20 139/71 98 15:51 (93) 04/18/18 Nasal 2.0 14:09 Cannula 04/17/18 30 22:32 Intake and Output 04/17/18 04/17/18 04/18/18 1515:00 23:00 07:00 IntakeIntake Total 350 ml BalanceBalance 350 ml Exam Exam General: no acute distress HEENT: NC/AT. pupils are equal. round. NECK: NO JVD. no stridor. CV: RRR. systolic murmur; no gallop or rubs. PULM: no wheezing or rhonchi. GI: SOFT, NT, ND, no rebound or guarding Extremity: trace B/L LE edema. no clubbing. neuro: awake and alert, OX3. Psych: calm and pleasant rectal: deferred : normal EKG was personally showed normal sinus rhythm with first-degree AV block. Poor R wave progression. Nonspecific ST abnormal Labs Result Diagram: 04/18/189 04/18/189 Results 24hrs Laboratory Tests Test 04/17/18 18:37 04/17/18 19:34 04/17/18 20:08 04/18/18 04:59 White Blood Count 6.9 7.6 Red Blood Count 3.16 L 2.93 L Hemoglobin 9.6 L 9.0 L Hematocrit 29.2 L 27.4 L Mean Corpuscular 92.4 93.5 Volume Mean Corpuscular 30.4 30.7 Hemoglobin Mean Corpuscular 32.9 32.8 Hemoglobin Concent Red Cell 14.7 H 15.1 H Distribution Width Platelet Count 196 183 Mean Platelet Volume 9.6 9.8 Immature 0.600 H 0.400 Granulocytes % Neutrophils % 70.7 72.0 Lymphocytes % 13.3 L 15.9 Monocytes % 12.7 H 10.0 Eosinophils % 2.3 1.3 Basophils % 0.4 0.4 Nucleated Red Blood 0.0 0.0 Cells % Immature 0.040 H 0.030 Granulocytes # Neutrophils # 4.8 5.5 Lymphocytes # 0.9 1.2 Monocytes # 0.9 0.8 Eosinophils # 0.2 0.1 Basophils # 0.0 0.0 Nucleated Red Blood 0.0 0.0 Cells # Sodium Level 143 144 Potassium Level 6.4 *H 6.1 *H Chloride Level 102 100 Carbon Dioxide Level 22 23 Anion Gap 19 H 21 H Blood Urea Nitrogen 97 H 102 H Creatinine 11.89 H 12.62 H Est Glomerular 4 L 4 L Filtrat Rate mL/min Glucose Level 178 110 # Calcium Level 9.1 9.1 Total Bilirubin 0.0 L 0.0 L Direct Bilirubin 0.00 0.00 Indirect Bilirubin 0.0 0.0 Aspartate Amino 25 15 Transf (AST/SGOT) Alanine 44 37 Aminotransferase (AL T/SGPT) Alkaline Phosphatase 176 H 162 H Troponin I 0.035 Total Protein 8.4 H 7.7 Albumin 4.5 4.2 Globulin 3.90 H 3.50 H Albumin/Globulin 1.15 1.20 Ratio Lipase 95 Bedside Glucose 134 170 Hemoglobin A1c 7.1 H Magnesium Level 2.6 H Test 04/18/18 10:03 Hepatitis B Surface NEGATIVE Antigen Medications Medications Current Medications Dextrose (D50w Syringe) ONCE PRN IV DECREASED GLUCOSE; Start 04/17/18 at 19:30 IV Flush (NS 3 ml) 3 ml PER PROTOCOL IV ; Start 04/17/18 at 21:30 Ondansetron HCl (Zofran Tab) 4 mg Q6H PRN PO NAUSEA/VOMITING; Start 04/17/18 at 21:30 Acetaminophen (Tylenol Tab) 650 mg Q6H PRN PO .PAIN 1-3 OR TEMP; Start 04/17/18 at 21:30 Docusate Sodium (Colace) 100 mg Q12H PRN PO .CONSTIPATION; Start 04/17/18 at 21:30 Bisacodyl (Dulcolax) 5 mg DAILY PRN PO .CONSTIPATION; Start 04/17/18 at 21:30 Alprazolam (Xanax) 0.25 mg DAILY PRN PO ANXIETY; Start 04/18/18 at 02:30 Aspirin (Halfprin) 81 mg DAILY PO Last administered on 04/18/18 08:22; Admin Dose 81 MG; Start 04/18/18 at 09:00 Carvedilol (Coreg) 3.125 mg BID PO Last administered on 04/18/18 08:22; Admin Dose 3.125 MG; Start 04/18/18 at 09:00 Clonidine (Catapres) 0.1 mg BID PO Last administered on 04/18/18 11:26; Admin Dose 0.1 MG; Start 04/18/18 at 09:00 Ferrous Sulfate (Ferrous Sulfate (Ec)) 325 mg DAILY PO Last administered on 04/18/18 08:21; Admin Dose 325 MG; Start 04/18/18 at 09:00 Fluticasone Propionate (Flonase 0.05% Nasal) 1 spray BID NASAL Last administered on 04/18/18 08:20; Admin Dose 1 SPRAY; Start 04/18/18 at 09:00 Multivit/Ca Carb/ B Cmplx/FA/Prenat (Edith-Agatha) 1 tab DAILY PO Last administered on 04/18/18 08:21; Admin Dose 1 TAB; Start 04/18/18 at 09:00 Sertraline HCl (Zoloft) 25 mg DAILY PO Last administered on 04/18/18 08:21; Admin Dose 25 MG; Start 04/18/18 at 09:00 Sevelamer Carbonate (Renvela) 800 mg WITH MEALS PO Last administered on 04/18/18 08:21; Admin Dose 800 MG; Start 04/18/18 at 08:00 Trazodone HCl (Desyrel) 50 mg QHS PO ; Start 04/18/18 at 21:00 Atorvastatin Calcium (Lipitor) 10 mg DAILY@21 PO ; Start 04/18/18 at 21:00 Hydralazine HCl (Apresoline) 10 mg Q4H PRN IV ELEVATED BLOOD PRESSURE; Start 04/18/18 at 02:30 CHANTE GRIFFIN MD Apr 18, 2018 16:05
--- NOTE | 2018-04-18 18:54 | PN ---
Date/Time of Note Date/Time of Note DATE: 04/18/18 TIME: 14:40 Assessment/Plan VTE Prophylaxis Risk score (from Nsg)>0 risk: 4 Pharmacological prophylaxis: heparin Lines/Catheters IV Catheter Type (from Nrsg): Saline Lock Urinary Cath still in place: No Assessment/Plan Hospital Course Subjective : no new issues, was eating lunch with no difficulty -Nursing had noted bradycardia and concern for type 2 HB during HD, patient was asymptomatic Objective : General: A&O x3, answering questions appropriately HEENT: NC/ AT. PERRL. EOM intact Neck: supple CVS: S1, S2, RRR. no murmurs. no pain on chest wall palpation Lungs: CTA b/l. no wheezing or rhonchi Abd: soft, nontender, +BS Ext: moving all extremities skin: no rashes assessment and plan: This is a 63-year-old male who presented to ER with 3 day hx of lethargy, anxiety and SOB. He usually gets HD , , and he got dialysis on Wednesday but when he started having the symptoms, he knew his pottasium levels were likely high. He is admitted and managed as follows : 1. Lethargy and SOB 2/2 #2 -improved 2. ESRD with uremia and hyperkalemia -ongoing emergent HD -patient feeling better 3. Diabetes mellitus type 2: Last hemoglobin A1c 7.3 from January 2018. -resume home meds and titrate as indicated, carb controlled diet 4. CAD, status post CABG in 2008. -Resume cardiac medications 5. dyslipidemia.: -Resume statins. 6. history of stroke with no residual effects: -Continue statins and aspirin. 7. normocytic, normochromic anemia: - Likely secondary to underlying end-stage renal disease. Monitor hemoglobin closely. Further treatment as per nephrology re: Procrit 8. Bradycardia with type 2 HB -likely related to electrolyte derangement -will get cardio consult and 2D echo -patient denies CP, but will r/o ACS as he is diabetic 9. History of CVA 10. R kidney mass diagnosed 03/12 concerning for CA -f/u outpt 11. History of Prostate CA s/p Brachytherapy seeds -was noted to be in remssion in 03/12 12. Chronc Liver cirrhosis 2/2 Hep C AB reactive - s/p treatment, RNA negative, Undetectable viral load 03/12 Dispo: - Cardio workup, complete inhouse HD and reassess clinically and with labs Prophylaxis : Heparin Result Diagram: 04/18/18 0459 04/18/18 0459 Results 24hrs Laboratory Tests Test 04/17/18 19:34 04/17/18 20:08 04/18/18 04:59 04/18/18 10:03 Bedside Glucose 134 170 White Blood Count 7.6 Red Blood Count 2.93 L Hemoglobin 9.0 L Hematocrit 27.4 L Mean Corpuscular 93.5 Volume Mean Corpuscular 30.7 Hemoglobin Mean Corpuscular 32.8 Hemoglobin Concent Red Cell 15.1 H Distribution Width Platelet Count 183 Mean Platelet Volume 9.8 Immature 0.400 Granulocytes % Neutrophils % 72.0 Lymphocytes % 15.9 Monocytes % 10.0 Eosinophils % 1.3 Basophils % 0.4 Nucleated Red Blood 0.0 Cells % Immature 0.030 Granulocytes # Neutrophils # 5.5 Lymphocytes # 1.2 Monocytes # 0.8 Eosinophils # 0.1 Basophils # 0.0 Nucleated Red Blood 0.0 Cells # Sodium Level 144 Potassium Level 6.1 *H Chloride Level 100 Carbon Dioxide Level 23 Anion Gap 21 H Blood Urea Nitrogen 102 H Creatinine 12.62 H Est Glomerular 4 L Filtrat Rate mL/min Glucose Level 110 # Hemoglobin A1c 7.1 H Calcium Level 9.1 Magnesium Level 2.6 H Total Bilirubin 0.0 L Direct Bilirubin 0.00 Indirect Bilirubin 0.0 Aspartate Amino 15 Transf (AST/SGOT) Alanine 37 Aminotransferase (AL T/SGPT) Alkaline Phosphatase 162 H Total Protein 7.7 Albumin 4.2 Globulin 3.50 H Albumin/Globulin 1.20 Ratio Hepatitis B Surface NEGATIVE Antigen Exam/Review of Systems Exam Vitals Vital Signs Date Temp Pulse Resp B/P (MAP) Pulse Ox O2 O2 Flow FiO2 Time Delivery Rate 04/18/18 78 16:38 04/18/18 98.2 20 139/71 98 15:51 (93) 04/18/18 Nasal 2.0 14:09 Cannula 04/18/18 21 07:00 Intake and Output 04/17/18 04/17/18 04/18/18 1515:00 23:00 07:00 IntakeIntake Total 350 ml BalanceBalance 350 ml Results Results 24hrs Laboratory Tests Test 04/17/18 19:34 04/17/18 20:08 04/18/18 04:59 04/18/18 10:03 Bedside Glucose 134 170 White Blood Count 7.6 Red Blood Count 2.93 L Hemoglobin 9.0 L Hematocrit 27.4 L Mean Corpuscular 93.5 Volume Mean Corpuscular 30.7 Hemoglobin Mean Corpuscular 32.8 Hemoglobin Concent Red Cell 15.1 H Distribution Width Platelet Count 183 Mean Platelet Volume 9.8 Immature 0.400 Granulocytes % Neutrophils % 72.0 Lymphocytes % 15.9 Monocytes % 10.0 Eosinophils % 1.3 Basophils % 0.4 Nucleated Red Blood 0.0 Cells % Immature 0.030 Granulocytes # Neutrophils # 5.5 Lymphocytes # 1.2 Monocytes # 0.8 Eosinophils # 0.1 Basophils # 0.0 Nucleated Red Blood 0.0 Cells # Sodium Level 144 Potassium Level 6.1 *H Chloride Level 100 Carbon Dioxide Level 23 Anion Gap 21 H Blood Urea Nitrogen 102 H Creatinine 12.62 H Est Glomerular 4 L Filtrat Rate mL/min Glucose Level 110 # Hemoglobin A1c 7.1 H Calcium Level 9.1 Magnesium Level 2.6 H Total Bilirubin 0.0 L Direct Bilirubin 0.00 Indirect Bilirubin 0.0 Aspartate Amino 15 Transf (AST/SGOT) Alanine 37 Aminotransferase (AL T/SGPT) Alkaline Phosphatase 162 H Total Protein 7.7 Albumin 4.2 Globulin 3.50 H Albumin/Globulin 1.20 Ratio Hepatitis B Surface NEGATIVE Antigen Medications Medication Current Medications Dextrose (D50w Syringe) ONCE PRN IV DECREASED GLUCOSE; Start 04/17/18 at 19:30 IV Flush (NS 3 ml) 3 ml PER PROTOCOL IV ; Start 04/17/18 at 21:30 Ondansetron HCl (Zofran Tab) 4 mg Q6H PRN PO NAUSEA/VOMITING; Start 04/17/18 at 21:30 Acetaminophen (Tylenol Tab) 650 mg Q6H PRN PO .PAIN 1-3 OR TEMP; Start 04/17/18 at 21:30 Docusate Sodium (Colace) 100 mg Q12H PRN PO .CONSTIPATION; Start 04/17/18 at 21:30 Bisacodyl (Dulcolax) 5 mg DAILY PRN PO .CONSTIPATION; Start 04/17/18 at 21:30 Alprazolam (Xanax) 0.25 mg DAILY PRN PO ANXIETY; Start 04/18/18 at 02:30 Aspirin (Halfprin) 81 mg DAILY PO Last administered on 04/18/18 08:22; Admin Dose 81 MG; Start 04/18/18 at 09:00 Carvedilol (Coreg) 3.125 mg BID PO Last administered on 04/18/18 08:22; Admin Dose 3.125 MG; Start 04/18/18 at 09:00 Clonidine (Catapres) 0.1 mg BID PO Last administered on 04/18/18 11:26; Admin Dose 0.1 MG; Start 04/18/18 at 09:00 Ferrous Sulfate (Ferrous Sulfate (Ec)) 325 mg DAILY PO Last administered on 04/18/18 08:21; Admin Dose 325 MG; Start 04/18/18 at 09:00 Fluticasone Propionate (Flonase 0.05% Nasal) 1 spray BID NASAL Last administered on 04/18/18 08:20; Admin Dose 1 SPRAY; Start 04/18/18 at 09:00 Multivit/Ca Carb/ B Cmplx/FA/Prenat (Edith-Agatha) 1 tab DAILY PO Last administered on 04/18/18 08:21; Admin Dose 1 TAB; Start 04/18/18 at 09:00 Sertraline HCl (Zoloft) 25 mg DAILY PO Last administered on 04/18/18 08:21; Admin Dose 25 MG; Start 04/18/18 at 09:00 Sevelamer Carbonate (Renvela) 800 mg WITH MEALS PO Last administered on 04/18/18 17:22; Admin Dose 800 MG; Start 04/18/18 at 08:00 Trazodone HCl (Desyrel) 50 mg QHS PO ; Start 04/18/18 at 21:00 Atorvastatin Calcium (Lipitor) 10 mg DAILY@21 PO ; Start 04/18/18 at 21:00 Hydralazine HCl (Apresoline) 10 mg Q4H PRN IV ELEVATED BLOOD PRESSURE; Start 04/18/18 at 02:30 MERARY PULLIAM Apr 18, 2018 18:50
[2018-04-18] MEDS: traZODone 50 MG TAB PO SCH (21:23)
[2018-04-18] MEDS: ATORVASTATIN 10 MG TAB PO SCH (21:23)
[2018-04-19] VITALS (23 sets, daily range): BP systolic 92–160; BP diastolic 52–87; PULSE 49–75; RESP 16–18
[2018-04-19] MEDS: FERROUS SULFATE (EC) 325 MG TAB PO SCH (08:14)
[2018-04-19] MEDS: FLUTICASONE 0.05% 16 GM NAS SPRAY NASAL SCH ×2 (08:14→20:46)
[2018-04-19] MEDS: MULTIVIT/CA CARB/B CMPLX/FA TAB PO SCH (08:14)
[2018-04-19] MEDS: SEVELAMER CARBONATE 800 MG TABLET PO SCH ×3 (08:15→17:40)
[2018-04-19] MEDS: SERTRALINE 50 MG TAB PO SCH (08:15)
[2018-04-19] MEDS: ASPIRIN (EC) 81 MG TAB PO SCH (08:15)
--- NOTE | 2018-04-19 08:48 | PN ---
DATE: 04/19/2018 SUBJECTIVE: The patient is stable. No events overnight. OBJECTIVE: VITAL SIGNS: Blood pressure is 118/63, pulse 60, respirations 18, temperature 98.2. HEENT: Head is normocephalic. NECK: Supple. HEART: Regular rate. LUNGS: Show diminished breath sounds at the base. ABDOMEN: Soft, nontender to palpation without rebound or guarding. EXTREMITIES: Negative for clubbing, cyanosis, no edema. DERMATOLOGIC: No rashes. MUSCULOSKELETAL: No joint effusion. NEUROLOGIC: No change in exam. MEDICATIONS: Reviewed. LABORATORY DATA: Shows sodium 140, potassium 5.6, chloride 91, BUN 67, creatinine 9.21, phosphorus 6 .1. ASSESSMENT AND PLAN: 1. End-stage renal disease. The patient had hemodialysis yesterday, tolerated well. Plan is for di alysis again for solute clearance. 2. Hyperkalemia. Continue dialysis on low potassium bath. Continue low-potassium diet. 3. Anemia. Monitor hemoglobin and hematocrit levels. We will give Epogen as needed. 4. Mineral bone disorder, monitor calcium and phosphorus levels. 5. Hypertension. Continue current blood pressure regimen. Continue ultrafiltration dialysis. 6. Chronic artery disease. Continue medical management. 7. Diabetes. Continue current diabetic regimen. 8. Shortness of breath secondary to volume overload, improving. Continue hemodialysis. Dictated By: LAURA CHUA DO NR/NTS Conf#: [id number] DID#: [id number] CC: DEYVI BEYER MD; MERARY PULLIAM MD; LAURA CHUA DO;*EndCC*
--- NOTE | 2018-04-19 11:02 | PN ---
Date/Time of Note Date/Time of Note DATE: 04/19/18 TIME: 10:54 Assessment/Plan VTE Prophylaxis Risk score (from Nsg)>0 risk: 5 Pharmacological prophylaxis: heparin Lines/Catheters IV Catheter Type (from Nrsg): Saline Lock Urinary Cath still in place: No Assessment/Plan Hospital Course Subjective : low grade fever and diarrhea, no more bradycardia -recurrent rectal burning, states creams only relieve for a while and it always comes back. Had colonoscopy 2 years ago with no real findings Objective : General: A&O x3, answering questions appropriately HEENT: NC/ AT. PERRL. EOM intact Neck: supple CVS: S1, S2, RRR. no murmurs. no pain on chest wall palpation Lungs: CTA b/l. no wheezing or rhonchi Abd: soft, nontender, +BS Rectal exam: visual exam showed no external hemorrhoids or fissures, gentle digital exam also revealed no bleeding or fissuring Ext: moving all extremities skin: no rashes assessment and plan: This is a 63-year-old male who presented to ER with 3 day hx of lethargy, anxiety and SOB. He usually gets HD M, W, Fr and he got dialysis on Wednesday but when he started having the symptoms, he knew his pottasium levels were likely high. He is admitted and managed as follows : 1. Lethargy and shortness of breath: Improved -now with new low-grade fever and diarrhea 2. End-stage renal disease with uremia and hyperkalemia: -Improved with dialysis session yesterday, repeat session ongoing 3. Diabetes mellitus type 2 -We will add sliding scale to patient's regimen 4. Asymptomatic bradycardia: -ACS ruled out, cardio following -last 2D echo January 2018 showed preserved ejection fraction without significant valvular abnormality and stage I diastolic dysfunction 5. Hypertension: good control 6. Coronary artery disease status post CABG 2008 7. Chronic dyslipidemia 8. History of CVA without residual effects 9. Chronic normocytic anemia stable secondary to ESRD 10. Right kidney mass diagnosed February 2018 concerning for cancer -is yet to f/u with urology 11. History of prostate cancer status post brachytherapy seeds, was noted to be in remission February 2008 12. Chronic liver cirrhosis secondary to hepatitis C -Status post treatment, hep C RNA negative and undetectable viral load February 2018 13. Rectal burning -rectal exam was essentially normal -will add psyllium to regimen and get GI consult Disposition -Monitor diarrhea for now, if persistent may require C. difficile testing -Send blood cultures and a urine sample for low-grade fever -Hold off on antibiotics for now and see if fever persists -Complete in-house dialysis -Plan to discharge tomorrow after dialysis if no further febrile episodes Prophylaxis : Heparin Result Diagram: 04/19/18 0512 04/19/18 0513 Results 24hrs Laboratory Tests Test 04/18/18 19:07 04/19/18 00:21 04/19/18 05:12 04/19/18 05:13 Creatine Kinase 71 74 Creatine Kinase 1.4 0.9 Index Creatinine Kinase MB 1.00 0.68 (Mass) Troponin I 0.048 0.071 White Blood Count 6.9 Red Blood Count 3.15 L Hemoglobin 9.7 L Hematocrit 29.3 L Mean Corpuscular 93.0 Volume Mean Corpuscular 30.8 Hemoglobin Mean Corpuscular 33.1 Hemoglobin Concent Red Cell 14.9 H Distribution Width Platelet Count 186 Mean Platelet Volume 9.9 Immature 0.400 Granulocytes % Neutrophils % 64.5 Lymphocytes % 20.1 Monocytes % 11.3 H Eosinophils % 3.1 Basophils % 0.6 Nucleated Red Blood 0.0 Cells % Immature 0.030 Granulocytes # Neutrophils # 4.4 Lymphocytes # 1.4 Monocytes # 0.8 Eosinophils # 0.2 Basophils # 0.0 Nucleated Red Blood 0.0 Cells # Sodium Level 140 Potassium Level 5.6 H Chloride Level 91 L Carbon Dioxide Level 32 H Anion Gap 17 H Blood Urea Nitrogen 67 #H Creatinine 9.21 #H Est Glomerular 6 L Filtrat Rate mL/min Glucose Level 108 Calcium Level 8.5 Phosphorus Level 6.1 H Magnesium Level 2.3 Exam/Review of Systems Exam Vitals Vital Signs Date Temp Pulse Resp B/P (MAP) Pulse Ox O2 O2 Flow FiO2 Time Delivery Rate 04/19/18 70 08:43 04/19/18 98.2 18 118/63 99 07:20 (81) 04/19/18 21 01:31 04/18/18 Nasal 2.0 20:17 Cannula Intake and Output 04/18/18 04/18/18 04/19/18 1515:00 23:00 07:00 IntakeIntake Total 600 ml OutputOutput Total 2900 ml BalanceBalance -2900 ml 600 ml Results Results 24hrs Laboratory Tests Test 04/18/18 19:07 04/19/18 00:21 04/19/18 05:12 04/19/18 05:13 Creatine Kinase 71 74 Creatine Kinase 1.4 0.9 Index Creatinine Kinase MB 1.00 0.68 (Mass) Troponin I 0.048 0.071 White Blood Count 6.9 Red Blood Count 3.15 L Hemoglobin 9.7 L Hematocrit 29.3 L Mean Corpuscular 93.0 Volume Mean Corpuscular 30.8 Hemoglobin Mean Corpuscular 33.1 Hemoglobin Concent Red Cell 14.9 H Distribution Width Platelet Count 186 Mean Platelet Volume 9.9 Immature 0.400 Granulocytes % Neutrophils % 64.5 Lymphocytes % 20.1 Monocytes % 11.3 H Eosinophils % 3.1 Basophils % 0.6 Nucleated Red Blood 0.0 Cells % Immature 0.030 Granulocytes # Neutrophils # 4.4 Lymphocytes # 1.4 Monocytes # 0.8 Eosinophils # 0.2 Basophils # 0.0 Nucleated Red Blood 0.0 Cells # Sodium Level 140 Potassium Level 5.6 H Chloride Level 91 L Carbon Dioxide Level 32 H Anion Gap 17 H Blood Urea Nitrogen 67 #H Creatinine 9.21 #H Est Glomerular 6 L Filtrat Rate mL/min Glucose Level 108 Calcium Level 8.5 Phosphorus Level 6.1 H Magnesium Level 2.3 Medications Medication Current Medications Dextrose (D50w Syringe) ONCE PRN IV DECREASED GLUCOSE; Start 04/17/18 at 19:30 IV Flush (NS 3 ml) 3 ml PER PROTOCOL IV ; Start 04/17/18 at 21:30 Ondansetron HCl (Zofran Tab) 4 mg Q6H PRN PO NAUSEA/VOMITING; Start 04/17/18 at 21:30 Acetaminophen (Tylenol Tab) 650 mg Q6H PRN PO .PAIN 1-3 OR TEMP Last administered on 04/19/18at 00:27; Admin Dose 650 MG; Start 04/17/18 at 21:30 Docusate Sodium (Colace) 100 mg Q12H PRN PO .CONSTIPATION; Start 04/17/18 at 21:30 Bisacodyl (Dulcolax) 5 mg DAILY PRN PO .CONSTIPATION; Start 04/17/18 at 21:30 Alprazolam (Xanax) 0.25 mg DAILY PRN PO ANXIETY Last administered on 04/19/18 00:27; Admin Dose 0.25 MG; Start 04/18/18 at 02:30 Aspirin (Halfprin) 81 mg DAILY PO Last administered on 04/19/18 08:15; Admin Dose 81 MG; Start 04/18/18 at 09:00 Carvedilol (Coreg) 3.125 mg BID PO Last administered on 04/19/18 08:15; Admin Dose 3.125 MG; Start 04/18/18 at 09:00 Clonidine (Catapres) 0.1 mg BID PO Last administered on 04/18/18 21:22; Admin Dose 0.1 MG; Start 04/18/18 at 09:00 Ferrous Sulfate (Ferrous Sulfate (Ec)) 325 mg DAILY PO Last administered on 04/19/18 08:14; Admin Dose 325 MG; Start 04/18/18 at 09:00 Fluticasone Propionate (Flonase 0.05% Nasal) 1 spray BID NASAL Last administered on 04/19/18 08:14; Admin Dose 1 SPRAY; Start 04/18/18 at 09:00 Multivit/Ca Carb/ B Cmplx/FA/Prenat (Edith-Agatha) 1 tab DAILY PO Last administer ed on 04/19/18 08:14; Admin Dose 1 TAB; Start 04/18/18 at 09:00 Sertraline HCl (Zoloft) 25 mg DAILY PO Last administered on 04/19/18 08:15; Admin Dose 25 MG; Start 04/18/18 at 09:00 Sevelamer Carbonate (Renvela) 800 mg WITH MEALS PO Last administered on 04/19/18 08:15; Admin Dose 800 MG; Start 04/18/18 at 08:00 Trazodone HCl (Desyrel) 50 mg QHS PO Last administered on 04/18/18 21:23; Admin Dose 50 MG; Start 04/18/18 at 21:00 Atorvastatin Calcium (Lipitor) 10 mg DAILY@21 PO Last administered on 04/18/18 21:23; Admin Dose 10 MG; Start 04/18/18 at 21:00 Hydralazine HCl (Apresoline) 10 mg Q4H PRN IV ELEVATED BLOOD PRESSURE; Start 04/18/18 at 02:30 MERARY PULLIAM Apr 19, 2018 11:02
[2018-04-19] MEDS ORDERED: GLUCAGON 1 MG INJ IM PRN (12:00)
[2018-04-19] MEDS ORDERED: DEXTROSE 50% 50 ML SYRINGE IV PRN ×2 (12:00)
[2018-04-19] MEDS ORDERED: GLUCOSE GEL 15 GRAM TUBE BUCCAL PRN (12:00)
[2018-04-19] MEDS ORDERED: GLUCOSE GEL 15 GRAM TUBE PO PRN ×2 (12:00)
[2018-04-19] MEDS: INSULIN ASPART [NOVOLOG] 3 ML PEN SC SCH ×3 (12:00→20:51)
--- NOTE | 2018-04-19 16:07 | CONS ---
Assessment/Plan Assessment/Plan Hospital Course (Demo Recall) Summary Assessment and Plan: Assessment: Rectal burning/Diarrhea -Proctitis vs hemorrhoids vs other Liver cirrhosis -2/2/ to Hep C- s/p treatment RNA- not detectable ESRD on HD Diabetes mellitus type 2 Bradycardia- stable Hypertension Coronary artery disease -History of CABG 2008 Dyslipidemia History of CVA without residual effects Right kidney mass -Dx February 2018 concerning for cancer History of prostate cancer -S/p brachytherapy seeds - Has been in remission since 2008 Plan: Clear liquid diet today Colonoscopy tomorrow Endoscopy - risks/benefits/alternatives/indications of procedure and sedation/anesthesia discussed with patient who states understanding and gives informed consent to proceed. Patient seen in collaboration with Dr. Ortega CC: BLAINE ORTEGA MD ; Consultation Date/Type/Reason Admit Date/Time Date of Consultation: Apr 19, 2018 Type of Consult GI Reason for Consultation Diarrhea, rectal burning Date/Time of Note DATE: 04/19/18 TIME: 15:57 Hx of Present Illness This is a 63 year old male with PMH of prostate cancer s/p post brachytherapy seeds, ESRD, DM, HTN, CAD, with CABG 2007, CVA without residuals, right kidney mass, Hep C leading to liver cirrhosis s/p treatment. who presented to the ED with multiple complaints. GI has been consulted for diarrhea and rectal burning. Pt states he has had intermittent diarrhea for some time as well as rectal burning. Aggravated by juice, not relieved by anything in particular. Pt states he did have a colonoscopy about 1 year ago, unsure of the results thinks maybe colon polyps. He also c/o intermittent BRBPR. Currently he denies n/v or abd pain , no unintentional weight loss has been noted. Discussed plan for repeat colonoscopy given symptoms and personal history. Pt verbalized understanding and is agreeable to procedure. Review of Systems: A 12 system, review was conducted and is negative except as noted in the HPI or here. Past Medical History Home Meds Active Scripts Hydrocodone/Acetaminophen (Davey 5-325 Tablet) 1 Each Tablet, 1 TAB PO Q6H PRN for PAIN, #7 TAB Prov:PRETTY SUE 04/05/18 Lisinopril* (Lisinopril*) 40 Mg Tablet, 40 MG PO DAILY, #30 TAB Prov:MERARY PULLIAM 02/24/18 Carvedilol* (Carvedilol*) 3.125 Mg Tablet, 3.125 MG PO BID, #60 TAB Prov:GUERDA LANTIGUA 09/12/17 Reported Medications Sevelamer Hcl* (Renagel*) 800 Mg Tablet, 800 MG PO WITH MEALS, TAB 09/10/17 Fluticasone Propionate* (Fluticasone Propionate* Nasal) 50 Mcg/[place] - 16 Gm [place].susp, 1 SPRAY NASAL BID, #1 BOTTLE TO EACH NOSTRIL 09/10/17 Hydrocodone/Acetaminophen (Davey 5-325 Tablet) 1 Each Tablet, 1 EACH PO Q12H, TAB 02/27/17 Alprazolam* (Alprazolam*) 0.25 Mg Tablet, 0.25 MG PO DAILY PRN for ANXIETY, TAB 02/27/17 Trazodone Hcl* (Trazodone Hcl*) 50 Mg Tablet, 50 MG PO QHS, #30 TAB 02/27/17 Sertraline Hcl* (Sertraline Hcl*) 25 Mg Tablet, 25 MG PO DAILY, #30 TAB 02/27/17 Clonidine Hcl* (Clonidine Hcl*) 0.1 Mg Tab, 0.1 MG PO BID, TAB 10/03/16 Glipizide* (Glipizide*) 5 Mg Tablet, 5 MG PO BID, TAB 05/22/15 Folic Acid/Vitamin B Comp W-C* (Nephro-Agatha Rx Tablet*) 1 Mg Tablet, 1 TAB PO DAILY, TAB 09/03/13 Aspirin* (Aspirin* EC) 81 Mg Tablet.dr, 81 MG PO DAILY, TAB 09/03/13 Ferrous Sulfate* (Ferrous Sulfate*) 325 Mg Tablet, 325 MG PO DAILY 06/26/12 Simvastatin (Simvastatin) 20 Mg Tablet, 20 MG PO QHS 12/07/10 Medications Current Medications IV Flush (NS 3 ml) 3 ml PER PROTOCOL IV ; Start 04/17/18 at 21:30 Ondansetron HCl (Zofran Tab) 4 mg Q6H PRN PO NAUSEA/VOMITING; Start 04/17/18 at 21:30 Acetaminophen (Tylenol Tab) 650 mg Q6H PRN PO .PAIN 1-3 OR TEMP Last administered on 04/19/18at 00:27; Admin Dose 650 MG; Start 04/17/18 at 21:30 Docusate Sodium (Colace) 100 mg Q12H PRN PO .CONSTIPATION; Start 04/17/18 at 21:30 Bisacodyl (Dulcolax) 5 mg DAILY PRN PO .CONSTIPATION; Start 04/17/18 at 21:30 Alprazolam (Xanax) 0.25 mg DAILY PRN PO ANXIETY Last administered on 04/19/18 00:27; Admin Dose 0.25 MG; Start 04/18/18 at 02:30 Aspirin (Halfprin) 81 mg DAILY PO Last administered on 04/19/18 08:15; Admin Dose 81 MG; Start 04/18/18 at 09:00 Carvedilol (Coreg) 3.125 mg BID PO Last administered on 04/19/18 08:15; Admin Dose 3.125 MG; Start 04/18/18 at 09:00 Clonidine (Catapres) 0.1 mg BID PO Last administered on 04/18/18 21:22; Admin Dose 0.1 MG; Start 04/18/18 at 09:00 Ferrous Sulfate (Ferrous Sulfate (Ec)) 325 mg DAILY PO Last administered on 04/19/18 08:14; Admin Dose 325 MG; Start 04/18/18 at 09:00 Fluticasone Propionate (Flonase 0.05% Nasal) 1 spray BID NASAL Last a dministered on 04/19/18 08:14; Admin Dose 1 SPRAY; Start 04/18/18 at 09:00 Multivit/Ca Carb/ B Cmplx/FA/Prenat (Edith-Agatha) 1 tab DAILY PO Last administered on 04/19/18 08:14; Admin Dose 1 TAB; Start 04/18/18 at 09:00 Sertraline HCl (Zoloft) 25 mg DAILY PO Last administered on 04/19/18 08:15; Ad min Dose 25 MG; Start 04/18/18 at 09:00 Sevelamer Carbonate (Renvela) 800 mg WITH MEALS PO Last administered on 04/19/18 08:15; Admin Dose 800 MG; Start 04/18/18 at 08:00 Trazodone HCl (Desyrel) 50 mg QHS PO Last administered on 04/18/18 21:23; Admin Dose 50 MG; Start 04/18/18 at 21:00 Atorvastatin Calcium (Lipitor) 10 mg DAILY@21 PO Last administered on 04/18/18at 21:23; Admin Dose 10 MG; Start 04/18/18 at 21:00 Hydralazine HCl (Apresoline) 10 mg Q4H PRN IV ELEVATED BLOOD PRESSURE; Start 04/18/18 at 02:30 Diagnostic Test (Pha) (Accu-Chek) 1 ea 02 XX ; Start 04/20/18 at 02:00 Insulin Aspart (Novolog Insulin Pen) NOVOLOG *MILD* ALGORITHM WITH MEALS BEDTIME SC ; Start 04/19/18 at 12:00 Miscellaneous Information 1 ea NOTE XX ; Start 04/19/18 at 12:00 Glucose (Glutose) 15 gm Q15M PRN PO DECREASED GLUCOSE; Start 04/19/18 at 12:00 Glucose (Glutose) 22.5 gm Q15M PRN PO DECREASED GLUCOSE; Start 04/19/18 at 12:00 Dextrose (D50w Syringe) 25 ml Q15M PRN IV DECREASED GLUCOSE; Start 04/19/18 at 12:00 Dextrose (D50w Syringe) 50 ml Q15M PRN IV DECREASED GLUCOSE; Start 04/19/18 at 12:00 Glucagon (Glucagen) 1 mg Q15M PRN IM DECREASED GLUCOSE; Start 04/19/18 at 12:00 Glucose (Glutose) 15 gm Q15M PRN BUCCAL DECREASED GLUCOSE; Start 04/19/18 at 12:00 Psyllium Hydrophilic Mucilloid (Metamucil) 1 pkt DAILY PO ; Start 04/20/18 at 09:00 Allergies: Coded Allergies: No Known Drug Allergies (Verified Allergy, Unknown, 04/18/18) Past Surgical History Past Surgical Hx: coronary bypass surgery, other Social History Alcohol Use: none Smoking Status: Never smoker Drug Use: none Exam/Review of Systems Exam Vitals Vital Signs Date Temp Pulse Resp B/P (MAP) Pulse Ox O2 O2 Flow FiO2 Time Delivery Rate 04/19/18 68 16 126/68 100 Nasal 2.0 13:45 (87) Cannula 04/19/18 98.0 12:40 04/19/18 21 01:31 Intake and Output 04/18/18 04/18/18 04/19/18 1414:59 22:59 06:59 IntakeIntake Total 600 ml OutputOutput Total 2900 ml BalanceBalance -2900 ml 600 ml Exam PHYSICAL EXAMINATION: GENERAL: Well developed, well nourished, alert & oriented x 3, in no acute distress SKIN: No lesions EYES: Pupils equal reactive to light, no discharge. EARS/NOSE AND THROAT: Ears normal, nose normal NECK: Supple, no masses CHEST: Inspection within normal limits. CARDIOVASCULAR: Heart: Regular rate and rhythm RESPIRATORY: Lungs clear to auscultation GASTROINTESTINAL AND LIVER: Abdomen: Soft, non tenderness, non-distended, no hernias, no masses, no organomegaly, no ascites, no guarding, no rebound tenderness, normoactive bowel sounds. Rectal: Deferred. EXTREMITIES: No cyanosis, clubbing or edema. Results Result Diagram: 04/19/18 0512 04/19/18 0513 Results 24hrs Laboratory Tests Test 04/18/18 19:07 04/19/18 00:21 04/19/18 05:12 04/19/18 05:13 Creatine Kinase 71 74 Creatine Kinase 1.4 0.9 Index Creatinine Kinase MB 1.00 0.68 (Mass) Troponin I 0.048 0.071 White Blood Count 6.9 Red Blood Count 3.15 L Hemoglobin 9.7 L Hematocrit 29.3 L Mean Corpuscular 93.0 Volume Mean Corpuscular 30.8 Hemoglobin Mean Corpuscular 33.1 Hemoglobin Concent Red Cell 14.9 H Distribution Width Platelet Count 186 Mean Platelet Volume 9.9 Immature 0.400 Granulocytes % Neutrophils % 64.5 Lymphocytes % 20.1 Monocytes % 11.3 H Eosinophils % 3.1 Basophils % 0.6 Nucleated Red Blood 0.0 Cells % Immature 0.030 Granulocytes # Neutrophils # 4.4 Lymphocytes # 1.4 Monocytes # 0.8 Eosinophils # 0.2 Basophils # 0.0 Nucleated Red Blood 0.0 Cells # Sodium Level 140 Potassium Level 5.6 H Chloride Level 91 L Carbon Dioxide Level 32 H Anion Gap 17 H Blood Urea Nitrogen 67 #H Creatinine 9.21 #H Est Glomerular 6 L Filtrat Rate mL/min Glucose Level 108 Calcium Level 8.5 Phosphorus Level 6.1 H Magnesium Level 2.3 Test 04/19/18 12:46 Bedside Glucose 106 Medications Medication Current Medications IV Flush (NS 3 ml) 3 ml PER PROTOCOL IV ; Start 04/17/18 at 21:30 Ondansetron HCl (Zofran Tab) 4 mg Q6H PRN PO NAUSEA/VOMITING; Start 04/17/18 at 21:30 Acetaminophen (Tylenol Tab) 650 mg Q6H PRN PO .PAIN 1-3 OR TEMP Last administered on 04/19/18 00:27; Admin Dose 650 MG; Start 04/17/18 at 21:30 Docusate Sodium (Colace) 100 mg Q12H PRN PO .CONSTIPATION; Start 04/17/18 at 21:30 Bisacodyl (Dulcolax) 5 mg DAILY PRN PO .CONSTIPATION; Start 04/17/18 at 21:30 Alprazolam (Xanax) 0.25 mg DAILY PRN PO ANXIETY Last administered on 04/19/18 00:27; Admin Dose 0.25 MG; Start 04/18/18 at 02:30 Aspirin (Halfprin) 81 mg DAILY PO Last administered on 04/19/18 08:15; Admin Dose 81 MG; Start 04/18/18 at 09:00 Carvedilol (Coreg) 3.125 mg BID PO Last administered on 04/19/18 08:15; Admin Dose 3.125 MG; Start 04/18/18 at 09:00 Clonidine (Catapres) 0.1 mg BID PO Last administered on 04/18/18 21:22; Admin Dose 0.1 MG; Start 04/18/18 at 09:00 Ferrous Sulfate (Ferrous Sulfate (Ec)) 325 mg DAILY PO Last administered on 04/19/18 08:14; Admin Dose 325 MG; Start 04/18/18 at 09:00 Fluticasone Propionate (Flonase 0.05% Nasal) 1 spray BID NASAL Last administe red on 04/19/18 08:14; Admin Dose 1 SPRAY; Start 04/18/18 at 09:00 Multivit/Ca Carb/ B Cmplx/FA/Prenat (Edith-Agatha) 1 tab DAILY PO Last administered on 04/19/18 08:14; Admin Dose 1 TAB; Start 04/18/18 at 09:00 Sertraline HCl (Zoloft) 25 mg DAILY PO Last administered on 04/19/18 08:15; Admin Dose 25 MG; Start 04/18/18 at 09:00 Sevelamer Carbonate (Renvela) 800 mg WITH MEALS PO Last administered on 2/26/19at 08:15; Admin Dose 800 MG; Start 04/18/18 at 08:00 Trazodone HCl (Desyrel) 50 mg QHS PO Last administered on 04/18/18at 21:23; Admin Dose 50 MG; Start 04/18/18 at 21:00 Atorvastatin Calcium (Lipitor) 10 mg DAILY@21 PO Last administered on 04/18/18at 21:23; Admin Dose 10 MG; Start 04/18/18 at 21:00 Hydralazine HCl (Apresoline) 10 mg Q4H PRN IV ELEVATED BLOOD PRESSURE; Start 04/18/18 at 02:30 Diagnostic Test (Pha) (Accu-Chek) 1 ea 02 XX ; Start 04/20/18 at 02:00 Insulin Aspart (Novolog Insulin Pen) NOVOLOG *MILD* ALGORITHM WITH MEALS BEDTIME SC ; Start 04/19/18 at 12:00 Miscellaneous Information 1 ea NOTE XX ; Start 04/19/18 at 12:00 Glucose (Glutose) 15 gm Q15M PRN PO DECREASED GLUCOSE; Start 04/19/18 at 12:00 Glucose (Glutose) 22.5 gm Q15M PRN PO DECREASED GLUCOSE; Start 04/19/18 at 12:00 Dextrose (D50w Syringe) 25 ml Q15M PRN IV DECREASED GLUCOSE; Start 04/19/18 at 12:00 Dextrose (D50w Syringe) 50 ml Q15M PRN IV DECREASED GLUCOSE; Start 04/19/18 at 12:00 Glucagon (Glucagen) 1 mg Q15M PRN IM DECREASED GLUCOSE; Start 04/19/18 at 12:00 Glucose (Glutose) 15 gm Q15M PRN BUCCAL DECREASED GLUCOSE; Start 04/19/18 at 12:00 Psyllium Hydrophilic Mucilloid (Metamucil) 1 pkt DAILY PO ; Start 04/20/18 at 09:00 RANDY MA Apr 19, 2018 16:07
[2018-04-19] MEDS ORDERED: BISACODYL (EC) 5 MG TAB PO ONE (16:30)
[2018-04-19] MEDS ORDERED: PEG/ELECTROLYTES 4L BTL PO ONE (17:00)
[2018-04-19] MEDS: ATORVASTATIN 10 MG TAB PO SCH (20:47)
[2018-04-19] MEDS: traZODone 50 MG TAB PO SCH (20:47)
[2018-04-20] VITALS (17 sets, daily range): BP systolic 92–150; BP diastolic 39–65; PULSE 59–71; RESP 11–20
[2018-04-20] MEDS ORDERED: ACCU-CHEK XX SCH (02:00)
[2018-04-20] MEDS ORDERED: PEG/ELECTROLYTES 4L BTL PO ONE (05:00)
[2018-04-20] MEDS ORDERED: BISACODYL (EC) 5 MG TAB PO ONE (05:00)
[2018-04-20] MEDS: INSULIN ASPART [NOVOLOG] 3 ML PEN SC SCH ×3 (07:54→17:25)
[2018-04-20] MEDS: SEVELAMER CARBONATE 800 MG TABLET PO SCH ×3 (07:55→17:10)
[2018-04-20] MEDS: FLUTICASONE 0.05% 16 GM NAS SPRAY NASAL SCH (08:25)
[2018-04-20] MEDS: MULTIVIT/CA CARB/B CMPLX/FA TAB PO SCH (08:26)
[2018-04-20] MEDS: SERTRALINE 50 MG TAB PO SCH (08:26)
[2018-04-20] MEDS: FERROUS SULFATE (EC) 325 MG TAB PO SCH (08:26)
[2018-04-20] MEDS: ASPIRIN (EC) 81 MG TAB PO SCH (08:26)
[2018-04-20] MEDS ORDERED: PSYLLIUM 28% PACKET PO SCH (09:00)
--- NOTE | 2018-04-20 09:34 | PN ---
DATE: 04/20/2018 SUBJECTIVE: The patient is stable, pending a colonoscopy. No other events noted. OBJECTIVE: VITAL SIGNS: Blood pressure is 101/59, respirations 20, pulse 66, temperature 97.7. HEENT: Head is normocephalic. NECK: Supple. HEART: Regular rate. LUNGS: Show diminished breath sounds at the base. ABDOMEN: Soft, nontender to palpation without rebound or guarding. EXTREMITIES: Negative for clubbing, cyanosis, no edema. DERMATOLOGIC: No rashes. MUSCULOSKELETAL: No joint effusion. NEUROLOGIC: No change in exam. MEDICATIONS: Reviewed. LABORATORY DATA: Shows sodium 137, potassium 5.1, BUN 39, creatinine 6.48. White count 7.2, hemoglo bin 10.3, platelet count 204. ASSESSMENT AND PLAN: 1. End-stage renal disease. The patient had hemodialysis yesterday, tolerated well. Plan is for di alysis again tomorrow. 2. Hyperkalemia, improved. Continue dialysis on low potassium bath. 3. Anemia. Continue to monitor hemoglobin and hematocrit levels. 4. Rectal pain proctitis. The patient is pending colonoscopy. 5. Mineral bone disorder, monitor calcium and phosphorus levels. 6. Hypertension. Continue current blood pressure regimen, improved. 7. Coronary artery disease. Continue medical management. 8. Diabetes. Continue current diabetic regimen. 9. Shortness of breath, improving. Dictated By: LAURA CHUA DO NR/NTS Conf#: [id number] DID#: [id number] CC: LAURA CHUA DO; DEYVI BEYER MD; MERARY PULLIAM MD;*EndCC*
--- NOTE | 2018-04-20 11:27 | PN ---
Date/Time of Note Date/Time of Note DATE: 04/20/18 TIME: 11:25 Assessment/Plan VTE Prophylaxis Risk score (from Nsg)>0 risk: 5 Pharmacological prophylaxis: heparin Lines/Catheters IV Catheter Type (from Nrsg): Saline Lock Urinary Cath still in place: No Assessment/Plan Hospital Course Subjective : no new complaints Objective : General: A&O x3, answering questions appropriately HEENT: NC/ AT. PERRL. EOM intact Neck: supple CVS: S1, S2, RRR. no murmurs. no pain on chest wall palpation Lungs: CTA b/l. no wheezing or rhonchi Abd: soft, nontender, +BS Rectal exam: visual exam showed no external hemorrhoids or fissures, gentle digital exam also revealed no bleeding or fissuring 04/19/18 Ext: moving all extremities skin: no rashes assessment and plan: This is a 63-year-old male who presented to ER with 3 day hx of lethargy, anxiety and SOB. He usually gets HD M, W, and he got dialysis on Wednesday but when he started having the symptoms, he knew his potassium levels were likely high. He is admitted and managed as follows : 1. Lethargy and shortness of breath: Improved 2. End-stage renal disease with uremia and hyperkalemia: -Improved with dialysis session yesterday, repeat session ongoing 3. Diabetes mellitus type 2 -We will add sliding scale to patient's regimen 4. Asymptomatic bradycardia: -ACS ruled out, cardio following -last 2D echo January 2018 showed preserved ejection fraction without significant valvular abnormality and stage I diastolic dysfunction 5. Hypertension: good control 6. Coronary artery disease status post CABG 2008 7. Chronic dyslipidemia 8. History of CVA without residual effects 9. Chronic normocytic anemia stable secondary to ESRD 10. Right kidney mass diagnosed February 2018 concerning for cancer -is yet to f/u with urology 11. History of prostate cancer status post brachytherapy seeds, was noted to be in remission February 2008 12. Chronic liver cirrhosis secondary to hepatitis C -Status post treatment, hep C RNA negative and undetectable viral load 2018 13. Rectal burning, diarrhea -rectal exam was essentially normal, colonoscopy today Disposition -colonoscopy today, for discharge after that if patient is stable Prophylaxis : Heparin Result Diagram: 04/20/18 0516 04/20/18 0516 Results 24hrs Laboratory Tests Test 04/19/18 12:46 04/19/18 16:55 04/19/18 20:51 04/20/18 02:08 Bedside Glucose 106 204 90 99 Test 04/20/18 05:16 04/20/18 07:54 White Blood Count 7.2 Red Blood Count 3.38 L Hemoglobin 10.3 L Hematocrit 31.2 L Mean Corpuscular 92.3 Volume Mean Corpuscular 30.5 Hemoglobin Mean Corpuscular 33.0 Hemoglobin Concent Red Cell 14.4 Distribution Width Platelet Count 204 Mean Platelet Volume 10.0 Immature 0.400 Granulocytes % Neutrophils % 60.8 Lymphocytes % 17.9 Monocytes % 16.3 H Eosinophils % 3.8 Basophils % 0.8 Nucleated Red Blood 0.0 Cells % Immature 0.030 Granulocytes # Neutrophils # 4.4 Lymphocytes # 1.3 Monocytes # 1.2 H Eosinophils # 0.3 Basophils # 0.1 Nucleated Red Blood 0.0 Cells # Sodium Level 137 Potassium Level 5.1 Chloride Level 91 L Carbon Dioxide Level 29 Anion Gap 17 H Blood Urea Nitrogen 39 #H Creatinine 6.48 #H Est Glomerular 9 L Filtrat Rate mL/min Glucose Level 103 Calcium Level 9.2 Magnesium Level 2.1 Bedside Glucose 104 Exam/Review of Systems Exam Vitals Vital Signs Date Temp Pulse Resp B/P (MAP) Pulse Ox O2 O2 Flow FiO2 Time Delivery Rate 04/20/18 98.8 65 18 112/59 95 Room Air 11:19 (76) 04/19/18 2.0 13:45 04/19/18 21 01:31 Intake and Output 04/19/18 04/19/18 04/20/18 1515:00 23:00 07:00 IntakeIntake Total 600 ml OutputOutput Total 1500 ml BalanceBalance -1500 ml 600 ml Results Results 24hrs Laboratory Tests Test 04/19/18 12:46 04/19/18 16:55 04/19/18 20:51 04/20/18 02:08 Bedside Glucose 106 204 90 99 Test 04/20/18 05:16 04/20/18 07:54 White Blood Count 7.2 Red Blood Count 3.38 L Hemoglobin 10.3 L Hematocrit 31.2 L Mean Corpuscular 92.3 Volume Mean Corpuscular 30.5 Hemoglobin Mean Corpuscular 33.0 Hemoglobin Concent Red Cell 14.4 Distribution Width Platelet Count 204 Mean Platelet Volume 10.0 Immature 0.400 Granulocytes % Neutrophils % 60.8 Lymphocytes % 17.9 Monocytes % 16.3 H Eosinophils % 3.8 Basophils % 0.8 Nucleated Red Blood 0.0 Cells % Immature 0.030 Granulocytes # Neutrophils # 4.4 Lymphocytes # 1.3 Monocytes # 1.2 H Eosinophils # 0.3 Basophils # 0.1 Nucleated Red Blood 0.0 Cells # Sodium Level 137 Potassium Level 5.1 Chloride Level 91 L Carbon Dioxide Level 29 Anion Gap 17 H Blood Urea Nitrogen 39 #H Creatinine 6.48 #H Est Glomerular 9 L Filtrat Rate mL/min Glucose Level 103 Calcium Level 9.2 Magnesium Level 2.1 Bedside Glucose 104 Medications Medication Current Medications IV Flush (NS 3 ml) 3 ml PER PROTOCOL IV ; Start 04/17/18 at 21:30 Ondansetron HCl (Zofran Tab) 4 mg Q6H PRN PO NAUSEA/VOMITING; Start 04/17/18 at 21:30 Acetaminophen (Tylenol Tab) 650 mg Q6H PRN PO .PAIN 1-3 OR TEMP Last administered on 04/19/18at 00:27; Admin Dose 650 MG; Start 04/17/18 at 21:30 Docusate Sodium (Colace) 100 mg Q12H PRN PO .CONSTIPATION; Start 04/17/18 at 21:30 Bisacodyl (Dulcolax) 5 mg DAILY PRN PO .CONSTIPATION; Start 04/17/18 at 21:30 Alprazolam (Xanax) 0.25 mg DAILY PRN PO ANXIETY Last administered on 04/19/18at 00:27; Admin Dose 0.25 MG; Start 04/18/18 at 02:30 Aspirin (Halfprin) 81 mg DAILY PO Last administered on 04/20/18 08:26; Admin Dose 81 MG; Start 04/18/18 at 09:00 Carvedilol (Coreg) 3.125 mg BID PO Last administered on 04/19/18at 20:47; Admin Dose 3.125 MG; Start 04/18/18 at 09:00 Clonidine (Catapres) 0.1 mg BID PO Last administered on 04/19/18at 20:46; Admin Dose 0.1 MG; Start 04/18/18 at 09:00 Ferrous Sulfate (Ferrous Sulfate (Ec)) 325 mg DAILY PO Last administered on 04/20/18 08:26; Admin Dose 325 MG; Start 04/18/18 at 09:00 Fluticasone Propionate (Flonase 0.05% Nasal) 1 spray BID NASAL Last administered on 04/20/18 08:25; Admin Dose 1 SPRAY; Start 04/18/18 at 09:00 Multivit/Ca Carb/ B Cmplx/FA/Prenat (Edith-Agatha) 1 tab DAILY PO Last administered on 04/20/18 08:26; Admin Dose 1 TAB; Start 04/18/18 at 09:00 Sertraline HCl (Zoloft) 25 mg DAILY PO Last administered on 04/20/18 08:26; Admin Dose 25 MG; Start 04/18/18 at 09:00 Sevelamer Carbonate (Renvela) 800 mg WITH MEALS PO Last administered on 04/19/18 17:40; Admin Dose 800 MG; Start 04/18/18 at 08:00 Trazodone HCl (Desyrel) 50 mg QHS PO Last administered on 04/19/18 20:47; Admin Dose 50 MG; Start 04/18/18 at 21:00 Atorvastatin Calcium (Lipitor) 10 mg DAILY@21 PO Last administered on 04/19/18 20:47; Admin Dose 10 MG; Start 04/18/18 at 21:00 Hydralazine HCl (Apresoline) 10 mg Q4H PRN IV ELEVATED BLOOD PRESSURE; Start 04/18/18 at 02:30 Diagnostic Test (Pha) (Accu-Chek) 1 ea 02 XX Last administered on 04/20/18at 02:28; Admin Dose 1 EA; Start 04/20/18 at 02:00 Insulin Aspart (Novolog Insulin Pen) NOVOLOG *MILD* ALGORITHM WITH MEALS BEDTIME SC Last administered on 04/19/18 18:29; Admin Dose 2 UNIT; Start 04/19/18 at 12:00 Miscellaneous Information 1 ea NOTE XX ; Start 04/19/18 at 12:00 Glucose (Glutose) 15 gm Q15M PRN PO DECREASED GLUCOSE; Start 04/19/18 at 12:00 Glucose (Glutose) 22.5 gm Q15M PRN PO DECREASED GLUCOSE; Start 04/19/18 at 12:00 Dextrose (D50w Syringe) 25 ml Q15M PRN IV DECREASED GLUCOSE; Start 04/19/18 at 12:00 Dextrose (D50w Syringe) 50 ml Q15M PRN IV DECREASED GLUCOSE; Start 04/19/18 at 12:00 Glucagon (Glucagen) 1 mg Q15M PRN IM DECREASED GLUCOSE; Start 04/19/18 at 12:00 Glucose (Glutose) 15 gm Q15M PRN BUCCAL DECREASED GLUCOSE; Start 04/19/18 at 12:00 Psyllium Hydrophilic Mucilloid (Metamucil) 1 pkt DAILY PO ; Start 04/20/18 at 09:00 Epoetin Brian (Epogen (Esrd)) 10,000 units MoWeFr@17 SC ; Start 04/20/18 at 17:00 MERARY PULLIAM Apr 20, 2018 11:27
--- NOTE | 2018-04-20 13:27 | PREAC ---
Date/Time of Note Date/Time of Note DATE: 04/20/18 TIME: 13:24 Anesthesia Eval and Record Evaluation Time Pre-Procedure Interview DATE: 04/20/18 TIME: 13:24 Age 63 Sex male NPO: 8 hrs Preoperative diagnosis Rectal Burning and diarrhea Planned procedure Colonoscopy Past Medical History Past Medical History: Includes Cardio: HTN, Dyslipidemia, CAD, CABG (2008) Endo: Diabetes Neuro: CVA Renal: ESRD on dialysis Hepatic: Cirrhosis Heme: Anemia Infection(s): Hep C (treated) Surgery & Anesthesia Issues No known issue Meds Anticoagulation: No Beta Jer within 24 hr: No Reason Beta Jer not given: Pt. not on B-Jer Active Scripts Hydrocodone/Acetaminophen ([place] 5-325 Tablet) 1 Each Tablet, 1 TAB PO Q6H PRN for PAIN, #7 TAB Prov:PRETTY SUE 04/05/18 Lisinopril* (Lisinopril*) 40 Mg Tablet, 40 MG PO DAILY, #30 TAB Prov:MERARY PULLIAM 02/24/18 Carvedilol* (Carvedilol*) 3.125 Mg Tablet, 3.125 MG PO BID, #60 TAB Prov:GUERDA LANTIGUA 09/12/17 Reported Medications Sevelamer Hcl* (Renagel*) 800 Mg Tablet, 800 MG PO WITH MEALS, TAB 09/10/17 Fluticasone Propionate* (Fluticasone Propionate* Nasal) 50 Mcg/[place] - 16 Gm [place].susp, 1 SPRAY NASAL BID, #1 BOTTLE TO EACH NOSTRIL 09/10/17 Hydrocodone/Acetaminophen ([place] 5-325 Tablet) 1 Each Tablet, 1 EACH PO Q12H, TAB 02/27/17 Alprazolam* (Alprazolam*) 0.25 Mg Tablet, 0.25 MG PO DAILY PRN for ANXIETY, TAB 02/27/17 Trazodone Hcl* (Trazodone Hcl*) 50 Mg Tablet, 50 MG PO QHS, #30 TAB 02/27/17 Sertraline Hcl* (Sertraline Hcl*) 25 Mg Tablet, 25 MG PO DAILY, #30 TAB 02/27/17 Clonidine Hcl* (Clonidine Hcl*) 0.1 Mg Tab, 0.1 MG PO BID, TAB 10/03/16 Glipizide* (Glipizide*) 5 Mg Tablet, 5 MG PO BID, TAB 05/22/15 Folic Acid/Vitamin B Comp W-C* (Nephro-Agatha Rx Tablet*) 1 Mg Tablet, 1 TAB PO DAILY, TAB 09/03/13 Aspirin* (Aspirin* EC) 81 Mg Tablet.dr, 81 MG PO DAILY, TAB 09/03/13 Ferrous Sulfate* (Ferrous Sulfate*) 325 Mg Tablet, 325 MG PO DAILY 06/26/12 Simvastatin (Simvastatin) 20 Mg Tablet, 20 MG PO QHS 12/07/10 Current Medications IV Flush (NS 3 ml) 3 ml PER PROTOCOL IV ; Start 04/17/18 at 21:30 Ondansetron HCl (Zofran Tab) 4 mg Q6H PRN PO NAUSEA/VOMITING; Start 04/17/18 at 21:30 Acetaminophen (Tylenol Tab) 650 mg Q6H PRN PO .PAIN 1-3 OR TEMP Last administered on 04/19/18at 00:27; Admin Dose 650 MG; Start 04/17/18 at 21:30 Docusate Sodium (Colace) 100 mg Q12H PRN PO .CONSTIPATION; Start 04/17/18 at 21:30 Bisacodyl (Dulcolax) 5 mg DAILY PRN PO .CONSTIPATION; Start 04/17/18 at 21:30 Alprazolam (Xanax) 0.25 mg DAILY PRN PO ANXIETY Last administered on 04/19/18at 00:27; Admin Dose 0.25 MG; Start 04/18/18 at 02:30 Aspirin (Halfprin) 81 mg DAILY PO Last administered on 04/20/18 08:26; Admin Dose 81 MG; Start 04/18/18 at 09:00 Carvedilol (Coreg) 3.125 mg BID PO Last administered on 04/19/18 20:47; Admin Dose 3.125 MG; Start 04/18/18 at 09:00 Clonidine (Catapres) 0.1 mg BID PO Last administered on 04/19/18 20:46; Admin Dose 0.1 MG; Start 04/18/18 at 09:00 Ferrous Sulfate (Ferrous Sulfate (Ec)) 325 mg DAILY PO Last administered on 04/20/18 08:26; Admin Dose 325 MG; Start 04/18/18 at 09:00 Fluticasone Propionate (Flonase 0.05% Nasal) 1 spray BID NASAL Last administered on 04/20/18 08:25; Admin Dose 1 SPRAY; Start 04/18/18 at 09:00 Multivit/Ca Carb/ B Cmplx/FA/Prenat (Edith-Agatha) 1 tab DAILY PO Last administered on 04/20/18 08:26; Admin Dose 1 TAB; Start 04/18/18 at 09:00 Sertraline HCl (Zoloft) 25 mg DAILY PO Last administered on 04/20/18 08:26; Admin Dose 25 MG; Start 04/18/18 at 09:00 Sevelamer Carbonate (Renvela) 800 mg WITH MEALS PO Last administered on 04/19/18 17:40; Admin Dose 800 MG; Start 04/18/18 at 08:00 Trazodone HCl (Desyrel) 50 mg QHS PO Last administered on 04/19/18 20:47; Admin Dose 50 MG; Start 04/18/18 at 21:00 Atorvastatin Calcium (Lipitor) 10 mg DAILY@21 PO Last administered on 04/19/18 20:47; Admin Dose 10 MG; Start 04/18/18 at 21:00 Hydralazine HCl (Apresoline) 10 mg Q4H PRN IV ELEVATED BLOOD PRESSURE; Start 04/18/18 at 02:30 Diagnostic Test (Pha) (Accu-Chek) 1 ea 02 XX Last administered on 04/20/18 02:28; Admin Dose 1 EA; Start 04/20/18 at 02:00 Insulin Aspart (Novolog Insulin Pen) NOVOLOG *MILD* ALGORITHM WITH MEALS BEDTIME SC Last administered on 04/19/18at 18:29; Admin Dose 2 UNIT; Start 04/19/18 at 12:00 Miscellaneous Information 1 ea NOTE XX ; Start 04/19/18 at 12:00 Glucose (Glutose) 15 gm Q15M PRN PO DECREASED GLUCOSE; Start 04/19/18 at 12:00 Glucose (Glutose) 22.5 gm Q15M PRN PO DECREASED GLUCOSE; Start 04/19/18 at 12:00 Dextrose (D50w Syringe) 25 ml Q15M PRN IV DECREASED GLUCOSE; Start 04/19/18 at 12:00 Dextrose (D50w Syringe) 50 ml Q15M PRN IV DECREASED GLUCOSE; Start 04/19/18 at 12:00 Glucagon (Glucagen) 1 mg Q15M PRN IM DECREASED GLUCOSE; Start 04/19/18 at 12:00 Glucose (Glutose) 15 gm Q15M PRN BUCCAL DECREASED GLUCOSE; Start 04/19/18 at 12:00 Psyllium Hydrophilic Mucilloid (Metamucil) 1 pkt DAILY PO ; Start 04/20/18 at 09:00 Epoetin Brian (Epogen (Esrd)) 10,000 units MoWeFr@17 SC ; Start 04/20/18 at 17:00 Meds reviewed: Yes Allergies Coded Allergies: No Known Drug Allergies (Verified Allergy, Unknown, 04/18/18) Allergies Reviewed: Yes Labs/Studies Labs Reviewed: Reviewed by anesthesiologist Result Diagram: 04/20/18 0516 04/20/18 0516 Laboratory Tests 04/20/18 05:16 test: N/A Studies: ECG (NSR), CXR (n/a) Pre-procedure Exam Last vitals Vital Signs Date Temp Pulse Resp B/P (MAP) Pulse Ox O2 O2 Flow FiO2 Time Delivery Rate 04/20/18 97.6 65 16 150/60 94 Room Air 13:20 (90) 04/19/18 2.0 13:45 04/19/18 21 01:31 Airway: Adequate mouth opening, Adequate thyromental dist Mallampati: Mallampati II Teeth: Normal Lung: Normal Heart: Normal ASA Physical Status ASA physical status: 4 Emergency: None Planned Anesthetic General/MAC: MAC Planned Pain Management Parenteral pain med Pre-operative Attestations Prior to commencing anesthesia and surgery, the patient was re-evaluated, there was verification of: *The patient's identity *The results of appropriate recent lab work and preoperative vital signs *The above evaluation not changing prior to induction *Anesthetic plan, risk benefits, alternative and complications discussed with patient/family; questions answered; patient/family understands, accepts and wishes to proceed. APRIL COVARRUBIAS MD Apr 20, 2018 13:27
[2018-04-20] MEDS ORDERED: HYDROmorphONE 1 MG/5 ML IV SYRINGE IV PRN ×3 (13:30)
[2018-04-20] MEDS ORDERED: METOCLOPRAMIDE 10 MG INJ IV PRN (13:30)
[2018-04-20] MEDS ORDERED: hydrALAzine 20 MG INJ IV PRN (13:30)
[2018-04-20] MEDS ORDERED: LABETALOL HCL 20MG INJ IV PRN (13:30)
[2018-04-20] MEDS ORDERED: ONDANSETRON 4 MG INJ IV PRN (13:30)
[2018-04-20] MEDS ORDERED: FENTAnyl 50 MCG/ML VIAL IV PRN ×3 (13:30)
[2018-04-20] MEDS ORDERED: EPHEDrine SULFATE 50 MG/5 ML SYG IV PRN (13:30)
--- NOTE | 2018-04-20 13:46 | HPN ---
Date/Time of Note Date/Time of Note DATE: 04/20/18 TIME: 13:45 Interval H&P Admission Note Pt. seen H&P reviewed: No system changes BLAINE MCGREGOR MD Apr 20, 2018 13:46
--- NOTE | 2018-04-20 13:50 | PAC ---
Date/Time of Note Date/Time of Note DATE: 04/20/18 TIME: 13:49 Post-Anesthesia Notes Post-Anesthesia Note Last documented vital signs Vital Signs Date Temp Pulse Resp B/P (MAP) Pulse Ox O2 O2 Flow FiO2 Time Delivery Rate 04/20/18 97.6 65 16 150/60 94 Room Air 13:57 (90) 04/19/18 2.0 13:45 04/19/18 21 01:31 Activity: WNL Respiratory function: WNL Cardiovascular function: WNL Mental status: Baseline Pain reasonably controlled: Yes Hydration appropriate: Yes Nausea/Vomiting absent: Yes APRIL COVARRUBIAS MD Apr 20, 2018 13:50
[2018-04-20] MEDS ORDERED: PROPOFOL 40 ML ONE (14:02)
[2018-04-20] MEDS ORDERED: EPOETIN 10000 UNITS/1 ML INJ (ESRD) SC SCH (17:00)
[2018-04-20] MEDS ORDERED: PSYL3.4P11 PO (17:02)
[2018-04-20] MEDS ORDERED: FER325 PO (17:02)
--- NOTE | 2018-04-20 17:08 | PDOCDIS ---
Discharge Instructions CONDITION [id number] Patient Condition: [id number] Stable HOME CARE INSTRUCTIONS: [id number] Diet Instructions: [id number] Reduced Calorie (1800 calorie ) [id number] Your diet recommendation is: [id number] dieta diabtica 1800 caloras con alto contenido de fibra. ACTIVITY: [id number] Activity Restrictions: [id number] Slowly Increase Activity Rest between Activity FOLLOW UP/APPOINTMENTS Follow-up Plan I stopped your Lisinopril because it could be contributing to your high potassium. Please let your Paying Teller know. Detuve tu lisinopril porque podra estar contribuyendo a tu alto nivel de potas io. Por favor, Hle saber a salter nefrlogo. 1. Followup with your primary doctor within the next 1-2 weeks. If you don't have one please let someone know, we can give you resources that may help you pick one. You may call Dr Armando Branham's office. he's accepting new patients 1. Siga con salter mdico de cabecera en las prximas 1-2 semanas. Si usted no tiene veda por favor Hle saber a alguien, podemos darle recursos que pueden ayudarle a elegir veda. Puede llamar a la oficina del Dr. armando Branham. l est aceptando nuevos pacientes Name, Degree: Armando Branham MD Specialty: Internal Medicine Comments: Office Address: [address] [place] [address] Office Office You may also call your insurance company to assign one to you. 2. Review your medication list with your nurse before leaving and if you need new prescriptions please let your nurse know. 2. Revise salter lista de medicamentos con salter enfermera antes de salir y si necesita recetas nuevas, por favor Hle saber a salter enfermera. 3. I may have made changes to your home medications or given you new prescriptions, please let your primary doctor know as well. 3. puede que haya hecho cambios en sindhu medicamentos caseros o le haya dado nuevas prescripciones, por favor Hle saber a salter mdico de mariposa betancourt. 4. Stay compliant with your medications and report any side effects to your PCP or pharmacist. 4. cumpla con sindhu medicamentos e informe de cualquier efecto secundario a salter PCP o farmacutico. 5. Return to the ER if you have any concerns and cannot reach your doctors or call your insurance company, they usually have a nurse that can help you. 5. Regrese a la ER si tiene alguna inquietud y no puede comunicarse con sindhu doctores o llamar a salter compaa de seguros, usualmente tienen jerry enfermera que puede ayudarlo. MERARY PULLIAM Apr 20, 2018 17:08
[2018-04-20] MEDS ORDERED: CANA1000R PR (17:09)
--- NOTE | 2018-04-20 17:12 | DS ---
Date/Time of Note Date/Time of Note DATE: 04/20/18 TIME: 17:10 Discharge Summary Admission/Discharge Info Admit Date/Time Apr 17, 2018 at 20:30 Discharge Date/Time Discharge Diagnosis 1. Lethargy and shortness of breath: Improved 2/2 #2 2. End-stage renal disease with uremia and hyperkalemia: resolved -Improved with dialysis 3. Diabetes mellitus type 2 4. Asymptomatic bradycardia: -Most likely related to electrolyte abnormalities. -Was noted only once during hemodialysis with no further episodes -ACS ruled out, no further intervention per cardio -last 2D echo January 2018 showed preserved ejection fraction without significant valvular abnormality and stage I diastolic dysfunction 5. Hypertension: good control 6. Coronary artery disease status post CABG 2008 7. Chronic dyslipidemia 8. History of CVA without residual effects 9. Chronic normocytic anemia stable secondary to ESRD 10. Right kidney mass diagnosed February 2018 concerning for cancer -reminded to followup with urology outpatient. -life insurance underwriter also notified 11. History of prostate cancer status post brachytherapy seeds, was noted to be in remission February 2008 12. Chronic liver cirrhosis secondary to hepatitis C -Status post treatment, hep C RNA negative and undetectable viral load February 2018 13. Rectal burning, diarrhea -s/p colonoscopy, showed only hemorrhoids, continue mesalamine suppositories PRN and maintain high fiber diet . Patient Condition: Stable Consults Nephrology: Markie Triana MD Gastroenterology: Ford Ortega MD Cardiology: Calixto Figueroa MD . Hospital Course This is a 63-year-old male who presented to ER with 3 day hx of lethargy, anxiety and SOB. He usually gets HD , , and he got dialysis on Wednesday but when he started having the symptoms, he knew his potassium levels were likely high. He was right and was found to be uremic and hyperkalemic. He was admitted, treated with hyperkalemia cocktail, eventually underwent hemodialysis. He had hemodialysis daily throughout his hospitalization. After his second session he was feeling much better. Incidentally happened to complain about rectal burning, which he been having on and off for a couple of months. He was also found to be anemic and had diarrhea until underwent colonoscopy that showed hemorrhoids. At this time he has been cleared by all specialties, he is feeling much better and is ambulance in the room. He will be discharged in stable condition. Of note is that the patient did have a renal mass that was diagnosed on his last admission, he was supposed to follow-up with urology, but he had told me no one ever referred him. I reminded him that he had to ask his primary care doctor to ensure the referral, I also notified life insurance underwriter the patient needed to be referred to urology for follow-up of this renal lesion. Other comorbidities were managed as per his medical records, for clarifications please review his chart. Patient has been evaluated in detail by myself today and is in stable condition for discharge. . Home Meds Active Scripts Mesalamine* (Canasa*) 1,000 Mg Supp, 1000 MG MS HS PRN for rectal pain or burning, #30 SUPP Prov:VALERIE PULLIAMEmmett Jose Luis. 04/20/18 Psyllium Husk (with Sugar) (Metamucil Packet) 3.4 Gm Powd.pack, 1 PKT PO DAILY, #30 PACKET 2 Refills Prov:MERARY PULLIAM. 04/20/18 Ferrous Sulfate* (Ferrous Sulfate*) 325 Mg Tabec, 325 MG PO BID, #60 TAB 3 Refills Prov:MERARY PULLIAM. 04/20/18 Hydrocodone/Acetaminophen ([place] 5-325 Tablet) 1 Each Tablet, 1 TAB PO Q6H PRN for PAIN, #7 TAB Prov:PRETTY SUE 04/05/18 Carvedilol* (Carvedilol*) 3.125 Mg Tablet, 3.125 MG PO BID, #60 TAB Prov:GUERDA LANTIGUA 09/12/17 Reported Medications Sevelamer Hcl* (Renagel*) 800 Mg Tablet, 800 MG PO WITH MEALS, TAB 09/10/17 Fluticasone Propionate* (Fluticasone Propionate* Nasal) 50 Mcg/[employer] - 16 Gm [employer].susp, 1 SPRAY NASAL BID, #1 BOTTLE TO EACH NOSTRIL 09/10/17 Alprazolam* (Alprazolam*) 0.25 Mg Tablet, 0.25 MG PO DAILY PRN for ANXIETY, TAB 02/27/17 Trazodone Hcl* (Trazodone Hcl*) 50 Mg Tablet, 50 MG PO QHS, #30 TAB 02/27/17 Sertraline Hcl* (Sertraline Hcl*) 25 Mg Tablet, 25 MG PO DAILY, #30 TAB 02/27/17 Clonidine Hcl* (Clonidine Hcl*) 0.1 Mg Tab, 0.1 MG PO BID, TAB 10/03/16 Glipizide* (Glipizide*) 5 Mg Tablet, 5 MG PO BID, TAB 05/22/15 Folic Acid/Vitamin B Comp W-C* (Nephro-Agatha Rx Tablet*) 1 Mg Tablet, 1 TAB PO DAILY, TAB 09/03/13 Aspirin* (Aspirin* EC) 81 Mg Tablet.dr, 81 MG PO DAILY, TAB 09/03/13 Simvastatin (Simvastatin) 20 Mg Tablet, 20 MG PO QHS 12/07/10 Discontinued Reported Medications Hydrocodone/Acetaminophen ([place] 5-325 Tablet) 1 Each Tablet, 1 EACH PO Q12H, TAB 02/27/17 Ferrous Sulfate* (Ferrous Sulfate*) 325 Mg Tablet, 325 MG PO DAILY 06/26/12 Discontinued Scripts Lisinopril* (Lisinopril*) 40 Mg Tablet, 40 MG PO DAILY, #30 TAB Prov:SHASHAMERARY 02/24/18 Follow-up Plan I stopped your Lisinopril because it could be contributing to your high potassium. Please let your Percussion Instructor know. Detuve tu lisinopril porque podra estar contribuyendo a tu alto nivel de potas io. Por favor, Hle saber a salter nefrlogo. 1. Followup with your primary doctor within the next 1-2 weeks. If you don't have one please let someone know, we can give you resources that may help you pick one. You may call Dr Armando Branham's office. he's accepting new patients 1. Siga con salter mdico de cabecera en las prximas 1-2 semanas. Si usted no tiene veda por favor Hle saber a alguien, podemos darle recursos que pueden ayudarle a elegir veda. Puede llamar a la oficina del Dr. armando Branham. l est aceptando nuevos pacientes Name, Degree: Armando Branham MD Specialty: Internal Medicine Comments: Office Address: [address] [place] [address] [address] [place] [address] Office Office You may also call your insurance company to assign one to you. 2. Review your medication list with your nurse before leaving and if you need new prescriptions please let your nurse know. 2. Revise salter lista de medicamentos con salter enfermera antes de salir y si necesita recetas nuevas, por favor Hle saber a salter enfermera. 3. I may have made changes to your home medications or given you new prescriptions, please let your primary doctor know as well. 3. puede que haya hecho cambios en sindhu medicamentos caseros o le haya dado nuevas prescripciones, por favor Hle saber a salter mdico de [place]. 4. Stay compliant with your medications and report any side effects to your PCP or pharmacist. 4. cumpla con sindhu medicamentos e informe de cualquier efecto secundario a salter PCP o farmacutico. 5. Return to the ER if you have any concerns and cannot reach your doctors or call your insurance company, they usually have a nurse that can help you. 5. Regrese a la ER si tiene alguna inquietud y no puede comunicarse con sindhu doctores o llamar a salter compaa de seguros, usualmente tienen jerry enfermera que puede ayudarlo. Primary Care Provider Not On Staff Doctor Time spent on discharge: > 30 minutes Pending Labs Laboratory Tests Test 04/19/18 20:51 04/20/18 02:08 04/20/18 05:16 04/20/18 07:54 Bedside 90 99 104 Glucose mg/dL (70-220) mg/dL (70-220) mg/dL (70-220) White Blood 7.2 Count 10^3/ul (4.8-1 0.8) Red Blood 3.38 Count 10^6/ul (4.70- 6.10) Hemoglobin 10.3 g/dl (14.0-18. 0) Hematocrit 31.2 % (42.0-52.0) Mean 92.3 Corpuscular fl (82.0-101.0 Volume ) Mean 30.5 Corpuscular pg (29.0-33.0) Hemoglobin Mean 33.0 Corpuscular g/dl (32.0-37. Hemoglobin Conc 0) ent Red Cell 14.4 Distribution % (11.5-14.5) Width Platelet Count 204 10^3/UL (140-4 15) Mean Platelet 10.0 Volume fl (7.4-10.4) Immature 0.400 Granulocytes % % (0.001-0.429 ) Neutrophils % 60.8 % (39.0-77.0) Lymphocytes % 17.9 % (15.0-51.0) Monocytes % 16.3 % (0.0-11.0) Eosinophils % 3.8 % (0.0-7.0) Basophils % 0.8 % (0.0-2.0) Nucleated Red 0.0 Blood Cells % /100WBC (0.0-0 .0) Immature 0.030 Granulocytes # 10^3/ul (0.0-0 .031) Neutrophils # 4.4 10^3/ul (1.6-7 .5) Lymphocytes # 1.3 10^3/ul (0.8-2 .9) Monocytes # 1.2 10^3/ul (0.3-0 .9) Eosinophils # 0.3 10^3/ul (0.0-0 .5) Basophils # 0.1 10^3/ul (0.0-0 .1) Nucleated Red 0.0 Blood Cells # 10^3/ul (0.0-0 .0) Sodium Level 137 mmol/L (135-14 4) Potassium 5.1 Level mmol/L (3.5-5. 1) Chloride Level 91 mmol/L (97-110 ) Carbon Dioxide 29 Level mmol/L (21-31) Anion Gap 17 (5-13) Blood Urea 39 Nitrogen mg/dl (7-20) Creatinine 6.48 mg/dl (0.61-1. 24) Est Glomerular 9 mL/min (>60) Filtrat Rate mL/min Glucose Level 103 mg/dl (70-220) Calcium Level 9.2 mg/dl (8.4-10. 2) Magnesium 2.1 Level mg/dl (1.7-2.5 ) Test 04/20/18 11:43 Bedside 108 Glucose mg/dL (70-220) SHASHA,BOLATITO M. Apr 20, 2018 17:12
[2018-04-20] MEDS ORDERED: MESALAMINE 1000 MG SUPP PR SCH (21:00)
== END 2018-04-20 18:17 | disposition home or self-care (01) | DRG 682 ==
LOC: E/R 16:42 → 6WM 20:30
PROVIDERS: ADMIT Family Medicine; ATTEND Family Medicine
PROC: 5A1D70Z Performance of Urinary Filtration, Intermittent, Less than 6 Hours Per Day (ICD-10-PCS; 2018-04-18)
PROC: 0DBP8ZX Excision of Rectum, Via Natural or Artificial Opening Endoscopic, Diagnostic (ICD-10-PCS; principal; 2018-04-20 17:30)
DX: I13.11 Hypertensive heart and chronic kidney disease without heart failure, with stage 5 chronic kidney disease, or end stage renal disease (principal); N18.6 End stage renal disease; E87.5 Hyperkalemia; I12.0 Hypertensive chronic kidney disease with stage 5 chronic kidney disease or end stage renal disease; E11.22 Type 2 diabetes mellitus with diabetic chronic kidney disease; Z99.2 Dependence on renal dialysis; K64.8 Other hemorrhoids; K62.7 Radiation proctitis; Z86.73 Personal history of transient ischemic attack (TIA), and cerebral infarction without residual deficits; Z95.1 Presence of aortocoronary bypass graft; E78.5 Hyperlipidemia, unspecified; K74.69 Other cirrhosis of liver; B19.20 Unspecified viral hepatitis C without hepatic coma; D63.1 Anemia in chronic kidney disease; N28.89 Other specified disorders of kidney and ureter; Z85.46 Personal history of malignant neoplasm of prostate; R19.7 Diarrhea, unspecified; R00.1 Bradycardia, unspecified; I44.1 Atrioventricular block, second degree; K62.89 Other specified diseases of anus and rectum
CPT/HCPCS: 36415; 71045; 80048; 80053; 82550; 82553; 82962; 83036; 83690; 83735; 84100; 84484; 85025; 87040; 87081; 87340; 88305; 90935; 93005; 94644; 94660; 96374; 96375; J1815; J2060; Q4081